=== PATIENT | male | born 1935 | race Caucasian/White ===

== ENCOUNTER 2016-12-04 18:06 | Inpatient (IN) | payer BC, OTHER ==
[~2016-12-04] VITALS: Ht 167.6 cm; Wt 56.8 kg
[~2016-12-04 18:06] MED LIST: CHOLTAB3 PO; CLTP PO; FESO8TAB PO; FLM4 PO; FOLI1TAB7 PO; LISI20TA3 PO; PSYL55.43; SIMV10TA2 PO
[2016-12-04] MEDS ORDERED: SODIUM CHLORIDE 0.9% 1000ML 1,000 ML IV STA (18:19)
--- NOTE | 2016-12-04 18:35 | DIAGNOSTIC IMAGING REPORT ---
CHEST ONE VIEW PORTABLE CLINICAL HISTORY: Weakness COMPARISON STUDY: 10/09/2014 FINDINGS: The cardiac and mediastinal contours remain stable. There is no failure. There is no focal pulmonary consolidation. There are no pleural effusions.[ IMPRESSION: No active disease in the chest. Electronically signed by: Lonny Bowden M.D. 12/04/2016 6:34 PM Dictated Date/Time: 12/04/2016 6:33 PM
[2016-12-04 19:04] LABS: BASO % 0.1 %; BASO ABS # 0.01 K/uL (0-0.2); COMPLETE YES; HEMATOCRIT 29.7 % (42-52); IG% 0.5 %; LYMPH % 11.2 %; LYMPH ABS # 0.93 K/uL (1.2-3.4); MEAN CELL VOLUME 90.5 fL (80-100); MEAN CORPUSCULAR HEMOGLOBIN 31.1 pg (25-34); MEAN CORPUSCULAR HGB CONC 34.3 g/dl (32-36); MEAN PLATELET VOLUME 10.1 fL (7.4-10.4); MONO % 11.8 %; NEUT % 76.4 %; PLATELET COUNT 403 K/uL (130-400); RED BLOOD COUNT 3.28 M/uL (4.7-6.1); WHITE BLOOD COUNT 8.31 K/uL (4.8-10.8)
[2016-12-04 19:11] LABS: URINE APPEARANCE CLEAR (CLEAR); URINE BILIRUBIN NEG (NEG); URINE COLOR YELLOW; URINE NITRITE NEG (NEG); URINE SPECIFIC GRAVITY 1.012 (1.000-1.030); UROBILINOGEN NEG (NEG)
[2016-12-04 19:13] LABS: PARTIAL THROMBOPLASTIN RATIO 1.1; PROTHROMBIN TIME (PATIENT) 11.2 SECONDS (9.0-12.0)
[2016-12-04] MEDS ORDERED: TAMS0.4C38 PO (19:19)
[2016-12-04] MEDS ORDERED: PLQ200 PO (19:22)
[2016-12-04] MEDS ORDERED: CHOL2000 PO (19:22)
[2016-12-04] MEDS ORDERED: FERR1TAB13 PO (19:22)
[2016-12-04] MEDS ORDERED: AMOX250C3 PO (19:22)
[2016-12-04 19:23] LABS: ALT/SGPT 30 U/L (12-78); BLOOD UREA NITROGEN 18 mg/dl (7-18); BUN/CREATININE RATIO 12.7 (10-20); CALCIUM 8.5 mg/dl (8.5-10.1); CARBON DIOXIDE 22 mmol/L (21-32); CHLORIDE 108 mmol/L (98-107); GLUCOSE 109 mg/dl (70-99); POTASSIUM 4.2 mmol/L (3.5-5.1); SODIUM 143 mmol/L (136-145)
[2016-12-04 19:34] LABS: ALKALINE PHOSPHATASE 69 U/L (45-117); AST/SGOT 26 U/L (15-37); CKMB/CK RATIO 1.1 (0-3.0)
[2016-12-04 19:42] LABS: MANUAL MICROSCOPIC REQUIRED? NO; REVIEW REQ? NO
[2016-12-04] MEDS ORDERED: METOPROLOL TARTRATE 1 MG/ML VIAL IV STA (20:08)
[2016-12-04] MEDS ORDERED: HEPARIN 25000 UNIT/500 ML D5W ONE (20:25)
[2016-12-04] MEDS ORDERED: METOPROLOL TARTRATE 50 MG TAB PO STA (21:10)
[2016-12-04] MEDS ORDERED: TAMSULOSIN HCL 0.4 MG CAP PO STA (21:13)
[2016-12-04] MEDS ORDERED: LORAZEPAM 2 MG/ML 1 ML VIAL IV PRN ×2 (21:15)
[2016-12-04] MEDS ORDERED: ALUMINUM/MAGNESIUM/SIMETH (MAALOX MAX) 30 ML UDC PO PRN (21:15)
[2016-12-04] MEDS ORDERED: BISACODYL 10 MG SUPP PR PRN (21:15)
[2016-12-04] MEDS ORDERED: ZOLPIDEM TARTRATE 5 MG TAB PO PRN ×2 (21:15)
[2016-12-04] MEDS ORDERED: METOPROLOL TARTRATE 1 MG/ML VIAL IV PRN (21:15)
[2016-12-04] MEDS ORDERED: ONDANSETRON INJ 2 MG/ML 2 ML VIAL IV PRN (21:15)
[2016-12-04] MEDS ORDERED: ACETAMINOPHEN 325 MG TAB PO PRN ×2 (21:15)
[2016-12-04] MEDS ORDERED: PROMETHAZINE HCL INJ 12.5 MG in SODIUM CHLORIDE 0.9% 50ML 50 ML IV PRN (21:15)
[2016-12-04] MEDS ORDERED: MAGNESIUM HYDROXIDE SUSP 30 ML UDC PO PRN (21:15)
[2016-12-04] MEDS ORDERED: MoRPHine SULFATE 4 MG/ML 1 ML CARP\\VIAL IV PRN (21:15)
[2016-12-04] MEDS ORDERED: NITROGLYCERIN 0.4 MG SL PER TAB CHARGE SL PRN (21:15)
[2016-12-04] MEDS ORDERED: DiphenhydrAMINE HCL 50 MG/ML VIAL IV PRN (21:15)
[2016-12-04] MEDS ORDERED: MoRPHine SULFATE 2 MG/ML CARP IV PRN (21:15)
[2016-12-04] MEDS ORDERED: LEVALBUTEROL 1.25MG/0.5ML NEB INH PRN (21:30)
[2016-12-04] MEDS ORDERED: IPRATROPIUM BROMIDE NEB SOLN 0.02% 2.5 ML VIAL INH PRN (21:30)
[2016-12-04] MEDS ORDERED: HEPARIN 25,000 UNIT/500ML D5W 500 ML IV PRN (21:45)
[2016-12-04 21:54] LABS: CKMB/CK RATIO 1.1 (0-3.0)
[2016-12-04 22:29] VITALS: BP 148/86; PULSE 77; TEMP 36.9; O2SAT 100
[2016-12-04] MEDS ORDERED: CEFTRIAXONE SOD INJ 1 GM in DEXTROSE 5% ADD-VANTAGE 50ML 50 ML IV SCH (22:30)
[2016-12-04 22:31] VITALS: Ht 167.6 cm; Wt 56.8 kg
[2016-12-04] MEDS: METHYLPREDNISOLONE IV 20 MG in SYRINGE 0 ML IV SCH (22:56)
[2016-12-04] MEDS ORDERED: LEVOFLOXACIN / D5W 500 MG in PREMIXED IN D5W 100 ML IV SCH (23:00)
[2016-12-04 23:21] VITALS: BP 134/76; PULSE 96; TEMP 36.9; O2SAT 99
[2016-12-05] VITALS (8 sets, daily range): BP systolic 129–141; BP diastolic 61–77; PULSE 66–86; TEMP 36.6–36.8; O2SAT 95–99
[2016-12-05] MEDS: IPRATROPIUM BROMIDE NEB SOLN 0.02% 2.5 ML VIAL INH SCH ×2 (01:52→07:09)
[2016-12-05] MEDS: LEVALBUTEROL 1.25MG/0.5ML NEB INH SCH ×2 (01:52→07:09)
--- NOTE | 2016-12-05 02:50 | EMERGENCY ROOM VISIT NOTE ---
History Report prepared by Shira: Isela Plunkett Under the Supervision of: Dr. Dominick Bowman M.D. 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 The patient states that both he and his have been having an ongoing cough the last few weeks. He states that he was seen by his PCP a few days ago but did not receive any prescriptions but was told to take some over the counter cold medication. He states that he has been coughing up mucous with his cough and felt increased weakness today causing him to come to be evaluated in the ED. He states he also experienced a subjective fever, some heart palpitations and SOB with exertion earlier this morning. EMS found the patient to be in atrial fibrillation but the patient has no history of this. Pt denies LOC, headache, diaphoresis, visual changes, neck pain, chest pain, nausea, vomiting, abdominal pain, back pain, melena, hematochezia, urinary symptoms, numbness, weakness, lymphadenopathy, rash, or other complaints. 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 A total of ten systems were reviewed and were otherwise negative. Past Medical & Surgical Medical Problems: (1) Atrial fibrillation with RVR (2) Prostate CA Surgical Problems: (1) S/P appendectomy (2) S/P small bowel resection Family History No pertient family history secondary to age. Social History Smoking Status: Never Smoker Marital Status: Housing Status: lives with significant other Occupation Status: retired Current/Historical Medications Scheduled Amoxicillin (Amoxil), 1 CAP PO TID Cholecalciferol (Vitamin D3), 1 CAP PO DAILY Ferrous Sulfate (Kp Ferrous Sulfate), 1 TAB PO BID Hydroxychloroquine Sulfate (Hydroxychloroquine Sulfat), 200 MG PO BID Lisinopril (Prinivil), 30 MG PO DAILY Simvastatin (Zocor), 10 MG PO QPM Tamsulosin Hcl (Flomax), 0.4 MG PO BID Allergies Coded Allergies: BEE STING (Unverified Allergy, Unknown, SWELLING AT SITE, 12/04/16) Physical Exam Vital Signs Date Time Temp Pulse Resp B/P Pulse Ox O2 Delivery O2 Flow Rate FiO2 12/04/16 20:38 108 18 174/103 97 Room Air 12/04/16 20:08 108 161/85 12/04/16 18:32 97 Nasal Cannula 2.0 12/04/16 18:17 116 12/04/16 18:14 36.7 113 18 154/80 97 Room Air 12/04/16 18:10 97 Nasal Cannula 2.0 Physical Exam GENERAL: Awake, alert, well-appearing, in no distress HENT: Normocephalic, atraumatic. Oropharynx unremarkable. EYES: Normal conjunctiva. Sclera non-icteric. NECK: Supple. No nuchal rigidity. FROM. No JVD. RESPIRATORY: Clear to auscultation. CARDIAC: Irregular and tachycardic. Extremities warm and well perfused. Pulses equal. ABDOMEN: Soft, non-distended. No tenderness to palpation. No rebound or guarding. No masses. RECTAL: Deferred. MUSCULOSKELETAL: Chest examination reveals no tenderness. The back is symmetrical on inspection without obvious abnormality. There is no CVA tenderness to palpation. No joint edema. LOWER EXTREMITIES: Calves are equal size bilaterally and non-tender. No edema. No discoloration. NEURO: Normal sensorium. No sensory or motor deficits noted. SKIN: No rash or jaundice noted. Medical Decision & Procedures ER Provider Diagnostic Interpretation: X-ray: Per my interpretation, radiologist review. CHEST ONE VIEW PORTABLE CLINICAL HISTORY: Weakness COMPARISON STUDY: 10/09/2014 FINDINGS: The cardiac and mediastinal contours remain stable. There is no failure. There is no focal pulmonary consolidation. There are no pleural effusions.[ IMPRESSION: No active disease in the chest. Electronically signed by: Lonny Bowden M.D. 12/04/2016 6:34 PM Dictated Date/Time: 12/04/2016 6:33 PM Laboratory Results 12/04/16 18:40 Red Blood Count 3.28, Mean Corpuscular Volume 90.5, Mean Corpuscular Hemoglobin 31.1, Mean Corpuscular Hemoglobin Concent 34.3, Mean Platelet Volume 10.1, Neutrophils (%) (Auto) 76.4, Lymphocytes (%) (Auto) 11.2, Monocytes (%) (Auto) 11.8, Eosinophils (%) (Auto) 0.0, Basophils (%) (Auto) 0.1, Neutrophils # (Auto ) 6.35, Lymphocytes # (Auto) 0.93, Monocytes # (Auto) 0.98, Eosinophils # (Auto ) 0.00, Basophils # (Auto) 0.01 12/04/16 18:40 Test 12/04/16 18:40 12/04/16 18:50 White Blood Count 8.31 K/uL (4.8-10.8) Red Blood Count 3.28 M/uL (4.7-6.1) Hemoglobin 10.2 g/dL (14.0-18.0) Hematocrit 29.7 % (42-52) Mean Corpuscular Volume 90.5 fL (80-100) Mean Corpuscular Hemoglobin 31.1 pg (25-34) Mean Corpuscular Hemoglobin Concent 34.3 g/dl (32-36) Platelet Count 403 K/uL (130-400) Mean Platelet Volume 10.1 fL (7.4-10.4) Neutrophils (%) (Auto) 76.4 % Lymphocytes (%) (Auto) 11.2 % Monocytes (%) (Auto) 11.8 % Eosinophils (%) (Auto) 0.0 % Basophils (%) (Auto) 0.1 % Neutrophils # (Auto) 6.35 K/uL (1.4-6.5) Lymphocytes # (Auto) 0.93 K/uL (1.2-3.4) Monocytes # (Auto) 0.98 K/uL (0.11-0.59) Eosinophils # (Auto) 0.00 K/uL (0-0.5) Basophils # (Auto) 0.01 K/uL (0-0.2) RDW Standard Deviation 39.7 fL (36.4-46.3) RDW Coefficient of Variation 12.0 % (11.5-14.5) Immature Granulocyte % (Auto) 0.5 % Immature Granulocyte # (Auto) 0.04 K/uL (0.00-0.02) Prothrombin Time 11.2 SECONDS (9.0-12.0) Prothromb Time International Ratio 1.0 (0.9-1.1) Anion Gap 13.0 mmol/L (3-11) Est Creatinine Clear Calc Drug Dose 33.9 ml/min Estimated GFR () 53.5 Estimated GFR (Non- 46.1 BUN/Creatinine Ratio 12.7 (10-20) Calcium Level 8.5 mg/dl (8.5-10.1) Magnesium Level 2.0 mg/dl (1.8-2.4) Total Bilirubin 0.4 mg/dl (0.2-1) Direct Bilirubin 0.2 mg/dl (0-0.2) Aspartate Amino Transf (AST/SGOT) 26 U/L (15-37) Alanine Aminotransferase (ALT/SGPT) 30 U/L (12-78) Alkaline Phosphatase 69 U/L (45-117) Total Protein 7.4 gm/dl (6.4-8.2) Albumin 3.2 gm/dl (3.4-5.0) Thyroid Stimulating Hormone (TSH) 1.040 uIu/ml (0.300-4.500) Urine Color YELLOW Urine Appearance CLEAR (CLEAR) Urine pH 7.0 (4.5-7.5) Urine Specific [place] 1.012 (1.000-1.030) Urine Protein NEG (NEG) Urine Glucose (UA) NEG (NEG) Urine Ketones NEG (NEG) Urine Occult Blood NEG (NEG) Urine Nitrite NEG (NEG) Urine Bilirubin NEG (NEG) Urine Urobilinogen NEG (NEG) Urine Leukocyte Esterase NEG (NEG) Laboratory results reviewed by me Medications Administered Medications (Trade) Dose Ordered Sig/Zeke Route Start Time Stop Time Status Last Admin Dose Admin Sodium Chloride (Nss 1000ml) 1,000 ml @ 125 mls/hr Q8H STAT IV 12/04/16 18:19 12/04/16 22:22 DC 12/04/16 18:19 125 MLS/HR Metoprolol Tartrate (Lopressor Iv) 5 mg NOW STAT IV 12/04/16 20:08 12/04/16 20:10 DC 12/04/16 20:08 5 MG Heparin Sodium/ Dextrose 1 ea NOW STAT N/A 12/04/16 20:09 12/04/16 20:11 DC 12/04/16 20:09 1 EA Heparin Sodium/ Dextrose (Heparin 25,000 Unit/500ml D5W) 25,000 unit STK-MED ONCE .ROUTE 12/04/16 20:25 12/04/16 20:26 DC 12/04/16 20:25 25,000 UNIT ECG Indication: other (cough) Rate (beats per minute): 105 Rhythm: atrial fibrillation (with RVR) Findings: no acute ischemic change, no ectopy ED Course 1817: The patient was evaluated in room B4B. A complete history and physical exam was performed. 1818: Ordered Sodium Chloride 1,000 ml @ 125 mls/hr IV. 2006:I discussed the case with Dr. Larry ERWIN Hospitalist. He agreed to evaluate the patient for further management and care. 2007: Ordered Heparin Sodium/ Dextrose 1 ea IV, Lopressor IV 5 mg IV. 2009: I updated the patient regarding his admission. Medical Decision Triage Nursing notes reviewed. The patient's presentation and history were concerning for weakness, shortness of breath, and new onset atrial fibrillation. Etiologies such as metabolic, infection, hypo/hyperglycemia, electrolyte abnormalities, cardiac sources, intracerebral event, toxicologic, neurologic, as well as others were entertained. The patient was evaluated. IV fluids were initiated. Chest x-ray was performed. ECG revealed new-onset A. fib without ischemic change. The rate was Borderline tachycardic. The patient had mild anemia on CBC. Urinalysis was unremarkable. Chemistry panel, cardiac markers, TSH and magnesium were normal. The patient was reassessed. He was doing well. The patient was given a dose of metoprolol. I did consult with internal medicine because of the new onset A. fib. He has likely been in this for several days. Dr. Tomer Juarez did ask for the patient be started on heparin. This was done. The patient was evaluated in the Emergency Room by Dr. Tomer Juarez for further treatment. The chart was completed utilizing [employer] voice recognition software. Grammatical errors, random word insertions, pronoun errors, and incomplete sentences are an occasional consequence of this system due to software limitations, ambient noise, and hardware issues. Any formal questions or concerns about the content, text, or information contained within the body of this dictation should be directly addressed to the physician for clarification. Consults Time Called: 2005 Consulting Physician: Dr. Larry ERWIN Hospitalist Returned Call: 2006 I discussed the case with Dr. Larry ERWIN Hospitalist. He agreed to evaluate the patient for further management and care. Impression Primary Impression: New onset atrial fibrillation Additional Impressions: Weakness Shortness of breath Scribe Attestation The scribe's documentation has been prepared under my direction and personally reviewed by me in its entirety. I confirm that the note above accurately reflects all work, treatment, procedures, and medical decision making performed by me. Departure Information Dispostion Being Evaluated By Hospitalist Referrals Blaze Cintron M.D. (PCP) Problem Qualifiers
[2016-12-05] MEDS ORDERED: LEVALBUTEROL/IPRATROPIUM NEB INH SCH (03:00)
--- NOTE | 2016-12-05 03:45 | History and Physical ---
History & Physical Date & Time of Service: Dec 05, 2016 at 03:32 Chief Complaint: Atrial Fibrillation With Rvr Primary Care Physician: Blaze Cintron M.D. History of Present Illness Source: patient, family, spouse The patient is an 81-year-old male presents emergency Department via ALS with complaint of an intermittent worsening cough over the past week prior to arrival. He was seen by his PCP a few days ago, was not giving any prescription medications, but was told takes no [id number] cold medication. His cough is been intermittently productive, and because of worsening weakness today he presented emergency department for assessment. He' s had palpitations and shortness of breath with exertion since earlier in the morning. When EMS first assessed the patient be found him to be in atrial fibrillation, which is a new diagnosis for the patient. Past Medical/Surgical History Medical Problems: (1) Prostate CA Status: Resolved Surgical Problems: (1) S/P appendectomy Status: Resolved (2) S/P small bowel resection Status: Resolved Family History No pertient family history secondary to age. Social History Smoking Status: Never Smoker Smokeless Tobacco Use: No Alcohol Use: none Drug Use: none Marital Status: Housing status: lives with family Occupational Status: retired Immunizations History of Influenza Vaccine: Yes History of Tetanus Vaccine?: Yes History of Pneumococcal: Yes Pneumococcal Date: Feb 07, 2008 History of Hepatitis B Vaccine: No Multi-Drug Resistant Organisms History of MDRO: No Allergies Coded Allergies: BEE STING (Unverified Allergy, Unknown, SWELLING AT SITE, 12/04/16) Home Medications Scheduled Amoxicillin (Amoxil), 1 CAP PO TID Cholecalciferol (Vitamin D3), 1 CAP PO DAILY Ferrous Sulfate (Kp Ferrous Sulfate), 1 TAB PO BID Hydroxychloroquine Sulfate (Hydroxychloroquine Sulfat), 200 MG PO BID Lisinopril (Prinivil), 30 MG PO DAILY Simvastatin (Zocor), 10 MG PO QPM Tamsulosin Hcl (Flomax), 0.4 MG PO BID Review of Systems The patient denies lower extremity swelling, vision change, hearing change, sore throat, fevers, chills, sweats, weight change, nausea, vomiting, abdominal pain, pelvic pain, blood in urine or stool, dysuria, lightheadedness, dizziness , headache, memory loss, rash, abnormal bruising or bleeding, imbalance, focal weakness, numbness or tingling in arms or legs, arthralgias or myalgias, back or neck pain, night sweats. The review of systems is otherwise negative other than for that already noted above, and at least 10 systems have been reviewed. Physical Exam Vital Signs Date Time Temp Pulse Resp B/P Pulse Ox O2 Delivery O2 Flow Rate FiO2 12/05/16 01:53 84 18 Room Air 12/05/16 00:00 99 Room Air 12/04/16 23:21 36.9 96 17 134/76 99 Room Air 12/04/16 22:29 36.9 77 16 148/86 100 Room Air 12/04/16 21:37 84 18 168/96 97 Room Air 12/04/16 20:38 108 18 174/103 97 Room Air 12/04/16 20:08 108 161/85 12/04/16 18:32 97 Nasal Cannula 2.0 12/04/16 18:17 116 12/04/16 18:14 36.7 113 18 154/80 97 Room Air 12/04/16 18:10 97 Nasal Cannula 2.0 The patient is awake, well-developed and adequately nourished, alert and oriented 3, normocephalic and atraumatic, lying in bed and in no acute distress. HEENT--PERRL, EOMI, mucous membranes moist, and oropharynx normal. Neck--supple, no JVD or bruits, thyroid normal, trachea midline, no adenopathy. Heart--- irregularly irregular and mildly tachycardic, no murmurs, rubs or gallops. Lungs--decreased breath sounds at left base that improves with cough, no respiratory distress, no accessory muscle use. Abdomen--normal bowel sounds and soft, nontender and nondistended, no hernias or masses, no organomegaly. Extremities--no cyanosis, clubbing or edema. There are good distal pulses b/l. Dermatologic--normal skin turgor, normal color, warm and dry, no abnormal lymph nodes, no rash. Neurologic--cranial nerves II through XII grossly intact, motor and sensory examination normal. Rheumatologic--normal range of motion, nontender, muscles and joints. Psychiatric--normal affect. Diagnostics Laboratory Results Results Past 24 Hours Test 12/04/16 18:40 12/04/16 18:50 12/04/16 21:20 12/05/16 02:34 Range/Units White Blood Count 8.31 4.8-10.8 K/uL Red Blood Count 3.28 4.7-6.1 M/uL Hemoglobin 10.2 14.0-18.0 g/dL Hematocrit 29.7 42-52 % Mean Corpuscular Volume 90.5 80-100 fL Mean Corpuscular Hemoglobin 31.1 25-34 pg Mean Corpuscular Hemoglobin Concent 34.3 32-36 g/dl Platelet Count 403 130-400 K/uL Mean Platelet Volume 10.1 7.4-10.4 fL Neutrophils (%) (Auto) 76.4 % Lymphocytes (%) (Auto) 11.2 % Monocytes (%) (Auto) 11.8 % Eosinophils (%) (Auto) 0.0 % Basophils (%) (Auto) 0.1 % Neutrophils # (Auto) 6.35 1.4-6.5 K/uL Lymphocytes # (Auto) 0.93 1.2-3.4 K/uL Monocytes # (Auto) 0.98 0.11-0.59 K/uL Eosinophils # (Auto) 0.00 0-0.5 K/uL Basophils # (Auto) 0.01 0-0.2 K/uL RDW Standard Deviation 39.7 36.4-46.3 fL RDW Coefficient of Variation 12.0 11.5-14.5 % Immature Granulocyte % (Auto) 0.5 % Immature Granulocyte # (Auto) 0.04 0.00-0.02 K/uL Prothrombin Time 11.2 9.0-12.0 SECONDS Prothromb Time International Ratio 1.0 0.9-1.1 Activated Partial Thromboplast Time 28.9 51.9 21.0-31.0 SECONDS Partial Thromboplastin Ratio 1.1 2.0 Sodium Level 143 136-145 mmol/L Potassium Level 4.2 3.5-5.1 mmol/L Chloride Level 108 98-107 mmol/L Carbon Dioxide Level 22 21-32 mmol/L Anion Gap 13.0 3-11 mmol/L Blood Urea Nitrogen 18 7-18 mg/dl Creatinine 1.40 0.60-1.40 mg/dl Est Creatinine Clear Calc Drug Dose 33.9 ml/min Estimated GFR () 53.5 Estimated GFR (Non- 46.1 BUN/Creatinine Ratio 12.7 10-20 Random Glucose 109 70-99 mg/dl Calcium Level 8.5 8.5-10.1 mg/dl Magnesium Level 2.0 1.8-2.4 mg/dl Total Bilirubin 0.4 0.2-1 mg/dl Direct Bilirubin 0.2 0-0.2 mg/dl Aspartate Amino Transf (AST/SGOT) 26 15-37 U/L Alanine Aminotransferase (ALT/SGPT) 30 12-78 U/L Alkaline Phosphatase 69 45-117 U/L Total Creatine Kinase 74 89 39-308 U/L Creatine Kinase MB 0.8 1.0 0.5-3.6 ng/ml Creatine Kinase MB Ratio 1.1 1.1 0-3.0 Troponin I < 0.015 < 0.015 0-0.045 ng/ml Total Protein 7.4 6.4-8.2 gm/dl Albumin 3.2 3.4-5.0 gm/dl Thyroid Stimulating Hormone (TSH) 1.040 0.300-4.500 uIu/ml Urine Color YELLOW Urine Appearance CLEAR CLEAR Urine pH 7.0 4.5-7.5 Urine Specific [place] 1.012 1.000-1.030 Urine Protein NEG NEG Urine Glucose (UA) NEG NEG Urine Ketones NEG NEG Urine Occult Blood NEG NEG Urine Nitrite NEG NEG Urine Bilirubin NEG NEG Urine Urobilinogen NEG NEG Urine Leukocyte Esterase NEG NEG Microbiology Results 12/04/16 Blood Culture, Received Pending 12/04/16 Blood Culture, Received Pending Diagnostic Radiology Patient Name: JONATHAN CADENA Unit Number: [id number] Dictated: 12/04/161832 Transcribed: 12/04/161832 ARG Printed Date/Time: [~ rep prt dt]/[~ rep prt tm] [~ rep ct labl] - [~ rep ct ivnm] [facility] [place] [address] Dictated: 12/04/161832 Transcribed: 12/04/161832 ARG Printed Date/Time: [~ rep prt dt]/[~ rep prt tm] [~ rep ct labl] - [~ rep ct ivnm] CHEST ONE VIEW PORTABLE CLINICAL HISTORY: Weakness COMPARISON STUDY: 10/09/2014 FINDINGS: The cardiac and mediastinal contours remain stable. There is no failure. There is no focal pulmonary consolidation. There are no pleural effusions.[ IMPRESSION: No active disease in the chest. Electronically signed by: Lonny Bowden M.D. 12/04/2016 6:34 PM Dictated Date/Time: 12/04/2016 6:33 PM The status of this report is Signed. Draft = Not yet reviewed or approved by Radiologist. Signed = Reviewed and approved by Radiologist. <AttendingPhy></AttendingPhy> <FamilyPhy>Blaze Cintron M.D.</FamilyPhy > <PrimaryPhy>Blaze Cintron M.D.</PrimaryPhy> <UnitNumber>[id number]</ UnitNumber> <VisitNumber>[id number]</VisitNumber> <PatientName>JONATHAN CADENA< /PatientName> <DateOfBirth>1935</DateOfBirth> <Location>C.EDB</Location> < ServiceDate>12/04/16</ServiceDate> <MNE>ESINDI</MNE> <OrderingPhy>Dominick Bowman MD</OrderingPhy> <OrderingPhyMNE>f rep ord dr claire</OrderingPhyMNE> < DictatingPhyMNE>f rep dict dr claire</DictatingPhyMNE> <CCListMNE>f rep ct [place]</ CCListMNE> <AdmittingPhyMNE>f pt admit dr claire</AdmittingPhyMNE> <AttendingPhyMNE >f pt attend dr claire</AttendingPhyMNE> <ConsultingPhyMNE>f pt consult dr claire</ConsultingPhyMNE> <FamilyPhyMNE>f pt fam dr claire</FamilyPhyMNE> <OtherPhyMNE>f pt other dr claire</OtherPhyMNE> < PrimaryPhyMNE>f pt prim care dr claire</PrimaryPhyMNE> <ReferringPhyMNE>f pt referring dr claire</ReferringPhyMNE> EKG EKG shows atrial fibrillation at 105 bpm, with no acute ST-T changes. Impression Assessment and Plan New onset atrial fibrillation with rapid ventricular response--the patient be admitted to the telemetry unit for serial cardiac enzymes, cardiac rhythm monitoring, and a 2-D echocardiogram with Dopplers. We'll give him metoprolol tartrate 50 mg by mouth now, and 50 mg by mouth every 8 hours with hold parameters. We'll start heparin drip weight-based per protocol without bolus. We'll consult cardiology to see patient in a.m. this is likely the cause of his fatigue. We will hold lisinopril 30 mg by mouth daily. Prostate cancer/urinary urgency--urinalysis and urine cultures pending will need follow-up. We'll change tamsulosin 0.4 mg by mouth twice a day to 0.8 mg by mouth at bedtime, with first dose tonight. Upper respiratory infection/early left lower lobe pneumonia--start Solu-Medrol 20 mg IV every 8 hours, ceftriaxone 1 g IV daily, levofloxacin 500 mg IV every 24 hours, guaifenesin extended release 600 mg by mouth twice a day, and Xopenex at that for nebulizers every 6 hours while awake and every 2 hours when necessary. Arthritis--continue hydroxychloroquine sulfate 200 mg by mouth twice a day. Hypercholesterolemia--continue simvastatin 10 mg by mouth every afternoon. Level of Care Telemetry Advanced Directives Existing Advance Directive: No Existing Living Will: No Existing Power of Architectural Draftsman: No Resuscitation Status FULL RESUSCITATION VTE Prophylaxis VTE Risk Assessment Done? Y/N: Yes Risk Level: Moderate Given or contraindicated: Unfractionated heparin SQ Social Service Consult None Apply
[2016-12-05 05:09] LABS: HEMATOCRIT 29.7 % (42-52); MEAN CELL VOLUME 90.5 fL (80-100); MEAN CORPUSCULAR HEMOGLOBIN 31.1 pg (25-34); MEAN CORPUSCULAR HGB CONC 34.3 g/dl (32-36); MEAN PLATELET VOLUME 9.8 fL (7.4-10.4); PLATELET COUNT 406 K/uL (130-400); RED BLOOD COUNT 3.28 M/uL (4.7-6.1); WHITE BLOOD COUNT 7.82 K/uL (4.8-10.8)
[2016-12-05 05:31] LABS: BASO % 0.1 %; BASO ABS # 0.01 K/uL (0-0.2); COMPLETE YES; IG% 0.6 %; LYMPH % 11.9 %; LYMPH ABS # 0.93 K/uL (1.2-3.4); MONO % 2.6 %; NEUT % 84.8 %
[2016-12-05 05:38] LABS: BLOOD UREA NITROGEN 17 mg/dl (7-18); CALCIUM 8.6 mg/dl (8.5-10.1); CARBON DIOXIDE 26 mmol/L (21-32); CHLORIDE 108 mmol/L (98-107); GLUCOSE 144 mg/dl (70-99); POTASSIUM 4.3 mmol/L (3.5-5.1); SODIUM 141 mmol/L (136-145)
[2016-12-05] MEDS: METHYLPREDNISOLONE IV 20 MG in SYRINGE 0 ML IV SCH (05:42)
[2016-12-05 05:43] LABS: CKMB/CK RATIO 1.8 (0-3.0)
[2016-12-05] MEDS ORDERED: METOPROLOL TARTRATE 50 MG TAB PO SCH ×2 (06:00→20:00)
[2016-12-05] MEDS ORDERED: PERFLUTREN LIPID MICROSPHERE (DEFINITY) IV ONE (07:07)
[2016-12-05] MEDS ORDERED: FERROUS SULFATE 325 MG TAB PO SCH (07:30)
[2016-12-05] MEDS ORDERED: GUAIFENESIN SUGAR FREE 200 MG/10 ML UDC PO PRN (08:15)
[2016-12-05] MEDS ORDERED: CHOLECALCIFEROL 1000 INTER.UNIT TAB PO SCH (09:00)
[2016-12-05] MEDS ORDERED: HYDROXYCHLOROQUINE SULFATE 200 MG TAB PO SCH (09:00)
[2016-12-05] MEDS ORDERED: GUAIFENESIN 600 MG TABCR PO SCH (09:00)
[2016-12-05] MEDS ORDERED: DOCUSATE SODIUM 100 MG CAP PO SCH (09:00)
--- NOTE | 2016-12-05 10:31 | ECHOCARDIOGRAM REPORT ---
*NOTICE TO RECEIVING [employer] This information is strictly Confidential and protected under [place] law. [place] law prohibits you from making any further disclosure of this information unless further disclosure is expressly permitted by the written consent of the person to whom it pertains or is authorized by law. A general authorization for the release of medical or other information is not sufficient for this purpose. Hospital accepts no responsibility if the information is made available to any other person, INCLUDING THE PATIENT. Interpretation Summary * Name: JONATHAN CADENA Study Date: 12/05/2016 06:37 AM BP: 141/71 mmHg * Patient Location: C.2T\S\S244\S\1 HR: 66 * : 1935 (M/d/yyyy) Gender: Male Height: 66 in * Age: 81 yrs Ethnicity: CA Weight: 132 lb * Ordering Physician: Tomer Juarez * Referring Physician: Self, Referred * Performed By: Robyn Barrera RDCS * * Reason For Study: AFIB * BSA: 1.7 m2 * History: AFIB * -- Conclusions -- * 1. Normal left ventricular size with low normal systolic function. EF 50-55%. No regional wall motion abnormalities. No left ventricular hypertrophy. * 2. There is mild to moderate mitral regurgitation. * 3. Aortic valve sclerosis mild, without significant aortic valvular stenosis. Trace aortic regurgitation. * 4. Rhythm is sinus. * 5. Normal estimated right ventricular systolic pressure; RVSP 24 mmHg. * 6. Technically difficult study, enhanced with IV Definity. * 7. Compared to prior study on 07/21/2011, LV systolic function is now low-normal. Procedure Details * A complete two-dimensional transthoracic echocardiogram was performed (2D, M-mode, Doppler and color flow Doppler). * A contrast injection of Definity was performed to improve assessment of LV function. * Contrast was injected into an intravenous site in the left arm. * One vial of Definity ultrasound contrast was diluted in normal saline to a total volume of 10 ml. A total of '2' ml of solution was administered during imaging. * Lot # [id number] of Definity utilized for procedure. * Expiration date OCT 23. * The attending nurse who injected the contrast agent was RANDAL FORD RN. Left Ventricle * Normal left ventricular size with low normal systolic function. EF 50-55%. No regional wall motion abnormalities. No left ventricular hypertrophy. Right Ventricle * The right ventricle is normal in size and function. * The right ventricular systolic function is normal as assessed by tricuspid annular plane systolic excursion (TAPSE) (normal >1.5 cm). Atria * The left atrial size is normal. * Right atrial size is normal. * There is no evidence of atrial septal defect, but resolution does not allow assessment for a patent foramen ovale. Mitral Valve * The mitral valve is grossly normal. * There is no mitral valve stenosis. * There is mild to moderate mitral regurgitation. Tricuspid Valve * The tricuspid valve is not well visualized, but is grossly normal. * There is no tricuspid stenosis. * There is mild tricuspid regurgitation. Aortic Valve * The aortic valve is trileaflet. * Aortic valve sclerosis mild, without significant aortic valvular stenosis. * No hemodynamically significant valvular aortic stenosis. * Trace aortic regurgitation. Pulmonic Valve * The pulmonary valve is inadequately visualized, but the Doppler data is adequate for interpretation. * There is no pulmonic valvular stenosis. * There is no significant pulmonary regurgitation. Great Vessels * The aortic root is normal size. * Normal pulmonary venous flow pattern. Pericardium/Pleural * There is no pericardial effusion. Great Vessels * Normal IVC size with reduced inspiratory collapse. MMode 2D Measurements and Calculations IVSd 0.85 cm IVSs 1.0 cm LVIDd 4.4 cm LVIDs 3.3 cm LVPWd 0.96 cm LVPWs 1.4 cm IVS/LVPW 0.88 FS 25.8 % EDV(Teich) 89.3 ml ESV(Teich) 43.7 ml EF(Teich) 51.0 % EDV(cubed) 87.1 ml ESV(cubed) 35.5 ml EF(cubed) 59.2 % % IVS thick 22.3 % % LVPW thick 41.9 % LV mass(C)d 131.1 grams LV mass(C)dI 78.2 grams/m\S\2 LV mass(C)s 124.9 grams LV mass(C)sI 74.5 grams/m\S\2 SV(Teich) 45.5 ml SI(Teich) 27.1 ml/m\S\2 SV(cubed) 51.6 ml SI(cubed) 30.8 ml/m\S\2 Ao root diam 3.5 cm Ao root area 9.5 cm\S\2 LA dimension 3.8 cm LA/Ao 1.1 LVAd ap4 27.6 cm\S\2 LVLd ap4 7.8 cm EDV(MOD-sp4) 78.7 ml EDV(sp4-el) 83.0 ml LVAs ap4 17.3 cm\S\2 LVLs ap4 6.4 cm ESV(MOD-sp4) 39.7 ml ESV(sp4-el) 39.6 ml EF(MOD-sp4) 49.6 % EF(sp4-el) 52.3 % LVAd ap2 27.2 cm\S\2 LVLd ap2 7.4 cm EDV(MOD-sp2) 81.5 ml EDV(sp2-el) 85.4 ml LVAs ap2 15.4 cm\S\2 LVLs ap2 6.0 cm ESV(MOD-sp2) 33.6 ml ESV(sp2-el) 33.2 ml EF(MOD-sp2) 58.7 % EF(sp2-el) 61.1 % LVLd %diff -6.12 % EDV(MOD-bp) 80.9 ml LVLs %diff -6.40 % ESV(MOD-bp) 36.8 ml EF(MOD-bp) 54.4 % SV(MOD-sp4) 39.0 ml SI(MOD-sp4) 23.3 ml/m\S\2 SV(MOD-sp2) 47.9 ml SI(MOD-sp2) 28.6 ml/m\S\2 SV(MOD-bp) 44.0 ml SI(MOD-bp) 26.2 ml/m\S\2 SV(sp4-el) 43.4 ml SI(sp4-el) 25.9 ml/m\S\2 SV(sp2-el) 52.2 ml SI(sp2-el) 31.1 ml/m\S\2 Doppler Measurements and Calculations MV E max bonnie 71.8 cm/sec MV A max bonnie 58.7 cm/sec MV E/A 1.2 MV dec time 0.24 sec Ao V2 max 112.2 cm/sec Ao max PG 5.0 mmHg Ao max PG (full) 2.3 mmHg LV V1 max PG 2.8 mmHg LV V1 max 83.4 cm/sec TR max bonnie 196.8 cm/sec RVSP(TR) 23.5 mmHg RAP systole 8.0 mmHg
--- NOTE | 2016-12-05 11:37 | CARDIOLOGY CONSULTATION ---
DATE OF CONSULTATION: 12/05/2016 TIME: 10:31 a.m. CONSULTING PHYSICIAN: Dr. Juarez. REASON FOR CONSULTATION: Atrial fibrillation with rapid ventricular response. HISTORY OF PRESENT ILLNESS: Mr. Quintero is a very pleasant 81-year-old gentleman with a history significant for hypertension who presented to [facility] on 12/04/2016 with worsening cough and decreased energy. His is recently with cough over the past 1 week. He had similar symptoms, coughing up sputum and overall feeling unwell. No documented fevers or chills, however. Yesterday because symptoms were worsening, he called for an ambulance and came to the Emergency Room for further evaluation. He has been placed on medication as an outpatient as well for his symptoms. In the Emergency Department, he was noted to be in atrial fibrillation with a rapid ventricular response and was placed on beta-altaf therapy as well as heparin drip for anticoagulation. He denied palpitations but states that once he was told that his heart rate was fast he thought that perhaps he could feel something. All in all; however, he was rather asymptomatic from his atrial fibrillation. At 5:45 a.m. he spontaneously converted to sinus rhythm. Just prior to that at 5:21 he developed atrial flutter with 2:1 AV block and then after converting to sinus rhythm at 6:28 a.m. he appeared to have an episode of atrial tachycardia that lasted approximately 1 minute before resuming sinus rhythm. He appeared to be asymptomatic for all of these issues. He still does not feel well despite being in sinus rhythm. He still coughs and has sputum production. He was unable to sleep throughout the night. He denies chest pain, shortness of breath, syncope, near syncope, orthopnea, PND, edema, bleeding such as melena, hematochezia, hematuria. He denies abdominal pain, nausea, vomiting. He lives an active lifestyle and denies exertional symptoms. REVIEW OF SYSTEMS: As above and other review of systems is otherwise negative. PAST MEDICAL HISTORY: 1. Hypertension. 2. Prostate cancer. 3. Status post small-bowel resection in the 1950s. 4. Status post appendectomy. 5. Status post dyslipidemia. 6. Carotid artery stenosis. 7. Prediabetes. 8. Osteoporosis. 9. Rheumatoid arthritis. HOME MEDICATIONS: Include 1. Amoxicillin 500 mg t.i.d. started on 11/29/2016. 2. Hydroxychloroquine 200 mg twice daily. 3. Lisinopril 30 mg daily. 4. Simvastatin 10 mg daily. 5. Tamsulosin 0.4 mg 2 capsules daily. INPATIENT MEDICATIONS: Include heparin drip per protocol, ceftriaxone 1 gram IV q. 24 hours, Plaquenil 200 mg b.i.d., levofloxacin 500 mg IV q. 24 hours, metoprolol tartrate 50 mg p.o. q. 12 hours, methylprednisolone 20 mg IV q. 8 hours, simvastatin 10 mg daily, Flomax 0.8 mg at bedtime. ALLERGIES: BEE STINGS. No known drug allergies. SOCIAL HISTORY: Quit smoking in 1950. No significant alcohol. No drugs. He is and lives with his . Six children. Grandchildren. 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 He is unaccompanied in his room. FAMILY HISTORY: No known premature CAD. PHYSICAL EXAMINATION: VITAL SIGNS: Temperature 36.8 degrees, heart rate 66 beats per minute, respiration rate 16, blood pressure 141/71 mmHg, oxygen saturation 99% on room air. Weight 56.8 kg. GENERAL: In no acute distress, alert and oriented. HEENT: Anicteric sclerae. NECK: No appreciable JVD. No significant carotid bruits. Normal carotid upstrokes bilaterally. CARDIAC EXAM: PMI nondisplaced. There was no ventricular heave. Regular, normal S1, S2. No audible murmurs, rubs or gallops. LUNGS: Clear to auscultation bilaterally without wheezes, rales or rhonchi. ABDOMEN: Soft, nontender, nondistended. Normoactive bowel sounds. EXTREMITIES: No cyanosis or pitting edema. 2+ radial pulses bilaterally. 2+ dorsalis pedis pulses bilaterally. No palpable cords. PSYCHIATRIC: Affect appears appropriate. LABORATORY DATA: Sodium 141, potassium 4.3, BUN 17, creatinine 1.4, magnesium 2. Troponin undetectable. TSH 1.04. White blood cell count 7.8, hemoglobin 10.2, platelets 406. INR was 1, PTT 52. ECG upon presentation personally reviewed demonstrated atrial fibrillation versus atrial flutter with rapid ventricular response at 105 beats per minute. Repeat ECG this morning demonstrated sinus rhythm at 60 beats per minute. Possible septal infarct. Telemetry personally reviewed as noted above. Chest x-ray image upon presentation personally reviewed. No obvious infiltrates. Radiology has interpreted this as no active disease in the chest. ASSESSMENT AND PLAN: 1. Paroxysmal atrial fibrillation/atrial flutter: This is a new diagnosis for him. He was rather asymptomatic. Agree with metoprolol 50 mg twice daily for now. This can be titrated if necessary. We discussed the diagnosis in detail with the help of a diagram. Treatment strategies were discussed such as rate control, rhythm control and ablation. If rate control strategy fails, would then consider rhythm control strategy. We also discussed anticoagulation for stroke risk reduction. He is agreeable. He does have an elevated CHADS2-VASc score. Can discharge on Eliquis 5 mg twice daily. We did discuss the newer agents versus warfarin. Risks and benefits of anticoagulation therapy discussed with them. 2. Mitral regurgitation: Not severe. This can be followed over time. 3. Hypertension: Metoprolol was recently started. Continue metoprolol and can restart lisinopril when okay with the hospitalist service. 4. Upper respiratory infection: Admitting physician is concerned for left lower lobe pneumonia. He has been started on antibiotic therapy as per primary service. He and his had similar symptoms, and although she has improved, he has not. He was on amoxicillin as an outpatient. 5. Disposition: No further cardiac evaluation necessary at this time as he is currently in sinus rhythm. If he should have recurrent atrial arrhythmias, please do not hesitate to notify cardiology. Otherwise, he can follow up in cardiology in the next few months. Our office will call him to help arrange his appointment in regards to follow up for atrial fibrillation/flutter. Plan of care was discussed with Dr. Cobian. Thank you for allowing me to participate in care of Mr. Quintero.
[2016-12-05] MEDS ORDERED: APIXABAN 2.5 MG TAB PO SCH (12:00)
[2016-12-05] MEDS ORDERED: LEVO-366 PO (12:05)
[2016-12-05] MEDS ORDERED: PRED20TA PO (12:05)
[2016-12-05] MEDS ORDERED: METO50TA17 PO (12:05)
[2016-12-05] MEDS ORDERED: ELQ25 PO (12:05)
--- NOTE | 2016-12-05 12:09 | Discharge Instructions ---
Discharge Instructions Admission Reason for Admission: Atrial Fibrillation With Rvr Discharge Discharge Diagnosis / Problem: afib, bronchitis Discharge Goals Goal(s): Increase independence, Improve disease control Activity Recommendations Activity Limitations: per Instructions/Follow-up section . Instructions / Follow-Up Instructions / Follow-Up . . start metoprolol, eliquis, levaquin tonight start prednisone tomorrow morning for 4 days avoid strenous activity for 1-2 weeks follow up cards 1 month follow up PCP 2 weeks . . Current Hospital Diet Patient's current hospital diet: AHA Diet (Heart Healthy) Discharge Diet Recommended Diet: AHA Diet (Heart Healthy) Pending Studies Studies pending at discharge: no Laboratory Results Last 24 Hours Test 12/04/16 18:40 12/04/16 18:50 12/04/16 21:20 12/05/16 02:34 White Blood Count 8.31 K/uL Red Blood Count 3.28 M/uL Hemoglobin 10.2 g/dL Hematocrit 29.7 % Mean Corpuscular Volume 90.5 fL Mean Corpuscular Hemoglobin 31.1 pg Mean Corpuscular Hemoglobin Concent 34.3 g/dl Platelet Count 403 K/uL Mean Platelet Volume 10.1 fL Neutrophils (%) (Auto) 76.4 % Lymphocytes (%) (Auto) 11.2 % Monocytes (%) (Auto) 11.8 % Eosinophils (%) (Auto) 0.0 % Basophils (%) (Auto) 0.1 % Neutrophils # (Auto) 6.35 K/uL Lymphocytes # (Auto) 0.93 K/uL Monocytes # (Auto) 0.98 K/uL Eosinophils # (Auto) 0.00 K/uL Basophils # (Auto) 0.01 K/uL RDW Standard Deviation 39.7 fL RDW Coefficient of Variation 12.0 % Immature Granulocyte % (Auto) 0.5 % Immature Granulocyte # (Auto) 0.04 K/uL Prothrombin Time 11.2 SECONDS Prothromb Time International Ratio 1.0 Activated Partial Thromboplast Time 28.9 SECONDS 51.9 SECONDS Partial Thromboplastin Ratio 1.1 2.0 Sodium Level 143 mmol/L Potassium Level 4.2 mmol/L Chloride Level 108 mmol/L Carbon Dioxide Level 22 mmol/L Anion Gap 13.0 mmol/L Blood Urea Nitrogen 18 mg/dl Creatinine 1.40 mg/dl Est Creatinine Clear Calc Drug Dose 33.9 ml/min Estimated GFR () 53.5 Estimated GFR (Non- 46.1 BUN/Creatinine Ratio 12.7 Random Glucose 109 mg/dl Calcium Level 8.5 mg/dl Magnesium Level 2.0 mg/dl Total Bilirubin 0.4 mg/dl Direct Bilirubin 0.2 mg/dl Aspartate Amino Transf (AST/SGOT) 26 U/L Alanine Aminotransferase (ALT/SGPT) 30 U/L Alkaline Phosphatase 69 U/L Total Creatine Kinase 74 U/L 89 U/L Creatine Kinase MB 0.8 ng/ml 1.0 ng/ml Creatine Kinase MB Ratio 1.1 1.1 Troponin I < 0.015 ng/ml < 0.015 ng/ml Total Protein 7.4 gm/dl Albumin 3.2 gm/dl Thyroid Stimulating Hormone (TSH) 1.040 uIu/ml Urine Color YELLOW Urine Appearance CLEAR Urine pH 7.0 Urine Specific [place] 1.012 Urine Protein NEG Urine Glucose (UA) NEG Urine Ketones NEG Urine Occult Blood NEG Urine Nitrite NEG Urine Bilirubin NEG Urine Urobilinogen NEG Urine Leukocyte Esterase NEG Test 12/05/16 05:00 White Blood Count 7.82 K/uL Red Blood Count 3.28 M/uL Hemoglobin 10.2 g/dL Hematocrit 29.7 % Mean Corpuscular Volume 90.5 fL Mean Corpuscular Hemoglobin 31.1 pg Mean Corpuscular Hemoglobin Concent 34.3 g/dl Platelet Count 406 K/uL Mean Platelet Volume 9.8 fL Neutrophils (%) (Auto) 84.8 % Lymphocytes (%) (Auto) 11.9 % Monocytes (%) (Auto) 2.6 % Eosinophils (%) (Auto) 0.0 % Basophils (%) (Auto) 0.1 % Neutrophils # (Auto) 6.63 K/uL Lymphocytes # (Auto) 0.93 K/uL Monocytes # (Auto) 0.20 K/uL Eosinophils # (Auto) 0.00 K/uL Basophils # (Auto) 0.01 K/uL RDW Standard Deviation 39.5 fL RDW Coefficient of Variation 12.1 % Immature Granulocyte % (Auto) 0.6 % Immature Granulocyte # (Auto) 0.05 K/uL Sodium Level 141 mmol/L Potassium Level 4.3 mmol/L Chloride Level 108 mmol/L Carbon Dioxide Level 26 mmol/L Anion Gap 7.0 mmol/L Blood Urea Nitrogen 17 mg/dl Creatinine 1.40 mg/dl Est Creatinine Clear Calc Drug Dose 32.5 ml/min Estimated GFR () 53.5 Estimated GFR (Non- 46.1 BUN/Creatinine Ratio 12.0 Random Glucose 144 mg/dl Calcium Level 8.6 mg/dl Magnesium Level 2.0 mg/dl Total Creatine Kinase 83 U/L Creatine Kinase MB 1.5 ng/ml Creatine Kinase MB Ratio 1.8 Troponin I < 0.015 ng/ml Medical Emergencies . Who to Call and When: Medical Emergencies: If at any time you feel your situation is an emergency, please call 911 immediately. . Non-Emergent Contact Non-Emergency issues call your: Primary Care Provider Call Non-Emergent contact if: your pain is not controlled . Past History Medical & Surgical History: (1) Bronchitis (2) Atrial fibrillation with RVR . "Provider Documentation" section prepared by Scott Cobian. VTE Core Measure Inpt VTE Proph given/why not?: Unfractionated heparin SQ
--- NOTE | 2016-12-05 12:11 | Discharge Summary ---
Discharge Summary Admission Date: Dec 04, 2016 at 21:06 Discharge Date: Dec 05, 2016 Discharge Disposition: Home Principal Diagnosis: afib, bronchitis Immunizations: Have You Had Influenza Vaccine: Yes History of Tetanus Vaccine?: Yes History of Pneumococcal: Yes Pneumococcal Date: Feb 07, 2008 History of Hepatitis B Vaccine: No Consultations: cards Medication Reconciliation New Medications: Levofloxacin (Levaquin) 500 Mg Tab 500 MG PO DAILY for 5 Days, #5 TAB Prednisone (Prednisone) 20 Mg Tab 2 TAB PO DAILY, #8 TAB take 2 tab daily for 4 days, then stop Apixaban (Eliquis) 2.5 Mg Tab 5 MG PO BID, #90 TAB 2 Refills Metoprolol Tartrate (Metoprolol Tartrate) 50 Mg Tab 50 MG PO Q12H, #90 TAB 3 Refills Continued Medications: Cholecalciferol (Vitamin D3) 2,000 Unit Cap 1 CAP PO DAILY, CAP 3 Refills Ferrous Sulfate (Kp Ferrous Sulfate) 325 Mg Tab 1 TAB PO BID, TAB 3 Refills Hydroxychloroquine Sulfate (Hydroxychloroquine Sulfat) 200 Mg Tab 200 MG PO BID Lisinopril (Prinivil) 20 Mg Tab 30 MG PO DAILY, TAB Simvastatin (Zocor) 10 Mg Tab 10 MG PO QPM, TAB Tamsulosin Hcl (Flomax) 0.4 Mg Cap 0.4 MG PO BID, CAP Discontinued Medications: Amoxicillin (Amoxil) 250 Mg Cap 1 CAP PO TID for 7 Days, #21 CAP Referrals At Discharge Follow up Referrals: Speedboat Operator Referral - Within a Month with Rafael Monge MD Physician Referral - Within 2 Weeks with Blaze Cintron M.D. Discharge Exam Review of Systems: Constitutional: No chills ENT: No unusual epistaxis Respiratory: No sputum Cardiovascular: No orthopnea Abdomen: No nausea Genitourinary - Male: No hematuria, No urinary frequency Neurologic: No memory loss, No weakness Endocrine: No fatigue Integumentary: No rash Physical Exam: General Appearance: WD/WN, no apparent distress Eyes: normal inspection, EOMI ENT: hearing grossly normal, pharynx normal Neck: supple, no JVD Respiratory/Chest: chest non-tender, normal breath sounds Cardiovascular: regular rate, rhythm, no gallop Abdomen / GI: normal bowel sounds, soft Extremities: normal inspection, normal capillary refill Neurologic/Psychiatric: alert, normal mood/affect Skin: normal color, warm/dry Hospital Course A 81 yo male comes with New onset atrial fibrillation with rapid ventricular response was admitted to the telemetry unit for serial cardiac enzymes, cardiac rhythm monitoring, and a 2-D echocardiogram with Dopplers. metoprolol tartrate 50 mg bid heparin drip weight-based per protocol without bolus stopped and given eliquis 5mg BID due to higher risk of bleeding. appreciated cards input lisinopril 30 mg by mouth daily. Prostate cancer/urinary urgency--urinalysis and urine cultures pending will need follow-up. tamsulosin 0.4 mg by mouth twice a day Upper respiratory infection, bronchitis, received IV abx, switched to po levaquin and po rapid prednisone taper Arthritis--continue hydroxychloroquine sulfate 200 mg by mouth twice a day. Hypercholesterolemia--continue simvastatin 10 mg by mouth every afternoon. start metoprolol, eliquis, levaquin tonight start prednisone tomorrow morning for 4 days avoid strenous activity for 1-2 weeks follow up cards 1 month follow up PCP 2 weeks Total Time Spent: Greater than 30 minutes This includes examination of the patient, discharge planning, medication reconciliation, and communication with other providers. Discharge Instructions Please refer to the electronic Patient Visit Report (Discharge Instructions) for additional information. Additional Copies To Blaze Cintron M.D.; Rafael Monge MD
[2016-12-05] MEDS ORDERED: TAMSULOSIN HCL 0.4 MG CAP PO SCH (21:00)
[2016-12-05] MEDS ORDERED: SIMVASTATIN 10 MG TAB PO SCH (21:00)
--- NOTE | 2016-12-06 14:29 | EDITING REQUIRED CODING QUERY ---
CODING QUERY Dr. Cobian, To promote full compliance with coding requirements relating to patient care, provider participation is requested in all cases of surgical services manager uncertainty. Please assist us with the question(s) below: Coding Question(s): Pneumonia is documented on H&P and Consult states admitting provider was concerned for Pneumonia. Please clarify below: ( ) Pneumonia ( x) Pneumonia Ruled Out, was treated for bronchitis ( ) Other Please Explain: Physician's Response(s): Thank you Hari Michel Principal Diagnosis: "_that condition established after study, to be chiefly responsible for occasioning the admission of the patient to the hospital for care." Co-Existing Principal Diagnosis: "_when two or more diagnoses equally meet the criteria for principal diagnosis as determined by the circumstances of admission, diagnostic work up, and/or therapy provided, and the Alphabetic Index, Tabular List, or another coding guideline does not provide sequencing direction, any one of the diagnoses may be sequenced first." "When the physician has documented what appears to be a current diagnosis in the body of the record, but has not included the diagnosis in the final diagnostic statement, the physician should be asked whether the diagnosis should be added." (Source Coding [facility] 2 QTR90. p3-4)
== END 2016-12-05 12:56 | disposition home or self-care (01) | DRG 310 ==
LOC: ENRESERVTM → ENRESERVDT → EDBD 18:06 → C.EDB 18:07 → C.2T 21:06
PROVIDERS: ADMIT Hospitalist; ATTEND Hospitalist
DX: I48.0 Paroxysmal atrial fibrillation (principal); J40 Bronchitis, not specified as acute or chronic; E78.00 Pure hypercholesterolemia, unspecified; J06.9 Acute upper respiratory infection, unspecified; R39.15 Urgency of urination; I34.0 Nonrheumatic mitral (valve) insufficiency; M19.90 Unspecified osteoarthritis, unspecified site; M81.0 Age-related osteoporosis without current pathological fracture; M06.9 Rheumatoid arthritis, unspecified; I10 Essential (primary) hypertension; Z85.46 Personal history of malignant neoplasm of prostate; Z90.89 Acquired absence of other organs; Z90.49 Acquired absence of other specified parts of digestive tract; Z79.899 Other long term (current) drug therapy; Z87.891 Personal history of nicotine dependence

== ENCOUNTER → 2016-12-10 | Outpatient (CLI) | payer BC ==
[~2016-12-10] MED LIST changes: +APIX1TAB3 PO; +CALC600T PO; +CHOL2000 PO; -CHOLTAB3 PO; -CLTP PO; +ELQ25 PO; +FERR1TAB13 PO; -FESO8TAB PO; -FLM4 PO; -FOLI1TAB7 PO; +FRRS300 PO; +LEVO-366 PO; +METO25TA56 PO; +METO50TA17 PO; +PLQ200 PO; +PRED20TA PO; -PSYL55.43; +TAMS0.4C38 PO; +TMB100 PO; +TPRSR50 PO
[2016-12-10 19:12] LABS: URINE APPEARANCE CLEAR (CLEAR); URINE BILIRUBIN NEG (NEG); URINE COLOR YELLOW; URINE NITRITE NEG (NEG); URINE PH 5.5 (4.5-7.5); URINE SPECIFIC GRAVITY 1.018 (1.000-1.030); UROBILINOGEN NEG (NEG); ZZUR CULT IF INDIC CLEAN CATCH NO
[2016-12-10 19:13] LABS: MANUAL MICROSCOPIC REQUIRED? NO; REVIEW REQ? NO
== END | disposition home or self-care (01) ==
LOC: C.LABSPEC 17:33
PROVIDERS: ATTEND Internal Medicine
DX: R35.0 Frequency of micturition (principal)

== ENCOUNTER → 2016-12-22 | Outpatient (CLI) | payer BC ==
[~2016-12-22] MED LIST changes: -LEVO-366 PO
== END | disposition home or self-care (01) ==
LOC: C.LABSPEC 18:05
PROVIDERS: ATTEND Nurse Practitioner Adult Health
DX: R35.1 Nocturia (principal)

== ENCOUNTER → 2017-01-10 | Outpatient (CLI) | payer BC | END | disposition home or self-care (01) | LOC: C.LABSPEC 10:24 | PROVIDERS: ATTEND Nurse Practitioner Adult Health | DX: R35.1 Nocturia (principal) ==

== ENCOUNTER → 2017-01-12 | Outpatient (CLI) | payer BC ==
[2017-01-12 12:36] LABS: BASO % 0.5 %; BASO ABS # 0.04 K/uL (0-0.2); COMPLETE YES; EOS % 2.1 %; HEMATOCRIT 32.3 % (42-52); IG% 0.4 %; LYMPH % 13.1 %; LYMPH ABS # 1.08 K/uL (1.2-3.4); MEAN CELL VOLUME 95.3 fL (80-100); MEAN CORPUSCULAR HGB CONC 32.5 g/dl (32-36); MEAN PLATELET VOLUME 10.5 fL (7.4-10.4); MONO % 9.1 %; NEUT % 74.8 %; PLATELET COUNT 308 K/uL (130-400); RED BLOOD COUNT 3.39 M/uL (4.7-6.1); WHITE BLOOD COUNT 8.27 K/uL (4.8-10.8)
[2017-01-12 12:42] LABS: ALT/SGPT 48 U/L (12-78); BLOOD UREA NITROGEN 16 mg/dl (7-18); CALCIUM 8.5 mg/dl (8.5-10.1); CARBON DIOXIDE 25 mmol/L (21-32); CHLORIDE 108 mmol/L (98-107); CHOLESTEROL 120 mg/dl (0-200); GLUCOSE 86 mg/dl (70-99); POTASSIUM 4.2 mmol/L (3.5-5.1); SODIUM 141 mmol/L (136-145); TRIGLYCERIDES 69 mg/dl (0-150); VERY LOW DENSITY LIPOPROT CALC 14 mg/dl
[2017-01-12 12:47] LABS: ALB/GLOB RATIO 0.8 (0.9-2); ALKALINE PHOSPHATASE 99 U/L (45-117); AST/SGOT 26 U/L (15-37); CHOLESTEROL/HDL RATIO 1.8; FERRITIN 50.2 ng/ml (8.0-388.0); HDL CHOLESTEROL 65 mg/dl; LDL CHOLESTEROL CALCULATED 41 mg/dl; TOTAL IRON BINDING CAPACITY 359 mcg/dl (250-450)
[2017-01-12 12:51] LABS: ESTIMATED AVERAGE GLUCOSE 114 mg/dl; HA1C FLAG Normal (Normal)
--- NOTE | 2017-01-19 14:27 | CODING QUERY MEDICAL NECESSITY ---
CQSUPPORTING DIAGNOSIS NEEDED A supporting diagnosis is required for the test/procedure performed on this patient in order for us to be reimbursed by the patient's insurance. Please provide a supporting diagnosis for the following test/procedure listed below next to the test name along with your signature. *If there is no additional diagnosis for this patient that would support the following test/procedure please document that below next to the test/procedure. Test(s)/Procedure(s) that require a supporting diagnosis: DOS 01/12/17 VITAMIN B12 TEST GLYCATED HEMOGLOBIN TEST Provider Signature: Date: Thank you Sarah Villar Health Information Management Once completed, please kindly fax back to [phone] For questions please call [phone]
== END | disposition home or self-care (01) ==
LOC: C.LABBFT 08:51
PROVIDERS: ATTEND Internal Medicine
DX: D64.9 Anemia, unspecified (principal); E78.5 Hyperlipidemia, unspecified; E55.9 Vitamin D deficiency, unspecified

== ENCOUNTER → 2017-01-20 | Outpatient (CLI) | payer BC | END | disposition home or self-care (01) | LOC: C.LABBFT 12:56 | PROVIDERS: ATTEND Urology | DX: R35.0 Frequency of micturition (principal) ==

== ENCOUNTER 2017-03-29 00:14 | Inpatient (IN) | payer BC, OTHER ==
[~2017-03-29] VITALS: Ht 170.2 cm; Wt 55.7 kg
[2017-03-29] VITALS (10 sets, daily range): BP systolic 131–165; BP diastolic 83–96; PULSE 59–63; TEMP 36.3–36.6; O2SAT 95–100; Ht 170.2 cm; Wt 55.7 kg
[~2017-03-29 00:14] MED LIST changes: -APIX1TAB3 PO; -CALC600T PO; -FRRS300 PO; -METO25TA56 PO; -TMB100 PO; -TPRSR50 PO
[2017-03-29] MEDS ORDERED: METOPROLOL TARTRATE 1 MG/ML VIAL IV STA (00:22)
[2017-03-29] MEDS ORDERED: SODIUM CHLORIDE 0.9% 500ML 500 ML IV STA (00:22)
--- NOTE | 2017-03-29 00:29 | EMERGENCY ROOM VISIT NOTE ---
History Report prepared by Shira: J Luis Carpenter Under the Supervision of: Dr. Trevor Vo M.D. First contact with patient: 00:17 Chief Complaint: CARDIAC ASSESSMENT Stated Complaint: CARDIAC ASSESSMENT History of Present Illness The patient is a 82 year old male who presents to the Emergency Room with complaints of shortness of breath that has been occurring all day. He states that he feels pretty well currently, but notes that his heart has been palpitating abnormally all day, cause his shortness of breath. He denies any chest pain, fevers, neck pain, or abdominal pain. He notes that he has had a headache and cough recently. He was seen as an inpatient in November of this year , and notes that he has been doing well since. He does not smoke. He is on Eliquis. Source of History: patient, EMS Onset: all day Symptom Intensity: moderate Quality: other (shortness of breath) Timing: intermittent Associated Symptoms: + cough, + headache, + weakness, No abdominal pain, No chest pain, No fevers, No neck pain Note: He has heart palpitations. Review of Systems See HPI for pertinent positives & negatives. A total of 10 systems reviewed and were otherwise negative. Past Medical & Surgical Medical Problems: (1) Atrial fibrillation with RVR (2) Bronchitis (3) Prostate CA (4) Shortness of breath Surgical Problems: (1) S/P appendectomy (2) S/P small bowel resection Family History No pertient family history secondary to age. Social History Smoking Status: Never Smoker Smokeless Tobacco Use: No Drug Use: none Marital Status: Housing Status: lives with significant other Occupation Status: retired Current/Historical Medications Scheduled Apixaban (Eliquis), 5 MG PO BID Calcium Carbonate (Calcium 600), 600 MG PO Q12 Cholecalciferol (Vitamin D3), 1 CAP PO DAILY Ferrous Sulfate (Ferrous Sulfate), 325 MG PO BID Flecainide Acetate (Flecainide Acetate), 100 MG PO Q12 Hydroxychloroquine Sulfate (Hydroxychloroquine Sulfat), 200 MG PO BID Lisinopril (Prinivil), 20 MG PO DAILY Metoprolol Tartrate (Metoprolol Tartrate), 50 MG PO Q12H Metoprolol Tartrate (Lopressor) (Lopressor), 25 MG PO BID Simvastatin (Zocor), 10 MG PO QPM Tamsulosin Hcl (Flomax), 0.4 MG PO BID Allergies Coded Allergies: BEE STING (Unverified Allergy, Unknown, SWELLING AT SITE, 12/04/16) Physical Exam Vital Signs Date Time Temp Pulse Resp B/P Pulse Ox O2 Delivery O2 Flow Rate FiO2 03/29/17 01:43 68 20 139/88 98 Nasal Cannula 2.0 03/29/17 01:18 64 20 154/90 92 Nasal Cannula 2.0 03/29/17 01:10 62 20 101/68 92 Nasal Cannula 2.0 03/29/17 01:05 88 Room Air 03/29/17 01:04 52 03/29/17 00:47 102 20 86/59 97 Room Air 03/29/17 00:28 97 Room Air 03/29/17 00:28 36.5 114 20 89/65 97 Room Air 03/29/17 00:25 114 Physical Exam GENERAL: Patient is ill appearing and in minimal acute distress. HEENT: No acute trauma, normocephalic atraumatic, mucous membranes moist, no nasal congestion, no scleral icterus. Pale conjunctiva. NECK: No stridor, no adenopathy, no meningismus, trachea is midline. LUNGS: No dyspnea. Clear to auscultation and equal bilaterally. No wheeze, no rhonchi. HEART: Tachycardic rate and irregular rhythm. No murmurs, rubs, gallops appreciated. ABDOMEN: Soft, nontender, bowel sounds positive, no masses appreciated, no peritonitis. Extensive scarring of the lower abdomen. BACK: No midline tenderness, no CVA tenderness EXTREMITIES: Normal motion all extremities, no cyanosis, no edema. Scarring of the right ankle. NEUROLOGIC: Alert and oriented, no acute motor or sensory deficits, no focal weakness, cranial nerves grossly intact. SKIN: No rash, no jaundice, no diaphoresis. Medical Decision & Procedures ER Provider Diagnostic Interpretation: X ray results are stated below per my interpretation and the radiologist's interpretation. CHEST X-RAY 1 VIEW: Infiltrate versus CHF primarily right lower lobe and left upper perihilar. No overt effusion. Mildly enlarged heart. In general, it has worsened since previous CXR in November. Laboratory Results 03/29/17 00:01 Red Blood Count 3.85, Mean Corpuscular Volume 93.2, Mean Corpuscular Hemoglobin 30.1, Mean Corpuscular Hemoglobin Concent 32.3, Mean Platelet Volume 10.8, Neutrophils (%) (Auto) 70.8, Lymphocytes (%) (Auto) 17.5, Monocytes (%) (Auto) 10.9, Eosinophils (%) (Auto) 0.3, Basophils (%) (Auto) 0.3, Neutrophils # (Auto ) 6.46, Lymphocytes # (Auto) 1.60, Monocytes # (Auto) 1.00, Eosinophils # (Auto ) 0.03, Basophils # (Auto) 0.03 Test 03/29/17 00:01 03/29/17 00:36 03/29/17 00:40 White Blood Count 9.14 K/uL (4.8-10.8) Red Blood Count 3.85 M/uL (4.7-6.1) Hemoglobin 11.6 g/dL (14.0-18.0) Hematocrit 35.9 % (42-52) Mean Corpuscular Volume 93.2 fL (80-100) Mean Corpuscular Hemoglobin 30.1 pg (25-34) Mean Corpuscular Hemoglobin Concent 32.3 g/dl (32-36) Platelet Count 245 K/uL (130-400) Mean Platelet Volume 10.8 fL (7.4-10.4) Neutrophils (%) (Auto) 70.8 % Lymphocytes (%) (Auto) 17.5 % Monocytes (%) (Auto) 10.9 % Eosinophils (%) (Auto) 0.3 % Basophils (%) (Auto) 0.3 % Neutrophils # (Auto) 6.46 K/uL (1.4-6.5) Lymphocytes # (Auto) 1.60 K/uL (1.2-3.4) Monocytes # (Auto) 1.00 K/uL (0.11-0.59) Eosinophils # (Auto) 0.03 K/uL (0-0.5) Basophils # (Auto) 0.03 K/uL (0-0.2) RDW Standard Deviation 44.1 fL (36.4-46.3) RDW Coefficient of Variation 12.9 % (11.5-14.5) Immature Granulocyte % (Auto) 0.2 % Immature Granulocyte # (Auto) 0.02 K/uL (0.00-0.02) Prothrombin Time 12.0 SECONDS (9.0-12.0) Prothromb Time International Ratio 1.1 (0.9-1.1) Activated Partial Thromboplast Time 29.8 SECONDS (21.0-31.0) Partial Thromboplastin Ratio 1.1 Magnesium Level 2.5 mg/dl (1.8-2.4) Total Creatine Kinase 111 U/L (39-308) Creatine Kinase MB 2.1 ng/ml (0.5-3.6) Creatine Kinase MB Ratio 1.9 (0-3.0) Troponin I < 0.015 ng/ml (0-0.045) Bedside Lactic Acid Venous 1.54 mmol/L (0.90-1.70) Bedside Hemoglobin 11.6 g/dl (14.0-18.0) Bedside Hematocrit 34 % (42-52) Bedside Sodium 138 mEq/L (135-144) Bedside Potassium 5.5 mEq/L (3.3-5.0) Bedside Chloride 103 mEq/L (101-112) Bedside Total CO2 22 mEq/l (24-31) Bedside Blood Urea Nitrogen 28 mg/dl (7-18) Bedside Creatinine 1.8 mg/dl (0.6-1.3) Bedside Glucose (other) 142 mg/dl (70-99) Bedside Ionized Calcium (Rachna) 1.12 mmol/l (1.12-1.32) Laboratory results as reviewed by me. Medications Administered Medications (Trade) Dose Ordered Sig/Zeke Route Start Time Stop Time Status Last Admin Dose Admin Sodium Chloride 500 ml @ 999 mls/hr Q31M STAT IV 03/29/17 00:22 03/29/17 00:52 DC 03/29/17 00:22 999 MLS/HR Sodium Chloride (Nss 1000ml) 1,000 ml @ 999 mls/hr Q1H1M STAT IV 03/29/17 00:43 03/29/17 01:43 DC 03/29/17 00:43 999 MLS/HR Calcium Gluconate (Calcium Gluconate 10%) 2,000 mg NOW STAT IV 03/29/17 00:43 03/29/17 00:46 DC 03/29/17 01:04 2,000 MG Sodium Bicarbonate (Sodium Bicarbonate 8.4% Inj) 50 ml NOW STAT IV 03/29/17 00:43 5/23/17 00:46 DC 03/29/17 01:05 50 ML Insulin Human Regular (novoLIN-R U-100 PER UNIT) 10 units NOW STAT IV 03/29/17 00:43 03/29/17 00:46 DC 03/29/17 01:04 10 UNITS Dextrose (Dextrose 50% 50ML Syringe) 50 ml NOW STAT IV 03/29/17 00:43 03/29/17 00:46 DC 03/29/17 00:57 50 ML ECG Indication: palpitations, SOB/dyspnea Rate (beats per minute): 110 Rhythm: atrial fibrillation Findings: prolonged QT, other (Intraventricular block) Change: 2nd ECG findings: Showed improvement in his QTC and heart rate. ED Course 0017: The patient was evaluated in room B2. A complete history and physical exam was performed. 0022: Ordered Lopressor Iv 5 mg IV, Sodium Chloride 500 ml @ 999 mls/hr IV 0033: I requested a second IV. 0043: Ordered Dextrose 50 ml IV, Insulin Human Regular 10 units IV, Sodium Bicarbonate 50 ml IV, Calcium Gluconate 2000 mg IV, Sodium Chloride 1000 ml @ 999 mls/hr IV 0058: The patient feels okay as long as he is still. 0116: The patient feels better. His heart rate is at 60. His QTC has improved. His blood pressure is 101/68. 0120: Upon reevaluation, the patient is resting. Discussed results and treatment plan with the patient. He verbalized understanding and agreement with the treatment plan. The patient will be evaluated by Dr. Mallory ERWIN, for further management. 0130: He feels better and is breathing comfortably. His heart is now at normal sinus rhythm. His systolic blood pressure is 154. Medical Decision Differential: Sepsis, Infectious (UTI/Pneumonia/Meningitis/etc), Metabolic/ Electrolyte Abnormality, Cardiac, Hepatic, Endocrine, Toxicologic, Neurologic, amongst other pathologies entertained. 82 yr old male arrives for evaluation for generalized weakness, fatigue, and shortness of breath. Med command prior to arrival. He is afib-rvr on arrival with very long QTC with LBBB morphology and vitals with tachy/hypotension. He has no chest pain. iStat consistent with hyperK in renal insuffiency. Given clear evidence EKG abnormalities consistent with this went ahead with ca, bicarb , insulin, glu, fluids. Vastly improved symptoms and BP rapidly improved to SBP 150s. EKG now NSR and resolution of prolonged qtc. He is feeling well and breathing well. He had received about 1 L NSS bolus and is starting to get some JVD and mild hypoxia requiring NC. Suspect there is underlying CHF and with improvement in his EKG already will hold on further fluid resus. No clear evidence of overt infection causing this. Will bring in to hospitalist for further work-up/management. Stable and feeling much improved at time of hospitalist evaluation. Consults Time Called: 0115 Consulting Physician[place] [facility] [place]ed Call: 0120 He will be evaluating the patient for further management. Impression Primary Impression: Hyperkalemia Additional Impressions: Atrial fibrillation with rapid ventricular response Prolonged QT interval ECG abnormality Hypotension Critical Care I have personally spent greater than 45 minutes of critical care time in the direct management of this patient. This was a life/limb threatening event. This includes time spent evaluating patient, direct bedside care, chart review, placing orders, interpretation of diagnostic studies, discussion with consultants, patient, and family members, as well as other required patient management activities. This 45 minutes is in excess of all separately billable procedures. Scribe Attestation The scribe's documentation has been prepared under my direction and personally reviewed by me in its entirety. I confirm that the note above accurately reflects all work, treatment, procedures, and medical decision making performed by me. Departure Information Dispostion Being Evaluated By Hospitalist Referrals Blaze Cintron M.D. (PCP) Patient Instructions My [facility] Problem Qualifiers Additional Impressions: Hypotension Hypotension type: unspecified hypotension type Qualified Codes: I95.9 - Hypotension, unspecified
[2017-03-29] MEDS ORDERED: DEXTROSE 50% 50 ML SYR IV STA (00:43)
[2017-03-29] MEDS ORDERED: SODIUM BICARB 8.4% INJ 50 MEQ/50 ML SYR IV STA (00:43)
[2017-03-29] MEDS ORDERED: CALCIUM GLUCONATE 10% 10 ML VIAL IV STA (00:43)
[2017-03-29] MEDS ORDERED: SODIUM CHLORIDE 0.9% 1000ML 1,000 ML IV STA (00:43)
[2017-03-29] MEDS ORDERED: NovoLIN-R INSULIN PER UNIT CHARGE IV STA (00:43)
[2017-03-29 00:46] LABS: BASO % 0.3 %; BASO ABS # 0.03 K/uL (0-0.2); COMPLETE YES; EOS % 0.3 %; HEMATOCRIT 35.9 % (42-52); IG% 0.2 %; LYMPH % 17.5 %; MEAN CELL VOLUME 93.2 fL (80-100); MEAN CORPUSCULAR HEMOGLOBIN 30.1 pg (25-34); MEAN CORPUSCULAR HGB CONC 32.3 g/dl (32-36); MEAN PLATELET VOLUME 10.8 fL (7.4-10.4); MONO % 10.9 %; NEUT % 70.8 %; PLATELET COUNT 245 K/uL (130-400); RED BLOOD COUNT 3.85 M/uL (4.7-6.1); WHITE BLOOD COUNT 9.14 K/uL (4.8-10.8)
[2017-03-29 00:54] LABS: ISTAT CREATININE 1.8 mg/dl (0.6-1.3); ISTAT HEMOGLOBIN 11.6 g/dl (14.0-18.0); ISTAT IONIZED CALCIUM 1.12 mmol/l (1.12-1.32)
[2017-03-29 01:05] LABS: INR 1.1 (0.9-1.1); PARTIAL THROMBOPLASTIN RATIO 1.1
[2017-03-29 01:08] LABS: BLOOD UREA NITROGEN 28 mg/dl (7-18); BUN/CREATININE RATIO 13.9 (10-20); CALCIUM 9.1 mg/dl (8.5-10.1); CARBON DIOXIDE 29 mmol/L (21-32); CHLORIDE 105 mmol/L (98-107); GLUCOSE 144 mg/dl (70-99); MAGNESIUM 2.5 mg/dl (1.8-2.4); POTASSIUM 5.7 mmol/L (3.5-5.1); SODIUM 140 mmol/L (136-145)
[2017-03-29 01:13] LABS: CKMB/CK RATIO 1.9 (0-3.0)
[2017-03-29] MEDS ORDERED: ACETAMINOPHEN 325 MG TAB PO PRN (02:15)
[2017-03-29] MEDS ORDERED: CALC600T PO (02:15)
[2017-03-29] MEDS ORDERED: ALUMINUM/MAGNESIUM/SIMETH (MAALOX MAX) 30 ML UDC PO PRN (02:15)
[2017-03-29] MEDS ORDERED: MoRPHine SULFATE 2 MG/ML CARP IV PRN (02:15)
[2017-03-29] MEDS ORDERED: APIX1TAB3 PO (02:15)
[2017-03-29] MEDS ORDERED: MAGNESIUM HYDROXIDE SUSP 30 ML UDC PO PRN (02:15)
[2017-03-29] MEDS ORDERED: FRRS300 PO (02:16)
[2017-03-29] MEDS ORDERED: METO25TA56 PO (02:17)
[2017-03-29] MEDS ORDERED: TMB100 PO (02:17)
[2017-03-29] MEDS ORDERED: SODIUM CHLORIDE 0.9% 1000ML 1,000 ML IV SCH (02:30)
--- NOTE | 2017-03-29 03:08 | History and Physical ---
History & Physical Date & Time of Service: March 29, 2017 at 02:49 Chief Complaint: Cardiac Assessment Primary Care Physician: Blaze Cintron M.D. History of Present Illness Source: patient, family 82 y/o M Hx PAF, RA, HTN, HPL. Presents with a chief complaint of palpitations , SOB and weakness. He describes a pounding heart beat and a feeling that his legs are giving out. On arrival to the ER the pt was exhibiting rapid AF with a possible rate-related LBBB and a long QT interval not seen on previous EKGs. Initial labs were significant for ARF and hyperkalemia. The pt was treated with IVF and a hyperkalemia protocol including calcium gluconate and reverted to a sinus rhythm while in the ER. Although his rhythm reverted to sinus, his EKG morphology has changed form 3 months prior. His symptoms improved following reversion to a sinus rhythm. He states that over the past 2-3 months he has been feeling weak and SOB with exertion. He describes significant lower extremity weakness and an occasional productive cough. He was taken of his statin this past week due to his described weakness. He is taking an LAN and Hydroxychloroquine, neither of which are newly prescribed. He denies fevers, CP, N/V, diarrhea or dysuria. Past Medical/Surgical History Medical Problems: (1) Prostate CA Status: Resolved 2) Paroxysmal AF 3) HTN 4) HPL Surgical Problems: (1) S/P appendectomy Status: Resolved (2) S/P small bowel resection Status: Resolved Family History No pertient family history secondary to age. Social History Smoking Status: Former Smoker Smokeless Tobacco Use: No Drug Use: none Marital Status: Housing status: lives with family Occupational Status: retired Immunizations History of Influenza Vaccine: Yes History of Tetanus Vaccine?: Yes History of Pneumococcal: Yes Pneumococcal Date: Feb 07, 2008 History of Hepatitis B Vaccine: No Multi-Drug Resistant Organisms History of MDRO: No Allergies Coded Allergies: BEE STING (Unverified Allergy, Unknown, SWELLING AT SITE, 12/04/16) Home Medications Scheduled Apixaban (Eliquis), 5 MG PO BID Calcium Carbonate (Calcium 600), 600 MG PO Q12 Cholecalciferol (Vitamin D3), 1 CAP PO DAILY Ferrous Sulfate (Ferrous Sulfate), 325 MG PO BID Flecainide Acetate (Flecainide Acetate), 100 MG PO Q12 Hydroxychloroquine Sulfate (Hydroxychloroquine Sulfat), 200 MG PO BID Lisinopril (Prinivil), 20 MG PO DAILY Metoprolol Tartrate (Metoprolol Tartrate), 50 MG PO Q12H Metoprolol Tartrate (Lopressor) (Lopressor), 25 MG PO BID Simvastatin (Zocor), 10 MG PO QPM Tamsulosin Hcl (Flomax), 0.4 MG PO BID Review of Systems Constitutional: + fatigue, + weakness, No chills, No fever, No sweats Eyes: No eye pain, No worsening of vision ENT: No hearing loss, No nasal symptoms, No unusual epistaxis Respiratory: + cough, + dyspnea at rest, + dyspnea on exertion, + shortness of breath, + sputum Cardiovascular: No PND, No chest pain, No orthopnea Abdomen: No nausea, No pain, No vomiting Musculoskeletal: No joint pain, No muscle pain Genitourinary - Male: No dysuria, No hematuria, No urinary frequency, No urinary urgency Neurologic: + weakness, No memory loss, No paralysis Psychiatric: No anhedonism, No depression symptoms Endocrine: + fatigue Hematologic / Lymphatic: No abnormal bleeding/bruising Integumentary: No rash Allergic / Immunologic: No environmental allergies Physical Exam Vital Signs Date Time Temp Pulse Resp B/P Pulse Ox O2 Delivery O2 Flow Rate FiO2 03/29/17 01:18 64 20 154/90 92 Nasal Cannula 2.0 03/29/17 01:10 62 20 101/68 92 Nasal Cannula 2.0 03/29/17 01:05 88 Room Air 03/29/17 00:47 102 20 86/59 97 Room Air 03/29/17 00:28 97 Room Air 03/29/17 00:28 36.5 114 20 89/65 97 Room Air 03/29/17 00:25 114 General Appearance: WD/WN, no apparent distress Head: normocephalic, atraumatic Eyes: normal inspection, PERRL, EOMI ENT: normal ENT inspection, pharynx normal Neck: supple, + JVD (Significant B/L JVD R>L extending to behind ears) Respiratory/Chest: chest non-tender, no respiratory distress, no accessory muscle use, + decreased breath sounds Cardiovascular: regular rate, rhythm, no edema, no murmur, + systolic murmur Abdomen/GI: normal bowel sounds, non tender, soft Back: normal inspection, no CVA tenderness, no muscle spasm, normal range of motion Extremities/Musculoskelatal: normal inspection, no calf tenderness, normal capillary refill, no pedal edema, normal range of motion Neurologic/Psych: material processor II-XII nml as tested, no motor/sensory deficits, alert, normal mood/affect, normal reflexes, oriented x 3 Skin: normal color, warm/dry, no rash Diagnostics Laboratory Results Results Past 24 Hours Test 03/29/17 00:01 03/29/17 00:36 03/29/17 00:40 Range/Units White Blood Count 9.14 4.8-10.8 K/uL Red Blood Count 3.85 4.7-6.1 M/uL Hemoglobin 11.6 14.0-18.0 g/dL Hematocrit 35.9 42-52 % Mean Corpuscular Volume 93.2 80-100 fL Mean Corpuscular Hemoglobin 30.1 25-34 pg Mean Corpuscular Hemoglobin Concent 32.3 32-36 g/dl Platelet Count 245 130-400 K/uL Mean Platelet Volume 10.8 7.4-10.4 fL Neutrophils (%) (Auto) 70.8 % Lymphocytes (%) (Auto) 17.5 % Monocytes (%) (Auto) 10.9 % Eosinophils (%) (Auto) 0.3 % Basophils (%) (Auto) 0.3 % Neutrophils # (Auto) 6.46 1.4-6.5 K/uL Lymphocytes # (Auto) 1.60 1.2-3.4 K/uL Monocytes # (Auto) 1.00 0.11-0.59 K/uL Eosinophils # (Auto) 0.03 0-0.5 K/uL Basophils # (Auto) 0.03 0-0.2 K/uL RDW Standard Deviation 44.1 36.4-46.3 fL RDW Coefficient of Variation 12.9 11.5-14.5 % Immature Granulocyte % (Auto) 0.2 % Immature Granulocyte # (Auto) 0.02 0.00-0.02 K/uL Prothrombin Time 12.0 9.0-12.0 SECONDS Prothromb Time International Ratio 1.1 0.9-1.1 Activated Partial Thromboplast Time 29.8 21.0-31.0 SECONDS Partial Thromboplastin Ratio 1.1 Sodium Level 140 136-145 mmol/L Potassium Level 5.7 3.5-5.1 mmol/L Chloride Level 105 98-107 mmol/L Carbon Dioxide Level 29 21-32 mmol/L Anion Gap 6.0 20.0 16-25 mmol/L Blood Urea Nitrogen 28 7-18 mg/dl Creatinine 2.00 0.60-1.40 mg/dl Est Creatinine Clear Calc Drug Dose 25.5 ml/min Estimated GFR () 34.5 Estimated GFR (Non- 29.8 BUN/Creatinine Ratio 13.9 10-20 Random Glucose 144 70-99 mg/dl Calcium Level 9.1 8.5-10.1 mg/dl Magnesium Level 2.5 1.8-2.4 mg/dl Total Creatine Kinase 111 39-308 U/L Creatine Kinase MB 2.1 0.5-3.6 ng/ml Creatine Kinase MB Ratio 1.9 0-3.0 Troponin I < 0.015 0-0.045 ng/ml Bedside Lactic Acid Venous 1.54 0.90-1.70 mmol/L Bedside Hemoglobin 11.6 14.0-18.0 g/dl Bedside Hematocrit 34 42-52 % Bedside Sodium 138 135-144 mEq/L Bedside Potassium 5.5 3.3-5.0 mEq/L Bedside Chloride 103 101-112 mEq/L Bedside Total CO2 22 24-31 mEq/l Bedside Blood Urea Nitrogen 28 7-18 mg/dl Bedside Creatinine 1.8 0.6-1.3 mg/dl Bedside Glucose (other) 142 70-99 mg/dl Bedside Ionized Calcium (Rachna) 1.12 1.12-1.32 mmol/l Microbiology Results 03/29/17 Blood Culture, Received Pending 03/29/17 Blood Culture, Received Pending EKG Initial: AF, RVR, LBBB, L axis, QTc 539 Following electrolyte correction: Sinus, L axis, 1st degree AV block, IVCD 12/04 Rapid AF, normal axis Impression Assessment and Plan 82 y/o M Hx PAF, RA, HTN, HPL. Presents with a chief complaint of palpitations , SOB and weakness. He describes a pounding heart beat and a feeling that his legs are giving out. On arrival to the ER the pt was exhibiting rapid AF with a possible rate-related LBBB and a long QT interval not seen on previous EKGs. Initial labs were significant for ARF and hyperkalemia. The pt was treated with IVF and a hyperkalemia protocol including calcium gluconate and reverted to a sinus rhythm while in the ER. Although his rhythm reverted to sinus, his EKG morphology has changed form 3 months prior. His symptoms improved following reversion to a sinus rhythm. He states that over the past 2-3 months he has been feeling weak and SOB with exertion. He describes significant lower extremity weakness and an occasional productive cough. He was taken of his statin this past week due to his described weakness. He is taking an LAN and Hydroxychloroquine, neither of which are newly prescribed. He denies fevers, CP, N/V, diarrhea or dysuria. 1) Rapid AF, LBBB, long QT - Rate reverted to sinus with treatment for hyperkalemia, QT interval has normalized. Pt will be monitored on telemetry and we will trend his electrolytes. We have held Lisinopril due to his hyperK. Hydroxychloroquine is also held as this can be pro-arrhythmic and contribute to QT prolongation. We have consulted the pt's long chain quiller tender. 2) Progressive weakness, SOB, productive cough. The pts EKG morphology has changed and there may be a change in his cardiac silhouette in addition to marked JVD. We will order a CT chest in addition to a limited echo to evaluate for possible effusion or pulmonary pathology. 3) ARF, hyperK - etiology is not clear as he has been on an LAN for some time and does not appear significantly dehydrated. We have provided IVF and will trend his electrolytes. His LAN is held as mentioned. 4) Regarding his Statin use - we will hold his statin however considering the above, his weakness may be unrelated and therefore he could likely resume use if an alternate etiology is defined. 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 Y/N: Yes Risk Level: Moderate Given or contraindicated: Other Anticoagulation
[2017-03-29 04:15] LABS: BUN/CREATININE RATIO 15.4 (10-20); CALCIUM 8.5 mg/dl (8.5-10.1); CREATININE 1.8 mg/dl (0.60-1.40); POTASSIUM 4.6 mmol/L (3.5-5.1)
--- NOTE | 2017-03-29 07:26 | DIAGNOSTIC IMAGING REPORT ---
SINGLE VIEW CHEST CLINICAL HISTORY: Atypical chest pain. FINDINGS: An AP, portable, upright chest radiograph is compared to study dated 12/04/2016. The examination is degraded by portable technique and patient rotation. The heart is enlarged and there is atherosclerotic calcification of the thoracic aorta. The pulmonary vasculature is noncongested. Chronic interstitial thickening is similar to previous. Small pleural effusions are suggested. Bibasilar atelectasis is observed. No pneumothorax is seen. The skeletal structures are osteopenic. Degenerative changes noted throughout the thoracic spine. IMPRESSION: 1. Cardiomegaly without radiographic evidence of congestive failure. 2. Suspect small pleural effusions with bibasilar atelectasis. Electronically signed by: Barber Valentine M.D. 03/29/2017 7:25 AM Dictated Date/Time: 03/29/2017 7:23 AM
--- NOTE | 2017-03-29 07:48 | DIAGNOSTIC IMAGING REPORT ---
CT OF THE CHEST WITHOUT IV CONTRAST CLINICAL HISTORY: Persistent dyspnea. COMPARISON STUDY: Chest radiograph March 29, 2017. CT DOSE: 203.00 mGy.cm TECHNIQUE: Axial images of the chest were obtained without IV contrast. Images were reviewed in the axial, sagittal, and coronal planes. IV contrast was not administered for this examination. FINDINGS: The heart is moderately enlarged. There is no pericardial effusion. There are no enlarged thoracic lymph nodes. Moderate right and small left pleural effusions are noted. There are mild groundglass opacities within the lungs. There is no pneumothorax. There is no consolidation to suggest pneumonia. The patient and her airspace opacities with a lower lobes reflect atelectasis. Bony thorax is unremarkable. Parapelvic cysts within visualized portions the left renal pelvis are noted. There is trace perihepatic ascites. Anasarca is noted. IMPRESSION: 1. Moderate right and small left pleural effusions. 2. Suspected mild pulmonary edema. 3. Anasarca with trace perihepatic ascites. 4. Moderate cardiomegaly. Electronically signed by: Peter Hall M.D. 03/29/2017 7:46 AM Dictated Date/Time: 03/29/2017 7:42 AM
[2017-03-29] MEDS: APIXABAN 2.5 MG TAB PO SCH ×2 (08:14→20:32)
[2017-03-29] MEDS: TAMSULOSIN HCL 0.4 MG CAP PO SCH ×2 (08:14→20:33)
[2017-03-29] MEDS: METOPROLOL TARTRATE 50 MG TAB PO SCH ×2 (08:14→20:33)
[2017-03-29] MEDS ORDERED: SODIUM CHLORIDE 0.45% 1000ML 1,000 ML IV SCH (08:24)
[2017-03-29 08:58] LABS: BUN/CREATININE RATIO 20.7 (10-20); CREATININE 1.7 mg/dl (0.60-1.40); POTASSIUM 4.9 mmol/L (3.5-5.1)
[2017-03-29 09:00] LABS: CALCIUM 8.5 mg/dl (8.5-10.1)
--- NOTE | 2017-03-29 12:06 | Progress Note ---
Subjective Date of Service: March 29, 2017. Subjective Pt evaluation today including: conversation w/ patient, conversation w/ family , physical exam, chart review, lab review, review of studies, conversation w/ case consultant, review of inpatient medication list Reported frequent urination, is not new, history of prostate cancer, Currently has no chest pain no palpitation or sob Had breakfast this morning Has bowel movement this morning Problem List Medical Problems: (1) Atrial fibrillation with rapid ventricular response Status: Acute (2) ECG abnormality Status: Acute (3) Hyperkalemia Status: Acute (4) Hypotension Status: Acute (5) New onset atrial fibrillation Status: Acute (6) Prolonged QT interval Status: Acute (7) Shortness of breath Status: Acute (8) Weakness Status: Acute Review of Systems Constitutional: No chills, No fatigue, No fever, No problem reported, No sweats , No weakness, No weight loss Eyes: No diplopia, No discharge, No eye pain, No redness, No worsening of vision ENT: No dental problems, No hearing loss, No nasal symptoms, No sore throat, No tinnitus, No trouble swallowing, No unusual epistaxis Respiratory: No cough, No dyspnea at rest, No dyspnea on exertion, No hemoptysis, No shortness of breath, No sputum, No wheezing Cardiac: No PND, No chest pain, No claudication, No edema, No orthopnea, No palpitations Abdomen: No constipation, No diarrhea, No nausea, No pain, No vomiting Musculoskeletal: No calf pain, No joint pain, No muscle pain, No swelling Male : No dysuria, No hematuria, No incontinence, No nocturia more than once/ night, No slowing stream, No urinary frequency Neurologic: No balance problems, No memory loss, No numbness/tingling, No paralysis, No vertigo, No weakness Psychiatric: No anhedonism, No anxiety, No depression symptoms, No insomnia, No substance abuse Heme: No abnormal bleeding/bruising, No clotting problems, No night sweats, No swollen lymph nodes Endo: No excessive thirst, No excessive urination, No fatigue Skin: No bleeding, No color change, No itch, No new/changing skin lesions, No rash Objective Vital Signs Date Time Temp Pulse Resp B/P Pulse Ox O2 Delivery O2 Flow Rate FiO2 03/29/17 11:45 36.5 60 18 148/96 100 Nasal Cannula 2.0 03/29/17 08:00 95 Nasal Cannula 2.0 03/29/17 07:27 36.6 61 18 131/83 100 Nasal Cannula 2.0 03/29/17 05:15 36.6 61 20 131/83 95 Nasal Cannula 2.0 03/29/17 04:00 36.6 61 20 131/83 95 Nasal Cannula 2.0 03/29/17 02:25 59 20 129/82 98 Nasal Cannula 2.0 03/29/17 01:43 68 20 139/88 98 Nasal Cannula 2.0 03/29/17 01:18 64 20 154/90 92 Nasal Cannula 2.0 03/29/17 01:10 62 20 101/68 92 Nasal Cannula 2.0 03/29/17 01:05 88 Room Air 03/29/17 01:04 52 03/29/17 00:47 102 20 86/59 97 Room Air 03/29/17 00:28 97 Room Air 03/29/17 00:28 36.5 114 20 89/65 97 Room Air 03/29/17 00:25 114 Physical Exam General Appearance: WD/WN, no apparent distress, + thin, + pertinent finding ( chronic ill-looking) Eyes: normal inspection, PERRL, EOMI, sclerae normal ENT: normal ENT inspection, hearing grossly normal, pharynx normal Neck: supple, no adenopathy, thyroid normal, no JVD, no carotid bruits, trachea midline Respiratory/Chest: chest non-tender, lungs clear, normal breath sounds, no respiratory distress, no accessory muscle use Cardiovascular: no edema, no gallop, no JVD, no murmur, + irregularly irregular Abdomen: normal bowel sounds, non tender, soft, no organomegaly, no pulsatile mass Extremities: normal range of motion, non-tender, normal inspection, no pedal edema, no calf tenderness, normal capillary refill, pelvis stable 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, no motor/sensory deficits, alert, normal mood/affect, oriented x 3 Skin: normal color, warm/dry, no rash Lymphatic: no adenopathy Laboratory Results Last 24 Hours Test 03/29/17 00:01 03/29/17 00:36 03/29/17 00:40 03/29/17 03:45 White Blood Count 9.14 K/uL Red Blood Count 3.85 M/uL Hemoglobin 11.6 g/dL Hematocrit 35.9 % Mean Corpuscular Volume 93.2 fL Mean Corpuscular Hemoglobin 30.1 pg Mean Corpuscular Hemoglobin Concent 32.3 g/dl Platelet Count 245 K/uL Mean Platelet Volume 10.8 fL Neutrophils (%) (Auto) 70.8 % Lymphocytes (%) (Auto) 17.5 % Monocytes (%) (Auto) 10.9 % Eosinophils (%) (Auto) 0.3 % Basophils (%) (Auto) 0.3 % Neutrophils # (Auto) 6.46 K/uL Lymphocytes # (Auto) 1.60 K/uL Monocytes # (Auto) 1.00 K/uL Eosinophils # (Auto) 0.03 K/uL Basophils # (Auto) 0.03 K/uL RDW Standard Deviation 44.1 fL RDW Coefficient of Variation 12.9 % Immature Granulocyte % (Auto) 0.2 % Immature Granulocyte # (Auto) 0.02 K/uL Prothrombin Time 12.0 SECONDS Prothromb Time International Ratio 1.1 Activated Partial Thromboplast Time 29.8 SECONDS Partial Thromboplastin Ratio 1.1 Sodium Level 140 mmol/L 146 mmol/L Potassium Level 5.7 mmol/L 4.6 mmol/L Chloride Level 105 mmol/L 110 mmol/L Carbon Dioxide Level 29 mmol/L 30 mmol/L Anion Gap 6.0 mmol/L 20.0 mmol/L 6.0 mmol/L Blood Urea Nitrogen 28 mg/dl 28 mg/dl Creatinine 2.00 mg/dl 1.80 mg/dl Est Creatinine Clear Calc Drug Dose 25.5 ml/min 28.3 ml/min Estimated GFR () 34.5 39.2 Estimated GFR (Non- 29.8 33.8 BUN/Creatinine Ratio 13.9 15.4 Random Glucose 144 mg/dl 66 mg/dl Calcium Level 9.1 mg/dl 8.5 mg/dl Magnesium Level 2.5 mg/dl Total Creatine Kinase 111 U/L Creatine Kinase MB 2.1 ng/ml Creatine Kinase MB Ratio 1.9 Troponin I < 0.015 ng/ml Bedside Lactic Acid Venous 1.54 mmol/L Bedside Hemoglobin 11.6 g/dl Bedside Hematocrit 34 % Bedside Sodium 138 mEq/L Bedside Potassium 5.5 mEq/L Bedside Chloride 103 mEq/L Bedside Total CO2 22 mEq/l Bedside Blood Urea Nitrogen 28 mg/dl Bedside Creatinine 1.8 mg/dl Bedside Glucose (other) 142 mg/dl Bedside Ionized Calcium (Rachna) 1.12 mmol/l Test 03/29/17 07:39 03/29/17 08:05 03/29/17 08:40 Bedside Glucose 69 mg/dl 117 mg/dl Sodium Level 141 mmol/L Potassium Level 4.9 mmol/L Chloride Level 107 mmol/L Carbon Dioxide Level 24 mmol/L Anion Gap 10.0 mmol/L Blood Urea Nitrogen 35 mg/dl Creatinine 1.70 mg/dl Est Creatinine Clear Calc Drug Dose 30.0 ml/min Estimated GFR () 42.0 Estimated GFR (Non- 36.2 BUN/Creatinine Ratio 20.7 Random Glucose 104 mg/dl Calcium Level 8.5 mg/dl Assessment and Plan 82 y/o admitted on 03/28/2017 with a chief complaint of palpitations, SOB and weakness. On arrival to the ER the pt was exhibiting rapid AF with a possible rate- related LBBB and a long QT interval not seen on previous EKGs. Initial labs were significant for ARF and hyperkalemia. Rapid AF, LBBB, long QT : Stable and improved Rate reverted to sinus with treatment for hyperkalemia, QT interval has normalized emergency known Continue doing well consulted the pt's case manager. Progressive weakness, SOB, productive cough. CT of chest was done, Report in below: Moderate right and small left pleural effusions. Suspected mild pulmonary edema. Anasarca with trace perihepatic ascites. Moderate cardiomegaly. ARF, hyperK Improved after IV fluid But not in baseline yet Stop IV fluid and watch because of pleural effusion and pulmonary edema Continue hold LAN Regarding his Statin use Will resume RA - will need to f/u with community engagement representative - cont Prednisone - Hydroxychloroquine held because of kidney function Hx PAF on Apixaban, , RA, HTN, HPL. Full code - prophylaxis with Apixaban discuss with patient and daughter about care plan, answered all the questions Continued [facility] stay due to: multiple IV medications needed Discharge planning: home
--- NOTE | 2017-03-29 16:13 | Cardiology Consultation ---
Cardiology Consultation Date of Consultation: March 29, 2017. Requesting Physician: Dr. Tejada Reason for Consultation: PAF, SOB Pt evaluation today including: conversation w/ patient, conversation w/ family , physical exam, lab review, review of studies, review of inpatient medication list History of Present Illness This is an 82-year-old male who is followed by Dr. Monge in the office. He has a history of atrial fibrillation identified on 12/04/2016 when he was admitted with that rhythm with rapid ventricular response. He presented with cough and upper respiratory symptoms at the time, he was not having palpitations. With rate control medications he converted to sinus rhythm. He was started on Eliquis as an anticoagulant. Event monitoring subsequently demonstrated paroxysmal atrial fibrillation. He was started on flecainide 50 mg twice a day to help control his arrhythmia. On echocardiography he had normal left ventricular size with low normal left ventricular systolic function. He had aortic sclerosis but not aortic stenosis. He then presented here on 03/29/2017 with palpitations, shortness of breath and weakness. He describes his heart beating in a forceful manner as well as his legs feeling like they would give out. On presentation he was in atrial fibrillation with a rapid heart rate but a very wide QRS complex, and he was also found to be hyperkalemic. With treatment of his hyperkalemia his QRS complex improved significantly, and he subsequently converted to sinus rhythm at around 1 AM this morning. He still feels very short of breath, he was recently to the bathroom and had a lot of shortness of breath just to do that. 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 He has had momentary lightheadedness but no presyncope or syncope. Past Medical/Surgical History (1) Atrial fibrillation with RVR (2) Bronchitis (3) Prostate CA (4) Shortness of breath Family History No pertient family history secondary to age. Social History Smoking Status: Former Smoker History of Alcohol Use: No Review of Systems Constitutional: No fever, No weakness, No weight loss Respiratory: + shortness of breath, No cough, No dyspnea at rest, No dyspnea on exertion, No hemoptysis, No sputum, No wheezing Cardiac: + see HPI, No PND, No chest pain, No claudication, No edema, No orthopnea, No palpitations Abdomen: No GI bleeding, No diarrhea, No nausea, No pain, No vomiting Male : No nocturia more than once/night, No sexual dysfunction, No slowing stream, No urinary frequency Neurologic: No balance problems, No numbness/tingling, No paralysis, No weakness Heme: No abnormal bleeding/bruising, No clotting problems Endo: No fatigue Skin: No problem reported All Other Systems: Reviewed and Negative Allergies Coded Allergies: BEE STING (Unverified Allergy, Unknown, SWELLING AT SITE, 12/04/16) Medications Current Inpatient Medications Medications (Trade) Dose Ordered Sig/Zeke Route Start Time Stop Time Status Last Admin Dose Admin Apixaban (Eliquis Tab) 5 mg BID PO 03/29/17 09:00 04/28/17 08:59 03/29/17 08:14 5 MG Metoprolol Tartrate (Lopressor Tab) 50 mg Q12H PO 03/29/17 09:00 04/28/17 08:59 03/29/17 08:14 50 MG Prednisone (PredniSONE TAB) 40 mg DAILY PO 03/29/17 09:00 04/28/17 08:59 03/29/17 08:14 40 MG Simvastatin (Zocor Tab) 10 mg QPM PO 03/29/17 21:00 04/28/17 20:59 Tamsulosin HCl (Flomax Cap) 0.4 mg BID PO 03/29/17 09:00 04/28/17 08:59 03/29/17 08:14 0.4 MG Acetaminophen (Tylenol Tab) 650 mg Q4H PRN PO 03/29/17 02:15 04/28/17 02:14 Al Hydrox/Mg Hydrox/Simethicone (Maalox Max Susp) 15 ml Q4H PRN PO 03/29/17 02:15 04/28/17 02:14 Magnesium Hydroxide (Milk Of Magnesia Susp) 30 ml Q12H PRN PO 03/29/17 02:15 04/28/17 02:14 Morphine Sulfate (MoRPHine SULFATE INJ) 2 mg Q30M PRN IV 03/29/17 02:15 04/12/17 02:14 Ferrous Sulfate (Feosol Tab) 325 mg BID PO 03/29/17 21:00 04/28/17 20:59 Calcium Carbonate (oS-Brendan 500 TAB) 1,250 mg Q12 PO 03/29/17 21:00 04/28/17 20:59 Cholecalciferol (Vitamin D Tab) 2,000 inter.unit DAILY PO 03/30/17 09:00 04/29/17 08:59 Physical Exam Vital Signs Past 12 Hours Date Time Temp Pulse Resp B/P Pulse Ox O2 Delivery O2 Flow Rate FiO2 03/29/17 12:00 95 Nasal Cannula 2.0 03/29/17 11:45 36.5 60 18 148/96 100 Nasal Cannula 2.0 03/29/17 08:00 95 Nasal Cannula 2.0 03/29/17 07:27 36.6 61 18 131/83 100 Nasal Cannula 2.0 03/29/17 05:15 36.6 61 20 131/83 95 Nasal Cannula 2.0 03/29/17 04:00 36.6 61 20 131/83 95 Nasal Cannula 2.0 Constitutional: Level of Distress: moderate distress Psychiatric: Mental Status: active & alert Head: normocephalic Eyes: EOM: EOMI ENMT: normal ENT inspection, hearing grossly normal Neck: supple, no masses Lungs: Respiratory effort: no dyspnea, good air movement Auscultation: breath sounds normal, no wheezing Cardiovascular: Heart Auscultation: RRR, no murmurs, no rubs, no gallops Peripheral Pulses: Bruits: none appreciated Abdomen: Bowel Sounds: normal Inspection & Palpation: soft, no tenderness, guarding & rebound, no masses Musculoskeletal: normal strength (5/5 throughout) Extremities: no edema Neurologic: Cranial Nerves: grossly intact Sensation: grossly intact Data Laboratory Results: Last 24 Hours Test 03/29/17 00:01 03/29/17 00:36 03/29/17 00:40 03/29/17 03:45 White Blood Count 9.14 K/uL Red Blood Count 3.85 M/uL Hemoglobin 11.6 g/dL Hematocrit 35.9 % Mean Corpuscular Volume 93.2 fL Mean Corpuscular Hemoglobin 30.1 pg Mean Corpuscular Hemoglobin Concent 32.3 g/dl Platelet Count 245 K/uL Mean Platelet Volume 10.8 fL Neutrophils (%) (Auto) 70.8 % Lymphocytes (%) (Auto) 17.5 % Monocytes (%) (Auto) 10.9 % Eosinophils (%) (Auto) 0.3 % Basophils (%) (Auto) 0.3 % Neutrophils # (Auto) 6.46 K/uL Lymphocytes # (Auto) 1.60 K/uL Monocytes # (Auto) 1.00 K/uL Eosinophils # (Auto) 0.03 K/uL Basophils # (Auto) 0.03 K/uL RDW Standard Deviation 44.1 fL RDW Coefficient of Variation 12.9 % Immature Granulocyte % (Auto) 0.2 % Immature Granulocyte # (Auto) 0.02 K/uL Prothrombin Time 12.0 SECONDS Prothromb Time International Ratio 1.1 Activated Partial Thromboplast Time 29.8 SECONDS Partial Thromboplastin Ratio 1.1 Sodium Level 140 mmol/L 146 mmol/L Potassium Level 5.7 mmol/L 4.6 mmol/L Chloride Level 105 mmol/L 110 mmol/L Carbon Dioxide Level 29 mmol/L 30 mmol/L Anion Gap 6.0 mmol/L 20.0 mmol/L 6.0 mmol/L Blood Urea Nitrogen 28 mg/dl 28 mg/dl Creatinine 2.00 mg/dl 1.80 mg/dl Est Creatinine Clear Calc Drug Dose 25.5 ml/min 28.3 ml/min Estimated GFR () 34.5 39.2 Estimated GFR (Non- 29.8 33.8 BUN/Creatinine Ratio 13.9 15.4 Random Glucose 144 mg/dl 66 mg/dl Calcium Level 9.1 mg/dl 8.5 mg/dl Magnesium Level 2.5 mg/dl Total Creatine Kinase 111 U/L Creatine Kinase MB 2.1 ng/ml Creatine Kinase MB Ratio 1.9 Troponin I < 0.015 ng/ml Bedside Lactic Acid Venous 1.54 mmol/L Bedside Hemoglobin 11.6 g/dl Bedside Hematocrit 34 % Bedside Sodium 138 mEq/L Bedside Potassium 5.5 mEq/L Bedside Chloride 103 mEq/L Bedside Total CO2 22 mEq/l Bedside Blood Urea Nitrogen 28 mg/dl Bedside Creatinine 1.8 mg/dl Bedside Glucose (other) 142 mg/dl Bedside Ionized Calcium (Rachna) 1.12 mmol/l Test 03/29/17 07:39 03/29/17 08:05 03/29/17 08:40 Bedside Glucose 69 mg/dl 117 mg/dl Sodium Level 141 mmol/L Potassium Level 4.9 mmol/L Chloride Level 107 mmol/L Carbon Dioxide Level 24 mmol/L Anion Gap 10.0 mmol/L Blood Urea Nitrogen 35 mg/dl Creatinine 1.70 mg/dl Est Creatinine Clear Calc Drug Dose 30.0 ml/min Estimated GFR () 42.0 Estimated GFR (Non- 36.2 BUN/Creatinine Ratio 20.7 Random Glucose 104 mg/dl Calcium Level 8.5 mg/dl Imaging: Chest x-ray and CT scan suggest mild CHF Echocardiography today: Severe left ventricular dysfunction and severe mitral regurgitation, both worse than before. EKG: Initial electrocardiogram shows atrial fibrillation with a rapid heart rate and a very wide complex with a left bundle configuration Telemetry reviewed: Atrial fibrillation with a wide complex until 1 AM, conversion to sinus rhythm with a wide complex at that time and then subsequent narrowing of the complex Assessment & Plan #1. Atrial fibrillation with a wide complex on presentation: This is probably a combination of hyperkalemia and flecainide, flecainide can cause widening of the QRS at higher heart rates. With correction of his potassium and holding his flecainide this has resolved. His atrial fibrillation converted to sinus at around 1 AM and he has remained in sinus rhythm with a controlled heart rate. He should remain on Eliquis for his arrhythmia. Whether we should restart the flecainide or not remains unclear, he will most likely have recurrences off of medications. #2. Shortness of breath: He seems to have developed profound shortness of breath over the last month or so, based on what he and his both tell me he is having a lot of difficulty doing normal chores which never used to bother him. His echocardiogram in November of this year showed low normal function without significant valvular disease, however that has worsened. The chest x- ray and CT scan do not suggest a pulmonary cause. His current echocardiogram suggests a severe progression of left ventricular dysfunction and mitral regurgitation, the cause is uncertain. I believe he will need an ischemic evaluation. For the moment I would recommend gentle diuresis watching his creatinine closely. #3. Hyperkalemia: He is on lisinopril as an outpatient, and his creatinine was somewhat elevated, and based on his echo he probably had a low cardiac output state. Perhaps this is sufficient to explain the hyperkalemia. That has improved. #4. Cardiomyopathy: He appears to have had a dramatic progression in his cardiomyopathy over the last 4 months, as well as now severe MR (although that may well be secondary to the cardiomyopathy). His complex is quite wide even after correction of his hyperkalemia and illumination of flecainide, however I don't know that that is sufficient to explain the cardiomyopathy. He probably will need an ischemic evaluation, possibly cardiac catheterization, although I don't think we can do that for the next day or two. Thank you for allowing me to participate in his care.
--- NOTE | 2017-03-29 16:30 | ECHOCARDIOGRAM REPORT ---
*NOTICE TO RECEIVING REPUBL[employer] AGENCY This information is strictly Confidential and protected under [place] law. [place] law prohibits you from making any further disclosure of this information unless further disclosure is expressly permitted by the written consent of the person to whom it pertains or is authorized by law. A general authorization for the release of medical or other information is not sufficient for this purpose. Hospital accepts no responsibility if the information is made available to any other person, INCLUDING THE PATIENT. Interpretation Summary * Name: JONATHAN CADENA Study Date: 03/29/2017 10:12 AM * Patient Location: [id number].EDB\S\S244\S\1 HR: 61 * : 1935 (M/d/yyyy) Gender: Male Height: 67 in * Age: 82 yrs Ethnicity: [place] Weight: 144 lb * Ordering Physician: Geoff Tejada * Referring Physician: Self, Referred * Performed By: Robyn Barrera RDCS * * Reason For Study: CHF, EFFUSION * BSA: 1.8 m2 * Moderate left ventricular systolic dysfunction. * Mild biatrial dilatation. * Moderate - Severe mitral regurgitation. * Mild tricuspid regurgitation. * Mild pulmonic regurgitation. * Mild aortic regurgitation. * Mild pulmonary hypertension. * Compared to an echo of 12/05/2016 the left ventricular systolic function has decreased. * -- Conclusions -- * Aortic valve sclerosis moderate, without significant aortic valvular stenosis. Procedure Details * A complete two-dimensional transthoracic echocardiogram was performed (2D, M-mode, Doppler and color flow Doppler). Left Ventricle * The left ventricle is normal in size. * There is normal left ventricular wall thickness. * Ejection Fraction = 35-40%. * Left ventricular systolic function is moderately reduced. * There is moderate global hypokinesis of the left ventricle. * Septal motion is consistent with conduction abnormality. Right Ventricle * The right ventricle is normal size. * The right ventricular systolic function is moderately reduced. Atria * The left atrium is mildly dilated. * The right atrium is mildly dilated. * No ASD detected; PFO is not assessed. Mitral Valve * The mitral valve leaflets appear thickened, but open well. * There is no evidence of mitral valve prolapse. * There is no mitral valve stenosis. * There is moderate to severe mitral regurgitation. Tricuspid Valve * The tricuspid valve is normal. * There is no tricuspid stenosis. * Right ventricular systolic pressure is elevated at 30-40mmHg. * There is mild tricuspid regurgitation. Aortic Valve * Aortic valve sclerosis moderate, without significant aortic valvular stenosis. * Mild aortic regurgitation. Pulmonic Valve * The pulmonic valve leaflets are thin and pliable; valve motion is normal. * There is no pulmonic valvular stenosis. * Mild pulmonic valvular regurgitation. Great Vessels * The aortic root is normal size. Pericardium/Pleural * There is no pericardial effusion. Great Vessels * Normal inferior vena cava diameter and respiratory variation suggests normal central venous pressure. MMode 2D Measurements and Calculations IVSd 0.72 cm IVSs 0.94 cm LVIDd 4.9 cm LVIDs 3.9 cm LVPWd 1.2 cm LVPWs 1.4 cm IVS/LVPW 0.61 FS 19.7 % EDV(Teich) 110.6 ml ESV(Teich) 65.9 ml EF(Teich) 40.4 % EDV(cubed) 114.7 ml ESV(cubed) 59.3 ml EF(cubed) 48.3 % % IVS thick 31.0 % % LVPW thick 18.2 % LV mass(C)d 161.8 grams LV mass(C)dI 92.0 grams/m\S\2 LV mass(C)s 152.8 grams LV mass(C)sI 86.9 grams/m\S\2 SV(Teich) 44.7 ml SI(Teich) 25.4 ml/m\S\2 SV(cubed) 55.4 ml SI(cubed) 31.5 ml/m\S\2 Ao root diam 3.1 cm Ao root area 7.4 cm\S\2 LA dimension 4.1 cm LA/Ao 1.3 LVAd ap4 22.7 cm\S\2 LVLd ap4 7.1 cm EDV(MOD-sp4) 59.9 ml EDV(sp4-el) 61.6 ml LVAs ap4 16.9 cm\S\2 LVLs ap4 7.0 cm ESV(MOD-sp4) 34.6 ml ESV(sp4-el) 34.6 ml EF(MOD-sp4) 42.2 % EF(sp4-el) 43.8 % LVAd ap2 30.8 cm\S\2 LVLd ap2 7.2 cm EDV(MOD-sp2) 113.7 ml EDV(sp2-el) 111.5 ml LVAs ap2 20.4 cm\S\2 LVLs ap2 6.2 cm ESV(MOD-sp2) 57.3 ml ESV(sp2-el) 57.0 ml EF(MOD-sp2) 49.6 % EF(sp2-el) 48.9 % LVLd %diff 1.4 % EDV(MOD-bp) 80.8 ml LVLs %diff -12.48 % ESV(MOD-bp) 47.0 ml EF(MOD-bp) 41.8 % SV(MOD-sp4) 25.3 ml SI(MOD-sp4) 14.4 ml/m\S\2 SV(MOD-sp2) 56.5 ml SI(MOD-sp2) 32.1 ml/m\S\2 SV(MOD-bp) 33.7 ml SI(MOD-bp) 19.2 ml/m\S\2 SV(sp4-el) 27.0 ml SI(sp4-el) 15.4 ml/m\S\2 SV(sp2-el) 54.5 ml SI(sp2-el) 31.0 ml/m\S\2 Doppler Measurements and Calculations MV E max bonnie 93.0 cm/sec MV dec time 0.13 sec Ao V2 max 65.2 cm/sec Ao max PG 1.7 mmHg Ao max PG (full) -0.35 mmHg LV V1 max PG 2.0 mmHg LV V1 max 71.6 cm/sec MR max bonnie 503.9 cm/sec MR max PG 101.5 mmHg TR max bonnie 265.6 cm/sec
[2017-03-29] MEDS: FERROUS SULFATE 325 MG TAB PO SCH (20:32)
[2017-03-29] MEDS: SIMVASTATIN 10 MG TAB PO SCH (20:34)
[2017-03-29] MEDS: CALCIUM CARBONATE 1250MG TAB PO SCH (20:34)
[2017-03-30] VITALS (10 sets, daily range): BP systolic 125–154; BP diastolic 70–80; PULSE 54–60; TEMP 36.4–36.9; O2SAT 90–100
[2017-03-30 05:48] LABS: BASO % 0.2 %; BASO ABS # 0.02 K/uL (0-0.2); COMPLETE YES; HEMATOCRIT 29.6 % (42-52); IG% 0.3 %; LYMPH % 10.8 %; LYMPH ABS # 1.09 K/uL (1.2-3.4); MEAN CELL VOLUME 92.5 fL (80-100); MEAN CORPUSCULAR HEMOGLOBIN 30.3 pg (25-34); MEAN CORPUSCULAR HGB CONC 32.8 g/dl (32-36); MEAN PLATELET VOLUME 10.5 fL (7.4-10.4); MONO % 8.8 %; NEUT % 79.9 %; PLATELET COUNT 201 K/uL (130-400); WHITE BLOOD COUNT 10.08 K/uL (4.8-10.8)
[2017-03-30 06:22] LABS: BUN/CREATININE RATIO 23.3 (10-20); CALCIUM 7.9 mg/dl (8.5-10.1); CREATININE 1.7 mg/dl (0.60-1.40); MAGNESIUM 2.3 mg/dl (1.8-2.4); POTASSIUM 5.2 mmol/L (3.5-5.1)
[2017-03-30] MEDS: CHOLECALCIFEROL 1000 INTER.UNIT TAB PO SCH (07:56)
[2017-03-30] MEDS: CALCIUM CARBONATE 1250MG TAB PO SCH ×2 (07:56→20:56)
[2017-03-30] MEDS: FERROUS SULFATE 325 MG TAB PO SCH ×2 (07:56→20:59)
[2017-03-30] MEDS: TAMSULOSIN HCL 0.4 MG CAP PO SCH ×2 (07:56→20:58)
[2017-03-30] MEDS: METOPROLOL TARTRATE 50 MG TAB PO SCH ×2 (07:56→20:58)
[2017-03-30] MEDS: APIXABAN 2.5 MG TAB PO SCH ×2 (07:57→20:56)
--- NOTE | 2017-03-30 10:08 | Hospitalist Progress Note ---
Hospitalist Progress Note Date of Service March 30, 2017. Subjective Pt evaluation today including: conversation w/ patient, physical exam, chart review, lab review, review of studies, review of inpatient medication list Patient seen and evaluated. No acute events overnight. K noted to be 5.2 today. Ordered stat EKG and reviewed med list for any medications for cause and none present. Have changed diet to low K Will repeat K at 1400 and monitor - will hold of on reversal with glucose/ insulin at this time Cr. has stabilized at 1.[address] reveals bilateral pleural effusions with echo stating EF 35-40% may benefit from mild diuretic to improve Cr, reduce K, and improve orthopnea. At this time only complaint is of orthopnea. Denies SOB with sitting upright and exertion. He denies CP or palpitations. Feels that he is improving except for orthopnea. Constitutional: No chills, No fever Eyes: No worsening of vision Respiratory: + cough, No dyspnea at rest, No dyspnea on exertion, No sputum Cardiovascular: + orthopnea, No chest pain, No palpitations Abdomen: No constipation, No diarrhea, No nausea, No pain, No vomiting Musculoskeletal: No calf pain, No swelling Male : No dysuria Medications Current Inpatient Medications Medications (Trade) Dose Ordered Sig/Zeke Route Start Time Stop Time Status Last Admin Dose Admin Apixaban (Eliquis Tab) 5 mg BID PO 03/29/17 09:00 04/28/17 08:59 03/30/17 07:57 5 MG Metoprolol Tartrate (Lopressor Tab) 50 mg Q12H PO 03/29/17 09:00 04/28/17 08:59 03/30/17 07:56 50 MG Prednisone (PredniSONE TAB) 40 mg DAILY PO 03/29/17 09:00 04/28/17 08:59 03/30/17 07:55 40 MG Simvastatin (Zocor Tab) 10 mg QPM PO 03/29/17 21:00 04/28/17 20:59 03/29/17 20:34 10 MG Tamsulosin HCl (Flomax Cap) 0.4 mg BID PO 03/29/17 09:00 04/28/17 08:59 03/30/17 07:56 0.4 MG Acetaminophen (Tylenol Tab) 650 mg Q4H PRN PO 03/29/17 02:15 04/28/17 02:14 Al Hydrox/Mg Hydrox/Simethicone (Maalox Max Susp) 15 ml Q4H PRN PO 03/29/17 02:15 04/28/17 02:14 Magnesium Hydroxide (Milk Of Magnesia Susp) 30 ml Q12H PRN PO 03/29/17 02:15 04/28/17 02:14 Morphine Sulfate (MoRPHine SULFATE INJ) 2 mg Q30M PRN IV 03/29/17 02:15 04/12/17 02:14 Ferrous Sulfate (Feosol Tab) 325 mg BID PO 03/29/17 21:00 04/28/17 20:59 03/30/17 07:56 325 MG Calcium Carbonate (oS-Brendan 500 TAB) 1,250 mg Q12 PO 03/29/17 21:00 04/28/17 20:59 03/30/17 07:56 1,250 MG Cholecalciferol (Vitamin D Tab) 2,000 inter.unit DAILY PO 03/30/17 09:00 04/29/17 08:59 03/30/17 07:56 2,000 INTER.UNIT Objective Vital Signs Date Time Temp Pulse Resp B/P Pulse Ox O2 Delivery O2 Flow Rate FiO2 03/30/17 08:00 100 Nasal Cannula 3.0 03/30/17 07:29 36.4 54 18 150/76 99 Nasal Cannula 2.0 03/30/17 04:00 100 Nasal Cannula 3.0 03/30/17 03:54 36.9 58 18 154/80 99 3.0 03/30/17 00:00 100 Nasal Cannula 3.0 03/29/17 23:55 36.4 59 18 164/90 99 3.0 03/29/17 20:00 36.6 63 18 151/90 100 3.0 03/29/17 20:00 100 Nasal Cannula 3.0 03/29/17 16:00 99 Nasal Cannula 2.0 03/29/17 15:23 36.3 63 18 165/84 99 Nasal Cannula 2.0 03/29/17 12:00 95 Nasal Cannula 2.0 03/29/17 11:45 36.5 60 18 148/96 100 Nasal Cannula 2.0 Physical Exam General Appearance: WD/WN, no apparent distress, + thin Eyes: sclerae normal ENT: hearing grossly normal Neck: supple, no JVD, trachea midline Respiratory/Chest: no respiratory distress, no accessory muscle use, + crackles (bases bilat) Cardiovascular: regular rate, rhythm, no gallop, no murmur Abdomen: normal bowel sounds, non tender, soft Extremities: no pedal edema, no calf tenderness Neurologic/Psychiatric: alert, oriented x 3 Skin: normal color, warm/dry Laboratory Results Last 24 Hours Test 03/30/17 05:31 White Blood Count 10.08 K/uL Red Blood Count 3.20 M/uL Hemoglobin 9.7 g/dL Hematocrit 29.6 % Mean Corpuscular Volume 92.5 fL Mean Corpuscular Hemoglobin 30.3 pg Mean Corpuscular Hemoglobin Concent 32.8 g/dl Platelet Count 201 K/uL Mean Platelet Volume 10.5 fL Neutrophils (%) (Auto) 79.9 % Lymphocytes (%) (Auto) 10.8 % Monocytes (%) (Auto) 8.8 % Eosinophils (%) (Auto) 0.0 % Basophils (%) (Auto) 0.2 % Neutrophils # (Auto) 8.05 K/uL Lymphocytes # (Auto) 1.09 K/uL Monocytes # (Auto) 0.89 K/uL Eosinophils # (Auto) 0.00 K/uL Basophils # (Auto) 0.02 K/uL RDW Standard Deviation 43.0 fL RDW Coefficient of Variation 12.7 % Immature Granulocyte % (Auto) 0.3 % Immature Granulocyte # (Auto) 0.03 K/uL Sodium Level 141 mmol/L Potassium Level 5.2 mmol/L Chloride Level 107 mmol/L Carbon Dioxide Level 27 mmol/L Anion Gap 7.0 mmol/L Blood Urea Nitrogen 40 mg/dl Creatinine 1.70 mg/dl Est Creatinine Clear Calc Drug Dose 28.5 ml/min Estimated GFR () 42.0 Estimated GFR (Non- 36.2 BUN/Creatinine Ratio 23.3 Random Glucose 97 mg/dl Calcium Level 7.9 mg/dl Magnesium Level 2.3 mg/dl Assessment and Plan 82 y/o admitted on 03/28/2017 with a chief complaint of palpitations, SOB and weakness. On arrival to the ER the pt was exhibiting rapid AF with a possible rate-related LBBB and a long QT interval not seen on previous EKGs. Initial labs were significant for ARF and hyperkalemia. Atrial Fibrillation with RVR - LBBB - Long QT: IMPROVED/STABLE - NSR - Converted to NSR with tx for hyperkalemia with normalization of QT - Eliquis 5 mg BID and Lopressor 50 mg Q12H - Cardiology following - recommendations reviewed -- D/C'd flecainide Acute Kidney Injury and Hyperkalemia: - AM labs with K of 5.2 without significant EKG changes or tele monitoring issues -- Decreased excretion in setting of ALFONSO? - Change diet to low K and repeat BMP at 1400 - Continue to hold Lisinopril Acute on Chronic Systolic CHF/Cardiomyopathy: - Reporting on orthopnea at this time - CT with moderate R and small L pleural effusions, cardiomegaly, and anasarca with trace perihepatic ascites - Echo - EF 35-40% with valvular regurg, focal hypokinesis, and signs of septal conduction abnormality - Zocor 10 mg daily - May benefit from gentle diuresis as Cr may be resultant of acute failure and resulting in poor excretion of K and would improve orthopnea - Cardiology - possible ischemic evaluation - heart catheterization RA: - will need to f/u with manager database - Prednisone 40 mg daily - Hydroxychloroquine held because of kidney function DVT Prophylaxis: Eliquis Code Status: FULL RESUSCITATION Disposition: - Lives at home with family support Continued [facility] stay due to: multiple IV medications needed
--- NOTE | 2017-03-30 10:36 | Clinical Documentation Query ---
CLINICAL DOCUMENTATION QUERY Ms. YOUSIF, In your clinical opinion is this patient being managed for: (x ) Chronic kidney disease, stage 3 ( ) Other explanation of clinical findings (Please Explain) ( ) Unable to determine (Please Define) ( ) Need to Discuss ( ) Not Agree The medical record reflects the following clinical findings, treatment, and risk factors. Clinical Indicators: 82 yo male presenting with acute systolic CHF/cardiomyopathy and ALFONSO. Review of historical GFR showed range of 29.8-55.2 over the past 2 years. Treatment: monitor PRP's, treat episodes of ALFONSO as well as comorbid conditions Risk Factors: A fib, age, HTN, cardiomyopathy, systolic CHF The stages of CKD according to the [employer] are as follows: Stage I: GFR >90 Stage II: GFR 60-89 Stage III: GFR 30-59 Stage IV: GFR 15-29 Stage V: GFR <15 Please clarify and document your clinical opinion in the progress notes and discharge summary. Terms such as "probable", "suspected", "likely", "questionable", "possible", or "still to be ruled out" are acceptable. IF IN AGREEMENT, YOU MUST DOCUMENT ABOVE DIAGNOSTIC STATEMENT IN DAILY PROGRESS NOTES AND DISCHARGE SUMMARY. This document is not part of the patient's record. Thank You, Christen Doll, CARLOS [phone]
--- NOTE | 2017-03-30 10:38 | Clinical Documentation Query ---
CLINICAL DOCUMENTATION QUERY Dr. OLIVEROS, In your clinical opinion is this patient being managed for: ( ) Chronic kidney disease, stage 3 ( ) Other explanation of clinical findings (Please Explain) ( ) Unable to determine (Please Define) ( ) Need to Discuss ( ) Not Agree The medical record reflects the following clinical findings, treatment, and risk factors. Clinical Indicators: 82 yo male presenting with acute systolic CHF/cardiomyopathy and ALFONSO. Review of historical GFR showed range of 29.8-55.2 over the past 2 years. Treatment: monitor PRP's, treat episodes of ALFONSO as well as comorbid conditions Risk Factors: A fib, age, HTN, cardiomyopathy, systolic CHF Please clarify and document your clinical opinion in the progress notes and discharge summary. Terms such as "probable", "suspected", "likely", "questionable", "possible", or "still to be ruled out" are acceptable. IF IN AGREEMENT, YOU MUST DOCUMENT ABOVE DIAGNOSTIC STATEMENT IN DAILY PROGRESS NOTES AND DISCHARGE SUMMARY. This document is not part of the patient's record. Thank You, Christen Doll, RN [phone]
[2017-03-30] MEDS ORDERED: FUROSEMIDE INJ 20 MG in SYRINGE 0 ML IV ONE (12:30)
[2017-03-30 16:29] LABS: BUN/CREATININE RATIO 23.8 (10-20); CALCIUM 8.3 mg/dl (8.5-10.1); CREATININE 1.8 mg/dl (0.60-1.40)
[2017-03-30 16:50] LABS: FERRITIN 29.6 ng/ml (8.0-388.0)
[2017-03-30] MEDS: SIMVASTATIN 10 MG TAB PO SCH (20:59)
[2017-03-31] VITALS (11 sets, daily range): BP systolic 146–167; BP diastolic 72–85; PULSE 54–73; TEMP 36.4–36.6; O2SAT 94–100
[2017-03-31 06:37] LABS: HEMATOCRIT 31.2 % (42-52); MEAN CELL VOLUME 93.4 fL (80-100); MEAN CORPUSCULAR HEMOGLOBIN 30.8 pg (25-34); MEAN PLATELET VOLUME 10.9 fL (7.4-10.4); PLATELET COUNT 199 K/uL (130-400); RED BLOOD COUNT 3.34 M/uL (4.7-6.1); WHITE BLOOD COUNT 12.34 K/uL (4.8-10.8)
[2017-03-31 07:13] LABS: BUN/CREATININE RATIO 25.1 (10-20); CALCIUM 8.6 mg/dl (8.5-10.1); CREATININE 1.7 mg/dl (0.60-1.40); MAGNESIUM 2.4 mg/dl (1.8-2.4); POTASSIUM 4.6 mmol/L (3.5-5.1)
[2017-03-31] MEDS: METOPROLOL TARTRATE 50 MG TAB PO SCH ×2 (09:16→21:29)
[2017-03-31] MEDS: APIXABAN 2.5 MG TAB PO SCH ×2 (09:16→21:29)
[2017-03-31] MEDS: TAMSULOSIN HCL 0.4 MG CAP PO SCH ×2 (09:16→21:29)
[2017-03-31] MEDS: CALCIUM CARBONATE 1250MG TAB PO SCH ×2 (09:16→21:29)
[2017-03-31] MEDS: CHOLECALCIFEROL 1000 INTER.UNIT TAB PO SCH (09:16)
[2017-03-31] MEDS: FERROUS SULFATE 325 MG TAB PO SCH ×2 (09:16→21:29)
[2017-03-31] MEDS ORDERED: FUROSEMIDE 20 MG TAB PO STA (10:47)
--- NOTE | 2017-03-31 12:19 | Cardiology Follow-Up ---
Subjective Date of Service: March 31, 2017. Pt evaluation today including: conversation w/ patient, physical exam, lab review, review of studies, review of inpatient medication list History of Present Illness This is an 82-year-old male who is followed by Dr. Monge in the office. He has a history of atrial fibrillation identified on 12/04/2016 when he was admitted with that rhythm with rapid ventricular response. He presented with cough and upper respiratory symptoms at the time, he was not having palpitations. With rate control medications he converted to sinus rhythm. He was started on Eliquis as an anticoagulant. Event monitoring subsequently demonstrated paroxysmal atrial fibrillation. He was started on flecainide 50 mg twice a day to help control his arrhythmia. On echocardiography he had normal left ventricular size with low normal left ventricular systolic function. He had aortic sclerosis but not aortic stenosis. He then presented here on 03/29/2017 with palpitations, shortness of breath and weakness. He describes his heart beating in a forceful manner as well as his legs feeling like they would give out. On presentation he was in atrial fibrillation with a rapid heart rate but a very wide QRS complex, and he was also found to be hyperkalemic. With treatment of his hyperkalemia his QRS complex improved significantly, and he subsequently converted to sinus rhythm at around 1 AM the next morning. 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 He has had momentary lightheadedness but no presyncope or syncope. He still feels short of breath, he did ambulate in the hallway and had some shortness of breath but improved. No chest discomfort. Social History Smoking Status: Former Smoker History of Alcohol Use: No Review of Systems Respiratory: + cough, No dyspnea at rest, No dyspnea on exertion, No sputum Cardiac: + orthopnea, No chest pain, No palpitations Medications Cardiovascular: Item Value Date Time Apixaban 2.5 mg 03/30/172099 (Eliquis Tab) BID/PO 03/31/17915 Simvastatin 10 mg 03/29/172099 (Zocor Tab) QPM/PO 03/30/172058 Metoprolol 50 mg 5/23/17 0900 Tartrate Q12H/PO 03/31/17 0916 (Lopressor Tab) Objective Vital Signs Past 12 Hours Date Time Temp Pulse Resp B/P Pulse Ox O2 Delivery O2 Flow Rate FiO2 03/31/17 07:58 36.5 57 16 161/79 100 Nasal Cannula 3.0 03/31/17 04:32 36.5 55 18 149/85 96 Nasal Cannula 3.0 03/31/17 04:00 Nasal Cannula 2.0 Last Recorded Weight-Kilograms: 60.300 Intake & Output 8-Hour Column 03/30/17 03/31/17 03/31/17 16:00 00:00 08:00 Intake Total 200 ml 600 ml 120 ml Output Total 450 ml 1550 ml Balance 200 ml 150 ml -1430 ml 24-Hour Column 03/31/17 08:00 Intake Total 920 ml Output Total 2000 ml Balance -1080 ml Physical Exam Constitutional: Level of Distress: moderate distress Lungs: Respiratory effort: no dyspnea, good air movement Auscultation: breath sounds normal, no wheezing Cardiovascular: Heart Auscultation: RRR, no murmurs, no rubs, no gallops Peripheral Pulses: Bruits: none appreciated Extremities: no edema Data Laboratory Results: Last 24 Hours Test 03/30/17 15:52 03/30/17 16:14 03/31/17 06:02 Sodium Level 139 mmol/L 139 mmol/L Potassium Level 5.0 mmol/L 4.6 mmol/L Chloride Level 103 mmol/L 103 mmol/L Carbon Dioxide Level 27 mmol/L 31 mmol/L Anion Gap 9.0 mmol/L 5.0 mmol/L Blood Urea Nitrogen 43 mg/dl 43 mg/dl Creatinine 1.80 mg/dl 1.70 mg/dl Est Creatinine Clear Calc Drug Dose 26.9 ml/min 27.6 ml/min Estimated GFR () 39.2 42.0 Estimated GFR (Non- 33.8 36.2 BUN/Creatinine Ratio 23.8 25.1 Random Glucose 157 mg/dl 89 mg/dl Calcium Level 8.3 mg/dl 8.6 mg/dl Iron Level 76 mcg/dl Total Iron Binding Capacity 442 mcg/dl Ferritin 29.6 ng/ml Vitamin B12 Level 1516 pg/mL Folate > 24.00 ng/mL White Blood Count 12.34 K/uL Red Blood Count 3.34 M/uL Hemoglobin 10.3 g/dL Hematocrit 31.2 % Mean Corpuscular Volume 93.4 fL Mean Corpuscular Hemoglobin 30.8 pg Mean Corpuscular Hemoglobin Concent 33.0 g/dl RDW Standard Deviation 43.5 fL RDW Coefficient of Variation 12.8 % Platelet Count 199 K/uL Mean Platelet Volume 10.9 fL Magnesium Level 2.4 mg/dl EKG: Sinus rhythm, left bundle type IVCD Telemetry reviewed: Remains in sinus rhythm with a controlled heart rate Assessment and Plan #1. Atrial fibrillation with a wide complex on presentation: This is probably a combination of hyperkalemia and flecainide, flecainide can cause widening of the QRS at higher heart rates. With correction of his potassium and holding his flecainide this has resolved. His atrial fibrillation converted to sinus at around 1 AM the day after admission and he has remained in sinus rhythm with a controlled heart rate. He should remain on Eliquis for his arrhythmia. Whether we should restart the flecainide or not remains unclear, he will most likely have recurrences off of medications but so far has not. #2. Shortness of breath: He seems to have developed profound shortness of breath over the last month or so, based on what he and his both tell me he is having a lot of difficulty doing normal chores which never used to bother him. His echocardiogram in November of this year showed low normal function without significant valvular disease, however both his left ventricular function and his mitral regurgitation have worsened. The chest x-ray and CT scan do not suggest a pulmonary cause. His current echocardiogram suggests significant progression of left ventricular dysfunction and mitral regurgitation , the cause is uncertain. I believe he will need an ischemic evaluation. For the moment I would be has attempted to consider cardiac catheterization, his kidney function is worse in a was several months ago. I am going to arrange a pharmacologic Cardiolite study. #3. Hyperkalemia: He is on lisinopril as an outpatient, and his creatinine was somewhat elevated on admission, and based on his echo he probably has a low cardiac output state. Perhaps this is sufficient to explain the hyperkalemia. That has improved. #4. Cardiomyopathy: He appears to have had a dramatic progression in his cardiomyopathy over the last 4 months, as well as now worsening MR (although that may well be secondary to the cardiomyopathy). His QRS complex is quite wide (130 ms) even after correction of his hyperkalemia and illumination of flecainide, however I don't know that that is sufficient to explain the cardiomyopathy. He will need an ischemic evaluation, possibly cardiac catheterization, although I don't think we can do that yet therefore I'm going to arrange a pharmacologic Cardiolite study. Thank you for allowing me to participate in his care.
--- NOTE | 2017-03-31 12:46 | Progress Note ---
Subjective Date of Service: March 31, 2017. Subjective Pt evaluation today including: conversation w/ patient, physical exam, chart review, conversation w/ rewards consultant, review of inpatient medication list Reported orthopnea is better, no chest pain, no other complaint Problem List Medical Problems: (1) Atrial fibrillation with rapid ventricular response Status: Acute (2) ECG abnormality Status: Acute (3) Hyperkalemia Status: Acute (4) Hypotension Status: Acute (5) New onset atrial fibrillation Status: Acute (6) Prolonged QT interval Status: Acute (7) Shortness of breath Status: Chronic (8) Weakness Status: Acute Review of Systems Constitutional: No chills, No fatigue, No fever, No problem reported, No sweats , No weakness, No weight loss Eyes: No diplopia, No discharge, No eye pain, No redness, No worsening of vision ENT: No dental problems, No hearing loss, No nasal symptoms, No sore throat, No tinnitus, No trouble swallowing, No unusual epistaxis Respiratory: + shortness of breath, No cough, No dyspnea at rest, No dyspnea on exertion, No hemoptysis, No sputum, No wheezing Cardiac: No PND, No chest pain, No claudication, No edema, No orthopnea, No palpitations Abdomen: No constipation, No diarrhea, No nausea, No pain, No vomiting Musculoskeletal: No calf pain, No joint pain, No muscle pain, No swelling Male : No dysuria, No hematuria, No incontinence, No nocturia more than once/ night, No slowing stream, No urinary frequency Neurologic: No balance problems, No memory loss, No numbness/tingling, No paralysis, No vertigo, No weakness Psychiatric: No anhedonism, No anxiety, No depression symptoms, No insomnia, No substance abuse Heme: No abnormal bleeding/bruising, No clotting problems, No night sweats, No swollen lymph nodes Endo: No excessive thirst, No excessive urination, No fatigue Skin: No bleeding, No color change, No itch, No new/changing skin lesions, No rash Objective Vital Signs Date Time Temp Pulse Resp B/P Pulse Ox O2 Delivery O2 Flow Rate FiO2 03/31/17 11:23 36.4 56 16 148/83 99 Nasal Cannula 2.0 03/31/17 07:58 36.5 57 16 161/79 100 Nasal Cannula 3.0 03/31/17 04:32 36.5 55 18 149/85 96 Nasal Cannula 3.0 03/31/17 04:00 Nasal Cannula 2.0 03/31/17 00:00 Nasal Cannula 2.0 03/30/17 23:21 36.4 60 18 139/78 100 Nasal Cannula 3.0 03/30/17 20:00 Nasal Cannula 3.0 03/30/17 19:51 36.7 58 18 143/75 94 Room Air 03/30/17 16:04 36.6 58 16 125/70 90 03/30/17 16:00 Room Air 03/30/17 13:55 100 Nasal Cannula 3.0 Physical Exam General Appearance: WD/WN, no apparent distress, + thin, + pertinent finding ( frail, chronically ill-looking) Eyes: normal inspection, PERRL, EOMI, sclerae normal ENT: normal ENT inspection, hearing grossly normal, pharynx normal Neck: supple, no adenopathy, thyroid normal, no JVD, no carotid bruits, trachea midline Respiratory/Chest: chest non-tender, lungs clear, normal breath sounds, no respiratory distress, no accessory muscle use Cardiovascular: regular rate, rhythm, no edema, no gallop, no JVD, no murmur Abdomen: normal bowel sounds, non tender, soft, no organomegaly, no pulsatile mass Extremities: normal range of motion, non-tender, normal inspection, no pedal edema, no calf tenderness, normal capillary refill, pelvis stable Neurologic/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: 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 as tested, no motor/sensory deficits, alert, normal mood/affect, oriented x 3 Skin: normal color, warm/dry, no rash Lymphatic: no adenopathy Laboratory Results Last 24 Hours Test 03/30/17 15:52 03/30/17 16:14 03/31/17 06:02 Sodium Level 139 mmol/L 139 mmol/L Potassium Level 5.0 mmol/L 4.6 mmol/L Chloride Level 103 mmol/L 103 mmol/L Carbon Dioxide Level 27 mmol/L 31 mmol/L Anion Gap 9.0 mmol/L 5.0 mmol/L Blood Urea Nitrogen 43 mg/dl 43 mg/dl Creatinine 1.80 mg/dl 1.70 mg/dl Est Creatinine Clear Calc Drug Dose 26.9 ml/min 27.6 ml/min Estimated GFR () 39.2 42.0 Estimated GFR (Non- 33.8 36.2 BUN/Creatinine Ratio 23.8 25.1 Random Glucose 157 mg/dl 89 mg/dl Calcium Level 8.3 mg/dl 8.6 mg/dl Iron Level 76 mcg/dl Total Iron Binding Capacity 442 mcg/dl Ferritin 29.6 ng/ml Vitamin B12 Level 1516 pg/mL Folate > 24.00 ng/mL White Blood Count 12.34 K/uL Red Blood Count 3.34 M/uL Hemoglobin 10.3 g/dL Hematocrit 31.2 % Mean Corpuscular Volume 93.4 fL Mean Corpuscular Hemoglobin 30.8 pg Mean Corpuscular Hemoglobin Concent 33.0 g/dl RDW Standard Deviation 43.5 fL RDW Coefficient of Variation 12.8 % Platelet Count 199 K/uL Mean Platelet Volume 10.9 fL Magnesium Level 2.4 mg/dl Assessment and Plan 82 y/o admitted on 03/28/2017 with a chief complaint of palpitations, SOB and weakness. On arrival to the ER the pt was exhibiting rapid AF with a possible rate- related LBBB and a long QT interval not seen on previous EKGs. Initial labs were significant for ARF and hyperkalemia. Atrial Fibrillation with RVR - LBBB - Long QT: IMPROVED/continue STABLE - NSR - Eliquis 5 mg BID and Lopressor 50 mg Q12H - Cardiology following - recommendations reviewed: D/C'd flecainide, planned stress test tomorrow Acute Kidney Injury and Hyperkalemia with hx of Chronic kidney disease, stage 3 -Hyperkalemia resolved - Renal function stable Acute on Chronic Systolic CHF/Cardiomyopathy: - orthopnea little improved - CT with moderate R and small L pleural effusions, cardiomegaly, and anasarca with trace perihepatic ascites - Echo - EF 35-40% with valvular regurg, focal hypokinesis, and signs of septal conduction abnormality - 1 dose of IV Lasix yesterday, today's renal function is stable, will continue to give Lasix 20 mg by mouth daily, continue follow-up renal function - Cardiology - possible ischemic evaluation , stress test for tomorrow was ordered as mentioned in the above - Remote history of smoking, was wheezing by Yesterday, which is improved, will continue nebulizer treatment RA: - 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
[2017-03-31] MEDS: SIMVASTATIN 10 MG TAB PO SCH (21:29)
[2017-03-31] MEDS ORDERED: NURSING VERBAL MED ORDER ONE (22:00)
[2017-03-31] MEDS ORDERED: COUGH DROP (SUGAR FREE) LOZ 24 LOZ/1 BOX PO PRN (22:15)
[2017-04-01] VITALS (8 sets, daily range): BP systolic 113–166; BP diastolic 67–83; PULSE 50–70; TEMP 36.4–36.9; O2SAT 94–97
[2017-04-01 05:42] LABS: HEMATOCRIT 30.3 % (42-52); MEAN CELL VOLUME 92.7 fL (80-100); MEAN CORPUSCULAR HEMOGLOBIN 30.9 pg (25-34); MEAN CORPUSCULAR HGB CONC 33.3 g/dl (32-36); MEAN PLATELET VOLUME 10.8 fL (7.4-10.4); PLATELET COUNT 203 K/uL (130-400); RED BLOOD COUNT 3.27 M/uL (4.7-6.1); WHITE BLOOD COUNT 10.84 K/uL (4.8-10.8)
[2017-04-01 06:06] LABS: BUN/CREATININE RATIO 21.5 (10-20); CALCIUM 8.3 mg/dl (8.5-10.1); CREATININE 1.4 mg/dl (0.60-1.40); MAGNESIUM 2.2 mg/dl (1.8-2.4); POTASSIUM 4.3 mmol/L (3.5-5.1)
[2017-04-01] MEDS ORDERED: REGADENOSON 0.4 MG/5 ML SYR ONE (08:20)
[2017-04-01] MEDS: METOPROLOL TARTRATE 50 MG TAB PO SCH (09:00)
[2017-04-01 09:11] LABS: URINE APPEARANCE CLEAR (CLEAR); URINE BILIRUBIN NEG (NEG); URINE COLOR YELLOW; URINE EPITHELIAL CELL AUTO 0-5 /lpf (0-5); URINE NITRITE NEG (NEG); URINE SPECIFIC GRAVITY 1.013 (1.000-1.030); UROBILINOGEN NEG (NEG)
[2017-04-01 09:16] LABS: MANUAL MICROSCOPIC REQUIRED? NO; REVIEW REQ? NO
[2017-04-01] MEDS ORDERED: NURSING VERBAL MED ORDER ONE (11:30)
[2017-04-01] MEDS: FUROSEMIDE 20 MG TAB PO SCH (11:36)
[2017-04-01] MEDS: CALCIUM CARBONATE 1250MG TAB PO SCH ×2 (11:36→20:13)
[2017-04-01] MEDS: FERROUS SULFATE 325 MG TAB PO SCH ×2 (11:38→20:13)
[2017-04-01] MEDS: CHOLECALCIFEROL 1000 INTER.UNIT TAB PO SCH (11:39)
[2017-04-01] MEDS: TAMSULOSIN HCL 0.4 MG CAP PO SCH ×2 (11:39→20:13)
[2017-04-01] MEDS: APIXABAN 2.5 MG TAB PO SCH ×2 (11:39→20:13)
[2017-04-01] MEDS ORDERED: ALBUT/IPRATROP 3MG/0.5MG NEB 3 ML VIAL INH PRN (11:45)
[2017-04-01] MEDS ORDERED: METOPROLOL TARTRATE 25 MG TAB PO SCH (12:00)
--- NOTE | 2017-04-01 12:10 | Progress Note ---
Subjective Date of Service: April 01, 2017. Subjective Pt evaluation today including: conversation w/ patient, conversation w/ family , physical exam, chart review, lab review, review of studies, conversation w/ [facility] consultant, review of inpatient medication list Report is has been feeling much better, has been taper off oxygen, has good diuretic, no other complaint Problem List Medical Problems: (1) Atrial fibrillation with rapid ventricular response Status: Acute (2) ECG abnormality Status: Acute (3) Hyperkalemia Status: Acute (4) Hypotension Status: Acute (5) New onset atrial fibrillation Status: Acute (6) Prolonged QT interval Status: Acute (7) Shortness of breath Status: Chronic (8) Weakness Status: Acute Review of Systems Constitutional: + weakness, No chills, No fatigue, No fever, No problem reported, No sweats, No weight loss Eyes: No diplopia, No discharge, No eye pain, No redness, No worsening of vision ENT: No dental problems, No hearing loss, No nasal symptoms, No sore throat, No tinnitus, No trouble swallowing, No unusual epistaxis Respiratory: No cough, No dyspnea at rest, No dyspnea on exertion, No hemoptysis, No shortness of breath, No sputum, No wheezing Cardiac: No PND, No chest pain, No claudication, No edema, No orthopnea, No palpitations Abdomen: No constipation, No diarrhea, No nausea, No pain, No vomiting Musculoskeletal: No calf pain, No joint pain, No muscle pain, No swelling Male : No dysuria, No hematuria, No incontinence, No nocturia more than once/ night, No slowing stream, No urinary frequency Neurologic: No balance problems, No memory loss, No numbness/tingling, No paralysis, No vertigo, No weakness Psychiatric: No anhedonism, No anxiety, No depression symptoms, No insomnia, No substance abuse Heme: No abnormal bleeding/bruising, No clotting problems, No night sweats, No swollen lymph nodes Endo: No excessive thirst, No excessive urination, No fatigue Skin: No bleeding, No color change, No itch, No new/changing skin lesions, No rash Objective Vital Signs Date Time Temp Pulse Resp B/P Pulse Ox O2 Delivery O2 Flow Rate FiO2 04/01/17 12:00 70 04/01/17 11:16 36.5 50 20 141/71 94 Room Air 04/01/17 07:37 95 Room Air 04/01/17 07:25 36.4 51 18 166/83 95 Room Air 04/01/17 04:09 36.6 53 18 146/71 97 Room Air 04/01/17 04:00 Nasal Cannula 2.0 04/01/17 00:00 Nasal Cannula 2.0 03/31/17 23:42 36.5 58 18 146/72 96 Room Air 03/31/17 21:25 73 154/80 03/31/17 20:00 94 Nasal Cannula 2.0 03/31/17 19:37 36.6 60 20 167/84 96 Room Air 03/31/17 16:00 94 Nasal Cannula 2.0 03/31/17 15:28 36.4 54 18 163/82 94 Nasal Cannula 2.0 Physical Exam General Appearance: WD/WN, no apparent distress, + thin Eyes: normal inspection, PERRL, EOMI, sclerae normal ENT: normal ENT inspection, hearing grossly normal, pharynx normal Neck: supple, no adenopathy, thyroid normal, no JVD, no carotid bruits, trachea midline Respiratory/Chest: chest non-tender, normal breath sounds, no respiratory distress, no accessory muscle use, + decreased breath sounds, + wheezing ( occasional) Cardiovascular: regular rate, rhythm, no edema, no gallop, no JVD, no murmur Abdomen: normal bowel sounds, non tender, soft, no organomegaly, no pulsatile mass Extremities: normal range of motion, non-tender, normal inspection, no pedal edema, no calf tenderness, normal capillary refill, pelvis stable 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, no motor/sensory deficits, alert, normal mood/affect, oriented x 3 Skin: normal color, warm/dry, no rash Lymphatic: no adenopathy Laboratory Results Last 24 Hours Test 04/01/17 00:00 04/01/17 05:20 04/01/17 08:30 Stool Occult Blood NEGATIVE White Blood Count 10.84 K/uL Red Blood Count 3.27 M/uL Hemoglobin 10.1 g/dL Hematocrit 30.3 % Mean Corpuscular Volume 92.7 fL Mean Corpuscular Hemoglobin 30.9 pg Mean Corpuscular Hemoglobin Concent 33.3 g/dl RDW Standard Deviation 43.3 fL RDW Coefficient of Variation 12.8 % Platelet Count 203 K/uL Mean Platelet Volume 10.8 fL Sodium Level 141 mmol/L Potassium Level 4.3 mmol/L Chloride Level 103 mmol/L Carbon Dioxide Level 35 mmol/L Anion Gap 3.0 mmol/L Blood Urea Nitrogen 30 mg/dl Creatinine 1.40 mg/dl Est Creatinine Clear Calc Drug Dose 33.5 ml/min Estimated GFR () 53.1 Estimated GFR (Non- 45.8 BUN/Creatinine Ratio 21.5 Random Glucose 88 mg/dl Calcium Level 8.3 mg/dl Magnesium Level 2.2 mg/dl Urine Color YELLOW Urine Appearance CLEAR Urine pH 8.0 Urine Specific [place] 1.013 Urine Protein NEG Urine Glucose (UA) NEG Urine Ketones NEG Urine Occult Blood 1+ Urine Nitrite NEG Urine Bilirubin NEG Urine Urobilinogen NEG Urine Leukocyte Esterase NEG Urine WBC (Auto) 0 /hpf Urine RBC (Auto) 10-30 /hpf Urine Hyaline Casts (Auto) 0 /lpf Urine Epithelial Cells (Auto) 0-5 /lpf Urine Bacteria (Auto) NEG Assessment and Plan 82 y/o admitted on 03/28/2017 with a chief complaint of palpitations, SOB and weakness. On arrival to the ER the pt was exhibiting rapid AF with a possible rate- related LBBB and a long QT interval not seen on previous EKGs. Initial labs were significant for ARF and hyperkalemia. Atrial Fibrillation with RVR - LBBB - Long QT: IMPROVED/continue STABLE - NSR - Eliquis 5 mg BID and Lopressor 25 mg Q12H, from 50 every 12 because of bradycardia - Cardiology following - recommendations reviewed: D/C'd flecainide, stress test was done, will follow-up results and discussed with sourcing specialist Acute Kidney Injury and Hyperkalemia with hx of Chronic kidney disease, stage 3 -Hyperkalemia resolved -Renal function improved after IV Lasix Will continue Lasix orally and follow-up renal function Acute on Chronic Systolic CHF/Cardiomyopathy: - orthopnea has been significant improved, is off nasal cannula oxygen - CT with moderate R and small L pleural effusions, cardiomegaly, and anasarca with trace perihepatic ascites - Echo - EF 35-40% with valvular regurg, focal hypokinesis, and signs of septal conduction abnormality - 1 dose of IV Lasix on 03/30/2017 , has been continue to give Lasix 20 mg by mouth daily, Renal function is improving this morning, which indicate decreased renal function is from kidney congestion - Cardiology - possible ischemic evaluation , will follow-up stress test results - Remote history of smoking, was wheezing Has ordered DuoNeb treatment , possible going home with some inhaler RA: - will need to f/u with 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
[2017-04-01] MEDS ORDERED: AMLODIPINE BESYLATE 5 MG TAB PO ONE (12:45)
[2017-04-01] MEDS: ALBUT/IPRATROP 3MG/0.5MG NEB 3 ML VIAL INH SCH ×2 (14:40→19:30)
--- NOTE | 2017-04-01 19:02 | CARDIOLOGY PROGRESS NOTE ---
DATE: 04/01/2017 TIME: 1722. SUBJECTIVE: Mr. Quintero feels back to baseline as far as his breathing is concerned. He denies orthopnea, syncope, near syncope, palpitations, chest pain, shortness of breath. He underwent a nuclear perfusion study earlier today. The final report will follow. It demonstrated a large area involving the anteroseptum, septum, inferoseptum, inferior, and inferolateral wall from base to apex which was fixed, but also had mild reversibility concerning for ischemia. He was visited twice a day. Once was while in the nuclear perfusion lab. We then discussed in detail in his hospital room while several family members were present at the bedside including his and daughters. OBJECTIVE: VITAL SIGNS: Temperature 36.9 degrees, heart rate 56 beats per minute, respiration rate 18, blood pressure 120/72 mmHg; however, his blood pressure has mostly been hypertensive in the past 24 hours. Oxygen saturation 96% on room air. I's and O's negative 3.4 liters yesterday. Weight is 58 kg, down from 60.3 kg. GENERAL: No acute distress. He is alert. NECK: No appreciable JVD. CARDIAC EXAM: No ventricular heaves. Regular, normal S1 and S2. No audible murmurs, rubs or gallops. LUNGS: Clear to auscultation bilaterally without wheezes, rales or rhonchi. ABDOMEN: Soft, nontender, nondistended. Normoactive bowel sounds. EXTREMITIES: No cyanosis or edema. PSYCHIATRIC: Affect appears appropriate. Telemetry personally reviewed. He remains in sinus rhythm. MEDICATIONS: Include amlodipine 5 mg daily, Eliquis 2.5 mg p.o. b.i.d., Lasix 20 mg p.o. daily, metoprolol tartrate 25 mg p.o. q. 12 hours; however, he has been receiving 50 mg p.o. q. 12 hours; metoprolol was reduced earlier today by primary service due to heart rate in the 50s, prednisone 40 mg daily, Flomax 0.4 mg p.o. b.i.d., simvastatin 10 mg daily. LABORATORY DATA: White blood cell count 10.84, hemoglobin 10.1, platelets 203. Sodium 141, potassium 4.3, BUN 30 down from 43, creatinine 1.4 down from 1.7, magnesium 2.2. Echocardiogram images from 03/29/2017 were personally reviewed. LV systolic function is significantly reduced. Mitral regurgitation more significant than before. Reported echo results reports moderate to severe mitral regurgitation. ASSESSMENT AND PLAN: 1. Cardiomyopathy: This is a new finding that his LV systolic function is significantly reduced. We discussed potential for ischemic heart disease, especially given his abnormal nuclear perfusion studies. Recommend cardiac catheterization now that his kidney function has improved. Risks and benefits were discussed with him in detail, also with his family present at the bedside. He is deciding on whether he will have the study done and if he will remain hospitalized until the study is done or choose to go home first. Eliquis should be held 48 hours before this elective procedure. Would also do a right heart catheterization given his cardiomyopathy and heart failure diagnosis. Avoiding LAN inhibitors and ARB due to hyperkalemia and renal failure on lisinopril. Will change metoprolol tartrate to metoprolol succinate if his heart rate allows, otherwise, could consider carvedilol. 2. Acute systolic congestive heart failure: He appears euvolemic. Renal function has improved. Continue current dose of Lasix which is 20 mg p.o. daily. We discussed in detail the importance of a low sodium diet, less than 2000 mg daily. Recommended daily weights. Close followup recommended. 3. Hypertension: We will replace the amlodipine with hydralazine and isosorbide mononitrate given his cardiomyopathy. Avoiding LAN inhibitors and ARB due to hyperkalemia and renal failure upon presentation. 4. Paroxysmal atrial fibrillation: He will likely have recurrence now that he is not on antiarrhythmic therapy. Given his heart failure and cardiomyopathy would favor amiodarone; however, with a resting heart rate in the 50s on metoprolol, cannot start amiodarone at this time unless we discontinue beta-altaf, which is indicated for other reasons as noted above. Continue metoprolol succinate 50 mg twice daily if heart rate tolerates. We will reassess heart rate during atrial fibrillation if/when it recurs. Continue anticoagulation for stroke risk reduction. As his renal function improves, we could likely adjust Eliquis back to 5 mg twice daily. 5. Widened QRS upon presentation: Could have been due to hyperkalemia and/or flecainide. This has resolved. Avoiding flecainide given his cardiomyopathy and presentation. 6. Hyperkalemia: Avoiding LAN inhibitors as noted above. 7. Mitral regurgitation: This is much more significant than reported in the past. Recommend that a transesophageal echo prior to cardiac catheterization to fully evaluate mitral valve. 8. Disposition: Cardiology will continue to follow. Plan of care has been discussed with Dr. Jo of the primary hospitalist service.
--- NOTE | 2017-04-01 19:27 | MYOCARDIAL PERFUSION SCAN ---
ORDERING PHYSICIAN: Clif Villegas MD PRIMARY HOSPITALIST: Trevor Jo MD PRIMARY CARE PHYSICIAN: Blaze Cintron MD TIME: 18:31 p.m. PROCEDURES: 1. Myocardial perfusion study performed in multiple views/images. 2. Lexiscan pharmacologic stress ECG. INDICATIONS: 1. Cardiomyopathy. 2. Systolic congestive heart failure. CONSENT: Informed written consent was obtained. PROCEDURAL DETAILS: For the stress portion of the study, Lexiscan 0.4 mg was intravenously administered over 10-15 seconds followed by saline flush. This was followed by 23.4 mCi of technetium-99m Cardiolite injected intravenously at 9:48 a.m. on 04/01/2017. Thirty minutes following the injection, imaging of the heart was performed in multiple projections. For the rest portion of the study, 23.1 mCi of technetium-99m Cardiolite was injected intravenously at 19:50 p.m. on 03/31/2017. One hour following the injection, imaging of the heart was performed in the same projections. LEXISCAN ECG STRESS: Resting ECG demonstrated sinus bradycardia at 50 beats per minute. Possible septal infarct. Nonspecific T-wave abnormality. Lexiscan ECG demonstrated no significant ST changes. No arrhythmia. No significant pause. No chest pain reported. No symptoms reported. Maximum heart rate was 72 beats per minute representing 52% maximum predicted heart rate. Resting blood pressure was 173/82 mmHg which was also the maximum blood pressure. The minimum blood pressure was 115/64 mmHg. FINDINGS: Rotating raw imaging demonstrated mild motion artifact in the rest imaging. The heart appeared dilated. There was no significant lung uptake. Myocardial perfusion demonstrated a large area of moderately reduced uptake involving the base to apical segments of the anteroseptum, septum, inferoseptum, inferior wall and inferolateral wall. The apex was also involved. These defects were fixed with mild reversibility. The calculated ejection fraction was 51%. Wall motion appeared to be mildly hypokinetic globally. There was no significant transient ischemic dilation visually. IMPRESSION: 1. Abnormal myocardial perfusion study suggesting large infarct with mild ischemia involving the anteroseptum, septum, inferoseptum, inferior and inferolateral murray as well as the apex. 2. Low-normal left ventricular systolic function with calculated ejection fraction of 51%. 3. Mild global hypokinesis. 4. No symptoms reported. 5. No arrhythmia. 6. Nondiagnostic Lexiscan ECG. Target heart rate not attained.
[2017-04-01] MEDS: METOPROLOL SUCC 50MG EXT REL TAB PO SCH (20:13)
[2017-04-01] MEDS: SIMVASTATIN 10 MG TAB PO SCH (20:13)
[2017-04-01] MEDS: HydrALAZINE 10 MG TAB PO SCH (20:14)
[2017-04-02] VITALS (10 sets, daily range): BP systolic 92–150; BP diastolic 47–86; PULSE 50–116; TEMP 36.5–37; O2SAT 92–96
[2017-04-02] MEDS: ALBUT/IPRATROP 3MG/0.5MG NEB 3 ML VIAL INH SCH ×4 (01:38→18:59)
[2017-04-02] MEDS: TAMSULOSIN HCL 0.4 MG CAP PO SCH ×2 (07:37→20:47)
[2017-04-02] MEDS: ISOSORBIDE MONONITRATE 30 MG TABCR PO SCH (07:38)
[2017-04-02] MEDS: METOPROLOL SUCC 50MG EXT REL TAB PO SCH ×3 (07:38→21:00)
[2017-04-02] MEDS: CHOLECALCIFEROL 1000 INTER.UNIT TAB PO SCH (07:39)
[2017-04-02] MEDS: CALCIUM CARBONATE 1250MG TAB PO SCH ×2 (07:40→20:47)
[2017-04-02] MEDS: APIXABAN 2.5 MG TAB PO SCH (07:40)
[2017-04-02] MEDS: FERROUS SULFATE 325 MG TAB PO SCH ×2 (07:40→20:47)
[2017-04-02] MEDS: HydrALAZINE 10 MG TAB PO SCH ×4 (07:40→21:00)
[2017-04-02] MEDS: FUROSEMIDE 20 MG TAB PO SCH (07:41)
[2017-04-02 07:54] LABS: HEMATOCRIT 37.5 % (42-52); MEAN CELL VOLUME 91.7 fL (80-100); MEAN CORPUSCULAR HEMOGLOBIN 30.1 pg (25-34); MEAN CORPUSCULAR HGB CONC 32.8 g/dl (32-36); MEAN PLATELET VOLUME 10.6 fL (7.4-10.4); PLATELET COUNT 256 K/uL (130-400); RED BLOOD COUNT 4.09 M/uL (4.7-6.1); WHITE BLOOD COUNT 13.02 K/uL (4.8-10.8)
[2017-04-02 08:30] LABS: BUN/CREATININE RATIO 16.1 (10-20); CREATININE 1.6 mg/dl (0.60-1.40); MAGNESIUM 2.2 mg/dl (1.8-2.4); POTASSIUM 3.4 mmol/L (3.5-5.1)
[2017-04-02 08:51] LABS: CALCIUM 8.7 mg/dl (8.5-10.1)
[2017-04-02] MEDS ORDERED: AMLODIPINE BESYLATE 5 MG TAB PO SCH (09:00)
--- NOTE | 2017-04-02 11:13 | Hospitalist Progress Note ---
Hospitalist Progress Note Date of Service April 02, 2017. Subjective Pt evaluation today including: conversation w/ patient, physical exam, chart review, lab review, review of studies, review of inpatient medication list Patient seen and evaluated. Continues in atrial fibrillation did have intermittent RVR but currently rate controlled. At rest patient is asymptomatic and reports improvement in breathing as he has less orthopnea since initiation of Lasix. With ambulation he does report fatigue with exertion that is more than his baseline. Discussion with family he does want to remain in hospital until cardiac catheterization. He expresses concern for not being home to help take care of his but expresses how grateful he is for his many children to help around the house and to help his . He also was emotional for the drastic change in his health stating "I don't want to put her (his ) through this" as she dealt with the of her previous spouse in the past. Did sit down and talk with the patient who remains largely in good spirits. He has a neg. fluid balance of 2600 Constitutional: + fatigue (with exertion), No chills, No fever ENT: + problem reported (dry mouth), No sore throat, No trouble swallowing Respiratory: + cough, No shortness of breath, No sputum Cardiovascular: + orthopnea (minimal), No chest pain, No palpitations Abdomen: No constipation, No diarrhea, No nausea, No pain, No vomiting Musculoskeletal: No calf pain Male : + urinary frequency (since Lasix administration), No dysuria Neurologic: No balance problems, No vertigo Skin: No rash Medications Current Inpatient Medications Medications (Trade) Dose Ordered Sig/Zeke Route Start Time Stop Time Status Last Admin Dose Admin Simvastatin (Zocor Tab) 10 mg QPM PO 03/29/17 21:00 04/28/17 20:59 04/01/17 20:13 10 MG Tamsulosin HCl (Flomax Cap) 0.4 mg BID PO 03/29/17 09:00 04/28/17 08:59 04/02/17 07:37 0.4 MG Acetaminophen (Tylenol Tab) 650 mg Q4H PRN PO 03/29/17 02:15 04/28/17 02:14 Al Hydrox/Mg Hydrox/Simethicone (Maalox Max Susp) 15 ml Q4H PRN PO 03/29/17 02:15 04/28/17 02:14 Magnesium Hydroxide (Milk Of Magnesia Susp) 30 ml Q12H PRN PO 03/29/17 02:15 04/28/17 02:14 Morphine Sulfate (MoRPHine SULFATE INJ) 2 mg Q30M PRN IV 03/29/17 02:15 04/12/17 02:14 Ferrous Sulfate (Feosol Tab) 325 mg BID PO 03/29/17 21:00 04/28/17 20:59 04/02/17 07:40 325 MG Calcium Carbonate (oS-Brendan 500 TAB) 1,250 mg Q12 PO 03/29/17 21:00 04/28/17 20:59 04/02/17 07:40 1,250 MG Cholecalciferol (Vitamin D Tab) 2,000 inter.unit DAILY PO 03/30/17 09:00 04/29/17 08:59 04/02/17 07:39 2,000 INTER.UNIT Apixaban (Eliquis Tab) 2.5 mg BID PO 03/30/17 21:00 04/29/17 20:59 04/02/17 07:40 2.5 MG Furosemide (Lasix Tab) 20 mg QAM PO 04/01/17 09:00 05/01/17 08:59 04/02/17 07:41 20 MG Menthol (Nice Ranjit) 1 ranjit PRN PRN PO 03/31/17 22:15 04/30/17 22:14 03/31/17 22:15 1 RANJIT Albuterol/ Ipratropium (Duoneb) 3 ml Q6R INH 04/01/17 15:00 05/01/17 14:59 04/02/17 07:03 3 ML Albuterol/ Ipratropium (Duoneb) 3 ml Q2H PRN INH 04/01/17 11:45 05/01/17 11:44 Metoprolol Succinate (Toprol Xl Tab) 50 mg BID PO 04/01/17 21:00 05/01/17 20:59 04/02/17 07:38 50 MG Hydralazine HCl (Apresoline Tab) 10 mg TID PO 04/01/17 21:00 05/01/17 20:59 04/02/17 07:40 10 MG Isosorbide Mononitrate (Imdur Ext Rel Tab) 30 mg QAM PO 04/02/17 09:00 05/02/17 08:59 04/02/17 07:38 30 MG Prednisone (PredniSONE TAB) 20 mg DAILY PO 04/03/17 09:00 05/03/17 08:59 Objective Vital Signs Date Time Temp Pulse Resp B/P Pulse Ox O2 Delivery O2 Flow Rate FiO2 04/02/17 08:00 Room Air 04/02/17 07:21 36.5 77 18 128/79 96 Room Air 04/02/17 07:03 63 16 93 Room Air 04/02/17 04:56 37.0 112 18 134/83 96 Room Air 04/02/17 04:00 Room Air 04/02/17 01:39 64 16 92 Room Air 04/02/17 00:34 36.6 103 18 150/70 92 Room Air 150/86 04/02/17 00:00 Room Air 04/01/17 20:00 Room Air 04/01/17 19:30 56 16 95 Room Air 04/01/17 19:12 36.7 54 18 113/67 95 Room Air 04/01/17 16:15 Room Air 04/01/17 15:07 36.9 56 18 120/72 96 Room Air 04/01/17 12:00 70 04/01/17 12:00 95 Room Air 04/01/17 11:16 36.5 50 20 141/71 94 Room Air Physical Exam General Appearance: WD/WN, no apparent distress, + thin Eyes: sclerae normal ENT: hearing grossly normal, pharynx normal Neck: supple, no JVD, trachea midline Respiratory/Chest: lungs clear, normal breath sounds, no respiratory distress, no accessory muscle use Cardiovascular: regular rate, rhythm, no gallop, no murmur Abdomen: normal bowel sounds, non tender, soft Extremities: no calf tenderness, + swelling (trace pitting edema LLE) Neurologic/Psychiatric: no motor/sensory deficits, alert, oriented x 3 Skin: normal color, warm/dry Laboratory Results Last 24 Hours Test 04/02/17 07:40 White Blood Count 13.02 K/uL Red Blood Count 4.09 M/uL Hemoglobin 12.3 g/dL Hematocrit 37.5 % Mean Corpuscular Volume 91.7 fL Mean Corpuscular Hemoglobin 30.1 pg Mean Corpuscular Hemoglobin Concent 32.8 g/dl RDW Standard Deviation 42.8 fL RDW Coefficient of Variation 12.7 % Platelet Count 256 K/uL Mean Platelet Volume 10.6 fL Sodium Level 141 mmol/L Potassium Level 3.4 mmol/L Chloride Level 102 mmol/L Carbon Dioxide Level 31 mmol/L Anion Gap 8.0 mmol/L Blood Urea Nitrogen 26 mg/dl Creatinine 1.60 mg/dl Est Creatinine Clear Calc Drug Dose 29.0 ml/min Estimated GFR () 45.2 Estimated GFR (Non- 39.0 BUN/Creatinine Ratio 16.1 Random Glucose 100 mg/dl Calcium Level 8.7 mg/dl Magnesium Level 2.2 mg/dl Assessment and Plan 82 y/o admitted on 03/28/2017 with a chief complaint of palpitations, SOB and weakness. On arrival to the ER the pt was exhibiting rapid AF with a possible rate-related LBBB and a long QT interval not seen on previous EKGs. Initial labs were significant for ARF and hyperkalemia. Atrial Fibrillation with RVR - LBBB - Long QT: NSR but converted to AFIB - Converted to NSR with tx for hyperkalemia with normalization of QT - did convert back to AFib with intermittent RVR but currently rate controlled - Eliquis 2.5 mg BID (renal dosing) and metoprolol succ 50 mg BID - Cardiology following - recommendations reviewed -- D/C'd flecainide -- Lexiscan completed - large infarct with mild ischemai of anteroseptum, septum, inferoseptum, inferior and inferolateral murray, and apex - EF 51% Acute Kidney Injury and Hyperkalemia Superimposed on CKD Stage III: - Improved with gentle diuresis suggesting ALFONSO related to acute CHF but mild bump in Cr on AM labs - D/C'd Lisinopril Acute on Chronic Systolic CHF/Cardiomyopathy: - CT with moderate R and small L pleural effusions, cardiomegaly, and anasarca with trace perihepatic ascites - Echo - EF 35-40% with valvular regurg, focal hypokinesis, and signs of septal conduction abnormality - Metoprolol as above, Hydralazine 10 mg TID and isosorbide mononitrate 30 mg daily - Zocor 10 mg daily - Received Lasix 20 mg IV x 1 dose 03/30 then converted to daily Lasix 20 mg po - Monitor I&Os and daily weights - Cardiology - possible ischemic evaluation - heart catheterization RA: - 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
[2017-04-02] MEDS ORDERED: POTASSIUM CHLORIDE 20 MEQ TABCR PO STA (14:24)
--- NOTE | 2017-04-02 15:15 | CARDIOLOGY PROGRESS NOTE ---
DATE: 04/02/2017 TIME: 1440 p.m. SUBJECTIVE: Mr. Quintero did get a little tired when going into the bathroom to wash up and walking back to his bed, but otherwise denies shortness of breath, syncope, near syncope, palpitations, chest pain, orthopnea or edema. He would like to remain hospitalized to receive his transesophageal echo and cardiac catheterization is planned. OBJECTIVE: VITAL SIGNS: Temperature is 36.6 degrees, heart rate 75 beats per minute, respiration rate 16, blood pressure 103/63 mmHg, oxygen saturation is 94% on room air. I's and O's are incomplete. Weight 59.6 kg. GENERAL: No acute distress. He is alert and oriented. HEENT: Anicteric sclerae. NECK: No appreciable JVD. CARDIAC EXAM: No ventricular heave, irregularly irregular, normal S1, S2. No audible murmurs, rubs or gallops. LUNGS: Decreased breath sounds throughout, end-expiratory wheezing, otherwise no rales. ABDOMEN: Soft, nontender, nondistended. Normoactive bowel sounds. EXTREMITIES: No cyanosis or edema. PSYCHIATRIC: Affect appears appropriate. MEDICATIONS: Include prednisone 20 mg daily, Eliquis 2.5 mg p.o. b.i.d., Lasix 20 mg p.o. daily, last dose given today; hydralazine 10 mg p.o. t.i.d., isosorbide mononitrate 30 mg daily, metoprolol succinate 50 mg p.o. b.i.d., simvastatin 10 mg daily. LABORATORY DATA: White blood cell count is 13, hemoglobin 12.3, platelets 256. Sodium 141, potassium 3.4, BUN 26, creatinine 1.6, magnesium 2.2. He did receive potassium chloride 40 mEq today. Telemetry personally reviewed. He went into what appears to be atrial flutter overnight just before midnight. Heart rates have been tachycardic at times. Currently, heart rate is in the 100s. He appears to be largely asymptomatic. Repeat ECG will be ordered while in atrial flutter/fibrillation. ASSESSMENT AND PLAN: 1. Cardiomyopathy: Etiology uncertain, but he does have abnormal myocardial perfusion study as noted yesterday. Continue metoprolol succinate. LAN inhibitor and ARB are not being used secondary to presentation with hyperkalemia and acute renal failure. Continue hydralazine and isosorbide, which can be titrated as appropriate. Will cautiously titrate metoprolol given his rapid heart rate currently. Cardiac catheterization for further ischemic evaluation tentatively planned for April 05. 2. Acute systolic congestive heart failure: He appears euvolemic. He received Lasix 20 mg daily with last dose being this morning. Low sodium diet and daily weights. I's and O's were reordered as they were not completed yesterday. 3. Hypertension: Continue current regimen with cautious titration of beta-altaf as noted. 4. Paroxysmal atrial flutter/fibrillation: On telemetry, he appears to be in atrial flutter and at times atrial fibrillation. Repeat ECG will be ordered at this time. He appears to be tolerating it well. Considering amiodarone; however, he is bradycardic while in sinus and would like to continue beta-altaf given his cardiomyopathy. Will increase metoprolol succinate cautiously to 75 mg twice daily but reassess closely for bradycardia if/when he converts to sinus. Continue anticoagulation. Eliquis can be discontinued in favor of heparin while anticipating cardiac catheterization. This was discussed with primary service. If we are unable to control his heart rate effectively while in atrial arrhythmia or have excessive bradycardia on antiarrhythmic therapy or rate controlling therapy, would consider pacemaker, or potentially ICD given his reduced LV systolic function at some point. 5. Widened QRS upon presentation: Could be due to hyperkalemia and/or flecainide. Avoiding flecainide given cardiomyopathy. 6. Hyperkalemia: This has resolved with discontinuation of lisinopril and improvement of renal function. 7. Mitral regurgitation: Transesophageal echo. Risks and benefits were discussed with him. Anticipate this to be done on 04/05/2017 with cardiac catheterization. 8. Disposition: Plan of care was discussed with Hilda Ledbetter of the primary hospitalist service. The patient's daughter and are present at the bedside.
[2017-04-02] MEDS: SIMVASTATIN 10 MG TAB PO SCH (20:47)
[2017-04-02] MEDS: HEPARIN 25,000 UNIT/500ML D5W 500 ML IV PRN (20:55)
[2017-04-03] VITALS (9 sets, daily range): BP systolic 116–159; BP diastolic 69–95; PULSE 57–101; TEMP 36.5–36.6; O2SAT 95–98
[2017-04-03] MEDS: ALBUT/IPRATROP 3MG/0.5MG NEB 3 ML VIAL INH SCH ×2 (01:36→07:10)
[2017-04-03 05:17] LABS: HEMATOCRIT 34.3 % (42-52); MEAN CORPUSCULAR HEMOGLOBIN 29.7 pg (25-34); MEAN CORPUSCULAR HGB CONC 32.7 g/dl (32-36); MEAN PLATELET VOLUME 10.8 fL (7.4-10.4); PLATELET COUNT 240 K/uL (130-400); RED BLOOD COUNT 3.77 M/uL (4.7-6.1); WHITE BLOOD COUNT 15.88 K/uL (4.8-10.8)
[2017-04-03 05:37] LABS: PARTIAL THROMBOPLASTIN RATIO 2.7
[2017-04-03 06:00] LABS: BUN/CREATININE RATIO 21.1 (10-20); CALCIUM 8.3 mg/dl (8.5-10.1); CREATININE 1.6 mg/dl (0.60-1.40); MAGNESIUM 2.3 mg/dl (1.8-2.4)
[2017-04-03] MEDS: TAMSULOSIN HCL 0.4 MG CAP PO SCH ×2 (08:26→20:38)
[2017-04-03] MEDS: HydrALAZINE 10 MG TAB PO SCH ×3 (08:26→20:38)
[2017-04-03] MEDS: METOPROLOL SUCC 50MG EXT REL TAB PO SCH ×2 (08:26→20:36)
[2017-04-03] MEDS: CALCIUM CARBONATE 1250MG TAB PO SCH ×2 (08:27→20:37)
[2017-04-03] MEDS: FERROUS SULFATE 325 MG TAB PO SCH ×2 (08:27→20:38)
[2017-04-03] MEDS: ISOSORBIDE MONONITRATE 30 MG TABCR PO SCH (08:27)
[2017-04-03] MEDS: CHOLECALCIFEROL 1000 INTER.UNIT TAB PO SCH (08:27)
[2017-04-03] MEDS: SODIUM CHLORIDE 0.9% 1000ML 1,000 ML IV SCH ×2 (09:20→20:39)
[2017-04-03] MEDS ORDERED: DOCUSATE SODIUM 100 MG CAP PO ONE (11:47)
[2017-04-03] MEDS ORDERED: POLYETHYLENE (MIRALAX) 17 GM PACK PO ONE (12:00)
--- NOTE | 2017-04-03 12:35 | Hospitalist Progress Note ---
Hospitalist Progress Note Date of Service April 03, 2017. Subjective Pt evaluation today including: conversation w/ patient, physical exam, chart review, lab review, review of studies, review of inpatient medication list Patient seen and evaluated. Continues in A Fib/A Flutter with intermittent RVR but largely asymptomatic. Continues to report fatigue with exertion but feels this is somewhat improved. Denies CP, SOB, orthopnea, dizziness/lightheadedness, palpitations Was started on Heparin gtt for anticipated cardiac cath and AJAY Discussed case with Dr. 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 Constitutional: No chills, No fever Respiratory: + cough, No shortness of breath, No sputum Cardiovascular: No chest pain, No palpitations Abdomen: + constipation, No diarrhea, No nausea, No pain, No vomiting Musculoskeletal: No calf pain, No swelling Male : No dysuria Neurologic: No vertigo Skin: No rash Medications Current Inpatient Medications Medications (Trade) Dose Ordered Sig/Zeke Route Start Time Stop Time Status Last Admin Dose Admin Simvastatin (Zocor Tab) 10 mg QPM PO 03/29/17 21:00 04/28/17 20:59 04/02/17 20:47 10 MG Tamsulosin HCl (Flomax Cap) 0.4 mg BID PO 03/29/17 09:00 04/28/17 08:59 04/03/17 08:26 0.4 MG Acetaminophen (Tylenol Tab) 650 mg Q4H PRN PO 03/29/17 02:15 04/28/17 02:14 Al Hydrox/Mg Hydrox/Simethicone (Maalox Max Susp) 15 ml Q4H PRN PO 03/29/17 02:15 04/28/17 02:14 Magnesium Hydroxide (Milk Of Magnesia Susp) 30 ml Q12H PRN PO 03/29/17 02:15 04/28/17 02:14 Morphine Sulfate (MoRPHine SULFATE INJ) 2 mg Q30M PRN IV 03/29/17 02:15 04/12/17 02:14 Ferrous Sulfate (Feosol Tab) 325 mg BID PO 03/29/17 21:00 04/28/17 20:59 04/03/17 08:27 325 MG Calcium Carbonate (oS-Brendan 500 TAB) 1,250 mg Q12 PO 03/29/17 21:00 04/28/17 20:59 04/03/17 08:27 1,250 MG Cholecalciferol (Vitamin D Tab) 2,000 inter.unit DAILY PO 03/30/17 09:00 04/29/17 08:59 04/03/17 08:27 2,000 INTER.UNIT Furosemide (Lasix Tab) 20 mg QAM PO 04/01/17 09:00 05/01/17 08:59 Future Hold 04/02/17 07:41 20 MG Menthol (Nice Ranjit) 1 ranjit PRN PRN PO 03/31/17 22:15 04/30/17 22:14 03/31/17 22:15 1 RANJIT Metoprolol Succinate (Toprol Xl Tab) 50 mg BID PO 04/01/17 21:00 05/01/17 20:59 04/03/17 08:26 50 MG Hydralazine HCl (Apresoline Tab) 10 mg TID PO 04/01/17 21:00 05/01/17 20:59 04/03/17 08:26 10 MG Isosorbide Mononitrate 30 mg 30 mg QAM PO 04/02/17 09:00 05/02/17 08:59 04/03/17 08:27 30 MG Heparin Sodium/ Dextrose (Heparin 25,000 Unit/500ml D5W) 500 ml @ 21 mls/hr [id number] PRN IV 04/02/17 21:00 05/02/17 20:59 04/02/17 20:55 21 MLS/HR Albuterol/ Ipratropium 1 puffs 1 puffs Q6 INH 04/03/17 12:00 05/03/17 11:59 Sodium Chloride (Nss 1000ml) 1,000 ml @ 80 mls/hr [id number] IV 04/03/17 08:45 05/03/17 08:44 04/03/17 09:20 80 MLS/HR Docusate Sodium (coLACE CAP) 100 mg BID PO 04/03/17 21:00 05/03/17 20:59 Objective Vital Signs Date Time Temp Pulse Resp B/P Pulse Ox O2 Delivery O2 Flow Rate FiO2 04/03/17 11:11 36.5 79 20 116/69 97 Room Air 04/03/17 07:10 57 16 Room Air 04/03/17 07:09 36.6 101 16 159/91 98 Room Air 04/03/17 04:40 36.6 78 18 140/95 96 Room Air 04/03/17 04:00 Room Air 04/03/17 01:36 95 16 95 Room Air 04/03/17 00:26 36.6 98 18 138/95 98 Room Air 04/03/17 00:00 Room Air 04/02/17 20:01 36.5 50 18 93/59 96 Room Air 04/02/17 20:00 Room Air 04/02/17 19:00 54 12 95 Room Air 04/02/17 16:00 Room Air 04/02/17 14:48 36.7 116 18 92/47 93 Room Air 04/02/17 14:00 75 16 94 Room Air Physical Exam General Appearance: WD/WN, no apparent distress, + thin Eyes: sclerae normal ENT: hearing grossly normal Neck: supple, no JVD, no carotid bruits Respiratory/Chest: lungs clear, normal breath sounds, no respiratory distress, no accessory muscle use Cardiovascular: no gallop, + systolic murmur, + irregularly irregular Abdomen: normal bowel sounds, non tender, soft Extremities: no pedal edema, no calf tenderness Neurologic/Psychiatric: alert, oriented x 3 Skin: normal color, warm/dry Laboratory Results Last 24 Hours Test 04/03/17 05:04 White Blood Count 15.88 K/uL Red Blood Count 3.77 M/uL Hemoglobin 11.2 g/dL Hematocrit 34.3 % Mean Corpuscular Volume 91.0 fL Mean Corpuscular Hemoglobin 29.7 pg Mean Corpuscular Hemoglobin Concent 32.7 g/dl RDW Standard Deviation 42.3 fL RDW Coefficient of Variation 12.8 % Platelet Count 240 K/uL Mean Platelet Volume 10.8 fL Activated Partial Thromboplast Time 69.9 SECONDS Partial Thromboplastin Ratio 2.7 Sodium Level 143 mmol/L Potassium Level 4.0 mmol/L Chloride Level 106 mmol/L Carbon Dioxide Level 33 mmol/L Anion Gap 4.0 mmol/L Blood Urea Nitrogen 34 mg/dl Creatinine 1.60 mg/dl Est Creatinine Clear Calc Drug Dose 29.0 ml/min Estimated GFR () 45.2 Estimated GFR (Non- 39.0 BUN/Creatinine Ratio 21.1 Random Glucose 100 mg/dl Calcium Level 8.3 mg/dl Magnesium Level 2.3 mg/dl Assessment and Plan 82 y/o admitted on 03/28/2017 with a chief complaint of palpitations, SOB and weakness. On arrival to the ER the pt was exhibiting rapid AF with a possible rate-related LBBB and a long QT interval not seen on previous EKGs. Initial labs were significant for ARF and hyperkalemia. Atrial Fibrillation with RVR - LBBB - Long QT: NSR but converted to AFIB - Converted to NSR with tx for hyperkalemia with normalization of QT - did convert back to AFib/A Flutter with intermittent RVR but currently rate controlled - Held Eliquis and started Heparin gtt in preparation for cardiac catheterization on Tuesday vs Tuesday (likely) - Metoprolol succ 50 mg BID - per cardiology - possible increase to 75 mg BID - Cardiology following - recommendations reviewed -- D/C'd flecainide -- Lexiscan completed - large infarct with mild ischemai of anteroseptum, septum, inferoseptum, inferior and inferolateral murray, and apex - EF 51% -- Cardiac catheterization planned - heparin gtt instituted - can't do BB and amiodarone and favor BB given cardiomyopathy - 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 as he is bradycardic when in NSR Acute Kidney Injury and Hyperkalemia (RESOLVED) Superimposed on CKD Stage III: - Improved with gentle diuresis suggesting ALFONSO related to acute CHF but mild bump in Cr stablizing at 1.6 - D/C'd Lisinopril - Gentle hydration with NSS 80 mL/hr in preparation for cardiac catheterization and hold po Lasix at this time Acute on Chronic Systolic CHF/Cardiomyopathy: - CT with moderate R and small L pleural effusions, cardiomegaly, and anasarca with trace perihepatic ascites - Echo - EF 35-40% with valvular regurg, focal hypokinesis, and signs of septal conduction abnormality - Metoprolol as above, Hydralazine 10 mg TID and isosorbide mononitrate 30 mg daily - Zocor 10 mg daily - Received Lasix 20 mg IV x 1 dose 03/30 then converted to daily Lasix 20 mg po ( currently on hold) - Monitor I&Os and daily weights RA: - will need to f/u with injection mold technician as outpatient - Hydroxychloroquine held because of kidney function - reports RA only affects hands - Was placed on Prednisone on admission and he reports he doesn't take this and will taper down and off DVT Prophylaxis: Eliquis Code Status: FULL RESUSCITATION Disposition: - Lives at home with family support - Plan for cardiac catheterization and will need Eliquis held for 48 hours with heparin bridge Continued [facility] stay due to: multiple IV medications needed Discharge planning: home
[2017-04-03] MEDS: IPRATROPIUM BROMIDE/ALBUTEROL respimat INH INH SCH ×3 (12:39→23:53)
[2017-04-03] MEDS: SIMVASTATIN 10 MG TAB PO SCH (20:38)
[2017-04-03] MEDS: DOCUSATE SODIUM 100 MG CAP PO SCH (20:38)
[2017-04-04] VITALS (8 sets, daily range): BP systolic 122–151; BP diastolic 58–96; PULSE 52–91; TEMP 36.5–36.9; O2SAT 95–98
[2017-04-04 06:11] LABS: PARTIAL THROMBOPLASTIN RATIO 4.9
[2017-04-04 06:14] LABS: BUN/CREATININE RATIO 19.1 (10-20); CREATININE 1.4 mg/dl (0.60-1.40); MAGNESIUM 2.1 mg/dl (1.8-2.4); POTASSIUM 4.3 mmol/L (3.5-5.1)
[2017-04-04] MEDS: IPRATROPIUM BROMIDE/ALBUTEROL respimat INH INH SCH ×4 (06:16→23:54)
[2017-04-04] MEDS: HEPARIN 25,000 UNIT/500ML D5W 500 ML IV PRN ×4 (06:27→23:53)
[2017-04-04] MEDS: DOCUSATE SODIUM 100 MG CAP PO SCH ×2 (07:33→21:15)
[2017-04-04] MEDS: TAMSULOSIN HCL 0.4 MG CAP PO SCH ×2 (07:33→21:16)
[2017-04-04] MEDS: CHOLECALCIFEROL 1000 INTER.UNIT TAB PO SCH (07:34)
[2017-04-04] MEDS: ISOSORBIDE MONONITRATE 30 MG TABCR PO SCH (07:35)
[2017-04-04] MEDS: FERROUS SULFATE 325 MG TAB PO SCH ×2 (07:35→21:16)
[2017-04-04] MEDS: METOPROLOL SUCC 50MG EXT REL TAB PO SCH ×2 (07:35→21:15)
[2017-04-04] MEDS: CALCIUM CARBONATE 1250MG TAB PO SCH ×2 (07:35→21:14)
[2017-04-04] MEDS: HydrALAZINE 10 MG TAB PO SCH ×3 (07:37→21:18)
[2017-04-04] MEDS: SODIUM CHLORIDE 0.9% 1000ML 1,000 ML IV SCH ×2 (08:44→21:13)
--- NOTE | 2017-04-04 12:29 | CARDIOLOGY PROGRESS NOTE ---
DATE: 04/04/2017 TIME: 12:02 p.m. SUBJECTIVE: Mr. Quintero states that he feels quite well. He denies chest pain, shortness of breath, syncope, near syncope, palpitations or bleeding. Telemetry was personally reviewed. He remains in atrial fibrillation; however, his heart rate is much better controlled. OBJECTIVE: VITAL SIGNS: Temperature 36.5 degrees, heart rate 84 beats per minute, respiration rate 18, blood pressure 125/81 mmHg, oxygen saturation is 95% on room air. I's and O's positive 1.8 liters yesterday. Weight is 56.7 kg. GENERAL: No acute distress. He is alert and oriented. NECK: No appreciable JVD. No hepatojugular reflux. CARDIAC: No ventricular heave, irregularly irregular, normal S1, S2. There were no audible murmurs, rubs or gallops. LUNGS: Clear to auscultation bilaterally without wheezes, rales or rhonchi. ABDOMEN: Soft, nontender, nondistended, normoactive bowel sounds, no bruits noted. EXTREMITIES: No cyanosis or edema. PSYCHIATRIC: Affect appears appropriate. MEDICATIONS: 1. Lasix 20 mg p.o. once daily is on hold with last dose being 04/02/2017. 2. Yesterday, he was placed on normal saline 80 mL per hour. 3. Heparin drip per protocol. 4. Metoprolol succinate 50 mg p.o. b.i.d. 5. Simvastatin 10 mg daily. 6. Prednisone 10 mg daily. LABORATORY DATA: White blood cell count on 04/03/2017 was 15.88, hemoglobin 11.2, platelets 240. Labs today - sodium 145, potassium 4.3, BUN 27 down from 34, creatinine 1.4 down from 1.6, magnesium 2.1. PTT is 127. Telemetry personally reviewed. Remains in atrial fibrillation but heart rate trend overall has improved and heart rate has been much better controlled. ASSESSMENT AND PLAN: 1. Cardiomyopathy: Etiology uncertain. Nuclear perfusion study is abnormal. Continue metoprolol succinate at current dose. There was discussion on increasing this dose; however, he once again in the past ____ hours intermittently converted to sinus rhythm and his heart rate was in the lower 50s. Avoiding LAN inhibitor and ARB due to presenting with acute renal failure and hyperkalemia. Continue hydralazine and isosorbide mononitrate. Cardiac catheterization pending completion, hopefully performed tomorrow. N.p.o. after midnight. Risks and benefits have been discussed with him in detail and he is agreeable to undergo the procedure. 2. Acute systolic congestive heart failure: He appears euvolemic. Yesterday, the hospitalist service discontinued Lasix and started IV fluids given the fact that his BUN and creatinine once again increased. This improved with fluid administration. Can continue low dose IV fluids in anticipation of cardiac catheterization. Monitor closely for signs of hypovolemia. Strict I's and O's and daily weights and low sodium diet recommended. 3. Hypertension: Blood pressure was normal on last evaluation. He has been normotensive to mildly hypertensive in the past 24 hours. Continue current regimen for now. 4. Atrial fibrillation/flutter: He has paroxysmal atrial arrhythmia, as previously noted. While in sinus, his heart rate is in the lower 50s and therefore metoprolol was not increased as discussed. Heart rate is adequately controlled for the time being. If he has issues with significant tachycardia, will discuss with electrophysiology about holding the beta altaf in favor of amiodarone versus pacemaker placement. Beta altaf is indicated given his cardiomyopathy and therefore would like to continue it if possible. 5. Wide QRS upon presentation: Could be due to flecainide and/or hyperkalemia. Flecainide has been discontinued. 6. Hyperkalemia: Resolved with discontinuation of LAN inhibitor. 7. Mitral regurgitation: He had significant mitral regurgitation on most recent echo. Transesophageal echo planned for tomorrow. Risks and benefits have been discussed with him and he is agreeable to undergo the procedure. N.p.o. after midnight except for medications. 8. Disposition: I will be away from the hospital for the next 2 days. The patient's care has been discussed with Dr. Doll who will perform the cardiac catheterization tomorrow. Cardiology will continue to follow along in my absence. Please contact the on-call uniforms sales representative for any questions or concerns.
--- NOTE | 2017-04-04 14:16 | Hospitalist Progress Note ---
Hospitalist Progress Note Date of Service April 04, 2017. Subjective Pt evaluation today including: conversation w/ patient, physical exam, chart review, lab review, review of inpatient medication list Patient seen and evaluated. Remains in A Fib/Flutter with intermittent RVR but better rate control. Largely asymptomatic except for some fatigue with exertion and intermittent non- productive cough. NPO at midnight except meds for AJAY and cardiac catheterization. Had a long discussion with patient today discussing multiple adventures and discussing his family. Did not directly state some anxiety of upcoming procedures but his major concern is that if something would happen to him, he is worried about putting his through that. We discussed his story and how he met his current . Patient is intermittently tearful but largely in good spirits. He stated "I know God has a good plan and he will take care of everything". Constitutional: No chills, No fever ENT: + problem reported (dry mouth) Respiratory: + cough, No shortness of breath, No sputum Cardiovascular: No chest pain, No orthopnea, No palpitations Abdomen: No constipation, No diarrhea, No nausea, No pain, No vomiting Musculoskeletal: No calf pain, No swelling Male : No dysuria Skin: No rash Medications Current Inpatient Medications Medications (Trade) Dose Ordered Sig/Zeke Route Start Time Stop Time Status Last Admin Dose Admin Simvastatin (Zocor Tab) 10 mg QPM PO 03/29/17 21:00 04/28/17 20:59 04/03/17 20:38 10 MG Tamsulosin HCl (Flomax Cap) 0.4 mg BID PO 03/29/17 09:00 04/28/17 08:59 04/04/17 07:33 0.4 MG Acetaminophen (Tylenol Tab) 650 mg Q4H PRN PO 03/29/17 02:15 04/28/17 02:14 Al Hydrox/Mg Hydrox/Simethicone (Maalox Max Susp) 15 ml Q4H PRN PO 03/29/17 02:15 04/28/17 02:14 Magnesium Hydroxide (Milk Of Magnesia Susp) 30 ml Q12H PRN PO 03/29/17 02:15 04/28/17 02:14 Morphine Sulfate (MoRPHine SULFATE INJ) 2 mg Q30M PRN IV 03/29/17 02:15 04/12/17 02:14 Ferrous Sulfate (Feosol Tab) 325 mg BID PO 03/29/17 21:00 04/28/17 20:59 04/04/17 07:35 325 MG Calcium Carbonate (oS-Brendan 500 TAB) 1,250 mg Q12 PO 03/29/17 21:00 04/28/17 20:59 04/04/17 07:35 1,250 MG Cholecalciferol (Vitamin D Tab) 2,000 inter.unit DAILY PO 03/30/17 09:00 04/29/17 08:59 04/04/17 07:34 2,000 INTER.UNIT Furosemide (Lasix Tab) 20 mg QAM PO 04/01/17 09:00 05/01/17 08:59 Future Hold 04/02/17 07:41 20 MG Menthol (Nice Ranjit) 1 ranjit PRN PRN PO 03/31/17 22:15 04/30/17 22:14 03/31/17 22:15 1 RANJIT Metoprolol Succinate (Toprol Xl Tab) 50 mg BID PO 04/01/17 21:00 05/01/17 20:59 04/04/17 07:35 50 MG Hydralazine HCl (Apresoline Tab) 10 mg TID PO 04/01/17 21:00 05/01/17 20:59 04/04/17 13:43 10 MG Isosorbide Mononitrate 30 mg 30 mg QAM PO 04/02/17 09:00 05/02/17 08:59 04/04/17 07:35 30 MG Heparin Sodium/ Dextrose (Heparin 25,000 Unit/500ml D5W) 500 ml @ 21 mls/hr [id number] PRN IV 04/02/17 21:00 05/02/17 20:59 04/04/17 07:34 17 MLS/HR Albuterol/ Ipratropium 1 puffs 1 puffs Q6 INH 04/03/17 12:00 05/03/17 11:59 04/04/17 12:39 1 PUFFS Sodium Chloride (Nss 1000ml) 1,000 ml @ 80 mls/hr [id number] IV 04/03/17 08:45 05/03/17 08:44 04/04/17 08:44 80 MLS/HR Docusate Sodium (coLACE CAP) 100 mg BID PO 04/03/17 21:00 05/03/17 20:59 04/04/17 07:33 100 MG Miscellaneous Information (Nursing Heparin Iv Rate Change) 1 ea ONE ONCE N/A 04/04/17 14:00 04/04/17 14:01 UNV Objective Vital Signs Date Time Temp Pulse Resp B/P Pulse Ox O2 Delivery O2 Flow Rate FiO2 04/04/17 12:00 95 Room Air 04/04/17 11:22 36.5 84 18 125/81 95 Room Air 04/04/17 08:00 Room Air 04/04/17 07:20 36.5 81 18 147/96 98 Room Air 04/04/17 04:58 Room Air 04/04/17 04:00 36.6 91 20 141/58 97 04/04/17 01:29 Room Air 04/03/17 23:04 36.6 90 18 147/89 97 Room Air 04/03/17 19:36 Room Air 04/03/17 19:12 36.5 67 20 119/74 97 Room Air 04/03/17 16:00 Room Air 04/03/17 15:15 36.5 84 20 150/91 97 Room Air 136/81 Physical Exam General Appearance: WD/WN, no apparent distress, + thin Eyes: sclerae normal ENT: hearing grossly normal Neck: supple, no JVD, trachea midline Respiratory/Chest: lungs clear, no respiratory distress, no accessory muscle use Cardiovascular: regular rate, rhythm, no gallop, + systolic murmur Abdomen: normal bowel sounds, non tender, soft Extremities: no pedal edema, no calf tenderness Neurologic/Psychiatric: alert, oriented x 3 Skin: normal color, warm/dry Laboratory Results Last 24 Hours Test 04/04/17 05:22 04/04/17 13:15 Activated Partial Thromboplast Time 127.0 SECONDS 77.3 SECONDS Partial Thromboplastin Ratio 4.9 3.0 Sodium Level 145 mmol/L Potassium Level 4.3 mmol/L Chloride Level 109 mmol/L Carbon Dioxide Level 30 mmol/L Anion Gap 6.0 mmol/L Blood Urea Nitrogen 27 mg/dl Creatinine 1.40 mg/dl Est Creatinine Clear Calc Drug Dose 31.1 ml/min Estimated GFR () 53.1 Estimated GFR (Non- 45.8 BUN/Creatinine Ratio 19.1 Random Glucose 87 mg/dl Calcium Level 8.0 mg/dl Magnesium Level 2.1 mg/dl Assessment and Plan 82 y/o admitted on 03/28/2017 with a chief complaint of palpitations, SOB and weakness. On arrival to the ER the pt was exhibiting rapid AF with a possible rate-related LBBB and a long QT interval not seen on previous EKGs. Initial labs were significant for ARF and hyperkalemia. Atrial Fibrillation with RVR - LBBB - Long QT: - Converted to NSR with tx for hyperkalemia with normalization of QT - did convert back to AFib/A Flutter with intermittent RVR but currently rate controlled has intermittent conversions to NSR but largely stays in Fib/Flutter - Held Eliquis and started Heparin gtt in preparation for cardiac catheterization on Tuesday (likely) - Metoprolol succ 50 mg BID - Cardiology following - recommendations reviewed -- D/C'd flecainide -- Lexiscan completed - large infarct with mild ischemia of anteroseptum, septum, inferoseptum, inferior and inferolateral murray, and apex - EF 51% -- Cardiac catheterization planned for tomorrow - heparin gtt instituted - can't do BB and amiodarone and favor BB given cardiomyopathy - 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 as he is bradycardic when in NSR Acute Kidney Injury and Hyperkalemia (RESOLVED) Superimposed on CKD Stage III: RESOLVED - D/C'd Lisinopril - Gentle hydration with NSS 80 mL/hr in preparation for cardiac catheterization and hold po Lasix at this time Acute on Chronic Systolic CHF/Cardiomyopathy: IMPROVING - Echo - EF 35-40% with valvular regurg, focal hypokinesis, and signs of septal conduction abnormality - Metoprolol as above, Hydralazine 10 mg TID and isosorbide mononitrate 30 mg daily - Zocor 10 mg daily - Received Lasix 20 mg IV x 1 dose 03/30 then converted to daily Lasix 20 mg po ( currently on hold) - Monitor I&Os and daily weights RA: - will need to f/u with carpet technician as outpatient - Hydroxychloroquine held because of kidney function - reports RA only affects hands DVT Prophylaxis: Heparin gtt Code Status: FULL RESUSCITATION Disposition: - Lives at home with family support - Plan for cardiac catheterization and AJAY tomorrow - D/C possibly in 2-3 days Continued [facility] stay due to: multiple IV medications needed
[2017-04-04 20:28] LABS: PARTIAL THROMBOPLASTIN RATIO 2.3
[2017-04-04] MEDS: SIMVASTATIN 10 MG TAB PO SCH (21:15)
[2017-04-05] VITALS (24 sets, daily range): BP systolic 94–179; BP diastolic 57–98; PULSE 68–109; TEMP 36.2–37.3; O2SAT 90–100
[2017-04-05] MEDS: IPRATROPIUM BROMIDE/ALBUTEROL respimat INH INH SCH ×3 (05:49→19:58)
[2017-04-05 07:09] LABS: HEMATOCRIT 37.2 % (42-52); MEAN CELL VOLUME 93.2 fL (80-100); MEAN CORPUSCULAR HEMOGLOBIN 30.1 pg (25-34); MEAN CORPUSCULAR HGB CONC 32.3 g/dl (32-36); MEAN PLATELET VOLUME 10.9 fL (7.4-10.4); PLATELET COUNT 246 K/uL (130-400); RED BLOOD COUNT 3.99 M/uL (4.7-6.1); WHITE BLOOD COUNT 11.72 K/uL (4.8-10.8)
[2017-04-05] MEDS: HydrALAZINE 10 MG TAB PO SCH ×2 (07:11→20:37)
[2017-04-05] MEDS: DOCUSATE SODIUM 100 MG CAP PO SCH ×2 (07:11→20:38)
[2017-04-05] MEDS: TAMSULOSIN HCL 0.4 MG CAP PO SCH ×2 (07:11→20:38)
[2017-04-05] MEDS: FERROUS SULFATE 325 MG TAB PO SCH ×2 (07:11→20:37)
[2017-04-05] MEDS: CHOLECALCIFEROL 1000 INTER.UNIT TAB PO SCH (07:11)
[2017-04-05] MEDS: CALCIUM CARBONATE 1250MG TAB PO SCH ×2 (07:12→20:38)
[2017-04-05] MEDS: ISOSORBIDE MONONITRATE 30 MG TABCR PO SCH (07:12)
[2017-04-05] MEDS: METOPROLOL SUCC 50MG EXT REL TAB PO SCH ×2 (07:12→20:37)
[2017-04-05 07:28] LABS: PARTIAL THROMBOPLASTIN RATIO 2.6
[2017-04-05] MEDS: SODIUM CHLORIDE 0.9% 1000ML 1,000 ML IV SCH (10:01)
[2017-04-05] MEDS ORDERED: MIDAZOLAM HCL 1 MG/ML 2ML VIAL ONE ×2 (11:44)
[2017-04-05] MEDS ORDERED: FENTANYL CITRATE INJ 50 MCG/1 ML 2 ML VIAL ONE (11:44)
--- NOTE | 2017-04-05 12:17 | Cardiology Follow-Up ---
Subjective Subjective Date of Service: April 05, 2017. Pt evaluation today including: conversation w/ patient, conversation w/ family , physical exam, chart review, lab review, review of studies, review of inpatient medication list Additional Details: Feeling well. No new complaints this AM. Problem List Medical Problems: (1) Atrial fibrillation with rapid ventricular response Status: Acute (2) ECG abnormality Status: Acute (3) Hyperkalemia Status: Acute (4) Hypotension Status: Acute (5) New onset atrial fibrillation Status: Acute (6) Prolonged QT interval Status: Acute (7) Shortness of breath Status: Chronic (8) Weakness Status: Acute Review of Systems Constitutional: No fever Respiratory: + cough, No shortness of breath, No sputum Cardiac: No chest pain Abdomen: No nausea, No pain Musculoskeletal: No calf pain, No swelling Male : No dysuria Neurologic: No vertigo Heme: No abnormal bleeding/bruising Endo: No fatigue Skin: No rash Objective Vital Signs Last Vital Signs Documentation Date Time Temp Pulse Resp B/P Pulse Ox O2 Delivery O2 Flow Rate FiO2 04/05/17 11:21 36.5 69 18 126/75 96 Room Air 04/01/17 04:00 2.0 Physical Exam: General Appearance: WD/WN, no apparent distress, + thin ENT: hearing grossly normal Neck: supple, no JVD, trachea midline Respiratory/Chest: lungs clear, no respiratory distress Cardiovascular: regular rate, rhythm, no gallop, + systolic murmur (2/6 holosystoic at apex) Abdomen: normal bowel sounds, non tender, soft Extremities: no pedal edema, no calf tenderness Neurologic/Psychiatric: alert, oriented x 3 Skin: normal color, warm/dry Lymphatic: no adenopathy Assessment and Plan 1. Cardiomyopathy/HFrEF -- appears euvolemic 2. Moderate to severe mitral regurgitation 3. PAF previously on flecanide -- in sinus rhythm 4. Acute renal failure -- improved 5. Hypertension -- better controlled Plan for AJAY followed by cardiac catheterization today. Further recommendations pending findings Continue toprol xl, antihypertensives Likely resume apixaban this evening Continued [facility] stay due to: multiple IV medications needed Discharge planning: home Medications: Current Inpatient Medications Medications (Trade) Dose Ordered Sig/Zeke Route Start Time Stop Time Status Last Admin Dose Admin Simvastatin (Zocor Tab) 10 mg QPM PO 03/29/17 21:00 04/28/17 20:59 04/04/17 21:15 10 MG Tamsulosin HCl (Flomax Cap) 0.4 mg BID PO 03/29/17 09:00 04/28/17 08:59 04/05/17 07:11 0.4 MG Acetaminophen (Tylenol Tab) 650 mg Q4H PRN PO 03/29/17 02:15 04/28/17 02:14 Al Hydrox/Mg Hydrox/Simethicone (Maalox Max Susp) 15 ml Q4H PRN PO 03/29/17 02:15 04/28/17 02:14 Magnesium Hydroxide (Milk Of Magnesia Susp) 30 ml Q12H PRN PO 03/29/17 02:15 04/28/17 02:14 Morphine Sulfate (MoRPHine SULFATE INJ) 2 mg Q30M PRN IV 03/29/17 02:15 04/12/17 02:14 Ferrous Sulfate (Feosol Tab) 325 mg BID PO 03/29/17 21:00 04/28/17 20:59 04/05/17 07:11 325 MG Calcium Carbonate (oS-Brendan 500 TAB) 1,250 mg Q12 PO 03/29/17 21:00 04/28/17 20:59 04/05/17 07:12 1,250 MG Cholecalciferol (Vitamin D Tab) 2,000 inter.unit DAILY PO 03/30/17 09:00 04/29/17 08:59 04/05/17 07:11 2,000 INTER.UNIT Furosemide (Lasix Tab) 20 mg QAM PO 04/01/17 09:00 05/01/17 08:59 Future Hold 04/02/17 07:41 20 MG Menthol (Nice Ranjit) 1 ranjit PRN PRN PO 03/31/17 22:15 04/30/17 22:14 03/31/17 22:15 1 RANJIT Metoprolol Succinate (Toprol Xl Tab) 50 mg BID PO 04/01/17 21:00 05/01/17 20:59 04/05/17 07:12 50 MG Hydralazine HCl (Apresoline Tab) 10 mg TID PO 04/01/17 21:00 05/01/17 20:59 04/05/17 07:11 10 MG Isosorbide Mononitrate 30 mg 30 mg QAM PO 04/02/17 09:00 05/02/17 08:59 04/05/17 07:12 30 MG Heparin Sodium/ Dextrose (Heparin 25,000 Unit/500ml D5W) 500 ml @ 15 mls/hr Q24H PRN IV 04/02/17 21:00 05/02/17 20:59 04/04/17 23:53 15 MLS/HR Albuterol/ Ipratropium 1 puffs 1 puffs Q6 INH 04/03/17 12:00 05/03/17 11:59 04/05/17 05:49 1 PUFFS Sodium Chloride (Nss 1000ml) 1,000 ml @ 80 mls/hr [id number] IV 04/03/17 08:45 05/03/17 08:44 04/05/17 10:01 80 MLS/HR Docusate Sodium (coLACE CAP) 100 mg BID PO 04/03/17 21:00 05/03/17 20:59 04/05/17 07:11 100 MG Lab Results: 04/05/17 06:37 Test 04/05/17 06:37 04/05/17 06:48 Red Blood Count 3.99 M/uL (4.7-6.1) Mean Corpuscular Volume 93.2 fL (80-100) Mean Corpuscular Hemoglobin 30.1 pg (25-34) Mean Corpuscular Hemoglobin Concent 32.3 g/dl (32-36) RDW Standard Deviation 45.2 fL (36.4-46.3) RDW Coefficient of Variation 13.2 % (11.5-14.5) Mean Platelet Volume 10.9 fL (7.4-10.4) Activated Partial Thromboplast Time 67.2 SECONDS (21.0-31.0) Partial Thromboplastin Ratio 2.6
--- NOTE | 2017-04-05 12:21 | Procedure Note ---
Pre-Mod Sedation Assessment General Date of Moderate Sedation: April 05, 2017. Vital Signs: Vital Signs Past 12 Hours Date Time Temp Pulse Resp B/P Pulse Ox O2 Delivery O2 Flow Rate FiO2 04/05/17 11:21 36.5 69 18 126/75 96 Room Air 04/05/17 07:21 Room Air 04/05/17 07:17 36.4 78 18 155/83 96 Room Air 04/05/17 04:16 36.6 78 18 146/89 97 Room Air 04/05/17 04:00 96 Room Air Review Cardiovascular: regular rate, rhythm, no edema Abdomen: normal bowel sounds, non tender Lungs: chest non-tender, lungs clear Airway Class: II Pre-Sedation Airway Assessment Oral Cavity: WNL Able to Visualize Vocal Cords: Yes Short Thick Neck: No Hx of Sleep Apnea: No Smoking Status: Former Smoker Mallampati Classification: Class II ASA Classification: Class III Procedure Planning Contraindications-for Mod Sed: None Yes Notes The planned sedation has been discussed with the patient and consent obtained. I have identified the patient, determined the appropriateness of sedation and have assessed the patient immediately prior to the procedure. All medicine(s) and interventions are by my order.
[2017-04-05] MEDS ORDERED: NiCARDipine HCL INJ 2.5 MG/ML 10 ML AMP ONE (13:44)
[2017-04-05] MEDS ORDERED: NITROGLYCERIN/D5W 100MCG/ML 20ML SYR ONE (13:44)
[2017-04-05] MEDS ORDERED: HEPARIN SOD (PORCINE) 1000 UNIT/ML 10 ML VIAL ONE (13:44)
--- NOTE | 2017-04-05 13:46 | TEE ---
*NOTICE TO RECEIVING [employer] This information is strictly Confidential and protected under [place] law. [place] law prohibits you from making any further disclosure of this information unless further disclosure is expressly permitted by the written consent of the person to whom it pertains or is authorized by law. A general authorization for the release of medical or other information is not sufficient for this purpose. Hospital accepts no responsibility if the information is made available to any other person, INCLUDING THE PATIENT. Interpretation Summary * Name: JONATHAN CADENA Study Date: 04/05/2017 12:06 PM BP: 147/92 mmHg * Patient Location: [facility]\S\N283\S\1 HR: 75 * : 1935 (M/d/yyyy) Gender: Male Height: 67 in * Age: 82 yrs Ethnicity: [place] Weight: 131 lb * Ordering Physician: Rafael Monge * Referring Physician: Self, Referred * Performed By: Denise Tavarez RDCS * * Reason For Study: Mitral reguritation * BSA: 1.7 m2 * -- Conclusions -- * 1. Normal LV size. Moderate global LV dysfunction. LVEF 35-40%. * 2. Normal RV size and function. * 3. Mild mitral regurgitation * 4. Mild aortic regurgitation. * 5. Mild TR. Mild PI. * 6. Compared with prior TTE on 03/29/2017: Mitral regurgitation is only mild. Procedure Details * The transesophageal portion of this study was personally supervised by the undersigned interpreting physician. * AJAY Probe #2 utilized for procedure. * The study was performed in Cardiac Catheterization Lab. * Time out was conducted by the physician, nurse, and weatherization technician with positive identification of patient and procedure. * Informed consent for Transesophageal Echocardiogram was obtained prior to the procedure. * An intravenous line was placed. A topical anesthetic agent was used for oropharangeal anesthesia. A bite block was inserted. * The patient's vital signs, including blood pressure, heart rate, pulse oximetry and cardiac rhythm were monitored throughout the procedure . * Fentanyl 100 mcg was administered for procedural sedation. * Midazolam 2 mg administered for sedation. * The posterior oropharynx was anesthetized using a topical anesthetic spray. A bite guard was inserted. * A multifrequency, multiplane transesopheageal echocardiographic endoscope was inserted and manipulated in the standard fashion to achieve multiplane views. * The transesophageal probe was passed without difficulty. * The usual views were obtained; basal, mid-esophageal, transgastric and aortic views. * The patient tolerated the procedure well without evidence of orophangeal or esophageal trauma. * A 2D transesophageal echocardiogram with spectral and color flow Doppler was performed. Left Ventricle * The left ventricle is grossly normal size. * There is normal left ventricular wall thickness. * Ejection Fraction = 35-40%. Right Ventricle * The right ventricle is grossly normal size. * The right ventricular systolic function is normal. Atria * The left atrium is mildly dilated. * No thrombus is detected in the left atrial appendage. * Right atrial size is normal. * There is no Doppler evidence for an atrial septal defect. Mitral Valve * The mitral valve is grossly normal. * There is no mitral valve stenosis. * There is mild mitral regurgitation. Tricuspid Valve * The tricuspid valve is not well visualized, but is grossly normal. * There is mild tricuspid regurgitation. Aortic Valve * The aortic valve is normal in structure and function. * The aortic valve is trileaflet. * No hemodynamically significant valvular aortic stenosis. * Mild aortic regurgitation. Pulmonic Valve * The pulmonary valve is inadequately visualized, but the Doppler data is adequate for interpretation. * Mild pulmonic valvular regurgitation. Great Vessels * The aortic root and proximal ascending aorta are normal sized. Pericardium * There is no pericardial effusion.
--- NOTE | 2017-04-05 14:37 | Procedure Note ---
Post-Mod Sedation Assessment General Date of Moderate Sedation April 05, 2017. Vital Signs: Vital Signs Past 12 Hours Date Time Temp Pulse Resp B/P Pulse Ox O2 Delivery O2 Flow Rate FiO2 04/05/17 11:21 36.5 69 18 126/75 96 Room Air 04/05/17 07:21 Room Air 04/05/17 07:17 36.4 78 18 155/83 96 Room Air 04/05/17 04:16 36.6 78 18 146/89 97 Room Air 04/05/17 04:00 96 Room Air Review - Discharge Criteria Vital Signs Stable: Yes Alert/Oriented/Conversant: Yes Returned to Baseline Mental St: Yes Nausea Absent/Minimal: Yes Pain/Discomfort/Absent/Minimal: Yes Normal/Baseline Respirations: Yes Active Bleeding?: N/A Pt Received D/C Instructions: N/A Prescriptions Given: None Specific Proced. D/C Criteria Distal Pulses Present (Cardiac: Yes Groin site assessed-Card Cath: N/A Voided Prior To Discharge: N/A Discharged Patients Adult Escort/Transportation: Yes
[2017-04-05] MEDS ORDERED: SODIUM CHLORIDE 0.9% 1000ML 1,000 ML IV SCH (14:56)
--- NOTE | 2017-04-05 14:56 | Cardiac Catheterization ---
Procedure Note Procedure Date April 05, 2017. 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 oDll Classroom Technology Coach(s) Hal Estimated Blood Loss 15 Medication(s) Fentanyl, Heparin, Nitroglycerin, Versed, Lidocaine 1% Summary of Findings Indication: Cardiomyopathy Access: 5Fr right radial artery, 6Fr slender right antecubital vein Catheters: [place]; 6Fr swan Findings: LM - Angulated after take-off from aorta but only mild luminal irregularities LAD - 20-30% mid segment disease after take-off of 1st diagonal; distal luminal irregularities; 1st diagonal with 20-30% proximal stenosis Circumflex - Luminal irregularities RCA - Dominant, 20-30% mid and distal segments disease; PDA/PLB with luminal irregularities RA 1 RV 25/1 PA 26/7 (14) PCW 5 LVEDP - 1 AoSat 93 PaSat 56 Sue CO/CI - 3.4/2.1 Arterial Closure: TR Band Summary: 1. 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 Low intracardiac filling pressures Recommendations: Return to PCU for continued monitoring, gentle fluids. Continued ASCVD risk factor modification Continued management of NICM/atrial fibrillation per Dr. Monge and Dr. Villegas Can resume Apixaban 5 mg tomorrow AM. Hemodynamics Rest Ao: 127/70/94 Final Ao: 121/64/89 LV: 114/1 Recommendations Medical therapy and/or Counseling Specimens None Radiation Exposure (mGy) 949 Contrast (mls) 60 Visi Fluids (cc crystalloids) 69 Drains None Anesthesia Moderate (14:10 - 14:35) Procedural Complication(s) None Disposition PCU ACC Data Cardiac Status Clinical evaluation leading to the procedure CAD Presntation: Sx unlikely to be ischemic Anginal Classification: CCS II Heart Failure: Yes, NYHA Class: CCS II Cardiogenic Shock w/in 24Hrs: No Cardiac Arrest w/in 24Hrs: No Imaging studies past 6 months: Yes Stress studies past 6 months: Yes Standard Exercise Stress Test: No Stress Echocardiogram: No Stress Testing w/SPECT MPI: Yes - Negative Cardiac CTA: No Coronary Anatomy Dominant: Right Left Main (% Stenosis): Normal (Angulated, mild disease) LAD (% Stenosis): Mid (20-30) D1 (% Stenosis): Proximal (20-30) Circumflex (% Stenosis): Normal RCA (% Stenosis): Normal Diagnostic Physician's Name: Blaze Doll MD Status: Elective Closure Device Percutaneous Entry Location: Radial Closure Device: Radial Band Recommendations: Medical therapy and/or Counseling Intraprocedure Events Significant Dissection: No Perforation: No
[2017-04-05] MEDS ORDERED: ACETAMINOPHEN 325 MG TAB PO PRN (15:00)
[2017-04-05 15:58] LABS: ISTAT ARTERIAL BLOOD GAS HCO3 23 meq/L (19-24); ISTAT ARTERIAL BLOOD GAS PCO2 47 mmHg (35-46); ISTAT ARTERIAL BLOOD GAS PO2 56 mmHg (80-95); ISTAT ARTERIAL BLOOD GAS pH 7.31 (7.35-7.45); ISTAT CARBON DIOXIDE 25 mEq/l (24-31)
--- NOTE | 2017-04-05 16:21 | Progress Note ---
Subjective Date of Service: April 05, 2017. 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, no issues, breathing well, no chest pain, no edema Problem List Medical Problems: (1) Atrial fibrillation with rapid ventricular response Status: Acute (2) ECG abnormality Status: Acute (3) Hyperkalemia Status: Acute (4) Hypotension Status: Acute (5) New onset atrial fibrillation Status: Acute (6) Prolonged QT interval Status: Acute (7) Shortness of breath Status: Chronic (8) Weakness Status: Acute Review of Systems All Other Systems: Reviewed and Negative Medications Current Inpatient Medications Medications (Trade) Dose Ordered Sig/Zeke Route Start Time Stop Time Status Last Admin Dose Admin Simvastatin (Zocor Tab) 10 mg QPM PO 03/29/17 21:00 04/28/17 20:59 04/04/17 21:15 10 MG Tamsulosin HCl (Flomax Cap) 0.4 mg BID PO 03/29/17 09:00 04/28/17 08:59 04/05/17 07:11 0.4 MG Al Hydrox/Mg Hydrox/Simethicone (Maalox Max Susp) 15 ml Q4H PRN PO 03/29/17 02:15 04/28/17 02:14 Magnesium Hydroxide (Milk Of Magnesia Susp) 30 ml Q12H PRN PO 03/29/17 02:15 04/28/17 02:14 Morphine Sulfate (MoRPHine SULFATE INJ) 2 mg Q30M PRN IV 03/29/17 02:15 04/12/17 02:14 Ferrous Sulfate (Feosol Tab) 325 mg BID PO 03/29/17 21:00 04/28/17 20:59 04/05/17 07:11 325 MG Calcium Carbonate (oS-Brendan 500 TAB) 1,250 mg Q12 PO 03/29/17 21:00 04/28/17 20:59 04/05/17 07:12 1,250 MG Cholecalciferol (Vitamin D Tab) 2,000 inter.unit DAILY PO 03/30/17 09:00 04/29/17 08:59 04/05/17 07:11 2,000 INTER.UNIT Furosemide (Lasix Tab) 20 mg QAM PO 04/01/17 09:00 05/01/17 08:59 Future Hold 04/02/17 07:41 20 MG Menthol (Nice Ranjit) 1 ranjit PRN PRN PO 03/31/17 22:15 04/30/17 22:14 03/31/17 22:15 1 RANJIT Metoprolol Succinate (Toprol Xl Tab) 50 mg BID PO 04/01/17 21:00 05/01/17 20:59 04/05/17 07:12 50 MG Hydralazine HCl (Apresoline Tab) 10 mg TID PO 04/01/17 21:00 05/01/17 20:59 04/05/17 07:11 10 MG Isosorbide Mononitrate 30 mg 30 mg QAM PO 04/02/17 09:00 05/02/17 08:59 04/05/17 07:12 30 MG Heparin Sodium/ Dextrose (Heparin 25,000 Unit/500ml D5W) 500 ml @ 15 mls/hr Q24H PRN IV 04/02/17 21:00 05/02/17 20:59 04/04/17 23:53 15 MLS/HR Albuterol/ Ipratropium (Combivent Respimat Inh) 1 puffs Q6 INH 04/03/17 12:00 05/03/17 11:59 04/05/17 05:49 1 PUFFS Docusate Sodium 100 mg 100 mg BID PO 04/03/17 21:00 05/03/17 20:59 04/05/17 07:11 100 MG Sodium Chloride (Nss 1000ml) 1,000 ml @ 100 mls/hr Q10H IV 04/05/17 14:56 04/05/17 19:55 04/05/17 15:42 100 MLS/HR Acetaminophen (Tylenol Tab) 650 mg Q4H PRN PO 04/05/17 15:00 05/05/17 14:59 Objective Vital Signs Date Time Temp Pulse Resp B/P Pulse Ox O2 Delivery O2 Flow Rate FiO2 04/05/17 15:56 36.8 80 20 121/78 93 Room Air 04/05/17 15:46 36.6 70 20 135/75 94 Room Air 04/05/17 15:30 36.6 78 16 126/81 93 Room Air 04/05/17 15:20 36.6 82 16 119/76 94 Room Air 04/05/17 15:00 36.6 80 18 151/74 90 Room Air 04/05/17 14:57 36.7 91 18 121/77 97 Room Air 04/05/17 14:40 Room Air 04/05/17 14:35 95 16 130/63 95 Room Air 04/05/17 13:30 76 14 139/75 99 Nasal Cannula 2 04/05/17 13:15 78 16 138/75 99 Nasal Cannula 2 04/05/17 13:00 79 16 128/77 99 Nasal Cannula 4 04/05/17 12:55 78 16 128/73 100 Nasal Cannula 4 04/05/17 12:50 91 16 118/75 100 Nasal Cannula 4 04/05/17 12:45 74 12 122/78 100 Nasal Cannula 4 04/05/17 12:40 74 12 122/78 100 Nasal Cannula 4 04/05/17 12:35 80 18 135/81 100 Nasal Cannula 4 04/05/17 12:30 75 16 145/84 98 Nasal Cannula 4 04/05/17 11:21 36.5 69 18 126/75 96 Room Air 04/05/17 07:21 Room Air 04/05/17 07:17 36.4 78 18 155/83 96 Room Air 04/05/17 04:16 36.6 78 18 146/89 97 Room Air 04/05/17 04:00 96 Room Air 04/05/17 00:00 36.6 82 18 151/85 96 Room Air 04/05/17 00:00 96 Room Air 04/04/17 20:00 97 04/04/17 19:26 36.5 90 18 151/90 97 Room Air 04/04/17 19:06 Room Air Physical Exam General Appearance: WD/WN, no apparent distress Eyes: normal inspection, EOMI, sclerae normal ENT: normal ENT inspection, hearing grossly normal, pharynx normal Neck: supple, no adenopathy, no JVD, trachea midline Respiratory/Chest: chest non-tender, lungs clear, normal breath sounds, no respiratory distress, no accessory muscle use Cardiovascular: regular rate, rhythm, no edema, no gallop, no JVD, + systolic murmur Abdomen: normal bowel sounds, non tender, soft, no organomegaly Extremities: normal range of motion, non-tender, normal inspection, no pedal edema, no calf tenderness Neurologic/Psychiatric: shelf stocker II-XII nml as tested, no motor/sensory deficits, alert, normal mood/affect, oriented x 3 Skin: normal color, warm/dry, no rash Lymphatic: no adenopathy Laboratory Results Last 24 Hours Test 04/04/17 20:08 04/05/17 06:37 04/05/17 06:48 04/05/17 14:24 Activated Partial Thromboplast Time 60.7 SECONDS 67.2 SECONDS Partial Thromboplastin Ratio 2.3 2.6 White Blood Count 11.72 K/uL Red Blood Count 3.99 M/uL Hemoglobin 12.0 g/dL Hematocrit 37.2 % Mean Corpuscular Volume 93.2 fL Mean Corpuscular Hemoglobin 30.1 pg Mean Corpuscular Hemoglobin Concent 32.3 g/dl RDW Standard Deviation 45.2 fL RDW Coefficient of Variation 13.2 % Platelet Count 246 K/uL Mean Platelet Volume 10.9 fL Bedside Blood Gas pH (LAB) 7.31 Bedside Blood Gas pCO2 (LAB) 47 mmHg Bedside Blood Gas pO2 (LAB) 56 mmHg Bedside Blood Gas HCO3 (LAB) 23 meq/L Bedside Blood Gas Total CO2 25 mEq/l Bedside Blood Gas Base Excess (LAB) -3.0 meq/L Bedside Blood Gas O2 Saturation 85.0 % Assessment and Plan 82 y/o admitted on 03/28/2017 with a chief complaint of palpitations, SOB and weakness. On arrival to the ER the pt was exhibiting rapid AF with a possible rate-related LBBB and a long QT interval not seen on previous EKGs. Initial labs were significant for ARF and hyperkalemia. Atrial Fibrillation with RVR - LBBB - Long QT: - Converted to NSR with tx for hyperkalemia with normalization of QT - did convert back to AFib/A Flutter with intermittent RVR but currently rate controlled has intermittent conversions to NSR but largely stays in Fib/Flutter - Held Eliquis and started Heparin gtt in preparation for cardiac catheterization today can resume Eliquis tomorrow AM - Metoprolol succ 50 mg BID - Cardiology following - recommendations reviewed -- D/C'd flecainide -- Lexiscan completed - large infarct with mild ischemia of anteroseptum, septum, inferoseptum, inferior and inferolateral murray, and apex - EF 51% -- Cardiac catheterization today - mild CAD, non-obstructive Acute Kidney Injury and Hyperkalemia (RESOLVED) Superimposed on CKD Stage III: RESOLVED - D/C'd Lisinopril - continue gentle hydration, decreased filling pressures on heart cath suggesting patient slightly dry Acute on Chronic Systolic CHF/Cardiomyopathy: - Echo - EF 35-40% with valvular regurg, focal hypokinesis, and signs of septal conduction abnormality - AJAY on 04/05 - global hypokinesis with EF 35-40%, only mild MR - Metoprolol as above, Hydralazine 10 mg TID and isosorbide mononitrate 30 mg daily - Zocor 10 mg daily - hold on further Lasix at this time - Monitor I&Os and daily weights RA: - will need to f/u with car [facility]er as outpatient - Hydroxychloroquine held because of kidney function - reports RA only affects hands DVT Prophylaxis: Heparin gtt Code Status: FULL RESUSCITATION Disposition: - Lives at home with family support - possible d/c tomorrow as long as he remains stable, will d/w cardiology Continued [facility] stay due to: multiple IV medications needed Discharge planning: home
[2017-04-05 18:41] LABS: ISTAT ARTERIAL BLOOD GAS HCO3 24 meq/L (19-24); ISTAT ARTERIAL BLOOD GAS PCO2 45 mmHg (35-46); ISTAT ARTERIAL BLOOD GAS PO2 < 32 mmHg (80-95); ISTAT ARTERIAL BLOOD GAS pH 7.33 (7.35-7.45); ISTAT CARBON DIOXIDE 25 mEq/l (24-31)
[2017-04-05 18:41] LABS: ISTAT ARTERIAL BLOOD GAS HCO3 22 meq/L (19-24); ISTAT ARTERIAL BLOOD GAS PCO2 40 mmHg (35-46); ISTAT ARTERIAL BLOOD GAS PO2 69 mmHg (80-95); ISTAT ARTERIAL BLOOD GAS pH 7.34 (7.35-7.45); ISTAT CARBON DIOXIDE 23 mEq/l (24-31)
[2017-04-05] MEDS: SIMVASTATIN 10 MG TAB PO SCH (20:37)
[2017-04-06] MEDS: IPRATROPIUM BROMIDE/ALBUTEROL respimat INH INH SCH ×3 (00:35→12:00)
[2017-04-06] MEDS: HEPARIN 25,000 UNIT/500ML D5W 500 ML IV PRN (00:58)
[2017-04-06 04:48] VITALS: BP 95/59; PULSE 93; TEMP 36.8; O2SAT 96
[2017-04-06 07:26] LABS: PARTIAL THROMBOPLASTIN RATIO 2.5
[2017-04-06 07:51] VITALS: BP 105/64; PULSE 88; TEMP 36.5; O2SAT 93
[2017-04-06] MEDS: ISOSORBIDE MONONITRATE 30 MG TABCR PO SCH (08:54)
[2017-04-06] MEDS: FERROUS SULFATE 325 MG TAB PO SCH (08:54)
[2017-04-06] MEDS: CALCIUM CARBONATE 1250MG TAB PO SCH (08:54)
[2017-04-06] MEDS: METOPROLOL SUCC 50MG EXT REL TAB PO SCH (08:54)
[2017-04-06] MEDS: DOCUSATE SODIUM 100 MG CAP PO SCH (08:54)
[2017-04-06] MEDS: HydrALAZINE 10 MG TAB PO SCH (08:54)
[2017-04-06] MEDS: TAMSULOSIN HCL 0.4 MG CAP PO SCH (08:55)
[2017-04-06] MEDS: CHOLECALCIFEROL 1000 INTER.UNIT TAB PO SCH (08:55)
[2017-04-06] MEDS ORDERED: APIXABAN 2.5 MG TAB PO SCH (09:00)
[2017-04-06 09:24] LABS: BUN/CREATININE RATIO 19.2 (10-20); CREATININE 1.4 mg/dl (0.60-1.40); POTASSIUM 4.3 mmol/L (3.5-5.1)
[2017-04-06 09:26] LABS: CALCIUM 8.5 mg/dl (8.5-10.1)
[2017-04-06 11:46] VITALS: BP 94/56; PULSE 67; TEMP 36.5; O2SAT 95
[2017-04-06 11:53] VITALS: O2SAT 95
--- NOTE | 2017-04-06 12:32 | Cardiology Follow-Up ---
Subjective Subjective Date of Service: April 06, 2017. Pt evaluation today including: conversation w/ patient, physical exam, chart review, lab review, review of studies, review of inpatient medication list Additional Details: Patient feeling well. No new complaints. No chest pain. No access site complications. Problem List Medical Problems: (1) Atrial fibrillation with rapid ventricular response Status: Acute (2) ECG abnormality Status: Acute (3) Hyperkalemia Status: Acute (4) Hypotension Status: Acute (5) New onset atrial fibrillation Status: Acute (6) Prolonged QT interval Status: Acute (7) Shortness of breath Status: Chronic (8) Weakness Status: Acute Review of Systems Constitutional: No fever Respiratory: + cough, No shortness of breath, No sputum Cardiac: No chest pain Abdomen: No nausea, No pain Musculoskeletal: No calf pain, No swelling Male : No dysuria Neurologic: No vertigo Heme: No abnormal bleeding/bruising Endo: No fatigue Skin: No rash Objective Vital Signs Last Vital Signs Documentation Date Time Temp Pulse Resp B/P Pulse Ox O2 Delivery O2 Flow Rate FiO2 04/06/17 11:53 95 Room Air 04/06/17 11:46 36.5 67 18 94/56 04/05/17 13:30 2 Physical Exam: General Appearance: no apparent distress ENT: hearing grossly normal, pharynx normal Neck: supple, no adenopathy, no JVD, trachea midline Respiratory/Chest: chest non-tender, lungs clear, normal breath sounds Cardiovascular: regular rate, rhythm, no edema, + systolic murmur (2/6 at apex) Abdomen: normal bowel sounds, non tender, soft, no organomegaly Extremities: normal range of motion, no pedal edema, no calf tenderness, + pertinent finding (no ecchymosis or swelling at access site. Intact distal pulses) Neurologic/Psychiatric: alert, normal mood/affect Skin: normal color, warm/dry, no rash Lymphatic: no adenopathy Assessment and Plan 1. Cardiomyopathy/HFrEF -- euvolemic to dry; diuretics on hold 2. Moderate to severe mitral regurgitation -- only mild on AJAY 3. PAF previously on flecanide -- atrial fibrillation today; reasonably rate controlled 4. Acute renal failure -- improved 5. Hypertension -- better controlled From a cardiac standpoint appears stable and OK for discharge today Discussed antiarrhythmic options with Drs. NydeggChristian --> for now well rate controlled on current toprol XL and would d/c on beta-altaf alone at current dose. Continue apixaban 5 mg BID Resume LAN inhibitor. Can d/c hydralazine/nitrates Low intracardiac filling pressures on cath yesterday. No standing diuretics on discharge. Can use PRN. Post hospital follow-up with Dr. Monge in 3-4 weeks. If poorly rate controlled can consider amiodarone at that time. Continued [facility] stay due to: multiple IV medications needed Discharge planning: home Medications: Current Inpatient Medications Medications (Trade) Dose Ordered Sig/Zeke Route Start Time Stop Time Status Last Admin Dose Admin Simvastatin (Zocor Tab) 10 mg QPM PO 03/29/17 21:00 04/28/17 20:59 04/05/17 20:37 10 MG Tamsulosin HCl (Flomax Cap) 0.4 mg BID PO 03/29/17 09:00 04/28/17 08:59 04/06/17 08:55 0.4 MG Al Hydrox/Mg Hydrox/Simethicone (Maalox Max Susp) 15 ml Q4H PRN PO 03/29/17 02:15 04/28/17 02:14 Magnesium Hydroxide (Milk Of Magnesia Susp) 30 ml Q12H PRN PO 03/29/17 02:15 04/28/17 02:14 Morphine Sulfate (MoRPHine SULFATE INJ) 2 mg Q30M PRN IV 03/29/17 02:15 04/12/17 02:14 Ferrous Sulfate (Feosol Tab) 325 mg BID PO 03/29/17 21:00 04/28/17 20:59 04/06/17 08:54 325 MG Calcium Carbonate (oS-Brendan 500 TAB) 1,250 mg Q12 PO 03/29/17 21:00 04/28/17 20:59 04/06/17 08:54 1,250 MG Cholecalciferol (Vitamin D Tab) 2,000 inter.unit DAILY PO 03/30/17 09:00 04/29/17 08:59 04/06/17 08:55 2,000 INTER.UNIT Furosemide (Lasix Tab) 20 mg QAM PO 04/01/17 09:00 05/01/17 08:59 Future Hold 04/02/17 07:41 20 MG Menthol (Nice Ranjit) 1 ranjit PRN PRN PO 03/31/17 22:15 04/30/17 22:14 03/31/17 22:15 1 RANJIT Metoprolol Succinate (Toprol Xl Tab) 50 mg BID PO 04/01/17 21:00 05/01/17 20:59 04/06/17 08:54 50 MG Hydralazine HCl (Apresoline Tab) 10 mg TID PO 04/01/17 21:00 05/01/17 20:59 04/06/17 08:54 10 MG Isosorbide Mononitrate (Imdur Ext Rel Tab) 30 mg QAM PO 04/02/17 09:00 05/02/17 08:59 04/06/17 08:54 30 MG Albuterol/ Ipratropium (Combivent Respimat Inh) 1 puffs Q6 INH 04/03/17 12:00 05/03/17 11:59 04/06/17 05:23 1 PUFFS Docusate Sodium (coLACE CAP) 100 mg BID PO 04/03/17 21:00 05/03/17 20:59 04/06/17 08:54 100 MG Acetaminophen (Tylenol Tab) 650 mg Q4H PRN PO 04/05/17 15:00 05/05/17 14:59 Apixaban (Eliquis Tab) 5 mg BID PO 04/06/17 09:00 05/06/17 08:59 04/06/17 08:55 5 MG Lab Results: 04/06/17 07:00 Test 04/05/17 14:37 04/06/17 07:00 Bedside Blood Gas pH (LAB) 7.34 (7.35-7.45) Bedside Blood Gas pCO2 (LAB) 40 mmHg (35-46) Bedside Blood Gas pO2 (LAB) 69 mmHg (80-95) Bedside Blood Gas HCO3 (LAB) 22 meq/L (19-24) Bedside Blood Gas Total CO2 23 mEq/l (24-31) Bedside Blood Gas Base Excess (LAB) -4.0 meq/L (-9-1.8) Bedside Blood Gas O2 Saturation 93.0 % (90-95) Activated Partial Thromboplast Time 64.7 SECONDS (21.0-31.0) Partial Thromboplastin Ratio 2.5 Anion Gap 10.0 mmol/L (3-11) Est Creatinine Clear Calc Drug Dose 30.9 ml/min Estimated GFR () 53.1 Estimated GFR (Non- 45.8 BUN/Creatinine Ratio 19.2 (10-20) Calcium Level 8.5 mg/dl (8.5-10.1)
[2017-04-06] MEDS ORDERED: TPRSR50 PO (12:55)
--- NOTE | 2017-04-06 13:09 | Discharge Instructions ---
Discharge Instructions Date of Service April 06, 2017. Admission Reason for Admission: Hyperkalemia, Sob Discharge Discharge Diagnosis / Problem: Non-Ischemic Cardiomyopathy Discharge Goals Goal(s): Decrease discomfort, Improve function, Increase independence Activity Recommendations Activity Limitations: as noted below Lifting Limitations: gradually increase as tolerated Exercise/Sports Limitations: until after follow-up appointment Shower/Bathe: no limitations . Instructions / Follow-Up Instructions / Follow-Up Atrial Fibrillation: - DO NOT TAKE FLECAINIDE - THIS HAS BEEN DISCONTINUED - Continue Eliquis as a blood thinner - Take 2.5 mg twice a day as this is adjusted for your kidney function - Stop your home metoprolol and take the long acting metoprolol - we will give you a prescription -- TAKE METOPROLOL SUCCINATE 50 mg TWICE A DAY - Please follow-up with cardiology in 3-4 weeks for continued monitoring High Potassium and Chronic Kidney Disease: - When you first came in you had a mildly elevated potassium that has improved. The heart rhythm may have been related to this potassium or may have been related to your Flecainide - We will continue your Lisinopril as previously prescribed and request you have blood work down in 1-2 days to look at your potassium and your kidney function and the results will be sent to your family doctor. -- This can be obtained anywhere you normally get your blood work drawn - Would recommend following up with your family doctor or aircraft instrument engineer for your Plaquenil. Would recommend to continue to hold this until you follow up to help reduce interference with other medications and your kidneys Follow-Up: - Follow-Up with your equipment inspector Dr. Monge in 3-4 weeks - Follow-Up with your family doctor in 7 days - our case management will help set you up an appointment Call your Primary Care doctor if any of the following symptoms or problems start or get worse: * Shortness of breath or difficulty breathing * Wake up at night short of breath * Chest pain * Cough * Swelling of your hands, feet, or legs * More fatigued or tired with your normal activity * Palpitations - sudden fast heart beats WEIGHT * Weigh yourself every morning after using the bathroom. * Use the same scale. * Wear the same amount of clothing. * Write your weight down on a chart. * Call your Primary Care doctor if you gain more than 2-3 pounds in 1-2 days. MEDICATIONS * Use this discharge instruction sheet for medication instructions. * Take your medications at the time your doctor ordered. * Do not skip a dose of your medicines. * If you miss a dose of medicine, take it as soon as possible, but DO NOT DOUBLE A DOSE. * Read your medicine information when you get home. * Know all of the side effects of your medicine. If in doubt, ask your pharmacist * Call your Primary Care doctor's office if you have any side effects. * Be sure all of your doctors know what medicine and herbs you take (including cold, flu, and herbal medicine). Take the following with you to your follow-up doctor appointments: * Weight Chart * Medication List * List of questions Do not drink excessive alcohol, beer or wine. Current Hospital Diet Patient's current hospital diet: Renal Diet, Low Potassium Diet (2g K) Discharge Diet Recommended Diet: AHA Diet (Heart Healthy), Low Potassium Diet (2g K) Pending Studies Studies pending at discharge: no Laboratory Results Hemoglobin A1c Test 01/12/17 08:54 Range/Units Estimated Average Glucose 114 mg/dl Hemoglobin A1c 5.6 4.5-5.6 % Lipid Panel Test 01/12/17 08:54 Range/Units Triglycerides Level 69 0-150 mg/dl Cholesterol Level 120 0-200 mg/dl HDL Cholesterol 65 mg/dl Cholesterol/HDL Ratio 1.8 LDL Cholesterol, Calculated 41 mg/dl Medical Emergencies . Who to Call and When: Call 911 or go to the Emergency Room if: * If at any time you feel your situation is an emergency * You have tightness or pain in your chest that does not go away with rest or Nitroglycerin * You are very short of breath even with rest . Non-Emergent Contact Non-Emergency issues call your: Primary Care Provider Call Non-Emergent contact if: you have a fever, your pain is concerning you, you have any medication questions . . "Provider Documentation" section prepared by Hilda Ledbetter. . VTE Core Measure Inpt VTE Proph given/why not?: Other Anticoagulation (Eliquis)
[2017-04-06] MEDS ORDERED: ELQ25 PO (13:11)
[2017-04-06 13:32] VITALS: BP 94/56; PULSE 67; TEMP 36.5; O2SAT 95
--- NOTE | 2017-04-06 15:03 | Discharge Summary ---
Discharge Summary Date of Service April 06, 2017. Discharge Summary Admission Date: March 29, 2017 at 02:14 Discharge Date: April 06, 2017 Discharge Disposition: Home Principal Diagnosis: Acute Systolic Congestive Heart Failure and Atrial Fibrillation Problems/Secondary Diagnoses: 1. Non-Ischemic Cardiomyopathy 2. Rheumatoid Arthritis 3. Hypertension 4. Hyperlipidemia 5. Chronic Kidney Disease Stage III Immunizations: Have You Had Influenza Vaccine: Yes History of Tetanus Vaccine?: Yes History of Pneumococcal: Yes Pneumococcal Date: Feb 07, 2008 History of Hepatitis B Vaccine: No Procedures: 1. CT OF THE CHEST WITHOUT IV CONTRAST FINDINGS: The heart is moderately enlarged. There is no pericardial effusion. There are no enlarged thoracic lymph nodes. Moderate right and small left pleural effusions are noted. There are mild groundglass opacities within the lungs. There is no pneumothorax. There is no consolidation to suggest pneumonia. The patient and her airspace opacities with a lower lobes reflect atelectasis. Bony thorax is unremarkable. Parapelvic cysts within visualized portions the left renal pelvis are noted. There is trace perihepatic ascites. Anasarca is noted. IMPRESSION: 1. Moderate right and small left pleural effusions. 2. Suspected mild pulmonary edema. 3. Anasarca with trace perihepatic ascites. 4. Moderate cardiomegaly. 2. MYOCARDIAL PERFUSION SCAN: FINDINGS: Rotating raw imaging demonstrated mild motion artifact in the rest imaging. The heart appeared dilated. There was no significant lung uptake. Myocardial perfusion demonstrated a large area of moderately reduced uptake involving the base to apical segments of the anteroseptum, septum, inferoseptum, inferior wall and inferolateral wall. The apex was also involved. These defects were fixed with mild reversibility. The calculated ejection fraction was 51%. Wall motion appeared to be mildly hypokinetic globally. There was no significant transient ischemic dilation visually. IMPRESSION: 1. Abnormal myocardial perfusion study suggesting large infarct with mild ischemia involving the anteroseptum, septum, inferoseptum, inferior and inferolateral murray as well as the apex. 2. Low-normal left ventricular systolic function with calculated ejection fraction of 51%. 3. Mild global hypokinesis. 4. No symptoms reported. 5. No arrhythmia. 6. Nondiagnostic Lexiscan ECG. Target heart rate not attained. 3. TRANSTHORACIC ECHOCARDIOGRAM * Moderate left ventricular systolic dysfunction. * Mild biatrial dilatation. * Moderate - Severe mitral regurgitation. * Mild tricuspid regurgitation. * Mild pulmonic regurgitation. * Mild aortic regurgitation. * Mild pulmonary hypertension. * Compared to an echo of 12/05/2016 the left ventricular systolic function has decreased. * -- Conclusions -- * Aortic valve sclerosis moderate, without significant aortic valvular stenosis. 4. TRANSESOPHAGEAL ECHOCARDIOGRAM * -- Conclusions -- * 1. Normal LV size. Moderate global LV dysfunction. LVEF 35-40%. * 2. Normal RV size and function. * 3. Mild mitral regurgitation * 4. Mild aortic regurgitation. * 5. Mild TR. Mild PI. * 6. Compared with prior TTE on 03/29/2017: Mitral regurgitation is only mild. Consultations: 1. Cardiology 2. PT/OT Medication Reconciliation New Medications: Metoprolol Succinate (Metoprolol Succinate ER) 50 Mg Tabcr 50 MG PO BID for 30 Days, #60 TABS Changed Medications: Apixaban (Eliquis) 2.5 Mg Tab 2.5 MG PO BID, #30 TAB 0 Refills (Changed from: 5 MG; 90; Refills: 2) Continued Medications: Calcium Carbonate (Calcium 600) 600 Mg Tab 600 MG PO Q12 Cholecalciferol (Vitamin D3) 2,000 Unit Cap 1 CAP PO DAILY, CAP 3 Refills Ferrous Sulfate (Ferrous Sulfate) 325 Mg Tab 325 MG PO BID Lisinopril (Prinivil) 20 Mg Tab 20 MG PO DAILY, TAB Simvastatin (Zocor) 10 Mg Tab 10 MG PO QPM, TAB Tamsulosin Hcl (Flomax) 0.4 Mg Cap 0.4 MG PO BID, CAP Discontinued Medications: Flecainide Acetate (Flecainide Acetate) 100 Mg Tab 100 MG PO Q12 Hydroxychloroquine Sulfate (Hydroxychloroquine Sulfat) 200 Mg Tab 200 MG PO BID Metoprolol Tartrate (Metoprolol Tartrate) 50 Mg Tab 50 MG PO Q12H, #90 TAB 3 Refills Metoprolol Tartrate (Lopressor) (Lopressor) 25 Mg Tab 25 MG PO BID, TAB Discharge Exam Review of Systems: Constitutional: No chills, No fever Eyes: No worsening of vision ENT: No nasal symptoms, No sore throat, No trouble swallowing Respiratory: + cough, No shortness of breath, No sputum Cardiovascular: No chest pain, No palpitations Abdomen: No constipation, No diarrhea, No nausea, No pain, No vomiting Musculoskeletal: No calf pain, No swelling Genitourinary - Male: No dysuria Neurologic: No numbness/tingling, No vertigo Hematologic / Lymphatic: No abnormal bleeding/bruising, No clotting problems Integumentary: No new/changing skin lesions, No rash Physical Exam: General Appearance: no apparent distress, + thin Eyes: sclerae normal ENT: hearing grossly normal Neck: supple, no JVD, trachea midline Respiratory/Chest: lungs clear, no respiratory distress, no accessory muscle use, + decreased breath sounds Cardiovascular: no gallop, no murmur, + irregularly irregular Abdomen / GI: normal bowel sounds, non tender, soft Extremities: no calf tenderness, no pedal edema, + pertinent finding (R radial site of catheterization without bleeding/erythema/purulent drainage) Neurologic/Psychiatric: no motor/sensory deficits, alert, oriented x 3 Skin: normal color, warm/dry Hospital Course ADMISSION: 82 y/o M Hx PAF, RA, HTN, HPL. Presents with a chief complaint of palpitations, SOB and weakness. He describes a pounding heart beat and a feeling that his legs are giving out. On arrival to the ER the pt was exhibiting rapid AF with a possible rate-related LBBB and a long QT interval not seen on previous EKGs. Initial labs were significant for ARF and hyperkalemia. The pt was treated with IVF and a hyperkalemia protocol including calcium gluconate and reverted to a sinus rhythm while in the ER. Although his rhythm reverted to sinus, his EKG morphology has changed form 3 months prior. His symptoms improved following reversion to a sinus rhythm. He states that over the past 2-3 months he has been feeling weak and SOB with exertion. He describes significant lower extremity weakness and an occasional productive cough. He was taken of his statin this past week due to his described weakness. He is taking an LAN and Hydroxychloroquine, neither of which are newly prescribed. He denies fevers, CP, N/V, diarrhea or dysuria. HOSPITAL COURSE: Mr. Quintero was admitted for atrial fibrillation RVR with rate- related LBBB and QT prolongation and associated mild hyperkalemia. He was found to be in acute on chronic systolic CHF. Underwent heart catheterization and AJAY on 04/05 with minor stenosis of coronary arteries that did not require stent placement. Hyperkalemia at 5.7 was corrected in ED with insulin/glucose. Hyperkalemia possibly from Lisinopril vs poor clearance as he presented with ALFONSO. He had intermittent NSR but largely remained in Atrial Fibrillation/Atrial Flutter. His Flecainide was D/C'd. Metoprolol tartrate changed to succinate at 50 mg BID. This adjustment produced adequate rate control but continued to have mild tachycardia however when he converts to NSR he has significant bradycardia. 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 During hospitalization, Lisinopril was held and started on Hydralazine and Imdur but final recommendations given to resume home Lisinopril. At this time potassium stable and creatinine improved to 1.4 but Rx given for blood work to monitor for hyperkalemia and kidney function. May need lisinopril D/C'd if hyperkalemia becomes an issue as presentation may have been largely from flecainide. Consideration for adding an anti-arrhythmic but was deferred at this time as beta blockade warranted given cardiomyopathy and is currently in A Fib without symptoms at this time. During admission he was lightly diuresed but has a net gain of +2 L. At this time Lasix therapy on hold as catheterization showed low intracardiac filling pressures. Cardiology recommended possible PRN use but will defer at this time. Recommend follow-up with hims coder or prescribing provider for Plaquenil. This medication was held in-hospital and patient reporting RA affects only his hands. As this medication does not require dosage adjustments for kidney function alone, consideration for dosing adjustments vs cessation based on other medications that can affect kidney function needs considered. Will follow-up with cardiology in 3-4 weeks and had PCP appointment established prior to discharge. Total Time Spent: Greater than 30 minutes This includes examination of the patient, discharge planning, medication reconciliation, and communication with other providers. Discharge Instructions Please refer to the electronic Patient Visit Report (Discharge Instructions) for additional information. Additional Copies To Blaze Cintron M.D.
== END 2017-04-06 15:06 | disposition home or self-care (01) | DRG 286 ==
LOC: ENRESERVTM → ENRESERVDT → EDBD 00:14 → C.EDB 00:15 → C.MED 02:14 → C.2T 04-05 14:57
PROVIDERS: ADMIT Internal Medicine; ATTEND Internal Medicine
PROC: 4A023N8 Measurement of Cardiac Sampling and Pressure, Bilateral, Percutaneous Approach (ICD-10-PCS; principal; 2017-04-05 12:25)
PROC: B2111ZZ Fluoroscopy of Multiple Coronary Arteries using Low Osmolar Contrast (ICD-10-PCS; principal; 2017-04-05 12:25)
DX: I13.0 Hypertensive heart and chronic kidney disease with heart failure and stage 1 through stage 4 chronic kidney disease, or unspecified chronic kidney disease (principal); I50.23 Acute on chronic systolic (congestive) heart failure; I48.0 Paroxysmal atrial fibrillation; N17.9 Acute kidney failure, unspecified; I48.92 Unspecified atrial flutter; E87.5 Hyperkalemia; C61 Malignant neoplasm of prostate; Z87.891 Personal history of nicotine dependence; I44.7 Left bundle-branch block, unspecified; M06.9 Rheumatoid arthritis, unspecified; N18.3 Chronic kidney disease, stage 3 (moderate); I34.0 Nonrheumatic mitral (valve) insufficiency

== ENCOUNTER → 2017-04-07 | Outpatient (CLI) | payer BC ==
[~2017-04-07] MED LIST changes: +CALC600T PO; -FERR1TAB13 PO; +FRRS300 PO; -METO50TA17 PO; -PLQ200 PO; -PRED20TA PO; +TPRSR50 PO
[2017-04-07 17:42] LABS: BLOOD UREA NITROGEN 36 mg/dl (7-18); BUN/CREATININE RATIO 22.7 (10-20); CALCIUM 8.8 mg/dl (8.5-10.1); CARBON DIOXIDE 25 mmol/L (21-32); CHLORIDE 108 mmol/L (98-107); GLUCOSE 93 mg/dl (70-99); POTASSIUM 3.8 mmol/L (3.5-5.1); SODIUM 141 mmol/L (136-145)
== END | disposition home or self-care (01) ==
LOC: C.LABBFT 11:48
PROVIDERS: ATTEND Physician Assistant
DX: E87.5 Hyperkalemia (principal); N18.9 Chronic kidney disease, unspecified

== ENCOUNTER → 2017-04-14 | Outpatient (CLI) | payer BC ==
[2017-04-14 12:40] LABS: BLOOD UREA NITROGEN 29 mg/dl (7-18); BUN/CREATININE RATIO 19.4 (10-20); CALCIUM 8.4 mg/dl (8.5-10.1); CARBON DIOXIDE 27 mmol/L (21-32); CHLORIDE 107 mmol/L (98-107); GLUCOSE 85 mg/dl (70-99); POTASSIUM 5.1 mmol/L (3.5-5.1); SODIUM 141 mmol/L (136-145)
== END | disposition home or self-care (01) ==
LOC: C.LABBFT 09:30
PROVIDERS: ATTEND Nurse Practitioner
DX: I50.9 Heart failure, unspecified (principal)

== ENCOUNTER → 2017-05-06 | Outpatient (CLI) | payer BC ==
[2017-05-06 12:35] LABS: CALCIUM 9.8 mg/dl (8.5-10.1)
[2017-05-06 12:37] LABS: ALT/SGPT 27 U/L (12-78); AST/SGOT 19 U/L (15-37); BLOOD UREA NITROGEN 20 mg/dl (7-18); BUN/CREATININE RATIO 14.1 (10-20); CARBON DIOXIDE 30 mmol/L (21-32); CHLORIDE 107 mmol/L (98-107); CHOLESTEROL 170 mg/dl (0-200); GLUCOSE 85 mg/dl (70-99); POTASSIUM 4.8 mmol/L (3.5-5.1); SODIUM 140 mmol/L (136-145)
[2017-05-06 12:42] LABS: ALKALINE PHOSPHATASE 63 U/L (45-117); CHOLESTEROL/HDL RATIO 2.2; HDL CHOLESTEROL 78 mg/dl; LDL CHOLESTEROL CALCULATED 75 mg/dl; PROSTATE SPECIFIC ANTIGEN 0.033 ng/ml (0.000-4.000); TRIGLYCERIDES 84 mg/dl (0-150); VERY LOW DENSITY LIPOPROT CALC 17 mg/dl
== END | disposition home or self-care (01) ==
LOC: C.LAB1850 11:18
PROVIDERS: ATTEND Nurse Practitioner
DX: E78.5 Hyperlipidemia, unspecified (principal); C61 Malignant neoplasm of prostate

== ENCOUNTER → 2017-05-31 | Outpatient (CLI) | payer BC | END | disposition home or self-care (01) | LOC: C.LABBFT 09:29 | PROVIDERS: ATTEND Nurse Practitioner Adult Health | DX: C61 Malignant neoplasm of prostate (principal) ==

== ENCOUNTER → 2017-06-16 | Outpatient (CLI) | payer BC ==
[2017-06-16 12:36] LABS: ALT/SGPT 24 U/L (12-78); AST/SGOT 23 U/L (15-37)
== END | disposition home or self-care (01) ==
LOC: C.LAB1850 09:43
PROVIDERS: ATTEND Physician Assistant
DX: I48.91 Unspecified atrial fibrillation (principal)

== ENCOUNTER 2022-05-07 13:52 | Inpatient (IN) ==
[2022-05-07] MEDS ORDERED: SODIUM CHLORIDE 0.9% 1000ML 1,000 ML IV SCH (17:15)
--- NOTE | 2022-05-07 17:19 | Emergency Department Note ---
History of Present Illness General Chief complaint: Hip Pain Stated complaint: BROKEN HIP Time Seen by Provider: 05/07/22 16:58 History of Present Illness Maximum Pain Intensity: 6 87-year-old male presents to the ED with a chief complaint of left hip pain. The patient states that he has had the pain for about a month or so. He thinks that he might of hurt it when he was on a tractor. The patient was seen by pain management today who took an x-ray that showed the left hip fracture. The patient has been walking on it but it is painful and he uses a walker. He has difficulty moving it because of the pain. Denies any other complaints. Patient is currently on apixaban for his chronic A. fib. Home Medications Medication Instructions Recorded Confirmed Type cholecalciferol (vitamin D3) 50 2,000 units PO DAILY 05/18/19 05/07/22 History mcg (2,000 unit) tablet multivitamin (Multiple Vitamins) 1 tab PO DAILY 07/26/19 05/07/22 History ascorbic acid (vitamin C) 1,000 mg 1 g PO DAILY tab 06/25/20 05/07/22 History tablet metoprolol succinate 50 mg 50 mg PO BID #180 tab 05/29/21 05/07/22 Rx tablet,extended release 24 hr apixaban 2.5 mg tablet (Eliquis) 2.5 mg PO BID #60 tab 06/08/21 05/07/22 Rx linaclotide 72 mcg capsule 72 mcg PO DAILY PRN #30 cap 08/26/21 05/07/22 Rx (Linzess) mirabegron 25 mg tablet,extended 25 mg PO DAILY #90 tab 10/23/21 05/07/22 Rx release 24 hr (Myrbetriq) tamsulosin 0.4 mg capsule 0.4 mg PO BID #180 cap 10/23/21 05/07/22 Rx furosemide 20 mg tablet 20 mg PO Q OTHER DAY #30 tab 11/03/21 05/07/22 Rx lisinopril 10 mg tablet 10 mg PO DAILY #90 tab 01/15/22 05/07/22 Rx hydrocodone 7.5 mg-acetaminophen 1 tab PO Q6H PRN #60 tab 04/29/22 05/07/22 Rx 325 mg tablet Allergies Allergy/AdvReac Type Severity Reaction Status Date / Time bee venom protein (honey bee) Allergy Unknown SWELLING Verified 05/07/22 10:19 AT SITE trospium Allergy vomiting Verified 05/07/22 10:19 and constipation Past Med/Surg History Medical History Atrial fibrillation, permanent Atrial flutter, paroxysmal CAD in [place] artery Carotid artery stenosis Helicobacter pylori infection History of lower leg fracture History of prostate cancer History of vitamin D deficiency Hyperlipidemia Hypertension Ischemic cardiomyopathy Mitral regurgitation Prostate cancer Tricuspid regurgitation Surgical History H/O reduction of open fracture ORIF RIGHT TIB/FIB FEBRUARY 2008 DR. HUGHES H/O resection of small bowel DONE IN 1955 History of appendectomy History of decompression of median nerve neuroplasty decompression median nerve at carpal tunnel B/L 2013 Family History Father Stomach cancer Mother age 93 Daughter Breast cancer Other Cancer No family history of adverse response to anesthesia No family history of bleeding disorder Denies family history of Ovarian cancer Prostate cancer Diabetes Myocardial infarction Lung cancer Colorectal cancer Hypertension Social History Smoking Status: Former smoker Tobacco Type: Cigarettes Cigarettes Per Day: 2-3 packs per day as a teenager; Second Hand Exposure: No; Hx Alcohol Use: No Hx Substance Use: No Preferred Language: [place] Verdean Visual Impairment: No Limitations Hearing Ability: Hard of Hearing marital status: / Current Living Situation: Alone 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 Safe at Home: Yes Childhood Exposure to Second-Hand Smoke: Yes caffeine: Yes Dental Care, Regularly: No Physical Activity Frequency: Does not Exercise Seatbelt Use: always Sunscreen Use: Yes Review of Systems A total of 10 systems reviewed and were otherwise negative Physical Exam Vital Signs Vital Signs - 24 hr 05/07/22 13:57 Temperature 36.8 C Temperature Source Temporal Artery Scan Pulse Rate 80 Respiratory Rate 16 Blood Pressure 168/81 H Blood Pressure Mean 110 Pulse Oximetry 99 Oxygen Delivery Method Room Air Sepsis Recent Fever Within 48 Hours No Sepsis New/Unexplained Change in Mental Status No Sepsis Action Taken by Nursing No Action Required CONSTITUTIONAL/VITAL SIGNS: Reviewed / noted above. GENERAL: Non-toxic in appearance. INTEGUMENTARY: Warm, dry, and [place]. HEAD: Normocephalic. EYES: without scleral icterus or trauma. ENT/OROPHARYNX: clear and moist. LYMPHADENOPATHY/NECK: Is supple without lymphadenopathy or meningismus. RESPIRATORY: Clear to auscultation bilaterally. No increased work of breathing. CARDIOVASCULAR: Regular rate and rhythm. GI/ABDOMEN: Soft and nontender. No organomegaly or pulsatile mass. EXTREMITIES: Warm and well perfused. BACK: No CVA tenderness. NEUROLOGICAL: Intact without focal deficits. PSYCHIATRIC: normal affect. MUSCULOSKELETAL: Normally developed with good muscle tone. TRIAGE NURSING DOCUMENTATION REVIEWED. Course Administered Medications Sodium Chloride (Nss 1000ml) 1,000 mls @ 75 mls/hr IV .[id number] ANTOINETTE Stop: 05/08/22 06:34 Last Admin: 05/07/22 17:48 Dose: 75 mls/hr Documented by: [id number] Medical Decision Making Differential Diagnosis Fracture, subluxation, dislocation, contusion, ligamentous injury, neurovascular, compartment syndrome, rhabdomyolysis, as well as other pathologies. Medical Records Attestation: I reviewed the patient's medical records. Home Medications Current Medication List: was personally reviewed by me Laboratory Data Attestation: I reviewed the patient's lab results. Result diagrams: 05/07/22 17:40 05/07/22 17:40 Lab Results 05/07/22 05/07/22 05/07/22 Range/Units 17:40 17:40 17:40 WBC 9.27 (4.8-10.8) K/uL RBC 3.81 L (4.7-6.1) M/uL Hgb 12.9 L (14.0-18.0) g/dL Hct 36.8 L (42-52) % MCV 96.6 (80-100) fL MCH 33.9 (25-34) pg MCHC 35.1 (32-36) g/dL RDW Std Deviation 48.8 H (36.4-46.3) fL RDW Coeff of Kassandra 14.0 (11.5-14.5) % Plt Count 333 (130-400) K/uL MPV 10.9 H (7.4-10.4) fL Immature Gran % (Auto) 0.4 % Neut % (Auto) 68.9 % Lymph % (Auto) 15.4 % [place] % (Auto) 13.6 % Eos % (Auto) 1.3 % Baso % (Auto) 0.4 % Neut # (Auto) 6.38 (1.4-6.5) K/uL Lymph # (Auto) 1.43 (1.2-3.4) K/uL [place] # (Auto) 1.26 H (0.11-0.59) K/uL Eos # (Auto) 0.12 (0-0.5) K/uL Baso # (Auto) 0.04 (0-0.2) K/uL Immature Gran # (Auto) 0.04 H (0.00-0.02) K/uL PT 11.3 (9.0-12.0) Seconds INR 1.1 (0.9-1.1) APTT 30.5 (21.0-31.0) Seconds PTT Ratio 1.1 Sodium 137 (136-145) mmol/L Potassium 4.2 (3.5-5.1) mmol/L Chloride 99 (98-107) mmol/L Carbon Dioxide 27 (21-32) mmol/L Anion Gap 11 (3-11) BUN 39 H (6-23) mg/dl Creatinine 1.34 (0.6-1.4) mg/dl Est Cr Clr Drug Dosing Not Reportable Est GFR ( Amer) 54.1 ml/min Est GFR (Non-Af Amer) 46.6 ml/min BUN/Creatinine Ratio 29.1 H (10-20) Glucose 99 (70-99(Fasting)) mg/dl Calcium 9.7 (8.5-10.1) mg/dl Total Bilirubin 1.2 H (0.2-1.0) mg/dl AST 24 (13-39) U/L ALT 26 (7-52) U/L Alkaline Phosphatase 121 H (34-104) U/L Total Protein 7.9 (6.0-8.3) gm/dl Albumin 4.0 (3.4-5.0) gm/dl Globulin 3.9 (2.5-4.0) gm/dl Albumin/Globulin Ratio 1.0 (0.9-2) SARS-CoV-2, RNA, NAAT (NEGATIVE) Blood Type Antibody Screen 07/01/22 07/01/22 Range/Units 17:40 18:02 WBC (4.8-10.8) K/uL RBC (4.7-6.1) M/uL Hgb (14.0-18.0) g/dL Hct (42-52) % MCV (80-100) fL MCH (25-34) pg MCHC (32-36) g/dL RDW Std Deviation (36.4-46.3) fL RDW Coeff of Kassandra (11.5-14.5) % Plt Count (130-400) K/uL MPV (7.4-10.4) fL Immature Gran % (Auto) % Neut % (Auto) % Lymph % (Auto) % [place] % (Auto) % Eos % (Auto) % Baso % (Auto) % Neut # (Auto) (1.4-6.5) K/uL Lymph # (Auto) (1.2-3.4) K/uL [place] # (Auto) (0.11-0.59) K/uL Eos # (Auto) (0-0.5) K/uL Baso # (Auto) (0-0.2) K/uL Immature Gran # (Auto) (0.00-0.02) K/uL PT (9.0-12.0) Seconds INR (0.9-1.1) APTT (21.0-31.0) Seconds PTT Ratio Sodium (136-145) mmol/L Potassium (3.5-5.1) mmol/L Chloride (98-107) mmol/L Carbon Dioxide (21-32) mmol/L Anion Gap (3-11) BUN (6-23) mg/dl Creatinine (0.6-1.4) mg/dl Est Cr Clr Drug Dosing Est GFR ( Amer) ml/min Est GFR (Non-Af Amer) ml/min BUN/Creatinine Ratio (10-20) Glucose (70-99(Fasting)) mg/dl Calcium (8.5-10.1) mg/dl Total Bilirubin (0.2-1.0) mg/dl AST (13-39) U/L ALT (7-52) U/L Alkaline Phosphatase (34-104) U/L Total Protein (6.0-8.3) gm/dl Albumin (3.4-5.0) gm/dl Globulin (2.5-4.0) gm/dl Albumin/Globulin Ratio (0.9-2) SARS-CoV-2, RNA, NAAT NEGATIVE (NEGATIVE) Blood Type A Positive Antibody Screen NEGATIVE Imaging Data Radiologist's Impression: X-ray of the left hip shows a displaced subcapital left femoral fracture. Is new since March 05, 2022. Likely subacute to acute. ECG Data Attestation: I personally reviewed and interpreted this ECG as follows: Additional Comments: Twelve-lead EKG: Per my interpretation shows atrial fibrillation at a rate of 97. No ST elevation. No PVCs. Normal QTC. A. fib is chronic. MDM Narrative Patient presents with a left hip pain and an x-ray done at the pain management office showing that he has an acute to subacute left subcapital femoral fracture. Details listed above. Laboratory studies are unremarkable. The patient will be seen by the hospitalist who will consult the orthopedist for further evaluation and care. Impression & Plan Closed left hip fracture Discharge Plan Visit Data Chief Complaint: Hip Pain Stated Complaint: BROKEN HIP ED Provider: Reza Delaney Discharge Problem: Closed left hip fracture Forms Stand Alone Forms: My [facility] Prescriptions Prescriptions: No Action metoprolol succinate 50 mg tablet extended release 24 hr 50 mg PO BID Qty: 180 RF: 3 Eliquis 2.5 mg tablet 2.5 mg PO BID Qty: 60 RF: 11 Linzess 72 mcg capsule 72 mcg PO DAILY PRN (Reason: constipation) Qty: 30 RF: 11 lisinopril 10 mg tablet 10 mg PO DAILY Qty: 90 RF: 3 hydrocodone-acetaminophen 7.5-325 mg tablet 1 tab PO Q6H PRN (Reason: pain) Qty: 60 RF: 0 multivitamin [Multiple Vitamins] tablet 1 tab PO DAILY RF: 0 ascorbic acid (vitamin C) 1,000 mg tablet 1 g PO DAILY RF: 0 Myrbetriq 25 mg tablet extended release 24 hr 25 mg PO DAILY Qty: 90 RF: 3 tamsulosin 0.4 mg capsule 0.4 mg PO BID Qty: 180 RF: 3 cholecalciferol (vitamin D3) 2,000 unit tablet 2,000 units PO DAILY RF: 0 furosemide 20 mg tablet 20 mg PO Q OTHER DAY Qty: 30 RF: 3 Referrals Referrals: Blaze Cintron MD [Primary Care Provider] -
[2022-05-07 18:07] LABS: INR 1.1 (0.9-1.1); Partial Thromboplastin Ratio 1.1; Partial Thromboplastin Time 30.5 Seconds (21.0-31.0); Prothrombin Time 11.3 Seconds (9.0-12.0)
[2022-05-07 18:10] LABS: Basophils # (auto) 0.04 K/uL (0-0.2); Basophils % (auto) 0.4 %; Eosinophils # (auto) 0.12 K/uL (0-0.5); Eosinophils % (auto) 1.3 %; Hematocrit (blood only) 36.8 % (42-52); Hemoglobin 12.9 g/dL (14.0-18.0); Immature Granulocytes # (auto) 0.04 K/uL (0.00-0.02); Immature Granulocytes % (auto) 0.4 %; Lymphocytes # (auto) 1.43 K/uL (1.2-3.4); Lymphocytes % (auto) 15.4 %; Mean Corpuscular Hemoglobin 33.9 pg (25-34); Mean Corpuscular Hgb Conc 35.1 g/dL (32-36); Mean Corpuscular Volume 96.6 fL (80-100); Mean Platelet Volume 10.9 fL (7.4-10.4); Monocytes # (auto) 1.26 K/uL (0.11-0.59); Monocytes % (auto) 13.6 %; Neutrophils # (auto) 6.38 K/uL (1.4-6.5); Neutrophils % (auto) 68.9 %; Platelet Count 333 K/uL (130-400); RDW Standard Deviation 48.8 fL (36.4-46.3); Red Blood Count 3.81 M/uL (4.7-6.1); White Blood Count 9.27 K/uL (4.8-10.8)
[2022-05-07 18:20] LABS: Alanine Aminotransferase 26 U/L (7-52); Alkaline Phosphatase 121 U/L (34-104); Anion Gap 11 (3-11); Aspartate Aminotransferase 24 U/L (13-39); BUN Creatinine Ratio 29.1 (10-20); Bilirubin,Total 1.2 mg/dl (0.2-1.0); Blood Urea Nitrogen 39 mg/dl (6-23); Calcium 9.7 mg/dl (8.5-10.1); Carbon Dioxide 27 mmol/L (21-32); Chloride 99 mmol/L (98-107); Est GFR (African American) 54.1 ml/min; Est GFR (Non-African American) 46.6 ml/min; Globulin 3.9 gm/dl (2.5-4.0); Glucose 99 mg/dl (70-99(Fasting)); Potassium 4.2 mmol/L (3.5-5.1); Sodium 137 mmol/L (136-145); Total Protein 7.9 gm/dl (6.0-8.3)
--- NOTE | 2022-05-07 18:43 | History & Physical Report ---
Date of Service May 07, 2022 Assessment & Plan (1) Closed left hip fracture: Plan: Pain management with Dilaudid 0.25-0.5mg IV VTE prophylaxis per orthopedics post operatively Last took Eliquis 2.5mg between 7-8am. Discussed with Dr Pinto and recommends [facility]Centra if patient is to go to surgery tomorrow - recommends calling in the morning with surgery time if this is the case. Otherwise would need to miss 4 doses (ie. surgery on Tuesday). Will hold lisinopril preliminary if going for surgery tomorrow Should receive metoprolol pre-operatively - please call provider if parameters mean this is being held Patient is medically optimized for surgery at this time. Revised cardiac risk score 2 - 10.1% 30 day risk of , [place] or cardiac arrest (2) Atrial fibrillation, permanent: Plan: Anticoagulation with Eliquis 2.5mg PO BID (on hold due to need for operation), restart when ok with orthopedics post operatively. Reduced dose due to age and weight. Rate control with metoprolol succinate 50mg PO BID (3) Constipation: Plan: History of this On Linzess PRN Will start usual hip fracture laxatives perioperatively (4) Rheumatoid arthritis: Plan: Noted history of this but on no medications (5) Hypertension: Plan: Continue metoprolol succinate 50mg PO BID Lisinopril hold on morning of operation Lasix on hold pre-operatively (6) Osteoporosis: Plan: Noted history of this on EHR but no DEXA scan found Vitamin D level in AM Consider f/u DEXA (7) CAD in [place] artery: Plan: Non obstructive CAD on cardiac cath in 2017. Continue Eliquis post operatively Continue metoprolol perioperatively No need for further cardiac workup pre-operatively given good exercise tolerance. (8) Congestive heart failure: Plan: Noted history of this but no hospitalization of heart failure per patient and takes Lasix for leg swelling only. Current mildly hypovolemic and will hold Lasix and place on IV fluids pre- operatively. Plan: VTE Prophylaxis - SCDs, restart Eliquis post operatively Diet - regular, NPO after midnight Disposition - admit to med/tele History of Present Illness Chief Complaint: Left hip pain Primary Care Provider: Blaze Cintron MD Blaine Quintero is an 87 year old male who presents to the ER with left hip pain and outside XR showing left hip fracture. He reports initial injury occurred while clearing out his barn in February. He felt he pinched something in his back causing pain in the leg, back and hip. He came to the ER at that time and hip XRs did not show a hip fracture. He returned to the ER with persistent pain despite pain medication on March 08 by which point he had also got a lumbar MRI showing multilevel degeneration with moderate to severe foraminal narrowing on the right (his pain was left sided however). He was given a course of prednisone and [place] and referred to physical therapy. This did not help and after exacerbating his symptoms on a mower he returned to the ER on May 08. He was referred to main management for an epidural spinal injection which also did not help on April 21. Due to progressively worsening pain and physical therapy feeling something was a problem with his left femur he made an appointment to see his PCP. He was seen by his PCP today and organized hip and femur XRs which showed a displaced subcapital left femoral fracture. The patient currently reports no pain at rest but pain on any movement from this back going down the front of his leg to his ankle. Good ankle and toe movements with full sensation in his foot. He reports a prior history of a stroke a long time ago although I cannot find evidence of this in the EHR. Prior catheterization in 2016 showing non obstructive coronary artery disease. He had good exercise tolerance before all this pain started in his left leg and back. Previously would walk [place] over the farm in excess of 1 mile without any chest pain or shortness of breath. He has permanent atrial fibrillation and takes a low dose Eliquis for this (reduced dose due to age and weight). Last took Eliquis this morning. No previous hospitalization of heart failure per patient but takes furosemide every other day for leg swelling. He was referred to medicine for admission and ongoing management of hip fracture. Allergies Allergy/AdvReac Type Severity Reaction Status Date / Time bee venom protein (honey bee) Allergy Unknown SWELLING Verified 05/07/22 10:19 AT SITE trospium Allergy vomiting Verified 05/07/22 10:19 and constipation Home Medications Medication Instructions Recorded Confirmed Type cholecalciferol (vitamin D3) 50 2,000 units PO DAILY 05/18/19 05/07/22 History mcg (2,000 unit) tablet multivitamin (Multiple Vitamins) 1 tab PO DAILY 07/26/19 05/07/22 History ascorbic acid (vitamin C) 1,000 mg 1 g PO DAILY tab 06/25/20 05/07/22 History tablet metoprolol succinate 50 mg 50 mg PO BID #180 tab 05/29/21 05/07/22 Rx tablet,extended release 24 hr apixaban 2.5 mg tablet (Eliquis) 2.5 mg PO BID #60 tab 06/08/21 05/07/22 Rx linaclotide 72 mcg capsule 72 mcg PO DAILY PRN #30 cap 08/26/21 05/07/22 Rx (Linzess) mirabegron 25 mg tablet,extended 25 mg PO DAILY #90 tab 10/23/21 05/07/22 Rx release 24 hr (Myrbetriq) tamsulosin 0.4 mg capsule 0.4 mg PO BID #180 cap 10/23/21 05/07/22 Rx furosemide 20 mg tablet 20 mg PO Q OTHER DAY #30 tab 11/03/21 05/07/22 Rx lisinopril 10 mg tablet 10 mg PO DAILY #90 tab 01/15/22 05/07/22 Rx hydrocodone 7.5 mg-acetaminophen 1 tab PO Q6H PRN #60 tab 04/29/22 05/07/22 Rx 325 mg tablet Past Med/Surg History Medical History Atrial fibrillation, permanent Atrial flutter, paroxysmal CAD in [place] artery Carotid artery stenosis Helicobacter pylori infection History of lower leg fracture History of prostate cancer History of vitamin D deficiency Hyperlipidemia Hypertension Ischemic cardiomyopathy Mitral regurgitation Prostate cancer Tricuspid regurgitation Surgical History H/O reduction of open fracture ORIF RIGHT TIB/FIB FEBRUARY 2008 DR. HUGHES H/O resection of small bowel DONE IN 1955 History of appendectomy History of decompression of median nerve neuroplasty decompression median nerve at carpal tunnel B/L 2013 Family History Father Stomach cancer Mother age 93 Daughter Breast cancer Other Cancer No family history of adverse response to anesthesia No family history of bleeding disorder Denies family history of Ovarian cancer Prostate cancer Diabetes Myocardial infarction Lung cancer Colorectal cancer Hypertension Social History Smoking Status: Former smoker Tobacco Type: Cigarettes Cigarettes Per Day: 2-3 packs per day as a teenager; Second Hand Exposure: No; Hx Alcohol Use: No Hx Substance Use: No Preferred Language: Estonian Visual Impairment: No Limitations Hearing Ability: Hard of Hearing [place] Required: No Beliefs That Will Affect Care: None marital status: / Current Living Situation: Alone 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 Safe at Home: Yes Safety Concerns: Feels Safe At This Time Childhood Exposure to Second-Hand Smoke: Yes caffeine: Yes Dental Care, Regularly: No Physical Activity Frequency: Does not Exercise Seatbelt Use: always Sunscreen Use: Yes Assistive Devices: Walker Review of Systems Review of Systems: All systems reviewed & are unremarkable except as noted in HPI & below Physical Exam Constitutional: WD/WN, vitals as above + frail appearing Eyes: PERRL, conjunctivae normal, anicteric sclerae Neck: trachea midline, no thyromegaly Respiratory: normal respiratory effort, lungs clear to auscultation Cardiovascular: Rate/Rhythm: regular rate and + irregularly irregular Heart Sounds: no murmur Vessels: no JVD Extremities: normal capillary refill and + pedal edema (trace pre-tibial b/l); no calf tenderness Gastrointestinal (Abdomen): normal bowel sounds, soft, nontender, no hepatosplenomegaly Musculoskeletal: no cyanosis or clubbing, extremities motor strength 5/5 (left leg not examined) Skin: no rashes, warm and dry Neurologic: moves all extremities (left leg not fully examined) and awake; not confused Psychiatric: A+Ox3, euthymic affect Results & Data Results & Data ([facility]) Vital Signs (Past 12 Hours) Vital Signs Temp Pulse Resp BP Pulse Ox 05/07/22 13:57 36.8 C 80 16 168/81 H 99 Laboratory Results Abnormal lab results 05/07/22 05/07/22 Range/Units 17:40 17:40 RBC 3.81 L (4.7-6.1) M/uL Hgb 12.9 L (14.0-18.0) g/dL Hct 36.8 L (42-52) % RDW Std Deviation 48.8 H (36.4-46.3) fL MPV 10.9 H (7.4-10.4) fL [place] # (Auto) 1.26 H (0.11-0.59) K/uL Immature Gran # (Auto) 0.04 H (0.00-0.02) K/uL BUN 39 H (6-23) mg/dl BUN/Creatinine Ratio 29.1 H (10-20) Total Bilirubin 1.2 H (0.2-1.0) mg/dl Alkaline Phosphatase 121 H (34-104) U/L Diagnostic Findings XR chest 1V portable CLINICAL HISTORY: Preoperative evaluation. COMPARISON STUDY: Chest radiograph and chest CT March 29, 2017. FINDINGS: Lung volumes are normal. Lungs are clear. There is no pneumothorax or pleural effusion. Moderate cardiomegaly is unchanged. Mediastinal contours are normal. There is no evidence for pulmonary edema. IMPRESSION: No acute cardiopulmonary findings. Cardiomegaly. XR hip LT 2V w pelvis CLINICAL HISTORY: M54.16 - Radiculopathy, lumbar region. COMPARISON: Left femur radiographs March 05, 2022. FINDINGS: Note is made of a displaced subcapital left femoral fracture. This fracture is age indeterminate but new since radiographs of March 05, 2022. Fracture is displaced approximately 1.7 cm. Numerous adjacent radiodensities measure up to 2 cm. These may be within a distended left hip joint. No additional fractures are identified. There are brachytherapy seeds within the prostate. IMPRESSION: 1. Displaced subcapital left femoral fracture. This fracture is age indeterminate but new since radiographs of March 05, 2022 and is likely subacute to acute. Orthopedic consultation is recommended. This finding will be called/faxed to the ordering provider at time of dictation. 2. Numerous adjacent radiodensities which measure up to 2 cm. These are also new since prior radiographs and may reflect a complex left hip joint effusion which contains ossific/calcific material. XR femur LT 2V routine CLINICAL HISTORY: M54.16 - Radiculopathy, lumbar region. COMPARISON: Left femur radiographs March 05, 2022. FINDINGS: There is no evidence for a left knee joint effusion. Note is made of an acute displaced subcapital left femoral fracture. This fracture is new since radiographs of March 05, 2022. Distal component is displaced superiorly with respect to the femoral head. Suspected complex left hip joint effusion is noted which contains calcific/ossific material. IMPRESSION: 1. Displaced subcapital left femoral fracture. This is age indeterminate but new since radiographs of March 05, 2022. This fracture is likely subacute to acute. Orthopedic consultation is recommended. This finding will be called/faxed to ordering provider at time of dictation. 2. Suspected left hip joint effusion which contains calcific/ossific material related to the fracture. Medications Administered ER Medications Given: None ECG Indication: other (Pre-op) Rate (beats per minute): 97 Rhythm: atrial fibrillation Findings: + left axis deviation Comparison ECG Date: from (August 10, 2019) Change: the following changes noted (increased ventricular response of atrial firbillation) Code Status & VTE Plan Code Status Full VTE Prophylaxis Plan VTE Prophylaxis will be ordered: Yes PG Care Time/CCT Total # of Minutes Spent Total Time Spent with Patient: Total time spent is greater than 50% in coordination of care (as documented) at patient's floor/unit and/or counseling patient: Coding Level of Care Code 88747 Initial Inpt Care Lvl 2 Diagnoses Closed left hip fracture S72.002A Rheumatoid arthritis M06.9 Constipation K59.00 Hypertension I10 Osteoporosis M81.0 CAD in [place] artery I25.10 Congestive heart failure I50.9 Atrial fibrillation, permanent I48.21
--- NOTE | 2022-05-07 19:49 | XRay Report ---
XR chest 1V portable CLINICAL HISTORY: Preoperative evaluation. COMPARISON STUDY: Chest radiograph and chest CT March 29, 2017. FINDINGS: Lung volumes are normal. Lungs are clear. There is no pneumothorax or pleural effusion. Mod erate cardiomegaly is unchanged. Mediastinal contours are normal. There is no evidence for pulmonary edema. IMPRESSION: No acute cardiopulmonary findings. Cardiomegaly. ACT 112: Negative or not required by law. Electronically signed by: Peter Hall M.D. 05/07/2022 7:48 PM
[2022-05-07] MEDS ORDERED: NALOXONE HCL 0.4 MG/1 ML VIAL/CARP IV PRN (20:53)
[2022-05-07] MEDS ORDERED: bisacodyL 10 MG SUPP PR PRN (20:53)
[2022-05-07] MEDS ORDERED: MAGNESIUM HYDROXIDE SUSP 30 ML UDC PO PRN (20:53)
[2022-05-07] MEDS ORDERED: linaCLOtide 72 MCG CAPSULE PO PRN (21:25)
[2022-05-07] MEDS: LACTATED RINGER'S 1,000 ML IV SCH (21:57)
[2022-05-07] MEDS: DOCUSATE SODIUM/SENNA 50/8.6MG TAB PO SCH (21:59)
[2022-05-07] MEDS: METOPROLOL SUCC 50MG EXT REL TAB PO SCH (22:15)
[2022-05-07] MEDS: TAMSULOSIN HCL 0.4 MG CAP PO SCH (22:15)
[2022-05-08] MEDS: HYDROmorphone INJ 0.5 MG/0.5 ML SYR IV PRN ×3 (00:04→23:21)
[2022-05-08 02:45] LABS: Appearance Urine Clear (Clear); Bilirubin Urine Negative (Negative); Blood Urine Negative (Negative); Color Urine Yellow; Glucose Urine UA Negative (Negative); Ketones Urine 2+ (Negative); Leukocyte Esterase Urine Negative (Negative); Nitrite Urine Negative (Negative); Protein Urine Negative (Negative); Specific Gravity Urine 1.018 (1.000-1.030); Urobilinogen Urine Negative (Negative); pH Urine 5.5 (4.5-7.5)
[2022-05-08] MEDS: MULTIVITAMIN TAB PO SCH (08:40)
[2022-05-08] MEDS: MIRABEGRON ER 25 MG TAB PO SCH (08:40)
[2022-05-08] MEDS: METOPROLOL SUCC 50MG EXT REL TAB PO SCH ×2 (08:40→19:50)
[2022-05-08] MEDS: TAMSULOSIN HCL 0.4 MG CAP PO SCH ×2 (08:40→19:50)
[2022-05-08] MEDS: CHOLECALCIFEROL 1,000 UNITS 25 MCG TAB PO SCH (08:41)
[2022-05-08] MEDS: LACTATED RINGER'S 1,000 ML IV SCH ×2 (08:41→18:02)
[2022-05-08] MEDS ORDERED: lisinopril 10 MG TAB PO SCH (09:00)
[2022-05-08 09:47] LABS: Basophils # (auto) 0.02 K/uL (0-0.2); Basophils % (auto) 0.2 %; Eosinophils # (auto) 0.29 K/uL (0-0.5); Eosinophils % (auto) 3.3 %; Hematocrit (blood only) 32.9 % (42-52); Hemoglobin 10.8 g/dL (14.0-18.0); Immature Granulocytes # (auto) 0.03 K/uL (0.00-0.02); Immature Granulocytes % (auto) 0.3 %; Lymphocytes # (auto) 1.38 K/uL (1.2-3.4); Lymphocytes % (auto) 15.7 %; Mean Corpuscular Hemoglobin 31.4 pg (25-34); Mean Corpuscular Hgb Conc 32.8 g/dL (32-36); Mean Corpuscular Volume 95.6 fL (80-100); Mean Platelet Volume 10.3 fL (7.4-10.4); Monocytes # (auto) 1.14 K/uL (0.11-0.59); Neutrophils # (auto) 5.93 K/uL (1.4-6.5); Neutrophils % (auto) 67.5 %; Platelet Count 288 K/uL (130-400); RDW Standard Deviation 49.1 fL (36.4-46.3); Red Blood Count 3.44 M/uL (4.7-6.1); White Blood Count 8.79 K/uL (4.8-10.8)
[2022-05-08 10:10] LABS: Calcium 8.6 mg/dl (8.5-10.1); Creatinine Clr Calc Pharmacy 37.9 ml/min; Est GFR (Non-African American) 66.4 ml/min
--- NOTE | 2022-05-08 10:20 | Hospitalist Progress Note ---
Date of Service May 08, 2022 Assessment & Plan (1) Closed left hip fracture: Plan: Eliquis is on hold. Bed rest. Awaiting orthopedic evaluation. Anticipate surgical intervention tomorrowMay 09. Pain control measures. Supportive care. Holding lisinopril pending surgery intervention. Continue metoprolol. (2) Atrial fibrillation, permanent: Plan: Telemetry. Continue metoprolol. Eliquis is on hold. (3) Constipation: Plan: On Linzess PRN (4) Rheumatoid arthritis: Plan: Noted. No medications currently (5) Hypertension: Plan: Continue metoprolol succinate 50mg PO BID. Lisinopril is on hold. (6) Osteoporosis: Plan: Vitamin D level pending. Calcium supplementation (7) CAD in [place] artery: Plan: Stable on current medical management. Continue beta-altaf therapy. Eliquis is on hold. (8) Congestive heart failure: Plan: Chronic diastolic. No exacerbation at this time. Continue current medical management. Plan: VTE Prophylaxis - SCDs for now. Restart Eliquis post operatively Disposition -eventual discharge to rehab facility Admission and Anticipated Discharge Date Admission Date: May 07, 2022 Subjective Alert and oriented. No acute distress. Orthopedic evaluation is pending. Erinquis is on hold. I suspect he will undergo hip surgery tomorrowMay 09 Review of Systems Review of Systems: Constitutional-no fever or chills ENT-no blurred vision, no double vision, no epistaxis, no sore throat Respiratory-no cough, no wheezing, no shortness of breath Cardiac-no palpitations, no chest pain, no syncope GI-no nausea, vomiting, diarrhea, melena, hematochezia -no urinary retention, no urinary incontinence, no dysuria, no hematuria Musculoskeletal-left hip discomfort with movement. Left lower extremity is slightly shortened. Skin-no bruising, no rashes, no pruritus Neuro-no isolated weakness, no paresthesia, no weakness Psych-no depression, no anxiety Physical Exam Physical Exam: General-alert and oriented x3, no fevers, no chills HEENT-head atraumatic and normocephalic, TMs intact bilaterally, pupils equal and reactive to light, extraocular muscles intact Neck-no lymphadenopathy or thyromegaly, trachea midline Chest-clear to auscultation percussion. No rales wheezing or rhonchi Cardiac-irregular rhythm. Controlled rate. Normal S1 and S2 Abdomen-normal bowel sounds, nontender, no hepatosplenomegaly Extremities-left hip discomfort with movement due to underlying fracture. Left lower extremity is slightly shortened. Neuro-cranial nerves II through XII intact, motor and sensory function within normal limits, strength symmetrical , no focal deficits Psych-normal affect, normal mood Results & Data Results & Data ([facility]) Vital Signs (Past 12 Hours) Vital Signs Temp Pulse Pulse Resp BP Pulse Ox 05/08/22 09:25 73 05/08/22 06:24 36.5 C 83 16 139/77 96 05/08/22 03:30 36.6 C 82 18 124/70 96 05/07/22 23:13 36.5 C 84 18 126/74 97 Laboratory Results 05/08/22 09:25 05/08/22 09:25 PG Care Time/CCT Total # of Minutes Spent Total Time Spent with Patient: Total time spent is greater than 50% in coordination of care (as documented) at patient's floor/unit and/or counseling patient: Coding Level of Care Code 68374 Subseq Hosp Care Lvl 3 Diagnoses Closed left hip fracture S72.002A Atrial fibrillation, permanent I48.21 Constipation K59.00 Rheumatoid arthritis M06.9 Hypertension I10 Osteoporosis M81.0 CAD in [place] I25.10 Congestive heart failure I50.9
--- NOTE | 2022-05-08 12:25 | Consultation Report ---
ORTHOPEDIC CONSULTATION DATE OF SERVICE: 05/08/2022. HISTORY OF PRESENT ILLNESS: The patient is an 87-year-old gentleman presented to the [facility] with complaints of left hip pain. The patient states he lives alone and does not recall a fall or specific injury. Per the patient, he has had some preexisting hip pain and had a prior x-ray in the not so recent past. He does live alone, but states he has family close. He uses a cane or a walker when indicated. Evaluation of the left hip demonstrated a left hip fracture. The patient was admitt ed by the medicine service and an orthopedics consult was called for. PAST MEDICAL HISTORY: The patient does have a past medical history significant for atrial fibrillati on and is on Eliquis 2.5 mg b.i.d. He had his last dose of Eliquis on the morning of 05/07/2022. He also has a history of non-treated rheumatoid arthritis, hypertension, osteoporosis, nonobstructive c oronary artery disease, and CHF. PHYSICAL EXAMINATION: The patient is resting in bed, appears comfortable. He is alert and able to a nswer questions appropriately. He denies any other injuries or pains. His toes are mobile and neuro vascularly intact. IMAGING: X-rays were reviewed and shows a displaced subcapital femoral neck fracture. ASSESSMENT: An 87-year-old male with displaced left subcapital femoral neck fracture. PLAN: The above was discussed with the patient. The patient will require a left hip hemiarthroplast y. The patient is currently n.p.o. and his Eliquis is on hold. Dr. Geiger is the surgeon international exchange coordinator an d will be in to see the patient. At this time, may need to delay surgery a day or two due to the rec ent Eliquis. Medicine has mentioned giving Kcentra if indicated. We will feed the patient today and consider surgery in the next day or two as indicated. Job ID: [id number]
[2022-05-08] MEDS: DOCUSATE SODIUM/SENNA 50/8.6MG TAB PO SCH (19:38)
--- NOTE | 2022-05-08 23:06 | Electrocardiogram Report ---
Test Reason : Blood Pressure : / mmHG Vent. Rate : 097 BPM Atrial Rate : 101 BPM P-R Int : 000 ms QRS Dur : 102 ms QT Int : 358 ms P-R-T Axes : 000 -41 073 degrees QTc Int : 454 ms Atrial fibrillation Left axis deviation Abnormal ECG When compared with ECG of 30-MAR-2017 08:40, Atrial fibrillation has replaced Sinus rhythm Vent. rate has increased BY 43 BPM QRS duration has decreased T wave amplitude has increased in Anterior leads Confirmed by Rafael Monge ([id number]) on 05/08/2022 11:06:09 PM Referred By: REFERRED SELF Confirmed By:Rafael Monge
[2022-05-08] MEDS: MELATONIN 3 MG TAB PO PRN (23:13)
[2022-05-09] MEDS: METOPROLOL SUCC 50MG EXT REL TAB PO SCH ×2 (08:13→20:35)
[2022-05-09] MEDS: MULTIVITAMIN TAB PO SCH (08:13)
[2022-05-09] MEDS: TAMSULOSIN HCL 0.4 MG CAP PO SCH ×2 (08:14→20:35)
[2022-05-09] MEDS: MIRABEGRON ER 25 MG TAB PO SCH (08:14)
[2022-05-09] MEDS: lisinopril 10 MG TAB PO SCH (08:14)
[2022-05-09] MEDS: CHOLECALCIFEROL 1,000 UNITS 25 MCG TAB PO SCH (08:14)
[2022-05-09 08:30] LABS: Basophils # (auto) 0.02 K/uL (0-0.2); Basophils % (auto) 0.2 %; Eosinophils % (auto) 3.6 %; Hematocrit (blood only) 31.8 % (42-52); Hemoglobin 10.6 g/dL (14.0-18.0); Immature Granulocytes # (auto) 0.02 K/uL (0.00-0.02); Immature Granulocytes % (auto) 0.2 %; Lymphocytes # (auto) 1.42 K/uL (1.2-3.4); Lymphocytes % (auto) 17.2 %; Mean Corpuscular Hemoglobin 31.4 pg (25-34); Mean Corpuscular Hgb Conc 33.3 g/dL (32-36); Mean Corpuscular Volume 94.1 fL (80-100); Mean Platelet Volume 10.2 fL (7.4-10.4); Monocytes # (auto) 1.06 K/uL (0.11-0.59); Monocytes % (auto) 12.8 %; Neutrophils # (auto) 5.44 K/uL (1.4-6.5); Platelet Count 277 K/uL (130-400); RDW Coefficient of Variation 13.8 % (11.5-14.5); RDW Standard Deviation 47.5 fL (36.4-46.3); Red Blood Count 3.38 M/uL (4.7-6.1); White Blood Count 8.26 K/uL (4.8-10.8)
[2022-05-09 08:49] LABS: BUN Creatinine Ratio 23.2 (10-20); Calcium 8.6 mg/dl (8.5-10.1); Creatinine Clr Calc Pharmacy 40.1 ml/min; Est GFR (African American) 81.9 ml/min; Est GFR (Non-African American) 70.7 ml/min; Potassium 4.1 mmol/L (3.5-5.1)
--- NOTE | 2022-05-09 10:53 | Hospitalist Progress Note ---
Date of Service May 09, 2022 Assessment & Plan (1) Closed left hip fracture: Plan: Eliquis remains on hold. Bed rest. Orthopedic consultation noted. Surgical intervention tomorrowMay 10. Pain control measures. Supportive care. Continue metoprolol and lisinopril (2) Atrial fibrillation, permanent: Plan: Telemetry. Continue metoprolol. Eliquis is on hold. (3) Constipation: Plan: On Linzess PRN (4) Rheumatoid arthritis: Plan: Noted. No medications currently (5) Hypertension: Plan: Continue metoprolol and lisinopril. Controlled. (6) Osteoporosis: Plan: Calcium supplementation (7) CAD in [place] artery: Plan: Stable on current medical management. Continue beta-altaf therapy. Eliquis is on hold. (8) Congestive heart failure: Plan: Chronic diastolic. No exacerbation at this time. Continue current medical management. Monitor intake and output Plan: VTE Prophylaxis - SCDs for now. Restart Eliquis post operatively Disposition -eventual discharge to rehab facility Admission and Anticipated Discharge Date Admission Date: May 07, 2022 Subjective Alert and oriented. No acute distress. Case discussed with orthopedics. Surgery tomorrowMay 10. Eliquis remains on hold. Review of Systems Review of Systems: Constitutional-no fever or chills ENT-no blurred vision, no double vision, no epistaxis, no sore throat Respiratory-no cough, no wheezing, no shortness of breath Cardiac-no palpitations, no chest pain, no syncope GI-no nausea, vomiting, diarrhea, melena, hematochezia -no urinary retention, no urinary incontinence, no dysuria, no hematuria Musculoskeletal-left hip pain with movement as expected due to underlying fracture. Skin-no bruising, no rashes, no pruritus Neuro-no isolated weakness, no paresthesia, no weakness Psych-no depression, no anxiety Physical Exam Physical Exam: General-alert and oriented x3, no fevers, no chills HEENT-head atraumatic and normocephalic, TMs intact bilaterally, pupils equal and reactive to light, extraocular muscles intact Neck-no lymphadenopathy or thyromegaly, trachea midline Chest-clear to auscultation percussion. No rales wheezing or rhonchi Cardiac-regular rate and rhythm, normal S1 and S2, no murmurs Abdomen-normal bowel sounds, nontender, no hepatosplenomegaly Extremities-left leg is slightly shortened. No edema. Neuro-cranial nerves II through XII intact, motor and sensory function within normal limits, strength symmetrical , no focal deficits Psych-normal affect, normal mood Results & Data Results & Data ([facility]) Vital Signs (Past 12 Hours) Vital Signs Temp Pulse Pulse Resp BP Pulse Ox Pulse Ox 05/09/22 09:38 88 05/09/22 08:00 94 05/09/22 06:28 36.5 C 98 H 16 147/81 H 95 05/09/22 03:09 36.6 C 115 H 18 151/84 H 96 05/08/22 23:05 36.7 C 96 H 18 159/90 H 96 Laboratory Results 05/09/22 08:12 05/09/22 08:12 PG Care Time/CCT Total # of Minutes Spent Total Time Spent with Patient: Total time spent is greater than 50% in coordination of care (as documented) at patient's floor/unit and/or counseling patient: Coding Level of Care Code 35097 Subseq Hosp Care Lvl 3 Diagnoses Closed left hip fracture S72.002A Atrial fibrillation, permanent I48.21 Constipation K59.00 Rheumatoid arthritis M06.9 Hypertension I10 Osteoporosis M81.0 CAD in [place] artery I25.10 Congestive heart failure I50.9
--- NOTE | 2022-05-09 14:32 | Anesthesiology Consultation ---
Date of Service May 09, 2022 Assessment & Plan (1) Encounter for pre-operative examination: Chart Review Chart Review: Acceptable Risk for Surgery (last eliquis dose in AM 05/07) History Surgery Operation Date: 05/10/22 07:30 Proposed Procedures p Left hip Bipolar Hemiarthroplasty(Left) - Vickey Geiger DO Height/Weight Height: 5 ft 8 in Weight: 53.8 kg Allergies Allergy/AdvReac Type Severity Reaction Status Date / Time bee venom protein (honey bee) Allergy Unknown SWELLING Verified 05/07/22 10:19 AT SITE trospium Allergy vomiting Verified 05/07/22 10:19 and constipation Medications Home Medications Medication Instructions Recorded Confirmed Last Taken cholecalciferol (vitamin D3) 50 2,000 units PO DAILY 05/18/19 05/07/22 05/07/22 07:00 mcg (2,000 unit) tablet multivitamin (Multiple Vitamins) 1 tab PO DAILY 07/26/19 05/07/22 05/07/22 07:00 ascorbic acid (vitamin C) 1,000 mg 1 g PO DAILY tab 06/25/20 05/07/22 05/07/22 07:00 tablet metoprolol succinate 50 mg 50 mg PO BID #180 tab 05/29/21 05/07/22 05/07/22 07:00 tablet,extended release 24 hr apixaban 2.5 mg tablet (Eliquis) 2.5 mg PO BID #60 tab 06/08/21 05/07/22 05/07/22 07:00 linaclotide 72 mcg capsule 72 mcg PO DAILY PRN #30 cap 08/26/21 05/07/22 Unknown (Linzess) mirabegron 25 mg tablet,extended 25 mg PO DAILY #90 tab 10/23/21 05/07/22 0 05/07/22 07:00 release 24 hr (Myrbetriq) tamsulosin 0.4 mg capsule 0.4 mg PO BID #180 cap 10/23/21 05/07/22 05/07/22 07:00 furosemide 20 mg tablet 20 mg PO Q OTHER DAY #30 tab 11/03/21 05/07/22 04/07/22 lisinopril 10 mg tablet 10 mg PO DAILY #90 tab 01/15/22 05/07/22 05/07/22 07:00 hydrocodone 7.5 mg-acetaminophen 1 tab PO Q6H PRN #60 tab 04/29/22 05/07/22 05/07/22 07:00 325 mg tablet Active Medications Generic Name Dose Route Start Last Admin Trade Name Bora PRN Reason Stop Dose Admin Hydromorphone HCl 0.25 mg 05/07/22 20:53 05/08/22 23:21 Hydromorphone Inj 0.5 Mg/0.5 Ml Syr IV 05/21/22 20:52 0.25 mg Q3H PRN Administration Pain (1,2,3,4,5) & Pre PT Hydromorphone HCl 0.5 mg 05/07/22 20:53 05/08/22 02:39 Hydromorphone Inj 0.5 Mg/0.5 Ml Syr IV 05/21/22 20:52 0.5 mg Q3H PRN Administration Pain (6,7,8,9,10) Lactated Ringer's 1,000 mls @ 50 mls/hr 05/07/22 20:53 05/08/22 18:02 Lr IV 06/06/22 20:52 50 mls/hr .Q20H ANTOINETTE Administration Lisinopril 10 mg 05/09/22 09:00 05/09/22 08:14 Lisinopril 10 Mg Tab PO 06/08/22 08:59 10 mg DAILY ANTOINETTE Administration Melatonin 3 mg 05/08/22 19:49 05/08/22 23:13 Melatonin 3 Mg Tab PO 06/07/22 19:48 3 mg HS PRN Administration Sleep Metoprolol Succinate 50 mg 05/07/22 21:30 05/09/22 08:13 Metoprolol Succ 50mg Ext Rel Tab PO 06/06/22 21:29 50 mg BID ANTOINETTE Administration Mirabegron 25 mg 05/08/22 09:00 05/09/22 08:14 Mirabegron Er 25 Mg Tab PO 06/07/22 08:59 25 mg DAILY ANTOINETTE Administration Multivitamins 1 tab 05/08/22 09:00 05/09/22 08:13 Multivitamin Tab PO 06/07/22 08:59 1 tab QAM ANTOINETTE Administration Senna/Docusate Sodium 2 tab 05/07/22 21:00 05/08/22 19:38 Docusate Sodium/Senna 50/8.6mg Tab PO 06/06/22 20:59 Not Given HS ANTOINETTE Tamsulosin HCl 0.4 mg 05/07/22 21:30 05/09/22 08:14 Tamsulosin Hcl 0.4 Mg Cap PO 06/06/22 21:29 0.4 mg BID ANTOINETTE Administration Vitamin D 2,000 units 05/08/22 09:00 05/09/22 08:14 Cholecalciferol 1,000 Units 25 Mcg Tab PO 06/07/22 08:59 2,000 units DAILY ANTOINETTE Administration Past Medical History Medical History (Updated 05/09/22 @ 14:34 by Hari Lopez MD) Anemia Atrial fibrillation, permanent Atrial flutter, paroxysmal CAD in [place] artery Carotid artery stenosis Chronic kidney disease, stage 3 Helicobacter pylori infection History of lower leg fracture History of prostate cancer History of vitamin D deficiency Hyperlipidemia Hypertension Ischemic cardiomyopathy Mitral regurgitation Prostate cancer Tricuspid regurgitation Past Family History Family History Father Stomach cancer Mother age 93 Daughter Breast cancer Other Cancer No family history of adverse response to anesthesia No family history of bleeding disorder Denies family history of Ovarian cancer Prostate cancer Diabetes Myocardial infarction Lung cancer Colorectal cancer Hypertension Past Surgical History Surgical History H/O reduction of open fracture ORIF RIGHT TIB/FIB FEBRUARY 2008 DR. HUGHES H/O resection of small bowel DONE IN 1954 History of appendectomy History of decompression of median nerve neuroplasty decompression median nerve at carpal tunnel B/L 2013 Social History Smoking Status: Former smoker tobacco type: cigarettes Smoking cigarettes per day: 2-3 packs per day as a teenager Hx Alcohol Use: No Hx Substance Use: No Physical Exam Vital Signs Last Vital Signs Temp 36.5 C 05/09/22 11:50 Pulse 91 H 05/09/22 11:50 Resp 20 05/09/22 11:50 BP 143/72 H 05/09/22 11:50 Pulse Ox 96 05/09/22 11:50 Testing Laboratory Results 05/09/22 08:12 05/09/22 08:12 PT 11.3 Seconds (9.0-12.0) 05/07/22 17:40 INR 1.1 (0.9-1.1) 05/07/22 17:40 APTT 30.5 Seconds (21.0-31.0) 05/07/22 17:40 Urine Color Yellow 05/08/22 02:30 Urine Appearance Clear (Clear) 05/08/22 02:30 Urine pH 5.5 (4.5-7.5) 05/08/22 02:30 Ur Specific Anton 1.018 (1.000-1.030) 05/08/22 02:30 Urine Protein Negative (Negative) 05/08/22 02:30 Urine Glucose (UA) Negative (Negative) 05/08/22 02:30 Urine Ketones 2+ (Negative) H 05/08/22 02:30 Urine Nitrite Negative (Negative) 05/08/22 02:30 Ur Leukocyte Esterase Negative (Negative) 05/08/22 02:30 Blood Type A Positive 05/07/22 17:40 Antibody Screen NEGATIVE 05/07/22 17:40 Electrocardiogram Date: 05/07/22 Findings: + AFIB @ (97) Chest X-Ray Date: 05/07/22 Findings: + NAD and + cardiomegaly Echocardiogram Date: 08/10/21 EF: 50-55% Valvular Disease: + AI (mild) and + MR (mild to moderate) mild to moderate TR mild pulmonary htn
[2022-05-09] MEDS: HYDROmorphone INJ 0.5 MG/0.5 ML SYR IV PRN (14:38)
[2022-05-09] MEDS: LACTATED RINGER'S 1,000 ML IV SCH ×2 (14:52→15:00)
[2022-05-09] MEDS: DOCUSATE SODIUM/SENNA 50/8.6MG TAB PO SCH (20:36)
[2022-05-10] MEDS: HYDROmorphone INJ 0.5 MG/0.5 ML SYR IV PRN (03:01)
[2022-05-10] MEDS ORDERED: ROPIVACAINE 0.5% HCL/PF 150 MG, BUPIVACAINE 0.75% MPF 20 ML, EPINEPHrine 0.15 MG, Ketor... INFIL SCH (06:00)
[2022-05-10] MEDS ORDERED: MIDAZOLAM HCL 1 MG/ML 2ML VIAL ONE (07:15)
[2022-05-10] MEDS ORDERED: KETAMINE 50 MG/5 ML SYRINGE ONE (07:18)
[2022-05-10 07:27] LABS: Basophils # (auto) 0.02 K/uL (0-0.2); Basophils % (auto) 0.2 %; Eosinophils # (auto) 0.27 K/uL (0-0.5); Eosinophils % (auto) 3.2 %; Hematocrit (blood only) 30.4 % (42-52); Hemoglobin 10.2 g/dL (14.0-18.0); Immature Granulocytes # (auto) 0.04 K/uL (0.00-0.02); Immature Granulocytes % (auto) 0.5 %; Lymphocytes # (auto) 1.96 K/uL (1.2-3.4); Lymphocytes % (auto) 23.1 %; Mean Corpuscular Hemoglobin 31.6 pg (25-34); Mean Corpuscular Hgb Conc 33.6 g/dL (32-36); Mean Corpuscular Volume 94.1 fL (80-100); Mean Platelet Volume 10.7 fL (7.4-10.4); Monocytes # (auto) 1.16 K/uL (0.11-0.59); Monocytes % (auto) 13.7 %; Neutrophils # (auto) 5.02 K/uL (1.4-6.5); Neutrophils % (auto) 59.3 %; Platelet Count 272 K/uL (130-400); RDW Coefficient of Variation 13.7 % (11.5-14.5); RDW Standard Deviation 47.8 fL (36.4-46.3); Red Blood Count 3.23 M/uL (4.7-6.1); White Blood Count 8.47 K/uL (4.8-10.8)
--- NOTE | 2022-05-10 07:38 | History & Physical Bridge Note ---
Date of Service May 10, 2022 History & Physical Bridge Note I have examined the patient, reviewed the History & Physical and in the interval since the performance of the History & Physical I have noted the following changes of clinical significance: no changes noted
[2022-05-10] MEDS ORDERED: ceFAZolin 2,000 MG/15 ML IV PUSH IV ONE (07:41)
[2022-05-10] MEDS ORDERED: PROMETHAZINE HCL 12.5 MG in SODIUM CHLORIDE 0.9% 50 ML IV PRN (07:54)
[2022-05-10] MEDS ORDERED: HYDROmorphone INJ 2 MG/ML SYR/VIAL IV PRN (07:54)
[2022-05-10] MEDS ORDERED: ePHEDrine sulfate 50 MG/ML AMP IV PRN (07:54)
[2022-05-10] MEDS ORDERED: ATROPINE SULFATE 0.1 MG/ML 10ML SYR IV PRN (07:54)
[2022-05-10] MEDS ORDERED: fentaNYL citrate 100 MCG/2 ML VIAL IV PRN (07:54)
[2022-05-10] MEDS ORDERED: ONDANSETRON INJ 2 MG/ML 2 ML VIAL IV PRN ×2 (07:54→11:11)
[2022-05-10 08:01] LABS: BUN Creatinine Ratio 18.5 (10-20); Calcium 7.9 mg/dl (8.5-10.1); Creatinine Clr Calc Pharmacy 47.2 ml/min; Est GFR (African American) 91.3 ml/min; Est GFR (Non-African American) 78.8 ml/min; Potassium 3.8 mmol/L (3.5-5.1)
[2022-05-10] MEDS ORDERED: PHENYLEPHRINE 100MCG/ML 5ML SYR ONE (09:10)
--- NOTE | 2022-05-10 10:30 | Post Operative Brief Note ---
Immediate Post Op Note v1 Date of Surgery May 10, 2022 Pre & Post Diagnosis Operation Date: 05/10/22 07:30 Pre-Op Diagnosis: Left Displaced Subcapital Femoral Neck Fracture Post-Op Diagnosis: Left Displaced Subcapital Femoral Neck Fracture I identified the patient and participated in the time-out.: Yes Procedure Operation Date: 05/10/22 07:30 Actual Procedures p Left Hip Bipolar Hemiarthroplasty with a size 9 Accolade II femoral neck component, 51 mm UHR bipolar head, V 40 femoral head +0 mm offset Vickey Geiger DO Surgeon Vickey Geiger DO Forensic Dna Analyst Vince Zurita PA-C Estimated Blood Loss 30 Findings Consistent with Post-Op Diagnosis Specimens Bone for pathology assessment Bone and tissue standard hemiarthroplasty Drains Pratt Catheter and Hemovac Drain (10 [place] dual) Anesthesia Type MAC Spinal Regional Complications none Disposition Accompanied Patient To Recovery: No
--- NOTE | 2022-05-10 10:52 | Anesthesiology Progress Note ---
Date of Service May 10, 2022 Anesthesia Post Procedure Vital Signs Vital Signs: Temp Pulse Pulse Pulse Resp BP BP 05/10/22 10:45 36.5 C 70 16 129/70 05/10/22 10:34 36.5 C 71 18 133/75 05/10/22 07:52 36.7 C 93 H 20 152/73 H 05/10/22 06:10 82 05/10/22 03:12 36.8 C 101 H 18 136/72 05/09/22 23:11 37.4 C 80 16 156/85 H 05/09/22 22:20 97 H 05/09/22 19:14 36.4 C L 106 H 18 108/65 05/09/22 14:33 36.4 C L 90 20 131/74 05/09/22 11:50 36.5 C 91 H 20 143/72 H Pulse Ox 05/10/22 10:45 99 05/10/22 10:34 100 05/10/22 07:52 94 05/10/22 06:10 05/10/22 03:12 93 05/09/22 23:11 93 05/09/22 22:20 05/09/22 19:14 96 05/09/22 14:33 97 05/09/22 11:50 96 Transfer of Care Handoff Completed per policy Notes Mental Status: alert / awake / arousable and participated in evaluation Patient Amnestic to Procedure: Yes Nausea / Vomiting: adequately controlled Pain: adequately controlled Airway Patency, RR, SpO2: stable & adequate BP & HR: stable & adequate Hydration State: stable & adequate Neuraxial Anesthesia: was administered and sensory block is resolving Anesthetic Complications: no major complications apparent
--- NOTE | 2022-05-10 11:09 | XRay Report ---
XR hip 1V LT w pelvis HISTORY: 87 years-old Male IN PACU - A/P PELVIS and LATERAL HIP left hip total joint arthroplasty COMPARISON: Left femur radiographs 05/07/2022 TECHNIQUE: AP view of the pelvis with crosstable lateral view of the left hip FINDINGS: Left hip total joint arthroplasty is noted with overlying skin alyssa, expected postoperative soft t issue swelling and deep tissue air with surgical drainage catheter. Satisfactory alignment without ad ditional acute fracture or unexpected opaque foreign body. Brachial therapy seeds of the prostate. Mi ld right hip osteoarthritis. Ossifications superolateral to left hip are redemonstrated. IMPRESSION: Left hip total joint arthroplasty with expected postoperative changes. ACT 112: Negative or not required by law. The above report was generated using voice recognition software. It may contain grammatical, syntax o r spelling errors. Electronically signed by: Steffen Li M.D. 05/10/2022 11:07 AM
[2022-05-10] MEDS ORDERED: METOCLOPRAMIDE HCL INJ 5 MG/ML 2 ML VIAL IV PRN (11:11)
[2022-05-10] MEDS ORDERED: NALOXONE HCL 0.4 MG/1 ML VIAL/CARP IV PRN (11:11)
[2022-05-10] MEDS ORDERED: SODIUM CHLORIDE 0.9% 1000ML 1,000 ML IV SCH (11:11)
[2022-05-10] MEDS ORDERED: MAGNESIUM HYDROXIDE SUSP 30 ML UDC PO PRN (11:11)
[2022-05-10] MEDS ORDERED: bisacodyL 10 MG SUPP PR PRN (11:11)
[2022-05-10] MEDS: METOPROLOL SUCC 50MG EXT REL TAB PO SCH ×2 (11:16→21:06)
[2022-05-10] MEDS: MULTIVITAMIN TAB PO SCH (11:16)
[2022-05-10] MEDS: lisinopril 10 MG TAB PO SCH (11:16)
[2022-05-10] MEDS: TAMSULOSIN HCL 0.4 MG CAP PO SCH ×2 (11:16→21:06)
[2022-05-10] MEDS: MIRABEGRON ER 25 MG TAB PO SCH (11:16)
[2022-05-10] MEDS: CHOLECALCIFEROL 1,000 UNITS 25 MCG TAB PO SCH (11:16)
--- NOTE | 2022-05-10 11:48 | Operative Report (OR) ---
DATE OF PROCEDURE: 05/10/2022. PREOPERATIVE DIAGNOSES: Left displaced subcapital femoral neck fracture. POSTOPERATIVE DIAGNOSES: Left displaced subcapital femoral neck fracture. PROCEDURE: Left hip bipolar hemiarthroplasty with a size 9 Accolade II femoral neck component, 51 mm UHR bipolar head, V40 femoral head plus 0 mm offset. SURGEON: Vickey Geiger DO. WATCH DIAL MAKER: Vince Zurita PA-C who was present for patient positioning, sterile prep and drape, management of retractors and instruments. He was present through the critical portions of the case including wound closure, application of sterile dressing and transport of the patient to recovery. ANESTHESIA: Spinal MAC, regional. SPECIMENS: 1. Bone for pathology. 2. Bone and tissue standard hemiarthroplasty hip. DRAINS: Hemovac x2 and a Pratt catheter. COMPLICATIONS: None. BLOOD LOSS: 30 mL. PERTINENT HISTORY: This is an 87-year-old gentleman who states that he cannot recall having a fall; however, over the last several days prior to admission, the patient began having left hip pain. He did have previous radiographs for pain in the left hip in February; however, they were noted to be negative. The patient had no falls or prodromal symptoms that he can recall. The patient presented to the Emergency Department. Radiographs were obtained, noted to have a displaced left femoral neck fracture, was admitted to the hospitalist service, optimized for surgery. His Eliquis had to be held for slightly over 48 hours until he was optimized for surgery and he was scheduled for surgery as indicated. All potential risks, benefits, complications, alternatives, rehab potential for incomplete relief of symptoms, need for further surgery, DVT, PE, , persistent pain, swelling, scarring, weakness, neurovascular injury, wound complications, hardware failure, nonunion, malunion, and bone fracture were discussed with the patient. The patient decided to proceed with the procedure as indicated. PROCEDURE: The patient was taken to the operative suite and placed supine on the Operating Room table. After review of the consent, identification of proper operative site, the patient was sedated. Spinal anesthetic was administered without difficulty. The patient was then placed in a right lateral decubitus position with the affected side up. Stulberg positioning pads were placed on the OR table. All bony prominences were properly padded and protected including use of an axillary roll. After the left hip was then sterilely prepped and draped in usual fashion, a 10 blade scalpel incision was made centered over the anterior one third of the greater trochanter. The incision was deepened to subcutaneous tissue. Meticulous hemostasis with electrocautery. Full thickness skin flaps were developed. Care was taken to cauterize any small punctate bleeders with a Bovie. Next, the iliotibial band was then incised along the skin incision, retracted both anteriorly and posteriorly using a Charnley retractor over moistened surgical towels. Next, abductor split was made over the neck and head of the femur down to the level of the trochanter and then this was carried around the greater trochanter and then down the shaft of the femur via anterior elevation of the vastus lateralis. All soft tissues were then sharply elevated with electrocautery anteriorly including the gluteus medius, the gluteus vini, the capsule and then the vastus lateralis. The fractured femoral neck was clearly identified and then a sagittal saw was used to resect the proximal neck cut without any difficulty approximately one fingerbreadth proximal to the lesser trochanter. Next, the femoral head was extracted from the acetabulum and measured to be approximately 51 mm in diameter. A 51 mm trial was placed with appropriate retractors around the acetabulum, noted to have excellent fit and stability. Then box osteotome and trial reamer placed in the proximal femur followed by sequential upbroaching until a size 9 was firmly placed. Next, the calcar reamer was utilized to smooth the proximal femur followed by placement of a - +0.0 mm neck, 132 neck angle and a 51 mm outer diameter trial. This was reduced and noted to have excellent stability and range of motion. Leg lengths were reapproximated to neutral and then all trial implants were then removed. Pulsatile lavage with 3 liters of the solution was used to lavaged the femur, acetabulum and then all soft tissues. Next, final implant of a size 9 Accolade II femoral implant with a 132 neck angle -3 site with a 0 mm offset was implanted without difficulty and a 51 mm UHR bipolar head +0.0mm length and a 26 mm inner diameter, 51 mm outer diameter head was then placed. The acetabulum was then suctioned and implants reduced. Excellent range of motion and re- creation of anatomic leg length was achieved. Shuck test was nearly perfect. The leg lengths were restored. Excellent stability. Next, pulsatile lavage was used to cleanse the deep capsule and all soft tissues. Dilute sterile Betadine was used to irrigate the incision and implants for a period of 3 minutes. Pulse lavage was then used to irrigate tissues until clear. Next 2 times #5 FiberWire was placed through the greater trochanter and sutured through the anterior capsule, gluteus minimus and then into the gluteus medius and then sutured back to the greater trochanter with two deep Hemovac drains placed. Suture was then tied and cut followed by two [id number] sutures of #5 FiberWire in the proximal capsule. Next, the vastus lateralis was then closed using interrupted #1 Vicryl. The gluteus vini was closed using #1 Vicryl. The iliotibial band was closed using #1 Vicryl. The wound was copiously irrigated with pulsatile lavage and then the dermis was closed using buried interrupted 2-0 Vicryl. Skin was closed using skin alyssa. A sterile compressive dressing was applied overwrapped with foam tape. The patient was then awakened and taken to recovery in stable condition with an abductor pillow. Job ID: [id number] [facility]
[2022-05-10] MEDS ORDERED: PROPOFOL IV EMULSION 10 MG/ML 20 ML VIAL IV ONE (12:47)
--- NOTE | 2022-05-10 15:09 | Hospitalist Progress Note ---
Date of Service May 10, 2022 Assessment & Plan (1) Closed left hip fracture: Plan: Status post ORIF; appears osteoporotic fracture; orthopedic following lisinopril (2) Atrial fibrillation, permanent: Plan: Telemetry. Continue metoprolol. Eliquis from am (3) Constipation: Plan: On Linzess PRN (4) Rheumatoid arthritis: Plan: Noted. No medications currently (5) Hypertension: Plan: Continue metoprolol and lisinopril. Controlled. (6) Osteoporosis: Plan: Calcium supplementation Consider outpatient rheumatology (7) CAD in [place] artery: Plan: Stable on current medical management. Continue beta-altaf therapy. (8) Congestive heart failure: Plan: Chronic diastolic. No exacerbation at this time. Continue current medical management. Monitor intake and output; stop IV fluids (9) Anemia: Plan: Follow Plan: Stop IV fluids; can resume PRN Disposition -eventual discharge to rehab facility Admission and Anticipated Discharge Date Admission Date: May 07, 2022 Subjective Follow-up of left pain and left femoral neck fracturepostop; no specific complaints Physical Exam Physical Exam: Constitutional and general: No acute distress, looks biologic age Head and face: No puffiness, atraumatic Eyes: No scleral icterus, extraocular movements normal Neck: Supple, no JVD Skin/dermatologic/integument: No rash, no purpura Hematologic and lymphatic: pallor +, no petechia Gastrointestinal/abdomen: Nondistended, soft, nonacute Neurologic: Cranial nerves intact, nonfocal Psychiatry: Awake, alert, pleasant, communicative Cardiovascular: Heart rhythm regular, no rub, no murmur, no gallop Respiratory: Chest movements equal, no use of accessory muscles, no adventitious sounds Extremities: No edema, no cyanosis Results & Data Results & Data ([facility]) Vital Signs (Past 12 Hours) Vital Signs Temp Pulse Pulse Pulse Resp BP BP 05/10/22 14:20 36.4 C L 68 14 150/84 H 05/10/22 13:20 36.4 C L 80 14 147/86 H 05/10/22 12:20 36.3 C L 74 12 159/89 H 05/10/22 11:50 36.3 C L 70 12 158/103 H 05/10/22 11:20 36.3 C L 69 12 136/74 05/10/22 11:05 36.2 C L 79 70 12 140/70 05/10/22 10:45 36.5 C 70 16 129/70 05/10/22 10:34 36.5 C 71 18 133/75 05/10/22 07:52 36.7 C 93 H 20 152/73 H 05/10/22 06:10 82 05/10/22 03:12 36.8 C 101 H 18 136/72 Pulse Ox 05/10/22 14:20 99 05/10/22 13:20 99 05/10/22 12:20 99 05/10/22 11:50 93 05/10/22 11:20 91 05/10/22 11:05 96 05/10/22 10:45 99 05/10/22 10:34 100 05/10/22 07:52 94 05/10/22 06:10 05/10/22 03:12 93 Laboratory Results Laboratory Results - last 24 hr 05/10/22 05/10/22 06:44 06:44 WBC 8.47 RBC 3.23 L Hgb 10.2 L Hct 30.4 L MCV 94.1 MCH 31.6 MCHC 33.6 RDW Std Deviation 47.8 H RDW Coeff of Kassandra 13.7 Plt Count 272 MPV 10.7 H Immature Gran % (Auto) 0.5 Neut % (Auto) 59.3 Lymph % (Auto) 23.1 [place] % (Auto) 13.7 Eos % (Auto) 3.2 Baso % (Auto) 0.2 Neut # (Auto) 5.02 Lymph # (Auto) 1.96 [place] # (Auto) 1.16 H Eos # (Auto) 0.27 Baso # (Auto) 0.02 Immature Gran # (Auto) 0.04 H Sodium 136 Potassium 3.8 Chloride 104 Carbon Dioxide 27 Anion Gap 5 BUN 15 Creatinine 0.81 Est Cr Clr Drug Dosing 47.2 Est GFR ( Amer) 91.3 Est GFR (Non-Af Amer) 78.8 BUN/Creatinine Ratio 18.5 Glucose 100 H Calcium 7.9 L PG Care Time/CCT Total # of Minutes Spent Total Time Spent with Patient: Total time spent is greater than 50% in coordination of care (as documented) at patient's floor/unit and/or counseling patient: Coding Level of Care Code 17371 Subseq Hosp Care Lvl 3 Diagnoses Closed left hip fracture S72.002A Atrial fibrillation, permanent I48.21 Constipation K59.00 Rheumatoid arthritis M06.9 Hypertension I10 Osteoporosis M81.0 CAD in [place] artery I25.10 Congestive heart failure I50.9 Anemia D64.9
[2022-05-10] MEDS: ACETAMINOPHEN 500 MG TAB PO SCH ×2 (15:13→21:05)
[2022-05-10] MEDS: ceFAZolin 1000MG 1,000 MG/7.5 ML SYR IV SCH (17:20)
[2022-05-10] MEDS: SENNA 8.6 MG TAB PO SCH (21:06)
[2022-05-10] MEDS: DOCUSATE SODIUM/SENNA 50/8.6MG TAB PO SCH (21:06)
[2022-05-10] MEDS: DOCUSATE SODIUM 100 MG CAP PO SCH (21:07)
[2022-05-11] MEDS: ceFAZolin 1000MG 1,000 MG/7.5 ML SYR IV SCH (00:55)
[2022-05-11] MEDS: MELATONIN 3 MG TAB PO PRN (02:12)
[2022-05-11] MEDS ORDERED: ROPIVACAINE 0.5% HCL/PF 150 MG, BUPIVACAINE 0.75% MPF 20 ML, EPINEPHrine 0.15 MG, Ketor... INFIL SCH (06:00)
[2022-05-11] MEDS: ACETAMINOPHEN 500 MG TAB PO SCH ×3 (06:09→20:53)
[2022-05-11 07:19] LABS: Basophils # (auto) 0.02 K/uL (0-0.2); Basophils % (auto) 0.1 %; Eosinophils # (auto) 0.05 K/uL (0-0.5); Eosinophils % (auto) 0.4 %; Hematocrit (blood only) 26.7 % (42-52); Immature Granulocytes # (auto) 0.06 K/uL (0.00-0.02); Immature Granulocytes % (auto) 0.4 %; Lymphocytes # (auto) 1.71 K/uL (1.2-3.4); Lymphocytes % (auto) 12.5 %; Mean Corpuscular Hemoglobin 31.4 pg (25-34); Mean Corpuscular Hgb Conc 33.7 g/dL (32-36); Mean Platelet Volume 10.5 fL (7.4-10.4); Monocytes # (auto) 1.61 K/uL (0.11-0.59); Monocytes % (auto) 11.7 %; Neutrophils # (auto) 10.26 K/uL (1.4-6.5); Neutrophils % (auto) 74.9 %; Platelet Count 254 K/uL (130-400); RDW Coefficient of Variation 13.6 % (11.5-14.5); RDW Standard Deviation 46.3 fL (36.4-46.3); Red Blood Count 2.87 M/uL (4.7-6.1); White Blood Count 13.71 K/uL (4.8-10.8)
[2022-05-11 07:36] LABS: Calcium 7.6 mg/dl (8.5-10.1); Creatinine Clr Calc Pharmacy 41.5 ml/min; Est GFR (African American) 86.3 ml/min; Est GFR (Non-African American) 74.5 ml/min; Magnesium 1.4 mg/dl (1.7-2.4)
[2022-05-11] MEDS: METOPROLOL SUCC 50MG EXT REL TAB PO SCH (07:56)
[2022-05-11] MEDS: lisinopril 10 MG TAB PO SCH (07:56)
[2022-05-11] MEDS: DOCUSATE SODIUM 100 MG CAP PO SCH ×2 (07:56→20:52)
[2022-05-11] MEDS: TAMSULOSIN HCL 0.4 MG CAP PO SCH ×2 (07:56→20:51)
[2022-05-11] MEDS: MIRABEGRON ER 25 MG TAB PO SCH (07:57)
[2022-05-11] MEDS: CHOLECALCIFEROL 1,000 UNITS 25 MCG TAB PO SCH (07:57)
[2022-05-11] MEDS: MULTIVITAMIN TAB PO SCH ×2 (07:57→11:51)
[2022-05-11] MEDS: MAGNESIUM SULFATE / D5W 1 GM/100 ML BAG IV SCH ×2 (09:35→13:17)
--- NOTE | 2022-05-11 10:34 | Orthopedic Progress Note ---
Date of Service May 11, 2022 Assessment & Plan (1) Closed left hip fracture: Plan: Postop day 1 status post left bipolar hemiarthroplasty. PT/OT protocols. Weightbearing as tolerated. DVT prophylaxis-aspirin p.o. twice daily, MILA Huff. Pain management as written. Admission and Anticipated Discharge Date Admission Date: May 07, 2022 Subjective Postop day 1 Patient is awake and alert, sitting up in the chair at the bedside. No complaints at this time. Pain is controlled. Patient feels like he needs to have a bowel movement. Nursing notified. Physical Exam Physical Exam: Dressings are clean, dry, and intact. Calves are soft and n ontender. Neurovascular is intact. Toes are mobile. Leg lengths appear equal. Results & Data ([facility]) Vital Signs (Past 12 Hours) Vital Signs Temp Pulse Resp BP Pulse Ox 05/11/22 06:28 36.8 C 80 16 115/74 96 05/11/22 03:41 37 C 80 16 109/66 96 05/10/22 23:15 36.9 C 84 18 107/72 95 Laboratory Results Laboratory Results WBC 13.71 K/uL (4.8-10.8) H 05/11/22 06:41 RBC 2.87 M/uL (4.7-6.1) L 05/11/22 06:41 Hgb 9.0 g/dL (14.0-18.0) L 05/11/22 06:41 Hct 26.7 % (42-52) L 05/11/22 06:41 MCV 93.0 fL (80-100) 05/11/22 06:41 MCH 31.4 pg (25-34) 05/11/22 06:41 MCHC 33.7 g/dL (32-36) 05/11/22 06:41 RDW Std Deviation 46.3 fL (36.4-46.3) 05/11/22 06:41 RDW Coeff of Kassandra 13.6 % (11.5-14.5) 05/11/22 06:41 Plt Count 254 K/uL (130-400) 05/11/22 06:41 MPV 10.5 fL (7.4-10.4) H 05/11/22 06:41 Immature Gran % (Auto) 0.4 % 05/11/22 06:41 Neut % (Auto) 74.9 % 05/11/22 06:41 Lymph % (Auto) 12.5 % 05/11/22 06:41 [facility] % (Auto) 11.7 % 05/11/22 06:41 Eos % (Auto) 0.4 % 05/11/22 06:41 Baso % (Auto) 0.1 % 05/11/22 06:41 Neut # (Auto) 10.26 K/uL (1.4-6.5) H 05/11/22 06:41 Lymph # (Auto) 1.71 K/uL (1.2-3.4) 05/11/22 06:41 [facility] # (Auto) 1.61 K/uL (0.11-0.59) H 05/11/22 06:41 Eos # (Auto) 0.05 K/uL (0-0.5) 05/11/22 06:41 Baso # (Auto) 0.02 K/uL (0-0.2) 05/11/22 06:41 Immature Gran # (Auto) 0.06 K/uL (0.00-0.02) H 05/11/22 06:41 PT 11.3 Seconds (9.0-12.0) 05/07/22 17:40 INR 1.1 (0.9-1.1) 05/07/22 17:40 APTT 30.5 Seconds (21.0-31.0) 05/07/22 17:40 PTT Ratio 1.1 05/07/22 17:40 Sodium 135 mmol/L (136-145) L 05/11/22 06:41 Potassium 4.0 mmol/L (3.5-5.1) 05/11/22 06:41 Chloride 105 mmol/L (98-107) 05/11/22 06:41 Carbon Dioxide 24 mmol/L (21-32) 05/11/22 06:41 Anion Gap 6 (3-11) 05/11/22 06:41 BUN 20 mg/dl (6-23) 05/11/22 06:41 Creatinine 0.91 mg/dl (0.6-1.4) 05/11/22 06:41 Est Cr Clr Drug Dosing 41.5 ml/min 05/11/22 06:41 Est GFR ( Amer) 86.3 ml/min 05/11/22 06:41 Est GFR (Non-Af Amer) 74.5 ml/min 05/11/22 06:41 BUN/Creatinine Ratio 22.0 (10-20) H 05/11/22 06:41 Glucose 101 mg/dl (70-99(Fasting)) H 05/11/22 06:41 Calcium 7.6 mg/dl (8.5-10.1) L 05/11/22 06:41 Magnesium 1.4 mg/dl (1.7-2.4) L 05/11/22 06:41 Total Bilirubin 1.2 mg/dl (0.2-1.0) H 05/07/22 17:40 AST 24 U/L (13-39) 05/07/22 17:40 ALT 26 U/L (7-52) 05/07/22 17:40 Alkaline Phosphatase 121 U/L (34-104) H 05/07/22 17:40 Total Protein 7.9 gm/dl (6.0-8.3) 05/07/22 17:40 Albumin 4.0 gm/dl (3.4-5.0) 05/07/22 17:40 Globulin 3.9 gm/dl (2.5-4.0) 05/07/22 17:40 Albumin/Globulin Ratio 1.0 (0.9-2) 05/07/22 17:40 25-OH Vitamin D Total 59.5 ng/ml (30-100) 05/08/22 09:25 Urine Color Yellow 05/08/22 02:30 Urine Appearance Clear (Clear) 05/08/22 02:30 Urine pH 5.5 (4.5-7.5) 05/08/22 02:30 Ur Specific [place] 1.018 (1.000-1.030) 05/08/22 02:30 Urine Protein Negative (Negative) 05/08/22 02:30 Urine Glucose (UA) Negative (Negative) 05/08/22 02:30 Urine Ketones 2+ (Negative) H 05/08/22 02:30 Urine Blood Negative (Negative) 05/08/22 02:30 Urine Nitrite Negative (Negative) 05/08/22 02:30 Urine Bilirubin Negative (Negative) 05/08/22 02:30 Urine Urobilinogen Negative (Negative) 05/08/22 02:30 Ur Leukocyte Esterase Negative (Negative) 05/08/22 02:30 Nasal Screen MRSA (PCR) Negative (Negative) 05/07/22 Unknown SARS-CoV-2, RNA, NAAT NEGATIVE (NEGATIVE) 05/07/22 18:02 Blood Type A Positive 05/07/22 17:40 Antibody Screen NEGATIVE 05/07/22 17:40 Hip/Pelvis X-Ray 05/10/22 10:38 XR hip 1V LT w pelvis HISTORY: 87 years-old Male IN PACU - A/P PELVIS and LATERAL HIP left hip total joint arthroplasty COMPARISON: Left femur radiographs 05/07/2022 TECHNIQUE: AP view of the pelvis with crosstable lateral view of the left hip FINDINGS: Left hip total joint arthroplasty is noted with overlying skin alyssa, expected postoperative soft tissue swelling and deep tissue air with surgical drainage catheter. Satisfactory alignment without additional acute fracture or unexpected opaque foreign body. Brachial therapy seeds of the prostate. Mild right hip osteoarthritis. Ossifications superolateral to left hip are redemonstrated. IMPRESSION: Left hip total joint arthroplasty with expected postoperative changes. ACT 112: Negative or not required by law. The above report was generated using voice recognition software. It may contain grammatical, syntax or spelling errors. Electronically signed by: Steffen Li M.D. 05/10/2022 11:07 AM
[2022-05-11] MEDS: oxyCODONE HCL IR 5 MG TAB (IMMEDIATE RELEASE) PO PRN (10:48)
[2022-05-11] MEDS: APIXABAN 2.5 MG TAB PO SCH ×2 (13:20→20:50)
--- NOTE | 2022-05-11 15:13 | Hospitalist Progress Note ---
Date of Service May 11, 2022 Assessment & Plan (1) Closed left hip fracture: Plan: Status post ORIF; appears osteoporotic fracture; orthopedic following; WBAT (2) Atrial fibrillation, permanent: Plan: Telemetry. Continue metoprolol. Eliquis from am (3) Constipation: Plan: On Linzess PRN (4) Rheumatoid arthritis: Plan: Noted. No medications currently (5) Hypertension: Plan: Blood pressure on low side, stop lisinopril, lower dose of metoprolol; resume gentle volume (6) Osteoporosis: Plan: Calcium supplementation Consider outpatient rheumatology (7) CAD in [place] artery: Plan: Stable on current medical management. Continue beta-altaf therapy. (8) Congestive heart failure: Plan: Chronic diastolic. No exacerbation at this time. Follow clinically (9) Anemia: Plan: Follow; some expected acute postop anemia noted (10) Leucocytosis: Plan: Probably reactive, observe (11) Hypomagnesemia: Plan: Replace Plan: Disposition -eventual discharge to rehab facility Admission and Anticipated Discharge Date Admission Date: May 07, 2022 Subjective Follow-up of femoral neck fracturedoing well clinically, no symptoms voiced, noted low side blood pressure Physical Exam Physical Exam: Constitutional and general: No acute distress, looks biologic age Head and face: No puffiness, atraumatic Eyes: No scleral icterus, extraocular movements normal Neck: Supple, no JVD Skin/dermatologic/integument: No rash, no purpura Hematologic and lymphatic: pallor +, no petechia Gastrointestinal/abdomen: Nondistended, soft, nonacute Neurologic: Cranial nerves intact, nonfocal Psychiatry: Awake, alert, pleasant, communicative Cardiovascular: Heart rhythm regular, no rub, no murmur, no gallop Respiratory: Chest movements equal, no use of accessory muscles, no adventitious sounds Extremities: No edema, no cyanosis Results & Data Results & Data ([facility]) Vital Signs (Past 12 Hours) Vital Signs Temp Pulse Resp BP Pulse Ox 05/11/22 11:22 36.3 C L 76 16 91/59 L 99 05/11/22 06:28 36.8 C 80 16 115/74 96 05/11/22 03:41 37 C 80 16 109/66 96 Laboratory Results Laboratory Results - last 24 hr 05/11/22 05/11/22 06:41 06:41 WBC 13.71 H RBC 2.87 L Hgb 9.0 L Hct 26.7 L MCV 93.0 MCH 31.4 MCHC 33.7 RDW Std Deviation 46.3 RDW Coeff of Kassandra 13.6 Plt Count 254 MPV 10.5 H Immature Gran % (Auto) 0.4 Neut % (Auto) 74.9 Lymph % (Auto) 12.5 [place] % (Auto) 11.7 Eos % (Auto) 0.4 Baso % (Auto) 0.1 Neut # (Auto) 10.26 H Lymph # (Auto) 1.71 [place] # (Auto) 1.61 H Eos # (Auto) 0.05 Baso # (Auto) 0.02 Immature Gran # (Auto) 0.06 H Sodium 135 L Potassium 4.0 Chloride 105 Carbon Dioxide 24 Anion Gap 6 BUN 20 Creatinine 0.91 Est Cr Clr Drug Dosing 41.5 Est GFR ( Amer) 86.3 Est GFR (Non-Af Amer) 74.5 BUN/Creatinine Ratio 22.0 H Glucose 101 H Calcium 7.6 L Magnesium 1.4 L PG Care Time/CCT Total # of Minutes Spent Total Time Spent with Patient: Total time spent is greater than 50% in coordination of care (as documented) at patient's floor/unit and/or counseling patient: Coding Level of Care Code 32961 Subseq Hosp Care Lvl 3 Diagnoses Closed left hip fracture S72.002A Atrial fibrillation, permanent I48.21 Constipation K59.00 Rheumatoid arthritis M06.9 Hypertension I10 Osteoporosis M81.0 CAD in [place] artery I25.10 Congestive heart failure I50.9 Anemia D64.9 Leucocytosis D72.829 Hypomagnesemia E83.42
[2022-05-11] MEDS ORDERED: SODIUM CHLORIDE 0.9% 1000ML 500 ML IV ONE (15:16)
[2022-05-11] MEDS: SODIUM CHLORIDE 0.9% 1000ML 1,000 ML IV SCH (16:07)
[2022-05-11] MEDS: SENNA 8.6 MG TAB PO SCH (20:51)
[2022-05-11] MEDS: METOPROLOL SUCC 25MG EXT REL TAB PO SCH (20:52)
[2022-05-11] MEDS: DOCUSATE SODIUM/SENNA 50/8.6MG TAB PO SCH (20:52)
[2022-05-12] MEDS: ACETAMINOPHEN 500 MG TAB PO SCH ×3 (06:05→21:00)
[2022-05-12 07:31] LABS: Basophils # (auto) 0.02 K/uL (0-0.2); Basophils % (auto) 0.2 %; Eosinophils # (auto) 0.56 K/uL (0-0.5); Eosinophils % (auto) 5.1 %; Hemoglobin 8.4 g/dL (14.0-18.0); Immature Granulocytes # (auto) 0.08 K/uL (0.00-0.02); Immature Granulocytes % (auto) 0.7 %; Lymphocytes # (auto) 1.49 K/uL (1.2-3.4); Lymphocytes % (auto) 13.5 %; Mean Corpuscular Hemoglobin 31.1 pg (25-34); Mean Corpuscular Hgb Conc 33.6 g/dL (32-36); Mean Corpuscular Volume 92.6 fL (80-100); Mean Platelet Volume 10.5 fL (7.4-10.4); Monocytes # (auto) 1.29 K/uL (0.11-0.59); Monocytes % (auto) 11.7 %; Neutrophils # (auto) 7.58 K/uL (1.4-6.5); Neutrophils % (auto) 68.8 %; Platelet Count 281 K/uL (130-400); RDW Coefficient of Variation 13.9 % (11.5-14.5); RDW Standard Deviation 47.3 fL (36.4-46.3); White Blood Count 11.02 K/uL (4.8-10.8)
[2022-05-12 07:48] LABS: BUN Creatinine Ratio 25.8 (10-20); Calcium 7.4 mg/dl (8.5-10.1); Creatinine Clr Calc Pharmacy 48.4 ml/min; Est GFR (African American) 87.9 ml/min; Est GFR (Non-African American) 75.8 ml/min; Magnesium 1.7 mg/dl (1.7-2.4); Potassium 3.8 mmol/L (3.5-5.1)
[2022-05-12] MEDS: METOPROLOL SUCC 25MG EXT REL TAB PO SCH (08:43)
[2022-05-12] MEDS: DOCUSATE SODIUM 100 MG CAP PO SCH ×2 (08:43→21:00)
[2022-05-12] MEDS: MULTIVITAMIN TAB PO SCH (08:44)
[2022-05-12] MEDS: APIXABAN 2.5 MG TAB PO SCH ×2 (08:44→20:58)
[2022-05-12] MEDS: MIRABEGRON ER 25 MG TAB PO SCH (08:44)
[2022-05-12] MEDS: CHOLECALCIFEROL 1,000 UNITS 25 MCG TAB PO SCH (08:44)
[2022-05-12] MEDS: TAMSULOSIN HCL 0.4 MG CAP PO SCH ×2 (08:44→20:59)
[2022-05-12] MEDS ORDERED: POTASSIUM CHLORIDE 20 MEQ/15 ML UDC PO STA (12:23)
[2022-05-12] MEDS: SODIUM CHLORIDE 0.9% 1000ML 1,000 ML IV SCH (12:51)
[2022-05-12] MEDS: MAGNESIUM OXIDE 400 MG TAB PO SCH ×2 (13:09→20:58)
--- NOTE | 2022-05-12 15:05 | XCELERA ---
[id number]
--- NOTE | 2022-05-12 15:07 | Orthopedic Progress Note ---
Date of Service May 12, 2022 Assessment & Plan (1) Closed left hip fracture: Plan: Postop day 1 status post left bipolar hemiarthroplasty. PT/OT protocols. Weightbearing as tolerated. DVT prophylaxis-aspirin p.o. twice daily, MILA Huff. Pain management as written. Acute blood loss anemia - Consistent with fx and surgery. Transfuse as per Med Service. DC planning - [facility] if approved. SNF if not. Ortho will sign off at this time. Instructions placed in chart. Please call with any questions. Admission and Anticipated Discharge Date Admission Date: May 07, 2022 Subjective POD 2 Pt visiting with family. Awake, alert. States he's having a little pain in the hip today but has been up to the BR without difficulty. No other complaints. Physical Exam Physical Exam: Silverlon dressing intact. Drainage noted in window but not draining out of the dressing. Hemovac present. Thigh soft, NT. Calves soft, NT. NV intact. Toes mobile. Leg lengths appear equal. Results & Data ([facility]) Vital Signs (Past 12 Hours) Vital Signs Temp Pulse Pulse Pulse Resp BP BP 05/12/22 14:27 36.3 C L 93 H 18 138/83 05/12/22 11:08 36.8 C 97 H 16 101/64 05/12/22 07:21 99 H 05/12/22 06:33 36.7 C 94 H 18 134/81 Pulse Ox 05/12/22 14:27 98 05/12/22 11:08 97 05/12/22 07:21 05/12/22 06:33 97
--- NOTE | 2022-05-12 17:33 | Hospitalist Progress Note ---
Date of Service May 12, 2022 Assessment & Plan (1) Closed left hip fracture: Plan: Status post ORIF; appears osteoporotic fracture; orthopedic following; WBAT; remove Pratt (2) Atrial fibrillation, permanent: Plan: Telemetry. Continue metoprolol-given NSVT dose increased to prior (3) Constipation: Plan: On Linzess PRN (4) Rheumatoid arthritis: Plan: Noted. No medications currently (5) Hypertension: Plan: Blood pressure better, stop IV fluid, metoprolol dose increased to home dose (6) Osteoporosis: Plan: Calcium supplementation Consider outpatient rheumatology (7) CAD in [place] artery: Plan: Stable on current medical management. Continue beta-altaf therapy. (8) Congestive heart failure: Plan: Chronic diastolic. No exacerbation at this time. Follow clinically (9) Anemia: Plan: Follow; some expected acute postop anemia noted (10) Leucocytosis: Plan: Probably reactive, observe (11) Hypomagnesemia: Plan: Replace (12) NSVT (nonsustained ventricular tachycardia): Plan: Metoprolol increased, echo unchangedfollow; maintain K more than 4, magnesium more than 2 as feasible Plan: Mild hyponatremia can be followed Disposition -eventual discharge to rehab facility Admission and Anticipated Discharge Date Admission Date: May 07, 2022 Subjective Follow-up of femoral neck fractureno complaints; episode of NSVT today Physical Exam Physical Exam: Constitutional and general: No acute distress, looks biologic a ge Head and face: No puffiness, atraumatic Eyes: No scleral icterus, extraocular movements normal Neck: Supple, no JVD Skin/dermatologic/integument: No rash, no purpura Hematologic and lymphatic: pallor +, no petechia Gastrointestinal/abdomen: Nondistended, soft, nonacute Neurologic: Cranial nerves intact, nonfocal Psychiatry: Awake, alert, pleasant, communicative Cardiovascular: Heart rhythm regular, no rub, no murmur, no gallop Respiratory: Chest movements equal, no use of accessory muscles, no adventitious sounds Extremities: No edema, no cyanosis Results & Data Results & Data ([facility]) Vital Signs (Past 12 Hours) Vital Signs Temp Pulse Pulse Pulse Resp BP BP 05/12/22 14:27 36.3 C L 93 H 18 138/83 05/12/22 11:08 36.8 C 97 H 16 101/64 05/12/22 07:21 99 H 07/06/22 06:33 36.7 C 94 H 18 134/81 Pulse Ox 05/12/22 14:27 98 05/12/22 11:08 97 05/12/22 07:21 05/12/22 06:33 97 Laboratory Results Laboratory Results - last 24 hr 05/11/22 05/12/22 05/12/22 20:43 06:47 06:47 WBC 11.02 H RBC 2.70 L Hgb 8.7 L 8.4 L Hct 25.0 L MCV 92.6 MCH 31.1 MCHC 33.6 RDW Std Deviation 47.3 H RDW Coeff of Kassandra 13.9 Plt Count 281 MPV 10.5 H Immature Gran % (Auto) 0.7 Neut % (Auto) 68.8 Lymph % (Auto) 13.5 [place] % (Auto) 11.7 Eos % (Auto) 5.1 Baso % (Auto) 0.2 Neut # (Auto) 7.58 H Lymph # (Auto) 1.49 [place] # (Auto) 1.29 H Eos # (Auto) 0.56 H Baso # (Auto) 0.02 Immature Gran # (Auto) 0.08 H Sodium 134 L Potassium 3.8 Chloride 106 Carbon Dioxide 24 Anion Gap 4 BUN 23 Creatinine 0.89 Est Cr Clr Drug Dosing 48.4 Est GFR ( Amer) 87.9 Est GFR (Non-Af Amer) 75.8 BUN/Creatinine Ratio 25.8 H Glucose 92 POC Glucose Calcium 7.4 L Magnesium 1.7 05/12/22 05/12/22 05/12/22 07:34 11:37 16:29 WBC RBC Hgb Hct MCV MCH MCHC RDW Std Deviation RDW Coeff of Kassandra Plt Count MPV Immature Gran % (Auto) Neut % (Auto) Lymph % (Auto) [place] % (Auto) Eos % (Auto) Baso % (Auto) Neut # (Auto) Lymph # (Auto) [place] # (Auto) Eos # (Auto) Baso # (Auto) Immature Gran # (Auto) Sodium Potassium Chloride Carbon Dioxide Anion Gap BUN Creatinine Est Cr Clr Drug Dosing Est GFR ( Amer) Est GFR (Non-Af Amer) BUN/Creatinine Ratio Glucose POC Glucose 99 115 H 115 H Calcium Magnesium PG Care Time/CCT Total # of Minutes Spent Total Time Spent with Patient: Total time spent is greater than 50% in coordination of care (as documented) at patient's floor/unit and/or counseling patient: Coding Level of Care Code 06820 Subseq Hosp Care Lvl 2 Diagnoses Closed left hip fracture S72.002A Atrial fibrillation, permanent I48.21 Constipation K59.00 Rheumatoid arthritis M06.9 Hypertension I10 Osteoporosis M81.0 CAD in [place] artery I25.10 Congestive heart failure I50.9 Anemia D64.9 Leucocytosis D72.829 Hypomagnesemia E83.42 NSVT (nonsustained ventricular tachycardia) I47.2
[2022-05-12] MEDS: METOPROLOL SUCC 50MG EXT REL TAB PO SCH (20:59)
[2022-05-12] MEDS: DOCUSATE SODIUM/SENNA 50/8.6MG TAB PO SCH (21:01)
[2022-05-12] MEDS: SENNA 8.6 MG TAB PO SCH (21:02)
[2022-05-13] MEDS: MELATONIN 3 MG TAB PO PRN (02:15)
[2022-05-13] MEDS: ACETAMINOPHEN 500 MG TAB PO SCH ×3 (05:11→22:00)
[2022-05-13] MEDS: APIXABAN 2.5 MG TAB PO SCH ×2 (08:37→20:12)
[2022-05-13] MEDS: TAMSULOSIN HCL 0.4 MG CAP PO SCH ×2 (08:37→20:17)
[2022-05-13] MEDS: DOCUSATE SODIUM 100 MG CAP PO SCH ×2 (08:37→20:13)
[2022-05-13] MEDS: MULTIVITAMIN TAB PO SCH (08:37)
[2022-05-13] MEDS: MAGNESIUM OXIDE 400 MG TAB PO SCH ×3 (08:37→20:14)
[2022-05-13] MEDS: METOPROLOL SUCC 50MG EXT REL TAB PO SCH ×2 (08:37→20:16)
[2022-05-13] MEDS: MIRABEGRON ER 25 MG TAB PO SCH (08:37)
[2022-05-13] MEDS: CHOLECALCIFEROL 1,000 UNITS 25 MCG TAB PO SCH (08:37)
[2022-05-13 08:38] LABS: BUN Creatinine Ratio 27.8 (10-20); Calcium 7.7 mg/dl (8.5-10.1); Creatinine Clr Calc Pharmacy 60.2 ml/min; Est GFR (African American) 95.9 ml/min; Est GFR (Non-African American) 82.7 ml/min; Magnesium 1.7 mg/dl (1.7-2.4); Potassium 4.1 mmol/L (3.5-5.1)
[2022-05-13 08:42] LABS: Basophils # (auto) 0.04 K/uL (0-0.2); Basophils % (auto) 0.4 %; Eosinophils # (auto) 0.37 K/uL (0-0.50); Eosinophils % (auto) 3.8 %; Hemoglobin 7.9 g/dl (14.0-18.0); Immature Granulocytes # (auto) 0.12 K/uL (0.00-0.02); Immature Granulocytes % (auto) 1.2 %; Lymphocytes # (auto) 1.44 K/uL (1.2-3.4); Lymphocytes % (auto) 14.7 %; Mean Corpuscular Hemoglobin 31.5 pg (25.0-34.0); Mean Corpuscular Hgb Conc 32.9 g/dL (32.0-36.0); Mean Corpuscular Volume 95.6 fL (80.0-100.0); Mean Platelet Volume 10.8 fL (9.4-12.4); Monocytes % (auto) 11.2 %; Neutrophils # (auto) 6.72 K/uL (1.4-6.5); Neutrophils % (auto) 68.7 %; Platelet Count 282 K/uL (130-400); RDW Coefficient of Variation 13.7 % (11.5-14.5); RDW Standard Deviation 48.5 fL (36.4-46.3); Red Blood Count 2.51 M/uL (4.63-6.08); White Blood Count 9.79 K/ul (4.8-10.8)
[2022-05-13] MEDS: oxyCODONE HCL IR 5 MG TAB (IMMEDIATE RELEASE) PO PRN (08:47)
[2022-05-13 09:32] LABS: Rouleaux 1+
[2022-05-13] MEDS ORDERED: HYDROmorphone INJ 0.5 MG/0.5 ML SYR IV PRN (10:22)
[2022-05-13] MEDS ORDERED: oxyCODONE HCL IR 5 MG TAB (IMMEDIATE RELEASE) PO PRN (10:24)
[2022-05-13] MEDS ORDERED: OLANZapine ZYDIS 5 MG ORALLY DIS. TAB PO PRN (10:24)
--- NOTE | 2022-05-13 15:41 | Hospitalist Progress Note ---
Date of Service May 13, 2022 Assessment & Plan (1) Closed left hip fracture: Plan: Status post ORIF; appears osteoporotic fracture; orthopedic following; WBAT; Continue therapy; rehab will be a good option (2) Atrial fibrillation, permanent: Plan: Telemetry. Continue metoprolol-given NSVT dose increased to prior (3) Constipation: Plan: On Linzess PRN (4) Rheumatoid arthritis: Plan: Noted. No medications currently (5) Hypertension: Plan: Blood pressure stable, no change (6) Osteoporosis: Plan: Calcium supplementation Consider outpatient rheumatology (7) CAD in [place] artery: Plan: Stable on current medical management. Continue beta-altaf therapy. (8) Congestive heart failure: Plan: Chronic diastolic. No exacerbation at this time. Follow clinically (9) Hypomagnesemia: Plan: Replace (10) NSVT (nonsustained ventricular tachycardia): Plan: Metoprolol increased, echo unchangedfollow; maintain K more than 4, magnesium more than 2 as feasible (11) Acute blood loss anemia: Plan: Follow, if hemoglobin less than 7 transfuse (12) Delirium: Plan: Subtle and mild; olanzapine as needed, scheduled melatonin at night; not hyperactive at present Plan: Mild hyponatremia can be followed Disposition -eventual discharge to rehab facility Admission and Anticipated Discharge Date Admission Date: May 07, 2022 Subjective Follow-up of femoral neck fracturemildly confused this a.m. during rounds; states did not sleep well Physical Exam Physical Exam: Constitutional and general: No acute distress, looks biologic age Head and face: No puffiness, atraumatic Eyes: No scleral icterus, extraocular movements normal Neck: Supple, no JVD Skin/dermatologic/integument: No rash, no purpura Hematologic and lymphatic: pallor +, no petechia Gastrointestinal/abdomen: Nondistended, soft, nonacute Neurologic: Cranial nerves intact, nonfocal Psychiatry: Mildly confused Cardiovascular: Heart rhythm regular, no rub, no murmur, no gallop Respiratory: Chest movements equal, no use of accessory muscles, no adventitious sounds Extremities: No edema, no cyanosis Results & Data Results & Data ([facility]) Vital Signs (Past 12 Hours) Vital Signs Temp Pulse Pulse Resp BP BP Pulse Ox 05/13/22 15:28 36.8 C 70 17 115/68 95 05/13/22 11:14 36.5 C 86 19 112/72 95 05/13/22 07:52 83 05/13/22 07:38 36.6 C 76 18 124/71 98 Laboratory Results Laboratory Results - last 24 hr 05/12/22 05/12/22 05/13/22 16:29 20:18 07:20 WBC RBC Hgb Hct MCV MCH MCHC RDW Std Deviation RDW Coeff of Kassandra Plt Count MPV Immature Gran % (Auto) Neut % (Auto) Lymph % (Auto) [place] % (Auto) Eos % (Auto) Baso % (Auto) Neut # (Auto) Lymph # (Auto) [place] # (Auto) Eos # (Auto) Baso # (Auto) Immature Gran # (Auto) [place] Sodium Potassium Chloride Carbon Dioxide Anion Gap BUN Creatinine Est Cr Clr Drug Dosing Est GFR ( Amer) Est GFR (Non-Af Amer) BUN/Creatinine Ratio Glucose POC Glucose 115 H 134 H 99 Calcium Magnesium 05/13/22 05/13/22 05/13/22 07:54 07:54 11:36 WBC 9.79 RBC 2.51 L Hgb 7.9 L Hct 24.0 L MCV 95.6 MCH 31.5 MCHC 32.9 RDW Std Deviation 48.5 H RDW Coeff of Kassandra 13.7 Plt Count 282 MPV 10.8 Immature Gran % (Auto) 1.2 Neut % (Auto) 68.7 Lymph % (Auto) 14.7 [place] % (Auto) 11.2 Eos % (Auto) 3.8 Baso % (Auto) 0.4 Neut # (Auto) 6.72 H Lymph # (Auto) 1.44 [place] # (Auto) 1.10 H Eos # (Auto) 0.37 Baso # (Auto) 0.04 Immature Gran # (Auto) 0.12 H Rouleaux 1+ Sodium 135 L Potassium 4.1 Chloride 106 Carbon Dioxide 25 Anion Gap 4 BUN 20 Creatinine 0.72 Est Cr Clr Drug Dosing 60.2 Est GFR ( Amer) 95.9 Est GFR (Non-Af Amer) 82.7 BUN/Creatinine Ratio 27.8 H Glucose 91 POC Glucose 139 H Calcium 7.7 L Magnesium 1.7 PG Care Time/CCT Total # of Minutes Spent Total Time Spent with Patient: Total time spent is greater than 50% in coordination of care (as documented) at patient's floor/unit and/or counseling patient: Coding Level of Care Code 74000 Subseq Hosp Care Lvl 2 Diagnoses Closed left hip fracture S72.002A Atrial fibrillation, permanent I48.21 Constipation K59.00 Rheumatoid arthritis M06.9 Hypertension I10 Osteoporosis M81.0 CAD in [place] artery I25.10 Congestive heart failure I50.9 Hypomagnesemia E83.42 NSVT (nonsustained ventricular tachycardia) I47.2 Acute blood loss anemia D62 Delirium R41.0
[2022-05-13] MEDS: DOCUSATE SODIUM/SENNA 50/8.6MG TAB PO SCH (20:14)
[2022-05-13] MEDS: SENNA 8.6 MG TAB PO SCH (20:17)
[2022-05-13] MEDS: MELATONIN 3 MG TAB PO SCH (20:25)
[2022-05-14] MEDS: ACETAMINOPHEN 500 MG TAB PO SCH ×3 (05:49→22:05)
[2022-05-14] MEDS: MAGNESIUM OXIDE 400 MG TAB PO SCH ×3 (08:05→22:06)
[2022-05-14] MEDS: APIXABAN 2.5 MG TAB PO SCH ×2 (08:05→22:08)
[2022-05-14] MEDS: DOCUSATE SODIUM 100 MG CAP PO SCH ×2 (08:05→22:07)
[2022-05-14] MEDS: CHOLECALCIFEROL 1,000 UNITS 25 MCG TAB PO SCH (08:05)
[2022-05-14] MEDS: MULTIVITAMIN TAB PO SCH (08:06)
[2022-05-14] MEDS: TAMSULOSIN HCL 0.4 MG CAP PO SCH ×2 (08:06→22:06)
[2022-05-14] MEDS: MIRABEGRON ER 25 MG TAB PO SCH (08:06)
[2022-05-14] MEDS: METOPROLOL SUCC 50MG EXT REL TAB PO SCH ×2 (08:06→22:08)
[2022-05-14 08:36] LABS: Basophils # (auto) 0.05 K/uL (0-0.2); Basophils % (auto) 0.4 %; Eosinophils # (auto) 0.16 K/uL (0-0.50); Eosinophils % (auto) 1.4 %; Hematocrit (blood only) 24.4 % (40.1-51.0); Hemoglobin 8.1 g/dl (14.0-18.0); Immature Granulocytes # (auto) 0.11 K/uL (0.00-0.02); Lymphocytes # (auto) 1.62 K/uL (1.2-3.4); Lymphocytes % (auto) 14.2 %; Mean Corpuscular Hemoglobin 31.8 pg (25.0-34.0); Mean Corpuscular Hgb Conc 33.2 g/dL (32.0-36.0); Mean Corpuscular Volume 95.7 fL (80.0-100.0); Mean Platelet Volume 10.6 fL (9.4-12.4); Monocytes # (auto) 1.38 K/uL (0.24-0.82); Monocytes % (auto) 12.1 %; Neutrophils % (auto) 70.9 %; Platelet Count 331 K/uL (130-400); RDW Coefficient of Variation 13.7 % (11.5-14.5); RDW Standard Deviation 48.3 fL (36.4-46.3); Red Blood Count 2.55 M/uL (4.63-6.08); White Blood Count 11.42 K/ul (4.8-10.8)
[2022-05-14 08:59] LABS: BUN Creatinine Ratio 23.2 (10-20); Calcium 8.1 mg/dl (8.5-10.1); Creatinine Clr Calc Pharmacy 53.8 ml/min; Est GFR (African American) 90.9 ml/min; Est GFR (Non-African American) 78.4 ml/min; Magnesium 1.8 mg/dl (1.7-2.4); Potassium 4.3 mmol/L (3.5-5.1)
--- NOTE | 2022-05-14 13:50 | Hospitalist Progress Note ---
Date of Service May 14, 2022 Assessment & Plan (1) Closed left hip fracture: Plan: Status post ORIF; appears osteoporotic fracture; orthopedic following; WBAT; Continue therapy; not accepted for inpatient rehab; SNF referrals sent by case management (2) Atrial fibrillation, permanent: Plan: Telemetry. Continue metoprolol (3) Constipation: Plan: On Linzess PRN (4) Rheumatoid arthritis: Plan: Noted. No medications currently (5) Hypertension: Plan: Blood pressure stable, no change (6) Osteoporosis: Plan: Calcium supplementation Consider outpatient rheumatology (7) CAD in [place] artery: Plan: Stable on current medical management. Continue beta-altaf therapy. (8) Congestive heart failure: Plan: Chronic diastolic. No exacerbation at this time. Follow clinically (9) Hypomagnesemia: Plan: Replace as needed (10) NSVT (nonsustained ventricular tachycardia): Plan: Echo preserved LV function; 1 episode only, on metoprololobserve (11) Acute blood loss anemia: Plan: Expected postopfollow; hemoglobin stable to better (12) Delirium: Plan: None at present; on as needed olanzapine Plan: Mild hyponatremia can be followed Noted mild leukocytosis, requested orthopedic reevaluate surgical wound which they did and not see no concern; observe Disposition -SNF placement pending Admission and Anticipated Discharge Date Admission Date: May 07, 2022 Subjective Follow-up of femoral neck fractureno specific complaints this a.m.; no confusion noted Physical Exam 2 Physical Exam: Constitutional and general: No acute distress, looks biologic age Head and face: No puffiness, atraumatic Eyes: No scleral icterus, extraocular movements normal Neck: Supple, no JVD Skin/dermatologic/integument: No rash, no purpura Hematologic and lymphatic: pallor +, no petechia Gastrointestinal/abdomen: Nondistended, soft, nonacute Neurologic: Cranial nerves intact, nonfocal Psychiatry: Mildly confused Cardiovascular: Heart rhythm regular, no rub, no murmur, no gallop Respiratory: Chest movements equal, no use of accessory muscles, no adventitious sounds Extremities: No edema, no cyanosis Results & Data Results & Data ([facility]) Vital Signs (Past 12 Hours) Vital Signs Temp Pulse Pulse Pulse Resp BP BP 05/14/22 11:00 37.3 C 80 17 110/70 05/14/22 08:01 36.6 C 90 16 110/60 05/14/22 07:50 109 H 05/14/22 03:30 05/14/22 03:25 36.9 C 102 H 18 118/71 Pulse Ox Pulse Ox 05/14/22 11:00 95 05/14/22 08:01 94 05/14/22 07:50 05/14/22 03:30 94 05/14/22 03:25 94 Laboratory Results Laboratory Results - last 24 hr 05/14/22 05/14/22 08:10 08:10 WBC 11.42 H RBC 2.55 L Hgb 8.1 L Hct 24.4 L MCV 95.7 MCH 31.8 MCHC 33.2 RDW Std Deviation 48.3 H RDW Coeff of Kassandra 13.7 Plt Count 331 MPV 10.6 Immature Gran % (Auto) 1.0 Neut % (Auto) 70.9 Lymph % (Auto) 14.2 [place] % (Auto) 12.1 Eos % (Auto) 1.4 Baso % (Auto) 0.4 Neut # (Auto) 8.10 H Lymph # (Auto) 1.62 [place] # (Auto) 1.38 H Eos # (Auto) 0.16 Baso # (Auto) 0.05 Immature Gran # (Auto) 0.11 H Sodium 133 L Potassium 4.3 Chloride 103 Carbon Dioxide 24 Anion Gap 6 BUN 19 Creatinine 0.82 Est Cr Clr Drug Dosing 53.8 Est GFR ( Amer) 90.9 Est GFR (Non-Af Amer) 78.4 BUN/Creatinine Ratio 23.2 H Glucose 104 H Calcium 8.1 L Magnesium 1.8 PG Care Time/CCT Total # of Minutes Spent Total Time Spent with Patient: Total time spent is greater than 50% in coordination of care (as documented) at patient's floor/unit and/or counseling patient: Coding Level of Care Code 62253 Subseq Hosp Care Lvl 2 Diagnoses Closed left hip fracture S72.002A Atrial fibrillation, permanent I48.21 Constipation K59.00 Rheumatoid arthritis M06.9 Hypertension I10 Osteoporosis M81.0 CAD in [place] artery I25.10 Congestive heart failure I50.9 Hypomagnesemia E83.42 NSVT (nonsustained ventricular tachycardia) I47.2 Acute blood loss anemia D62 Delirium R41.0
[2022-05-14] MEDS ORDERED: Nursing to Pharmacy Communication SCH (18:30)
[2022-05-14] MEDS ORDERED: COUGH DROP (SUGAR FREE) LOZ 24 LOZ/1 BOX BUCCAL PRN (19:09)
[2022-05-14] MEDS: DOCUSATE SODIUM/SENNA 50/8.6MG TAB PO SCH (22:07)
[2022-05-14] MEDS: SENNA 8.6 MG TAB PO SCH (22:07)
[2022-05-14] MEDS: MELATONIN 3 MG TAB PO SCH (22:18)
[2022-05-15] MEDS: ACETAMINOPHEN 500 MG TAB PO SCH (05:58)
[2022-05-15 07:33] LABS: Basophils # (auto) 0.04 K/uL (0-0.2); Basophils % (auto) 0.4 %; Eosinophils # (auto) 0.54 K/uL (0-0.50); Eosinophils % (auto) 5.8 %; Hematocrit (blood only) 22.7 % (40.1-51.0); Hemoglobin 7.7 g/dl (14.0-18.0); Immature Granulocytes # (auto) 0.13 K/uL (0.00-0.02); Immature Granulocytes % (auto) 1.4 %; Lymphocytes # (auto) 1.39 K/uL (1.2-3.4); Mean Corpuscular Hemoglobin 32.2 pg (25.0-34.0); Mean Corpuscular Hgb Conc 33.9 g/dL (32.0-36.0); Mean Platelet Volume 10.4 fL (9.4-12.4); Monocytes # (auto) 1.29 K/uL (0.24-0.82); Neutrophils # (auto) 5.85 K/uL (1.4-6.5); Neutrophils % (auto) 63.4 %; Platelet Count 357 K/uL (130-400); RDW Coefficient of Variation 13.6 % (11.5-14.5); RDW Standard Deviation 47.8 fL (36.4-46.3); Red Blood Count 2.39 M/uL (4.63-6.08); White Blood Count 9.24 K/ul (4.8-10.8)
[2022-05-15 07:55] LABS: BUN Creatinine Ratio 28.8 (10-20); Calcium 7.7 mg/dl (8.5-10.1); Creatinine Clr Calc Pharmacy 60.4 ml/min; Est GFR (African American) 95.3 ml/min; Est GFR (Non-African American) 82.2 ml/min; Magnesium 1.8 mg/dl (1.7-2.4); Potassium 4.1 mmol/L (3.5-5.1)
[2022-05-15] MEDS ORDERED: diphenhydrAMINE Capsule 25 MG CAP PO ONE (09:30)
[2022-05-15] MEDS ORDERED: ACETAMINOPHEN 325 MG TAB PO ONE (09:30)
[2022-05-15] MEDS ORDERED: SODIUM CHLORIDE 0.9% 250 ML IV PRN (09:30)
[2022-05-15] MEDS ORDERED: FUROSEMIDE 40 MG/4 ML VIAL IV ONE (09:30)
[2022-05-15] MEDS: TAMSULOSIN HCL 0.4 MG CAP PO SCH ×2 (09:34→20:48)
[2022-05-15] MEDS: MULTIVITAMIN TAB PO SCH (09:34)
[2022-05-15] MEDS: DOCUSATE SODIUM 100 MG CAP PO SCH (09:34)
[2022-05-15] MEDS: MAGNESIUM OXIDE 400 MG TAB PO SCH ×3 (09:34→20:47)
[2022-05-15] MEDS: APIXABAN 2.5 MG TAB PO SCH ×2 (09:35→20:48)
[2022-05-15] MEDS: MIRABEGRON ER 25 MG TAB PO SCH (09:35)
[2022-05-15] MEDS: METOPROLOL SUCC 50MG EXT REL TAB PO SCH ×2 (09:35→20:49)
[2022-05-15] MEDS: CHOLECALCIFEROL 1,000 UNITS 25 MCG TAB PO SCH (09:35)
--- NOTE | 2022-05-15 09:54 | Hospitalist Progress Note ---
Date of Service May 15, 2022 Assessment & Plan (1) Closed left hip fracture: Plan: - Suspect fx secondary to osteoporosis - Status post bipolar hemiarthroplasty by Dr. Geiger on 05/10 - On Eliquis d/t Afib, also providing DVT ppx - Pain control - utilize APAP first line followed by Tramadol - PT/OT - Incentive spirometer use - Case management consulted/following for dc planning - looking at SNF for rehab, not formally accepted anywhere yet (2) Acute blood loss anemia: Plan: - ABLA following surgery - Hgb 7.7 this AM, would benefit from blood, T&C for 2 units of PRBCs - Premedicate prior to transfusion, Lasix in between units ordered - Follow up CBC in AM (3) Atrial fibrillation, permanent: Plan: - Rate controlled - Continue on Metoprolol and Eliquis (4) Constipation: Plan: - On Linzess and DocuSenna - PRN Bisacodyl - MOM - Will give pt a Bisacodyl suppository today, if ineffective, will consider fleets enema (5) Hypertension: Plan: - Blood pressure controlled on current meds (6) Osteoporosis: Plan: - Calcium + Vitamin D supplementation - Consider outpatient rheumatology (7) CAD in [place] artery: Plan: - Stable on current medical management. - Continue beta-altaf therapy. (8) Congestive heart failure: Plan: - Chronic diastolic. No exacerbation at this time. Follow clinically (9) Hypomagnesemia: Plan: - Daily supplementation ordered (10) NSVT (nonsustained ventricular tachycardia): Plan: - Echo preserved LV function - 1 episode only, on metoprolol which has been increased - No further episodes in last 48 hours (11) Delirium: Plan: - None at present; on as needed olanzapine Plan: Transition off of telemetry to Med-Surg. Transfuse 2 units as above, repeat labs in AM. Plan to be d/w Dr. Janey Garcia. Admission and Anticipated Discharge Date Admission Date: May 07, 2022 Subjective Patient seen on daily rounds this morning. He is pod#5 s/p L hip bipolar he miarthroplasty d/t femoral neck fracture. He is resting comfortably in bed, reports no new complaints/concerns. He denies cp or dyspnea. Had dressing changed yesterday as it was saturated per pt. Has had a "decent" BM in days. He denies feeling dizzy or lightheaded. Review of Systems Review of Systems: All systems reviewed and are unremarkable except as noted in HPI and below. Denies fever, chills, fatigue, headache, nasal congestion, sore throat, cough, chest pain, shortness of breath, palpitations, orthopnea, PND, abdominal pain, n/v/d, dysuria, hematuria, frequency, back pain, joint pain or swelling, easy bruising or bleeding, skin lesions or rashes. Physical Exam Physical Exam: GENERAL: 87 yo thin elderly WM. Pleasant, cooperative. NAD. LUNGS: Clear to auscultation bilaterally. No accessory muscle use. No W/R/R. CARDIOVASCULAR: Regular rate and rhythm. No M/G/R. No JVD. ABDOMEN: Soft, non-tender and non-distended. BS normoactive x 4 quad. EXTREMITIES: Non-tender. Peripheral pulses +2/4. NV intact, trace b/l LE edema. Neg allyn's sign on left. No calf tenderness. NEUROLOGIC: A&O x3. Nonfocal PSYCHIATRIC: Cooperative. Appropriate mood and affect. SKIN: Warm, dry, intact. No rashes or lesions. L hip with silverlon dressing in place. Dressing dry. Results & Data Results & Data ([facility]) Vital Signs (Past 12 Hours) Vital Signs Temp Pulse Pulse Pulse Resp BP BP 05/15/22 07:29 97 H 05/15/22 07:16 36.8 C 87 16 131/63 05/15/22 04:27 36.5 C 83 16 128/73 05/15/22 00:00 05/14/22 23:14 36.4 C L 120 H 20 149/85 H 05/14/22 22:14 99 H 159/78 H 05/14/22 22:00 89 Pulse Ox Pulse Ox 05/15/22 07:29 05/15/22 07:16 94 05/15/22 04:27 97 05/15/22 00:00 93 05/14/22 23:14 93 05/14/22 22:14 05/14/22 22:00 Laboratory Results 05/15/22 06:57 05/15/22 06:57 PG Care Time/CCT Total # of Minutes Spent Total Time Spent with Patient: Total time spent is greater than 50% in coordination of care (as documented) at patient's floor/unit and/or counseling patient: Coding Level of Care Code 75750 Subseq Hosp Care Lvl 2 Diagnoses Closed left hip fracture S72.002A Atrial fibrillation, permanent I48.21 Constipation K59.00 Hypertension I10 Osteoporosis M81.0 CAD in [place] artery I25.10 Congestive heart failure I50.9 Hypomagnesemia E83.42 NSVT (nonsustained ventricular tachycardia) I47.2 Acute blood loss anemia D62 Delirium R41.0
--- NOTE | 2022-05-15 17:32 | XRay Report ---
XR chest 1V portable CLINICAL HISTORY: cough. COMPARISON STUDY: 05/07/2022 TECHNIQUE: 1 view of the chest FINDINGS: Single frontal view of the chest demonstrates the heart to again be enlarged. The patient is slightly rotated with prominence of the right apex related to the rotation. The lungs are clear of alveolar o pacities. There is no evidence for pleural effusion. There is no evidence for vascular congestion. Th ere is no acute osseous pathology. IMPRESSION: 1. No acute cardiopulmonary disease. ACT 112: Negative or not required by law. Electronically signed by: Stan Ware M.D. 05/15/2022 5:31 PM
[2022-05-15] MEDS: ACETAMINOPHEN 500 MG TAB PO PRN (18:31)
[2022-05-15] MEDS: MELATONIN 3 MG TAB PO SCH (21:13)
[2022-05-15] MEDS: DOCUSATE SODIUM/SENNA 50/8.6MG TAB PO SCH (21:13)
[2022-05-16] MEDS: ACETAMINOPHEN 500 MG TAB PO PRN ×2 (06:14→13:28)
[2022-05-16 07:09] LABS: BUN Creatinine Ratio 26.9 (10-20); Calcium 7.9 mg/dl (8.5-10.1); Creatinine Clr Calc Pharmacy 54.5 ml/min; Est GFR (African American) 92.8 ml/min; Magnesium 1.8 mg/dl (1.7-2.4); Potassium 3.8 mmol/L (3.5-5.1)
[2022-05-16 07:20] LABS: Hematocrit (blood only) 33.9 % (40.1-51.0); Hemoglobin 11.7 g/dl (14.0-18.0); Mean Corpuscular Hemoglobin 31.1 pg (25.0-34.0); Mean Corpuscular Hgb Conc 34.5 g/dL (32.0-36.0); Mean Corpuscular Volume 90.2 fL (80.0-100.0); Mean Platelet Volume 10.1 fL (9.4-12.4); Platelet Count 356 K/uL (130-400); RDW Coefficient of Variation 14.5 % (11.5-14.5); RDW Standard Deviation 47.4 fL (36.4-46.3); Red Blood Count 3.76 M/uL (4.63-6.08); White Blood Count 9.99 K/ul (4.8-10.8)
[2022-05-16] MEDS: CHOLECALCIFEROL 1,000 UNITS 25 MCG TAB PO SCH (08:47)
[2022-05-16] MEDS: APIXABAN 2.5 MG TAB PO SCH ×2 (08:47→20:22)
[2022-05-16] MEDS: METOPROLOL SUCC 50MG EXT REL TAB PO SCH ×2 (08:47→20:23)
[2022-05-16] MEDS: MIRABEGRON ER 25 MG TAB PO SCH (08:47)
[2022-05-16] MEDS: MULTIVITAMIN TAB PO SCH (08:47)
[2022-05-16] MEDS: TAMSULOSIN HCL 0.4 MG CAP PO SCH ×2 (08:48→20:24)
[2022-05-16] MEDS: MAGNESIUM OXIDE 400 MG TAB PO SCH ×3 (08:48→20:23)
--- NOTE | 2022-05-16 12:42 | Hospitalist Progress Note ---
Date of Service May 16, 2022 Assessment & Plan (1) Closed left hip fracture: Plan: - Suspect fx secondary to osteoporosis - Status post bipolar hemiarthroplasty by Dr. Geiger on 05/10 - On Eliquis d/t Afib, also providing DVT ppx - Pain control - utilize APAP first line followed by Tramadol - Continue PT/OT - recommending SNF - Incentive spirometer use - Case management consulted/following for dc planning - looking at SNF for rehab, not formally accepted anywhere yet (2) Acute blood loss anemia: Plan: - ABLA following surgery - Hgb 7.7 on 05/15 and received 2 units of PRBCs - Follow up CBC in AM (3) Atrial fibrillation, permanent: Plan: - Rate controlled - Continue on Metoprolol and Eliquis (4) Constipation: Plan: - On Linzess and DocuSenna - PRN Bisacodyl and MOM - Resolved, continue bowel regimen (5) Hypertension: Plan: - Blood pressure controlled on current meds (6) Osteoporosis: Plan: - Calcium + Vitamin D supplementation - Consider outpatient rheumatology (7) CAD in [place] artery: Plan: - Stable on current medical management. - Continue beta-altaf therapy. (8) Congestive heart failure: Plan: - Chronic diastolic. No exacerbation at this time. Follow clinically (9) Hypomagnesemia: Plan: - Daily supplementation ordered (10) NSVT (nonsustained ventricular tachycardia): Plan: - Echo preserved LV function - 1 episode only, on metoprolol which has been increased - No further episodes in last 48 hours (11) Delirium: Plan: - None at present; on as needed olanzapine Plan: Add Duonebs as he does sound slightly bronchospastic on examination today. Will just do a couple treatments today and then d/c in AM or change to PRN if he remains in house. Case management working on discharge planning and bed at a rehab facility. He is medically stable for discharge once a bed is found. Plan d/w Dr. Janey Garcia. Admission and Anticipated Discharge Date Admission Date: May 07, 2022 Subjective Patient seen on daily rounds this morning. He is pod#6 s/p L hip bipolar he miarthroplasty d/t femoral neck fracture. He is resting comfortably in bed, reports no new complaints/concerns. He denies cp or dyspnea. Seen by ortho yesterday, dressing removed and reapplied. He had a few BMs yesterday per nursing. Family concerned about his cough and felt he may need a chest xray therefore one was ordered. Review of Systems Review of Systems: All systems reviewed and are unremarkable except as noted in HPI and below. Denies fever, chills, fatigue, headache, nasal congestion, sore throat, cough, chest pain, shortness of breath, palpitations, orthopnea, PND, abdominal pain, n/v/d, dysuria, hematuria, frequency, back pain, joint pain or swelling, easy bruising or bleeding, skin lesions or rashes. Physical Exam Physical Exam: GENERAL: 87 yo thin elderly WM. Pleasant, cooperative. NAD. LUNGS: Clear to auscultation bilaterally. Few scattered expiratory wheezes b/l CARDIOVASCULAR: Irregularly irregular ABDOMEN: Soft, non-tender and non-distended. BS normoactive x 4 quad. EXTREMITIES: Non-tender. Peripheral pulses +2/4. NV intact, trace b/l LE edema. Neg allyn's sign on left. No calf tenderness. NEUROLOGIC: A&O x3. Nonfocal PSYCHIATRIC: Cooperative. Appropriate mood and affect. SKIN: Warm, dry, intact. No rashes or lesions. L hip incision dressed. Results & Data Results & Data ([facility]) Vital Signs (Past 12 Hours) Vital Signs Temp Pulse Resp BP Pulse Ox Pulse Ox 05/16/22 08:00 98 05/16/22 07:43 36.8 C 85 16 144/88 H 95 Laboratory Results 05/16/22 06:15 05/16/22 06:15 Diagnostic Findings Chest X-Ray 05/15/22 16:02 XR chest 1V portable CLINICAL HISTORY: cough. COMPARISON STUDY: 05/07/2022 TECHNIQUE: 1 view of the chest FINDINGS: Single frontal view of the chest demonstrates the heart to again be enlarged. The patient is slightly rotated with prominence of the right apex related to the rotation. The lungs are clear of alveolar opacities. There is no evidence for pleural effusion. There is no evidence for vascular congestion. There is no acute osseous pathology. IMPRESSION: 1. No acute cardiopulmonary disease. ACT 112: Negative or not required by law. Electronically signed by: Stan Ware M.D. 05/15/2022 5:31 PM PG Care Time/CCT Total # of Minutes Spent Total Time Spent with Patient: Total time spent is greater than 50% in coordination of care (as documented) at patient's floor/unit and/or counseling patient: Coding Level of Care Code 70515 Subseq Hosp Care Lvl 2 Diagnoses Closed left hip fracture S72.002A Acute blood loss anemia D62 Atrial fibrillation, permanent I48.21 Constipation K59.00 Hypertension I10 Osteoporosis M81.0 CAD in [place] artery I25.10 Congestive heart failure I50.9 Hypomagnesemia E83.42 NSVT (nonsustained ventricular tachycardia) I47.2 Delirium R41.0
[2022-05-16] MEDS: ALBUT/IPRATROP 3MG/0.5MG NEB 3 ML VIAL NEB SCH ×2 (15:59→19:26)
[2022-05-16] MEDS: DOCUSATE SODIUM/SENNA 50/8.6MG TAB PO SCH (20:22)
[2022-05-16] MEDS: MELATONIN 3 MG TAB PO SCH (20:23)
[2022-05-17 07:19] LABS: BUN Creatinine Ratio 24.4 (10-20); Creatinine Clr Calc Pharmacy 53.2 ml/min; Est GFR (African American) 90.9 ml/min; Est GFR (Non-African American) 78.4 ml/min; Potassium 4.4 mmol/L (3.5-5.1)
[2022-05-17] MEDS: ALBUT/IPRATROP 3MG/0.5MG NEB 3 ML VIAL NEB SCH (07:36)
[2022-05-17] MEDS: APIXABAN 2.5 MG TAB PO SCH ×2 (08:19→20:31)
[2022-05-17] MEDS: MAGNESIUM OXIDE 400 MG TAB PO SCH ×3 (08:20→20:32)
[2022-05-17] MEDS: METOPROLOL SUCC 50MG EXT REL TAB PO SCH ×2 (08:20→20:32)
[2022-05-17] MEDS: MULTIVITAMIN TAB PO SCH (08:20)
[2022-05-17] MEDS: CHOLECALCIFEROL 1,000 UNITS 25 MCG TAB PO SCH (08:21)
[2022-05-17] MEDS: MIRABEGRON ER 25 MG TAB PO SCH (08:22)
[2022-05-17] MEDS: TAMSULOSIN HCL 0.4 MG CAP PO SCH ×2 (08:22→20:33)
--- NOTE | 2022-05-17 14:59 | Hospitalist Progress Note ---
Date of Service May 17, 2022 Assessment & Plan (1) Closed left hip fracture: Plan: - Suspect fx secondary to osteoporosis - Status post bipolar hemiarthroplasty by Dr. Geiger on 05/10 - On Eliquis d/t Afib, also providing DVT ppx - Pain control - utilize APAP first line followed by Tramadol - Continue PT/OT - recommending SNF - Incentive spirometer use - Case management consulted/following for dc planning - looking at SNF for rehab, anna emely will take pending auth which is now being reviewed by the clinical specialist medical device (2) Acute blood loss anemia: Plan: - ABLA following surgery - Hgb 7.7 on 05/15 and received 2 units of PRBCs - H&H stable (3) Atrial fibrillation, permanent: Plan: - Rate controlled - Continue on Metoprolol and Eliquis (4) Constipation: Plan: - On Linzess and DocuSenna - PRN Bisacodyl and MOM - Resolved, continue bowel regimen (5) Hypertension: Plan: - Blood pressure controlled on current meds (6) Osteoporosis: Plan: - Calcium + Vitamin D supplementation - Consider outpatient rheumatology (7) CAD in [place] artery: Plan: - Stable on current medical management. - Continue beta-altaf therapy. (8) Congestive heart failure: Plan: - Chronic diastolic. No exacerbation at this time. Follow clinically (9) Hypomagnesemia: Plan: - Daily supplementation ordered (10) NSVT (nonsustained ventricular tachycardia): Plan: - Echo preserved LV function - 1 episode only, on metoprolol which has been increased - No further episodes in last 48 hours (11) Delirium: Plan: - None at present; on as needed olanzapine Plan: No changes to patient's plan as he remains medically stable for discharge once insurance authorization received. Plan d/w Dr. Janey Garcia. Admission and Anticipated Discharge Date Admission Date: May 07, 2022 Subjective Patient seen on daily rounds this morning. He is pod#7 s/p L hip bipolar hemiarthroplasty d/t femoral neck fracture. He is resting comfortably in bed, reports no new complaints/concerns. Per OT not following hip precautions and gets forgetful/confused but pt does have known dementia. During my visit, he is cooperative and answers questions appropriately. Denies uncontrolled pain. Had a BM this morning. No issues reported by nursing. Review of Systems Review of Systems: All systems reviewed and are unremarkable except as noted i n HPI and below. Denies fever, chills, fatigue, headache, nasal congestion, sore throat, cough, chest pain, shortness of breath, palpitations, orthopnea, PND, abdominal pain, n/v/d, dysuria, hematuria, frequency, back pain, joint pain or swelling, easy bruising or bleeding, skin lesions or rashes. Physical Exam Physical Exam: GENERAL: 87 yo thin elderly WM. Pleasant, cooperative. NAD. LUNGS: Clear to auscultation bilaterally w/o w/r/r. CARDIOVASCULAR: Irregularly irregular ABDOMEN: Soft, non-tender and non-distended. BS normoactive x 4 quad. EXTREMITIES: Non-tender. Peripheral pulses +2/4. NV intact, trace b/l LE edema. Neg allyn's sign on left. No calf tenderness. NEUROLOGIC: A&O x3. Nonfocal PSYCHIATRIC: Cooperative. Appropriate mood and affect. SKIN: Warm, dry, intact. No rashes or lesions. L hip incision dressed. Results & Data Results & Data ([facility]) Vital Signs (Past 12 Hours) Vital Signs Temp Pulse Resp BP Pulse Ox 05/17/22 07:37 90 16 92 05/17/22 07:32 36.7 C 101 H 16 150/80 H 91 Laboratory Results 05/16/22 06:15 05/17/22 06:38 PG Care Time/CCT Total # of Minutes Spent Total Time Spent with Patient: Total time spent is greater than 50% in coordination of care (as documented) at patient's floor/unit and/or counseling patient: Coding Level of Care Code 79484 Subseq Hosp Care Lvl 1 Diagnoses Closed left hip fracture S72.002A Acute blood loss anemia D62 Atrial fibrillation, permanent I48.21 Constipation K59.00 Hypertension I10 Osteoporosis M81.0 CAD in [place] artery I25.10 Congestive heart failure I50.9 Hypomagnesemia E83.42 NSVT (nonsustained ventricular tachycardia) I47.2 Delirium R41.0
[2022-05-17] MEDS: DOCUSATE SODIUM/SENNA 50/8.6MG TAB PO SCH (20:39)
[2022-05-17] MEDS: MELATONIN 3 MG TAB PO SCH (20:40)
[2022-05-18 07:39] VITALS: BP 152/92; TEMP 98.4; O2SAT 92
[2022-05-18] MEDS: MAGNESIUM OXIDE 400 MG TAB PO SCH (08:34)
[2022-05-18] MEDS: MIRABEGRON ER 25 MG TAB PO SCH (08:34)
[2022-05-18] MEDS: CHOLECALCIFEROL 1,000 UNITS 25 MCG TAB PO SCH (08:34)
[2022-05-18] MEDS: TAMSULOSIN HCL 0.4 MG CAP PO SCH (08:34)
[2022-05-18] MEDS: METOPROLOL SUCC 50MG EXT REL TAB PO SCH (08:34)
[2022-05-18] MEDS: APIXABAN 2.5 MG TAB PO SCH (08:35)
[2022-05-18] MEDS: MULTIVITAMIN TAB PO SCH (08:35)
[2022-05-18 09:14] VITALS: PULSE 99
--- NOTE | 2022-05-18 10:11 | Discharge Summary ---
Date of Service May 18, 2022 Admission HPI Per Admitting Provider Blaine Quintero is an 87 year old male who presents to the ER with left hip pain and outside XR showing left hip fracture. He reports initial injury occurred while clearing out his barn in February. He felt he pinched something in his back causing pain in the leg, back and hip. He came to the ER at that time and hip XRs did not show a hip fracture. He returned to the ER with persistent pain despite pain medication on March 08 by which point he had also got a lumbar MRI showing multilevel degeneration with moderate to severe foraminal narrowing on the right (his pain was left sided however). He was given a course of prednisone and [place] and referred to physical therapy. This did not help and after exacerbating his symptoms on a mower he returned to the ER on May 08. He was referred to main management for an epidural spinal injection which also did not help on April 21. Due to progressively worsening pain and physical therapy feeling something was a problem with his left femur he made an appointment to see his PCP. He was seen by his PCP today and organized hip and femur XRs which showed a displaced subcapital left femoral fracture. The patient currently reports no pain at rest but pain on any movement from this back going down the front of his leg to his ankle. Good ankle and toe movements with full sensation in his foot. He reports a prior history of a stroke a long time ago although I cannot find evidence of this in the EHR. Prior catheterization in 2016 showing non obstructive coronary artery disease. He had good exercise tolerance before all this pain started in his left leg and back. [place] in [place] 1 mile without any chest pain or shortness of breath. He has permanent atrial fibrillation and takes a low dose Eliquis for this (reduced dose due to age and weight). Last took Eliquis this morning. No previous hospitalization of heart failure per patient but takes furosemide every other day for leg swelling. He was referred to medicine for admission and ongoing management of hip fracture. Principal Diagnosis Left femoral neck fracture ABLA d/t surgery-transfused Discharge Exam GENERAL: 87 yo thin elderly WM. Pleasant, cooperative. NAD. LUNGS: Clear to auscultation bilaterally w/o w/r/r. CARDIOVASCULAR: Irregularly irregular ABDOMEN: Soft, non-tender and non-distended. BS normoactive x 4 quad. EXTREMITIES: Non-tender. Peripheral pulses +2/4. NV intact, trace b/l LE edema. Neg allyn's sign on left. No calf tenderness. NEUROLOGIC: A&O x3. Nonfocal PSYCHIATRIC: Cooperative. Appropriate mood and affect. SKIN: Warm, dry, intact. No rashes or lesions. L hip incision dressed. Discharge Data Allergies Allergy/AdvReac Type Severity Reaction Status Date / Time bee venom protein (honey bee) Allergy Unknown SWELLING Verified 05/07/22 10:19 AT SITE trospium Allergy vomiting Verified 05/07/22 10:19 and constipation Consultations 05/07/22 17:11 Consult Internal Medicine Routine 05/07/22 17:12 Consult Orthopedic Surgery Routine Procedures Performed Operation Date: 05/10/22 07:30 Actual Procedures p Left Hip Bipolar Hemiarthroplasty(Left) - Vickey Geiger, DO Hospital Course (1) Closed left hip fracture: - Suspect fx secondary to osteoporosis - Status post bipolar hemiarthroplasty by Dr. Geiger on 05/10 - On Eliquis d/t Afib, also providing DVT ppx - Pain control - utilize APAP first line followed by Tramadol - Continue PT/OT - recommending SNF - Incentive spirometer use - Case management consulted/following for dc planning - anna view today (2) Acute blood loss anemia: - ABLA following surgery - Hgb 7.7 on 05/15 and received 2 units of PRBCs - H&H stable (3) Atrial fibrillation, permanent: - Rate controlled - Continue on Metoprolol and Eliquis (4) Constipation: RESOLVED - On Linzess and SennaKot - PRN Bisacodyl and MOM - Resolved, continue bowel regimen (5) Hypertension: - Blood pressure controlled on current meds - Of note, Lisinopril not resumed during this hospitalization and BP has been acceptable (6) Osteoporosis: - Calcium + Vitamin D supplementation - Consider outpatient rheumatology (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 - Continue beta-altaf therapy. (8) Congestive heart failure: - Chronic diastolic. No exacerbation at this time. Follow clinically (9) Hypomagnesemia: - Daily supplementation ordered (10) NSVT (nonsustained ventricular tachycardia): - Echo preserved LV function - 1 episode only, on metoprolol which has been increased - No further episodes in last 48 hours (11) Delirium: - None at present; on as needed olanzapine Plan Patient is medically and hemodynamically stable for discharge to SNF today. Auth received. Family will transport. Advised f/u with PCP within 1 week of discharge and f/u with orthopedics as scheduled. Plan has been d/w Dr. Wright who is in agreement. Total Time Total Time Spent Total Time Spent (In Minutes): >30 minutes Discharge Plan Discharge Items Patient Disposition: Transfer [facility] Reason For Visit: DISPLACED SUBCAPITAL LEFT FEMORAL FRACTURE Discharge Diagnosis: hip fracture Activity: Per Instructions section Non-emergency contact: Surgeon Call non-emergency contact if: your pain is not controlled, your temperature is above 101.5, your wound has increased redness and your wound has increased drainage Follow-up/Referrals: Blaze Cintron MD [Primary Care Provider] - Vickey Geiger DO [Surgeon] - (Follow up in 14 days from the day of surgery for your first post operative visit. ) Diet: Heart Healthy Addtl Attending Provider Instructions: Follow all discharge instructions provided by orthopedics. Take medications as outlined below. Continue physical and occupational therapy at half-way facility. Follow up with family doctor within 1 week of discharge. Follow up with orthopedics as scheduled. Addtl F[employer] Stripper Provider Instructions: [facility] DISCHARGE INSTRUCTIONS: HIP FRACTURE SELF CARE INSTRUCTIONS: A. You are to ambulate with a walker or crutches for approximately 6 weeks. B. You are WEIGHT BEARING TOLERATED on your operative lower extremity for at least 6 weeks. C. Wear low heeled shoes with non-slip soles D. Be sure that your floors are free of things that could trip you throw rugs, electrical cords, and small objects. Avoid wet and waxed floors, especially with crutches/walker/cane. E. Try to walk several times a day with rest periods between. F. You may shower 48 hours after surgery and get the incision area wet, but DO NOT soak or submerge incision area in water. (No baths, swimming pools, hot tubs) G. Do NOT apply soap or any ointment/lotions directly over incision. H. You may use ice as needed to operative site. SPECIAL CARE INSTRUCTIONS: VERY IMPORTANT TO READ AND REVIEW A. You may be at risk for phlebitis or blood clots. a. Wear surgical stockings (MILA hose) for 2 weeks after surgery to improve circulation and reduce swelling. b. Take ASPIRIN 81MG PO TWICE DAILY for 4 weeks or as directed. This is your blood thinner. B. There are a few signs you need to watch for after you are home. Call [facility] at [phone] if you experience any of the following: a. If you have a temperature of 101 degrees or higher. b. Sudden increase in pain in your hip not relieved by rest or pain medication. c. Any fluid or drainage from the incision; redness of the incision. d. Shortness of breath or chest pain. C. Call your physician if: a. Temperature is greater than 101 degrees (F). b. Pain is not relieved by prescribed pain medications. c. Increase drainage or redness from incision. d. Unanswered questions or concerns. D. Pain Medication: a. You will be prescribed pain medication upon discharge that should last till your first post-operative appointment. b. If you experience nausea and/or skin rash, discontinue this medication and contact our office for an alternative medication. c. Caution- narcotic pain medication can cause constipation. FOLLOW UP VISIT: Please call [facility] at [phone] to schedule a follow up appointment with Dr. Garcia in 2 weeks. Pending Studies at Discharge: No Stand-Alone Forms: My [facility] Skilled Items Patient informed of condition?: Yes DNR: No Discharge Level of Care: Skilled Communicable Disease: No Discharge Prognosis: Stable Lines: None Urinary Catheter: No Medications and DC Order Prescriptions: New sennosides-docusate sodium [Senokot-S] 8.6-50 mg Tablet 2 tab PO HS Qty: 60 0RF magnesium oxide 400 mg (241.3 mg magnesium) Tablet 400 mg PO TID Qty: 90 0RF Continued metoprolol succinate 50 mg tablet extended release 24 hr 50 mg PO BID Qty: 180 3RF Eliquis 2.5 mg tablet 2.5 mg PO BID Qty: 60 11RF Linzess 72 mcg capsule 72 mcg PO DAILY PRN (Reason: constipation) Qty: 30 11RF multivitamin [Multiple Vitamins] tablet 1 tab PO DAILY ascorbic acid (vitamin C) 1,000 mg tablet 1 g PO DAILY Myrbetriq 25 mg tablet extended release 24 hr 25 mg PO DAILY Qty: 90 3RF tamsulosin 0.4 mg capsule 0.4 mg PO BID Qty: 180 3RF cholecalciferol (vitamin D3) 2,000 unit tablet 2,000 units PO DAILY furosemide 20 mg tablet 20 mg PO Q OTHER DAY Qty: 30 3RF Discontinued lisinopril 10 mg tablet 10 mg PO DAILY Qty: 90 3RF hydrocodone-acetaminophen 7.5-325 mg tablet 1 tab PO Q6H PRN (Reason: pain) Qty: 60 0RF Discharge Orders: Discharge Order (Routine); Ordered 05/18/22 Ordered By: Batool Bess Admission Data Admit Date/Time: 05/07/22 18:37 Attending Provider: Xi Wright Admit Provider: Nigel Stevens Primary Care Provider: Blaze Cintron Other Providers: Vickey Geiger Other Interventions: Discharge Summary Assessment (RN) Last Done: 05/18/22 11:14 Supervising Physician Co-Signing Physician Notes PA Supervision Note: I personally saw and examined the patient. I verified all flood points and agree with TERA Bess with the following exceptions and/or additions: S-patient feeling well, no pain and ready for discharge O- Vitals reviewed Gen: AAOx2, NAD HEENT: Anicteric sclerae, EOMI CV: Irregularly irregular, normal rate no mgr nl S1S2 Pulm: CTAB no wcr Abd: +BS soft NT ND no masses or hernias Ext: No edema, 2+ DP pulses Skin: No rashes, warm/dry Neuro: Full strength throughout Labs reviewed A/C-[id number]-old male here with left hip fracture and acute blood loss anemia, now much improved and stable for discharge to rehab Coding Level of Care Code D/C DAY MANAGEMENT >30 MINS Diagnoses Closed left hip fracture S72.002A Acute blood loss anemia D62 Atrial fibrillation, permanent I48.21 Constipation K59.00 Hypertension I10 Osteoporosis M81.0 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
== END 2022-05-18 11:17 | DRG 522 ==
LOC: ED 13:52 → 2W 18:37 → SUATTDRO 18:37 → 2W 21:45 → 3N 05-16 23:05
DX: K59.00 Constipation, unspecified; D72.829 Elevated white blood cell count, unspecified; I11.0 Hypertensive heart disease with heart failure; Z79.01 Long term (current) use of anticoagulants; I47.2 Ventricular tachycardia; D62 Acute posthemorrhagic anemia; M80.052A Age-related osteoporosis with current pathological fracture, left femur, initial encounter for fracture; Z87.891 Personal history of nicotine dependence; I50.32 Chronic diastolic (congestive) heart failure; J98.01 Acute bronchospasm; I48.21 Permanent atrial fibrillation; I25.10 Atherosclerotic heart disease of native coronary artery without angina pectoris; Z91.030 Bee allergy status; R41.0 Disorientation, unspecified; E83.42 Hypomagnesemia; Z88.8 Allergy status to other drugs, medicaments and biological substances